=== PATIENT | female | born 1945 | race Caucasian/White ===

== ENCOUNTER → 2020-06-17 11:40 | Outpatient (BNVA) | payer OTHER, SELFPAY | PROVIDERS: PCP Internal Medicine; Referring Provider Internal Medicine; Visit Provider Nurse Practitioner Gerontology | DX: E11.9 Type 2 diabetes mellitus without complications (principal); I10 Essential (primary) hypertension; E78.5 Hyperlipidemia, unspecified | CPT/HCPCS: 99213 ==

== ENCOUNTER → 2020-09-23 08:19 | Outpatient (BNVA) | payer OTHER, SELFPAY | PROVIDERS: PCP Internal Medicine; Visit Provider Nurse Practitioner Gerontology | DX: Z13.89 Encounter for screening for other disorder (principal) | CPT/HCPCS: Q3014 ==

== ENCOUNTER 2020-10-06 08:39 | Outpatient (REF) | payer OTHER, SELFPAY ==
[2020-10-06 10:53] LABS: Estimated Average Glucose 154 mg/dL
== END 2020-10-06 08:40 | disposition home or self-care (01) ==
LOC: HO.10HDL 08:39
PROVIDERS: Visit Provider Nurse Practitioner Gerontology
DX: E11.65 Type 2 diabetes mellitus with hyperglycemia (principal)
CPT/HCPCS: 36415; 83036

== ENCOUNTER 2020-11-22 08:12 | Outpatient (REF) | payer OTHER, SELFPAY ==
[2020-11-22 10:28] LABS: Estimated Average Glucose 148 mg/dL; Hemoglobin A1c % 6.8 %
== END 2020-11-22 08:13 | disposition home or self-care (01) ==
LOC: HO.10HDL 08:12
PROVIDERS: Visit Provider Nurse Practitioner Gerontology
DX: E11.65 Type 2 diabetes mellitus with hyperglycemia (principal)
CPT/HCPCS: 36415; 83036

== ENCOUNTER → 2020-12-26 10:18 | Outpatient (BNVA) | payer OTHER, SELFPAY | PROVIDERS: PCP Internal Medicine; Visit Provider Nurse Practitioner Gerontology | DX: E11.9 Type 2 diabetes mellitus without complications (principal); E78.5 Hyperlipidemia, unspecified; I10 Essential (primary) hypertension | CPT/HCPCS: 82947; 99212 ==

== ENCOUNTER 2021-06-30 08:30 | Outpatient (REF) | payer OTHER, SELFPAY ==
[2021-06-30 10:17] LABS: Alanine Aminotransferase 27 U/L (0-31); Albumin Level 3.9 g/dL (3.5-5.0); Alkaline Phosphatase 53 U/L (39-117); Anion Gap 10 (12-20); Aspartate Amino Transferase 30 U/L (5-31); Bilirubin Total 0.4 mg/dL (0.0-1.0); Blood Urea Nitrogen 16 mg/dL (9-16); Carbon Dioxide 29 mmol/L (22-29); Chloride 106 mmol/L (96-108); Cholesterol 154 mg/dL; Estimated Glomerular Filt Rate > 60; Glucose Fasting 152 mg/dL (60-99); HDL Cholesterol 45 mg/dL; LDL Cholesterol Calculated 78 mg/dl; Sodium 141 mmol/L (135-145); Triglycerides 158 mg/dL
[2021-06-30 10:20] LABS: Cholesterol 153 mg/dL; HDL Cholesterol 45 mg/dL; LDL Cholesterol Calculated 77 mg/dl; Triglycerides 157 mg/dL
[2021-06-30 10:28] LABS: Creatinine Urine 118.71 mg/dL
[2021-06-30 10:40] LABS: Vitamin D 25-OH Total 21.1 ng/mL (>30)
[2021-07-01 09:02] LABS: LDL Cholesterol Direct 65 mg/dL (<100)
== END 2021-06-30 08:31 | disposition home or self-care (01) ==
LOC: HO.LAB 08:30
PROVIDERS: PCP Internal Medicine; Visit Provider Nurse Practitioner Gerontology
DX: E11.9 Type 2 diabetes mellitus without complications (principal); I10 Essential (primary) hypertension; Z78.0 Asymptomatic menopausal state
CPT/HCPCS: 36415; 80053; 80061; 82043; 82306; 83721

== ENCOUNTER → 2021-07-03 10:15 | Outpatient (BNVA) | payer OTHER, SELFPAY | PROVIDERS: PCP Internal Medicine; Visit Provider Nurse Practitioner Gerontology | DX: E78.5 Hyperlipidemia, unspecified (principal); E11.9 Type 2 diabetes mellitus without complications; E55.9 Vitamin D deficiency, unspecified; I10 Essential (primary) hypertension | CPT/HCPCS: 82947; 83036; 99212 ==

== ENCOUNTER 2021-07-27 08:42 | Outpatient (REF) | payer OTHER, SELFPAY ==
--- NOTE | ~2021-07-27 | MM_ITS ---
EXAMINATION: MM SCREENING DIGITAL BREAST TOMOSYNTHESIS, BILATERAL CLINICAL INFORMATION: Screening. Asymptomatic. The lifetime risk of breast cancer based on the Tyrer-Cuzick Model is 1.9%. COMPARISON: Mammography: June 07, 2020 and studies dating back to February 19, 2014 TECHNIQUE: Digital breast tomosynthesis is performed in both the craniocaudal and mediolateral oblique views along with computer-aided detection (CAD). Synthesized 2D images are generated from the tomosynthesis. FINDINGS: The breasts are almost entirely fatty (ACR BI-RADS breast composition Category a). There are no significant masses, abnormal calcifications, or other abnormalities. MM/MM tomosynthesis screening BI IMPRESSION: There are no significant changes from prior study. ASSESSMENT: BI-RADS 1: Negative RECOMMENDATION: Routine annual mammography screening. This patient's information was entered into a reminder system with a target due date for their next mammogram.
== END 2021-07-27 08:43 | disposition home or self-care (01) ==
LOC: HO.MAMMO 08:42
PROVIDERS: Visit Provider Internal Medicine
DX: Z12.31 Encounter for screening mammogram for malignant neoplasm of breast (principal)
CPT/HCPCS: 77063; 77067

== ENCOUNTER 2021-11-06 18:17 | Inpatient (IN) | payer OTHER, SELFPAY ==
--- NOTE | ~2021-11-06 | CT_ITS ---
CT SOFT TISSUE NECK WITHOUT CONTRAST CLINICAL INFORMATION: Question peritonsillar abscess. COMPARISON: Neck CT 04/08/2020. TECHNIQUE: Helical imaging was performed in the axial plane with generation of coronal and sagittal reformatted images. This CT examination was performed using dose optimization techniques as appropriate, variously including the following: *Automated exposure control *Adjustment of mA and/or kV according to patient size (this includes techniques or standardized protocols for targeted exams where dose is matched to indication/reason for exam; i.e. extremities or head) *Use of iterative reconstruction technique FINDINGS: Imaging findings compatible with acute left-sided submandibular sialoadenitis. There is enlargement of the left submandibular gland, there are inflammatory changes adjacent to the left submandibular gland, and there are multiple obstructing calculi within the distal aspect of [place]'s duct on the left side measuring 3 mm on image 40 of series 2 and 2 mm on image 37 of series 2. There are also multiple calculi within the left subarticular gland itself. Cellulitis is seen throughout the left submandibular space and there is also cellulitis within the left floor of mouth along [place]'s duct extending into the left submental region. Remaining fat planes within the floor of mouth are intact. No drainable fluid collections to suggest abscess on this noncontrast study. The thyroid gland and the parotid glands are unremarkable. Laryngeal structures are symmetric and unremarkable. There are no retropharyngeal fluid collections. Retropharyngeal course of the right cervical ICA. There is multilevel cervical spondylosis, greatest at C5-C6 and C6-C7. Hypertrophic degenerative changes at the atlantodental interval. Nonspecific reticulation and nodules within the partially imaged lungs bilaterally that can be further assessed with a contrast-enhanced CT of the chest to establish further imaging follow-up recommendations. Imaged upper mediastinum is unremarkable. CT/CT soft tissue neck wo con IMPRESSION: - Acute left submandibular sialoadenitis: There is enlargement of the left submandibular gland, there are inflammatory changes adjacent to the left submandibular gland, and there are multiple obstructing calculi within the distal aspect of [place]lar[place]'s duct on the left side measuring 3 mm on image 40 of series 2 and 2 mm on image 37 of series 2. There are also multiple calculi within the left subarticular gland itself. Cellulitis is seen throughout the left submandibular space and there is also cellulitis within the left floor of mouth along [place]'s duct extending into the left submental region. Remaining fat planes within the floor of mouth are intact. No drainable fluid collections to suggest abscess however assessment is limited on this noncontrast study. - Nonspecific reticulation and nodules within the partially imaged lungs bilaterally that can be further assessed with a contrast-enhanced CT of the chest to establish further imaging follow-up recommendations.
[2021-11-06 19:54] VITALS: BP 188/81; PULSE 69; RESP 16; TEMP 36.6; O2SAT 99; BMI 25.2
[2021-11-06 20:18] LABS: Strep A Nucleic Acid Negative (Negative)
[2021-11-06 21:04] LABS: MANUAL DIFF FLAG NO
[2021-11-06 21:06] LABS: Basophils Percent Auto 0.2 % (0-2); Eosinophils Absolute Auto 0.1 X10*3/uL (0.0-0.4); Eosinophils Percent Auto 0.8 % (0-4); Hematocrit 41.4 % (37.0-47.0); Imm Gran Abs Auto 0.02 X10*3/uL (0.00-0.03); Imm Gran Pct Auto 0.2 % (0.0-0.4); Lymphocytes Absolute Auto 2.7 X10*3/uL (1.2-4.9); Lymphocytes Percent Auto 28.3 % (20-40); Mean Corpuscular HGB Conc 33.8 g/dl (31.0-35.0); Mean Corpuscular Volume 94.7 fL (80.0-98.0); Mean Platelet Volume 9.9 fL (9.4-12.3); Monocytes Absolute Auto 0.8 X10*3/uL (0.1-1.2); Monocytes Percent Auto 8.8 % (2-11); Neutrophils Absolute Auto 5.9 x10*3/uL (2.0-8.3); Neutrophils Percent Auto 61.7 % (45-73); Platelet Count 185 X10*3/uL (160-400); Red Blood Count 4.37 X10*6/uL (4.20-5.50); Red Cell Distribution Width 13.4 % (11.0-16.0); White Blood Count 9.6 X10*3/uL (4.8-10.8)
[2021-11-06 21:21] LABS: Anion Gap 13 (12-20); Blood Urea Nitrogen 17 mg/dL (9-16); Calcium 9.7 mg/dL (8.4-10.2); Carbon Dioxide 28 mmol/L (22-29); Chloride 103 mmol/L (96-108); Creatinine Clr Calc Pharmacy 45.9; Estimated Glomerular Filt Rate 60; Glucose Random 160 mg/dL (60-115); Potassium 3.6 mmol/L (3.3-5.1); Sodium 140 mmol/L (135-145)
--- NOTE | 2021-11-06 23:47 | ED.GENADULT ---
HPI - General Adult General Chief complaint: General Medical <Rosi Boyle NP - Last Filed: 11/07/21 01:50> Stated complaint: swollen gland/ throat pain <Rosi Boyle NP - Last Filed: 11/07/21 01:50> Time Seen by Provider: 11/07/21 01:43 <Rosi Boyle NP - Last Filed: 11/07/21 01:50> Source: patient and family <Rosi Boyle NP - Last Filed: 11/07/21 01:50> Mode of arrival: ambulatory <Rosi Boyle NP - Last Filed: 11/07/21 01:50> Limitations: no limitations <Rosi Boyle NP - Last Filed: 11/07/21 01:50> History of Present Illness HPI narrative: 75-year-old female presents with 2 weeks of sore throat, left-sided swelling, left ear pain, and difficulty swallowing. Today she was unable to swallow saliva, is in 10/10 pain and is having a difficult time lying back. <Rosi Boyle NP - Last Filed: 11/07/21 01:50> Onset (ago): week(s) <Rosi Boyle NP - Last Filed: 11/07/21 01:50> Location: mouth and neck <Rosi Boyle NP - Last Filed: 11/07/21 01:50> Severity: severe <Rosi Boyle NP - Last Filed: 11/07/21 01:50> Severity scale (1-10): 10 <Rosi Boyle NP - Last Filed: 11/07/21 01:50> Quality: aching and constant <Rosi Boyle NP - Last Filed: 11/07/21 01:50> Pain Consistency: constant <Rosi Boyle NP - Last Filed: 11/07/21 01:50> Relieving factors: none <Rosi Boyle NP - Last Filed: 11/07/21 01:50> Exacerbating factors: eating and movement <Rosi Boyle NP - Last Filed: 11/07/21 01:50> Associated symptoms: denies other symptoms <Rosi Boyle NP - Last Filed: 11/07/21 01:50> Treatments prior to arrival: none <Rosi Boyle NP - Last Filed: 11/07/21 01:50> Related Data Home medications: Home Medications Medication Instructions Recorded Confirmed loratadine 10 mg tablet (Claritin) 10 mg PO DAILY 06/17/20 11/01/21 meclizine 25 mg tablet 25 mg PO DAILY 06/17/20 11/01/21 flu vacc 2020-21(65yr 0.5 ml IM DIRECTED 07/25/20 11/01/21 up)-MF59C(PF) 60 mcg(15 mcgx4)/0.5 mL IM syringe escitalopram oxalate 10 mg tablet 10 mg PO DAILY 07/03/21 11/01/21 rivastigmine 1 patch TOPICAL QAM 07/31/21 11/01/21 Previous Rx's Medication Instructions Recorded cane #1 ea 07/25/20 tub safety bar #1 ea 07/25/20 rosuvastatin 20 mg tablet 20 mg PO DAILY #90 tab 07/29/20 blood-glucose meter (FreeStyle #1 ea 08/10/20 Lite Meter) hydrocortisone acetate 25 mg 25 mg [place] BEDTIME #12 ea 01/23/21 rectal suppository cholecalciferol (vitamin D3) 50 50 mcg PO DAILY #90 cap 07/03/21 mcg (2,000 unit) capsule blood sugar diagnostic (FreeStyle #150 ea 08/07/21 Lite Strips) lancets 28 gauge (FreeStyle #200 ea 08/09/21 Lancets) dulaglutide 1.5 mg/0.5 mL 1.5 mg (0.5 mL) SUBCUT QWEEK 28 11/01/21 subcutaneous pen injector Days #6 ml (Trulicity) <Rosi Boyle NP - Last Filed: 11/07/21 01:50> Allergies/adverse reactions: Allergies Allergy/AdvReac Type Severity Reaction Status Date / Time pineapple [PINEAPPLE] Allergy Intermediate SKIN PEELS Verified 11/06/21 20:02 Iodinated Contrast Media Allergy Mild HIVES Verified 11/06/21 20:02 [IV Dye, Iodine Containing] donepezil AdvReac Intermediate nausea, Verified 11/06/21 20:02 dizziness and vomiting pioglitazone AdvReac Intermediate edema Verified 11/06/21 20:02 amitriptyline [From Elavil] AdvReac Mild NAUSEA & Verified 11/06/21 20:02 VOMITING amoxicillin [Amoxicillin] AdvReac Mild NAUSEA & Verified 11/06/21 20:02 VOMITING codeine AdvReac Mild NAUSEA & Verified 11/06/21 20:02 [From Tylenol-Codeine] VOMITING lisinopril [Lisinopril] AdvReac Mild NAUSEA & Verified 11/06/21 20:02 VOMITING acetaminophen [Tylenol] AdvReac Unknown tylenol 3 Verified 11/06/21 20:02 (states regulare tylenol upset stomach as well) aspirin [Aspirin] AdvReac Unknown NAUSEA & Verified 11/06/21 20:02 VOMITING oxycodone [Percocet] AdvReac Unknown stomach Verified 11/06/21 20:02 upset tramadol [From Ultram] AdvReac Unknown NAUSEA & Verified 11/06/21 20:02 VOMITING <Rosi Boyle NP - Last Filed: 11/07/21 01:50> Review of Systems Review of Systems: Constitutional: No Fever, No Chills ENT/Mouth: Positive left Ear Pain, No Hoarseness, positive sore throat, positive left-sided and neck throat swelling Eyes: No Eye Pain, No Swelling, No Redness, No Foreign Body Cardiovascular: No Chest Pain, No SOB Respiratory: No Cough, No Dyspnea Gastrointestinal: No Nausea, No Vomiting, No Diarrhea, No abdominal Pain Genitourinary: No Dysuria, No Hematuria Musculoskeletal: positive neck pain, No Myalgias, No Joint Swelling Skin: No Skin lacerations, No rash Neuro: No Weakness, No Numbness, No Paresthesias, No Loss of Consciousness, No Dizziness, No Headache Psych: Positive Anxiety no Panic, No Depression Heme/Lymph: no easy bruising, no Lymphadenopathy Endocrine: No Polyuria, No Polydipsia <JONATHAN Cruz Last Filed: 11/07/21 01:50> Yes all other systems are reviewed and are negative <JONATHAN Cruz Last Filed: 11/07/21 01:50> [facility] Past Medical History Attestation statement: The following information was validated with the patient. <JONATHAN Cruz Last Filed: 11/07/21 01:50> Source: old records reviewed <JONATHAN Cruz Last Filed: 11/07/21 01:50> Medical History: Medical History Anxiety Balance disorder Controlled diabetes mellitus without complication, without long-term current use of insulin Hemorrhoid Hyperlipidemia LDL goal <100 Hypertension Lumbar scoliosis Osteoarthritis Sensorineural hearing loss Type 2 diabetes mellitus with hyperglycemia, without long-term current use of insulin Vitamin D deficiency <Rosi Boyle NP - Last Filed: 11/07/21 01:50> Surgical History: Surgical History History of bladder suspension procedure Hx of cholecystectomy <Rosi Boyle NP - Last Filed: 11/07/21 01:50> Family History Family History: Family History Father Pulmonary disease Mother Liver cirrhosis Diabetes Other Mental health disorder <Rosi Boyle NP - Last Filed: 11/07/21 01:50> Social History Social History: Social History Household Members: None Housing: Apartment Housing Other:: apartment for custodial Alcohol intake: never Patient Tobacco Use Status: Never used Tobacco Advance Directives: No Current occupational status: retired <Rosi Boyle NP - Last Filed: 11/07/21 01:50> Physical Exam ED Vital Signs: Vital Signs - 24 hr 11/06/21 19:54 11/07/21 00:06 Temperature 97.9 F 99.3 F Pulse Rate 69 74 Respiratory Rate 16 24 H Blood Pressure 188/81 H 175/70 H Pulse Oximetry 99 100 BMI result Body Mass Index 25.2 <Rosi Boyle NP - Last Filed: 11/07/21 01:50> Vital Signs - 24 hr 11/06/21 19:54 11/07/21 00:06 Temperature 97.9 F 99.3 F Pulse Rate 69 74 Respiratory Rate 16 24 H Blood Pressure 188/81 H 175/70 H Pulse Oximetry 99 100 BMI result Body Mass Index 25.2 <Dylon Horvath MD - Last Filed: 11/07/21 01:50> Appearance: Alert. Oriented X3. Moderate distress. Eyes: Pupils equal, round and reactive to light. ENT: Unable to visualize pharynx. Mallampati 4. Trismus. No tracheal stridor. Neck: Swelling to the left side. Left-sided cervical lymphadenopathy noted. CVS: Normal heart rate and rhythm. Pulses normal. Respiratory: Tachypneic. Breath sounds normal. Abdomen: Soft and nontender. Skin: Skin warm and dry. Normal skin color. Normal skin turgor. Extremities: No lower extremity edema. Gait balanced and coordinated. Neuro: No motor deficit. No sensory deficit. Unable to properly assess cranial nerves as patient is unable to move her tongue and uvula is not visualized. <Rosi Boyle NP - Last Filed: 11/07/21 01:50> Course Course Course Narrative: 75-year-old female presents with 2 weeks of left-sided throat pain and swelling. Has having a difficult time swallowing today. Has not had anything to eat or drink for the past 2 days because of difficulty swallowing. She is spitting out her saliva. Unable to open her mouth completely, consistent with trismus. Patient is tachypneic. Order for Decadron, Zosyn, morphine, and Zofran. 00:15 discussion with Darrick,, Dr. moser ENT on-call, does not feel that this is an ENT candidate. Requires IV antibiotics and Decadron. Also, [facility] is not open to non stable transfers. Dr. Brown in to attempt to remove stone in the [place] duct. 3 mm stone removed with some purulent fluid expression. Patient tolerated procedure. Multiple discussions with hospitalist, plan of care is for patient to stay in the emergency department with 24 hours of IV antibiotics and referral to ENT. 01:[address] Alvarez. <Rosi Boyle NP - Last Filed: 11/07/21 01:50> Consultations Consultation #1: [facility]rick <Rosi Boyle NP - Last Filed: 11/07/21 01:50> Time: 00:15 <Rosi Boyle NP - Last Filed: 11/07/21 01:50> Medical Decision Making MDM Narrative Medical decision making narrative: Patient with left submandibular sialodenitis and sialolithiasis with stone in the Banks duct for last 2 weeks with no airway compromise no abscess collection. Stone was felt in left [place] duct and milk it out using fingers and q tip, a stone of 3 mm was expressed out. post expression patient saliva was coming out from the Banks duct opening. Patient felt much better. Case discussed with hospitalist who refused admission as patient has more stones in the salivary gland although hospitalist was informed that there was no more stone in the duct as such as it was expressed out but as we do not have ENT coverage in our hospital admission was refused. Unable to transfer the patient to [facility] as case discussed with ENT surgeon at [facility] who does not think is an emergency for transfer which was informed to our hospitalist also. Will patient keep the patient in the ER today till AM and get the ENT consult for further management as patient need antibiotics treatment for cellulitis <Dylon Horvath MD - Last Filed: 11/07/21 01:50> Differential Diagnosis Differential Diagnosis: Strep pharyngitis, sialadenditis, tonsillar stone, parotiditis <Rosi Boyle NP - Last Filed: 11/07/21 01:50> Medical Records Medical records reviewed: Yes I reviewed the patient's medical records. <Rosi Boyle NP - Last Filed: 11/07/21 01:50> Lab Data Lab results reviewed: Yes I reviewed the patient's lab results. <Rosi Boyle NP - Last Filed: 11/07/21 01:50> Result diagrams: : 11/06/21 20:59 11/06/21 20:59 <Rosi Boyle NP - Last Filed: 11/07/21 01:50> Labs: Lab Results 11/06/21 11/06/21 11/06/21 Range/Units 20:05 20:59 20:59 WBC 9.6 (4.8-10.8) X10*3/uL RBC 4.37 (4.20-5.50) X10*6/uL Hgb 14.0 (12.0-16.0) g/dl Hct 41.4 (37.0-47.0) % MCV 94.7 (80.0-98.0) fL MCH 32.0 (27.0-33.0) pg MCHC 33.8 (31.0-35.0) g/dl RDW 13.4 (11.0-16.0) % Plt Count 185 (160-400) X10*3/uL MPV 9.9 (9.4-12.3) fL Immature Gran % (Auto) 0.2 (0.0-0.4) % Neut % (Auto) 61.7 (45-73) % Lymph % (Auto) 28.3 (20-40) % [place] % (Auto) 8.8 (2-11) % Eos % (Auto) 0.8 (0-4) % Baso % (Auto) 0.2 (0-2) % Lymph # (Auto) 2.7 (1.2-4.9) X10*3/uL [place] # (Auto) 0.8 (0.1-1.2) X10*3/uL Eos # (Auto) 0.1 (0.0-0.4) X10*3/uL Baso # (Auto) 0.0 (0.0-0.2) X10*3/uL Abs Immat Gran (auto) 0.02 (0.00-0.03) X10*3/uL Absolute Neuts (auto) 5.9 (2.0-8.3) x10*3/uL Absolute Nucleated RBC 0.000 (0.0-0.012) X10*3/uL Nucleated RBC % (auto) 0.0 (0.0-0.2) /100WBC Sodium 140 (135-145) mmol/L Potassium 3.6 (3.3-5.1) mmol/L Chloride 103 (96-108) mmol/L Carbon Dioxide 28 (22-29) mmol/L Anion Gap 13 (12-20) BUN 17 H (9-16) mg/dL Creatinine 0.92 (0.5-1.4) mg/dL Estim Creat Clear Calc 45.9 Estimated GFR 60 Random Glucose 160 H (60-115) mg/dL Calcium 9.7 D (8.4-10.2) mg/dL COVID-19 ([facility]) (Negative) COVID-19 Clin Com S. pyogenes GrpA RHYS Negative (Negative) 11/07/21 Range/Units 00:14 WBC (4.8-10.8) X10*3/uL RBC (4.20-5.50) X10*6/uL Hgb (12.0-16.0) g/dl Hct (37.0-47.0) % MCV (80.0-98.0) fL MCH (27.0-33.0) pg MCHC (31.0-35.0) g/dl RDW (11.0-16.0) % Plt Count (160-400) X10*3/uL MPV (9.4-12.3) fL Immature Gran % (Auto) (0.0-0.4) % Neut % (Auto) (45-73) % Lymph % (Auto) (20-40) % [place] % (Auto) (2-11) % Eos % (Auto) (0-4) % Baso % (Auto) (0-2) % Lymph # (Auto) (1.2-4.9) X10*3/uL [place] # (Auto) (0.1-1.2) X10*3/uL Eos # (Auto) (0.0-0.4) X10*3/uL Baso # (Auto) (0.0-0.2) X10*3/uL Abs Immat Gran (auto) (0.00-0.03) X10*3/uL Absolute Neuts (auto) (2.0-8.3) x10*3/uL Absolute Nucleated RBC (0.0-0.012) X10*3/uL Nucleated RBC % (auto) (0.0-0.2) /100WBC Sodium (135-145) mmol/L Potassium (3.3-5.1) mmol/L Chloride (96-108) mmol/L Carbon Dioxide (22-29) mmol/L Anion Gap (12-20) BUN (9-16) mg/dL Creatinine (0.5-1.4) mg/dL Estim Creat Clear Calc Estimated GFR Random Glucose (60-115) mg/dL Calcium (8.4-10.2) mg/dL COVID-19 ([facility]) Negative (Negative) COVID-19 Clin Com See Note S. pyogenes GrpA RHYS (Negative) <Rosi Boyle NP - Last Filed: 11/07/21 01:50> Lab Results 11/06/21 11/06/2111/06/22 Range/Units 20:05 20:59 20:59 WBC 9.6 (4.8-10.8) X10*3/uL RBC 4.37 (4.20-5.50) X10*6/uL Hgb 14.0 (12.0-16.0) g/dl Hct 41.4 (37.0-47.0) % MCV 94.7 (80.0-98.0) fL MCH 32.0 (27.0-33.0) pg MCHC 33.8 (31.0-35.0) g/dl RDW 13.4 (11.0-16.0) % Plt Count 185 (160-400) X10*3/uL MPV 9.9 (9.4-12.3) fL Immature Gran % (Auto) 0.2 (0.0-0.4) % Neut % (Auto) 61.7 (45-73) % Lymph % (Auto) 28.3 (20-40) % [place] % (Auto) 8.8 (2-11) % Eos % (Auto) 0.8 (0-4) % Baso % (Auto) 0.2 (0-2) % Lymph # (Auto) 2.7 (1.2-4.9) X10*3/uL [place] # (Auto) 0.8 (0.1-1.2) X10*3/uL Eos # (Auto) 0.1 (0.0-0.4) X10*3/uL Baso # (Auto) 0.0 (0.0-0.2) X10*3/uL Abs Immat Gran (auto) 0.02 (0.00-0.03) X10*3/uL Absolute Neuts (auto) 5.9 (2.0-8.3) x10*3/uL Absolute Nucleated RBC 0.000 (0.0-0.012) X10*3/uL Nucleated RBC % (auto) 0.0 (0.0-0.2) /100WBC Sodium 140 (135-145) mmol/L Potassium 3.6 (3.3-5.1) mmol/L Chloride 103 (96-108) mmol/L Carbon Dioxide 28 (22-29) mmol/L Anion Gap 13 (12-20) BUN 17 H (9-16) mg/dL Creatinine 0.92 (0.5-1.4) mg/dL Estim Creat Clear Calc 45.9 Estimated GFR 60 Random Glucose 160 H (60-115) mg/dL Calcium 9.7 D (8.4-10.2) mg/dL COVID-19 ([facility]) (Negative) COVID-19 Clin Com S. pyogenes GrpA RHYS Negative (Negative) 11/07/21 Range/Units 00:14 WBC (4.8-10.8) X10*3/uL RBC (4.20-5.50) X10*6/uL Hgb (12.0-16.0) g/dl Hct (37.0-47.0) % MCV (80.0-98.0) fL MCH (27.0-33.0) pg MCHC (31.0-35.0) g/dl RDW (11.0-16.0) % Plt Count (160-400) X10*3/uL MPV (9.4-12.3) fL Immature Gran % (Auto) (0.0-0.4) % Neut % (Auto) (45-73) % Lymph % (Auto) (20-40) % [place] % (Auto) (2-11) % Eos % (Auto) (0-4) % Baso % (Auto) (0-2) % Lymph # (Auto) (1.2-4.9) X10*3/uL [place] # (Auto) (0.1-1.2) X10*3/uL Eos # (Auto) (0.0-0.4) X10*3/uL Baso # (Auto) (0.0-0.2) X10*3/uL Abs Immat Gran (auto) (0.00-0.03) X10*3/uL Absolute Neuts (auto) (2.0-8.3) x10*3/uL Absolute Nucleated RBC (0.0-0.012) X10*3/uL Nucleated RBC % (auto) (0.0-0.2) /100WBC Sodium (135-145) mmol/L Potassium (3.3-5.1) mmol/L Chloride (96-108) mmol/L Carbon Dioxide (22-29) mmol/L Anion Gap (12-20) BUN (9-16) mg/dL Creatinine (0.5-1.4) mg/dL Estim Creat Clear Calc Estimated GFR Random Glucose (60-115) mg/dL Calcium (8.4-10.2) mg/dL COVID-19 ([facility]) Negative (Negative) COVID-19 Clin Com See Note S. pyogenes GrpA RHYS (Negative) <Dylon Horvath MD - Last Filed: 11/07/21 01:50> Imaging Data CT neck soft tissue: Attestation: I personally reviewed and interpreted this imaging study as follows: <Rosi Boyle NP - Last Filed: 11/07/21 01:50> Radiologist's impression: CT SOFT TISSUE NECK WITHOUT CONTRAST CLINICAL INFORMATION: Question peritonsillar abscess.? COMPARISON: Neck CT 04/08/2020. TECHNIQUE: Helical imaging was performed in the axial plane with generation of coronal and sagittal reformatted images. This CT examination was performed using dose optimization techniques as appropriate, variously including the following: *Automated exposure control *Adjustment of mA and/or kV according to patient size (this includes techniques or standardized protocols for targeted exams where dose is matched to indication/reason for exam; i.e. extremities or head) *Use of iterative reconstruction technique FINDINGS: Imaging findings compatible with acute left-sided submandibular sialoadenitis. There is enlargement of the left submandibular gland, there are inflammatory changes adjacent to the left submandibular gland, and there are multiple obstructing calculi within the distal aspect of Klarissa's duct on the left side measuring 3 mm on image 40 of series 2 and 2 mm on image 37 of series 2. There are also multiple calculi within the left subarticular gland itself. Cellulitis is seen throughout the left submandibular space and there is also cellulitis within the left floor of mouth along Banks's duct extending into the left submental region. Remaining fat planes within the floor of mouth are intact. No drainable fluid collections to suggest abscess on this noncontrast study. The thyroid gland and the parotid glands are unremarkable. Laryngeal structures are symmetric and unremarkable. There are no retropharyngeal fluid collections. Retropharyngeal course of the right cervical ICA. There is multilevel cervical spondylosis, greatest at C5-C6 and C6-C7. Hypertrophic degenerative changes at the atlantodental interval. Nonspecific reticulation and nodules within the partially imaged lungs bilaterally that can be further assessed with a contrast-enhanced CT of the chest to establish further imaging follow-up recommendations. Imaged upper mediastinum is unremarkable. CT/CT soft tissue neck wo con IMPRESSION: - Acute left submandibular sialoadenitis: There is enlargement of the left submandibular gland, there are inflammatory changes adjacent to the left submandibular gland, and there are multiple obstructing calculi within the distal aspect of Banks's duct on the left side measuring 3 mm on image 40 of series 2 and 2 mm on image 37 of series 2. There are also multiple calculi within the left subarticular gland itself. Cellulitis is seen throughout the left submandibular space and there is also cellulitis within the left floor of mouth along Banks's duct extending into the left submental region. Remaining fat planes within the floor of mouth are intact. No drainable fluid collections to suggest abscess however assessment is limited on this noncontrast study. ? - Nonspecific reticulation and nodules within the partially imaged lungs bilaterally that can be further assessed with a contrast-enhanced CT of the chest to establish further imaging follow-up recommendations. <oRsi Boyle NP - Last Filed: 11/07/21 01:50> Discharge Plan Discharge Clinical Impression: Calculus in salivary duct, Cellulitis of submandibular region <Rosi Boyle NP - Last Filed: 11/07/21 01:50> Patient Disposition: Still a Patient <Rosi Boyle NP - Last Filed: 11/07/21 01:50> Prescriptions: No Action rosuvastatin 20 mg tablet 20 mg PO DAILY Qty: 90 8RF (DME) blood-glucose meter [FreeStyle Lite Meter] Kit See Rx Instructions .ROUTE .MEDSUPPLY Qty: 1 0RF Rx Instructions: Use to check blood sugars twice a day before meals (DME) FreeStyle Lite Strips Strip See Rx Instructions .ROUTE .MEDSUPPLY Qty: 150 8RF Rx Instructions: check blood sugar four times a day (DME) lancets [FreeStyle Lancets] 28 gauge misc See Rx Instructions .ROUTE .MEDSUPPLY Qty: 200 8RF Rx Instructions: four times a day Trulicity 1.5 mg/0.5 mL pen injector 1.5 mg subcut QWEEK 28 Days Qty: 6 1RF flu vac 2020 [id number](PF) 60 mcg (15 mcg x 4)/0.5 mL syringe 0.5 ml IM DIRECTED 0RF (DME) cane Device See Rx Instructions .ROUTE .MEDSUPPLY Qty: 1 0RF Rx Instructions: use as directed (DME) tub safety bar See Rx Instructions .Route .MEDSUPPLY Qty: 1 0RF Rx Instructions: As directed hydrocortisone acetate 25 mg suppository 25 mg W[place] BEDTIME Qty: 12 0RF rivastigmine 4.6 mg/24 hour patch 24 hour 1 patch topical QAM 0RF loratadine [Claritin] 10 mg tablet 10 mg PO DAILY 0RF meclizine 25 mg tablet 25 mg PO DAILY 0RF escitalopram oxalate 10 mg tablet 10 mg PO DAILY 0RF cholecalciferol (vitamin D3) 50 mcg (2,000 unit) capsule 50 mcg PO DAILY Qty: 90 0RF <Rosi Boyle [employer] - Last Filed: 11/07/21 01:50>
[2021-11-07] VITALS (11 sets, daily range): BP systolic 108–175; BP diastolic 56–81; PULSE 65–92; RESP 16–185; TEMP 36.5–37.4; O2SAT 89–100
[2021-11-07] MEDS: Piperacillin Sodium/Tazobactam 3.375 GM in 0.9 % Sodium Chloride 50 ML IV ×3 (00:25→16:03)
[2021-11-07] MEDS: ondansetron HCL 4 MG/2 ML VIAL IVPUSH ×3 (00:26→20:58)
[2021-11-07] MEDS: dexAMETHasone sod phosphate 10 MG/ML VIAL IVPUSH (00:26)
[2021-11-07] MEDS: Morphine Sulfate 4 MG/ML CARTRIDGE IVPUSH ×2 (00:26→07:42)
[2021-11-07] MEDS: 0.9 % Sodium Chloride 1,000 ML 999 ML IVCONT (00:28)
[2021-11-07 00:33] LABS: COVID-19 Test Negative (Negative)
[2021-11-07] MEDS: Ketorolac Tromethamine 15 MG/ML VIAL IVPUSH (01:07)
--- NOTE | 2021-11-07 07:27 | PC.NURSE ---
pt alert and oriented, skin appropriate, respirations even and unlabored, speaking in full clear sentences, some swelling visible in the throat area but able to handle her own secretions at this time, pain when patient is swallowing, ns on the monitor, vs stable
--- NOTE | 2021-11-07 08:32 | PC.NURSE ---
oxygen level dropping when the pt is sleeping, dropped to 89% on room air, pt put on nasal cannual at 2l
--- NOTE | 2021-11-07 11:36 | PC.NURSE ---
patient in no obvious distress at this time. daughter at bedside. made aware of care of plan. denies any needs at this time. will continue to monitor
--- NOTE | 2021-11-07 13:49 | PHA.MEDREC ---
med rec complete, no issues Pharmacy Consult ? Medication Reconciliation Pharmacy has completed the medication reconciliation.
--- NOTE | 2021-11-07 13:54 | PM.IMHP ---
History of Present Illness Date of Service: 11/07/21 Attending physician on admission: Cynthia Palomino Chief Complaint: cellulitis 75-year-old female with past medical history of diabetes, hypertension, hyperlipidemia, possible dementia, anxiety: Came to the hospital because has 2 weeks history of mouth pain very dominant LE on the left submandibular area and was having bold active swelling, she s aid pain progressively getting worse and yesterday was on be able so came to the hospital. She was also having difficulty swelling because of the pain. She denies any chest pain or [place] or blurry vision or headache or weakness no numbness, Denies any shortness of breath or any of it compromise. The submandibular pain was going back to the left ear area. Five yesterday night in the ED: ?Stone was felt in left Klarissa duct and milk it out using fingers and q tip, a stone of 3 mm was expressed out. post expression patient? saliva was coming out from the Klarissa duct opening. Since the stone was out and saliva of as draining patient patient has been is improving but still has significant pain in the area. CT of neck also shows question of cellulitis. But patient has more swelling/pain and some mandibular area . In the ED patient received: Dexamethasone, IV dosing coma Toradol, morphine, iv zosyn- ED physician Dr. walsh: Discussed the case with Dr. Ochoa ENT and requested admission for above-started on iv. Review of Systems Review of Systems: As above. [facility] Medical History Anxiety Balance disorder Controlled diabetes mellitus without complication, without long-term current use of insulin Hemorrhoid Hyperlipidemia LDL goal <100 Hypertension Lumbar scoliosis Osteoarthritis Sensorineural hearing loss Type 2 diabetes mellitus with hyperglycemia, without long-term current use of insulin Vitamin D deficiency Family History Father Pulmonary disease Mother Liver cirrhosis Diabetes Other Mental health disorder Pertinent family history: But other has hypertension, history of CVA, mi. And has history of CVA Mother had history of diabetes. Surgical History History of bladder suspension procedure Hx of cholecystectomy Social History Household Members: None Housing: Apartment Housing Other:: apartment for fpc Alcohol intake: never Patient Tobacco Use Status: Never used Tobacco Use of substances other than those prescribed or required for medical reasons: No Advance Directives: No Current occupational status: retired Meds Allergies Allergy/AdvReac Type Severity Reaction Status Date / Time pineapple [PINEAPPLE] Allergy Intermediate SKIN PEELS Verified 11/06/21 20:02 Iodinated Contrast Media Allergy Mild HIVES Verified 11/06/21 20:02 [IV Dye, Iodine Containing] donepezil AdvReac Intermediate nausea, Verified 11/06/21 20:02 dizziness and vomiting pioglitazone AdvReac Intermediate edema Verified 11/06/21 20:02 amitriptyline [From Elavil] AdvReac Mild NAUSEA & Verified 11/06/21 20:02 VOMITING amoxicillin [Amoxicillin] AdvReac Mild NAUSEA & Verified 11/06/21 20:02 VOMITING codeine AdvReac Mild NAUSEA & Verified 11/06/21 20:02 [From Tylenol-Codeine] VOMITING lisinopril [Lisinopril] AdvReac Mild NAUSEA & Verified 11/06/21 20:02 VOMITING acetaminophen [Tylenol] AdvReac Unknown tylenol 3 Verified 11/06/21 20:02 (states regulare tylenol upset stomach as well) aspirin [Aspirin] AdvReac Unknown NAUSEA & Verified 11/06/21 20:02 VOMITING oxycodone [Percocet] AdvReac Unknown stomach Verified 11/06/21 20:02 upset tramadol [From Ultram] AdvReac Unknown NAUSEA & Verified 11/06/21 20:02 VOMITING Active Medications: Current Medications Dexamethasone Sodium Phosphate (Dexamethasone Sod Phosphate 4 Mg/Ml Vial) 6 mg IVPUSH DAILY SHERYL Dextrose (Dextrose 50 % 25 Gm/50 Ml Syringe) 25 gm IVPUSH Q15M PRN; Protocol PRN Reason: per Hypoglycemia Standing Ord. Glucose (Glucose Gel 15 Gm Gel..Gram.) 15 gm PO Q15M PRN; Protocol PRN Reason: per Hypoglycemia Standing Ord. Piperacillin Sod/Tazobactam (Sod 3.375 gm/ Sodium Chloride) 50 mls @ 100 mls/hr IV Q8H SHERYL Stop: 11/08/21 07:59 Last Infusion: 11/07/21 08:20 Dose: Infused Documented by: Insulin Human Lispro (Insulin Lispro 100 Unit/Ml 3 Ml Vial) 0 unit SUBCUT QIDACHS [facility]; Protocol Lidocaine/Diphenhydr/Alum/Mg/Simeth (Mag&Al/Sim/Diphenhyd/Lidocaine 10 Ml Oral.Susp) 10 ml PO Q4H [facility]; Protocol Omeprazole (Omeprazole 20 Mg Capsule.Dr) 20 mg PO DAILY [facility] Ondansetron HCl (Ondansetron Hcl 4 Mg/2 Ml Vial) 4 mg IVPUSH Q6H [facility] Pharmacy Consult (Consult Rx Perform Med Rec) 1 each MISCELLANE ONCE PRN PRN Reason: Consult order Sodium Chloride (0.9 % Sodium Chloride Flush 3 Ml Syringe) 3 ml IVFLUSH QSHIFT [facility] Home Medications Medication Instructions Recorded Confirmed Last Taken Type loratadine 10 mg tablet (Claritin) 10 mg PO DAILY PRN 06/17/20 11/07/21 Unknown History escitalopram oxalate 10 mg tablet 10 mg PO DAILY 07/03/21 11/07/21 Unknown History dulaglutide 1.5 mg/0.5 mL 1.5 mg SUBCUT TH@1000 11/07/21 11/07/21 Unknown History subcutaneous pen injector (Trulicity) memantine 5 mg tablet 5 mg PO DAILY 11/07/21 11/07/21 Unknown History rivastigmine tartrate 1.5 mg 1.5 mg PO BID 11/07/21 11/07/21 Unknown History capsule Physical Exam Vital Signs and Narrative: Vital Signs: Last Vital Signs Temp 99.3 F 11/07/21 00:06 Pulse 81 11/07/21 11:35 Resp 17 11/07/21 11:35 BP 122/81 11/07/21 11:35 Pulse Ox 98 11/07/21 11:35 BMI result Body Mass Index 25.2 Appearance: Alert.? Oriented X3.? not in distress.? Eyes: Pupils equal, round and reactive to light.? Sclera nonicteric.? ENT: Pharynx normal , has left submandibular swelling , buccal mucosa area seems clear both buccal area , no discharge cvs: [id number], [id number] , no murmur res: clear to auscultation ,no rhonchii or wheezing abd: no rebound or guarding ,nt, bs present. ext pulses present , no cyanosis ,Gait well balanced well coordinated. neuro: axo3 , nonfocal. Results Labs CBC and Chem 7: 11/06/21 20:59 11/06/21 20:59 Labs: Laboratory Results - last 24 hr 11/06/21 11/06/21 11/06/21 20:05 20:59 20:59 MCV 94.7 MCH 32.0 MCHC 33.8 RDW 13.4 Plt Count 185 MPV 9.9 Immature Gran % (Auto) 0.2 Neut % (Auto) 61.7 Lymph % (Auto) 28.3 Winston % (Auto) 8.8 Eos % (Auto) 0.8 Baso % (Auto) 0.2 Lymph # (Auto) 2.7 Winston # (Auto) 0.8 Eos # (Auto) 0.1 Baso # (Auto) 0.0 Abs Immat Gran (auto) 0.02 Absolute Neuts (auto) 5.9 Absolute Nucleated RBC 0.000 Nucleated RBC % (auto) 0.0 Anion Gap 13 Estim Creat Clear Calc 45.9 Estimated GFR 60 Random Glucose 160 H Calcium 9.7 D COVID-19 ([facility]) COVID-19 Clin Com S. pyogenes GrpA RHYS Negative 11/07/21 00:14 MCV MCH MCHC RDW Plt Count MPV Immature Gran % (Auto) Neut % (Auto) Lymph % (Auto) Winston % (Auto) Eos % (Auto) Baso % (Auto) Lymph # (Auto) Winston # (Auto) Eos # (Auto) Baso # (Auto) Abs Immat Gran (auto) Absolute Neuts (auto) Absolute Nucleated RBC Nucleated RBC % (auto) Anion Gap Estim Creat Clear Calc Estimated GFR Random Glucose Calcium COVID-19 ([facility]) Negative COVID-19 Clin Com See Note S. pyogenes GrpA RHYS Imaging Radiologist's Impressions: Impressions Soft Tissue Neck CT 11/06/21 20:42 IMPRESSION: - Acute left submandibular sialoadenitis: There is enlargement of the left submandibular gland, there are inflammatory changes adjacent to the left submandibular gland, and there are multiple obstructing calculi within the distal aspect of Klarissa's duct on the left side measuring 3 mm on image 40 of series 2 and 2 mm on image 37 of series 2. There are also multiple calculi within the left subarticular gland itself. Cellulitis is seen throughout the left submandibular space and there is also cellulitis within the left floor of mouth along Osage's duct extending into the left submental region. Remaining fat planes within the floor of mouth are intact. No drainable fluid collections to suggest abscess however assessment is limited on this noncontrast study. - Nonspecific reticulation and nodules within the partially imaged lungs bilaterally that can be further assessed with a contrast-enhanced CT of the chest to establish further imaging follow-up recommendations. Assessment and Plan (1) Calculus in salivary duct: Status: Acute Plan 75-year-old female with history of diabetes, hypertension, hyperlipidemia came with Acute left submandibular sialoadenitis. 1.acute left submandibular sialoadenitis. ct scan: ? cellulitis /multiple calculi within the left subarticular gland itself.? Osage's duct stone removed last night Continue pain management with IV Dilaudid, sucking candy to increase elevation, dexamethasone for inflammation and IV antibiotic started as per ED after discussion with ENT. swallow eval. 2. dm: fs with coverage fs 160 3. HLP: Continue statin. 4. Dementia: Continue memantine. DVT prophylaxis: SubQ Lovenox. Case discussed with patient's both daughter patient is DNI but not DNR. Quality Stroke Does the patient have a stroke diagnosis?: No VTE Prior VTE?: No VTE Risk Level:: Medical - moderate - high VTE Device Contraindication: N/A - Device Ordered VTE Drug Contraindication: N/A - Med Ordered
--- NOTE | 2021-11-07 14:15 | MHC.SL.SWA ---
Speech Pathologist Impression: Oral Phase Dysphagia Risk of Aspiration Due to: Oral Phase Dysphagia Dysphasia Diet Status: Upgrade Liquid Consistency and Strategies for Safe Swallow: Liquid Intake Recommendation: Thin Liquid Intake Strategies: Solid Food Consistency: Dietary Recommendations: Chopped/Advanced (NDD3) Additional Modifications to Solid Foods: add sauces and gravies, avoid difficult to chew food. Oral Medication Intake: Please contact the pharmacy regarding appropriate crushable or liquid drug formulations that are available if modifications to medication delivery is recommended. Whole with Puree Compensatory Strategies and Precautions to be Taken for Safe Swallow: Sitting Upright (90 deg) Small Bites and Sips Alternate Liquids/Solids Supervision While Eating and Drinking for Safe Swallow: Intermittent Supervision Foods to Avoid: Hard, difficult to chew consistencies. Swallowing Recommended Treatments: Compens. Strategy Educat. Recommendation for Speech: Inpatient Speech Therapy Comment: Pt presents w/ mild oral phase dysphagia, due to L mandibular pathology, reduced ROM. All other aspects of swallow WNL. Recommend diet consistencies of THIN liquids, w/ CHOPPED/ADVANCED (NDD3), pills WHOLE in PUREE. Diet recommendations sent via secure text to MD, Neurodiagnostic Technologist. Pt. ROM of jaw likely to improve, LOG HANDLING EQUIPMENT OPERATOR to re-assess for toleration of diet, advancement when warranted. Frequency/Duration: M-F Date Range for Service Req: Timeline to reassess: System Architect Clinican/Clinical Fellow: No Supervisory Statement: I have reviewed and agree with the student/clinical fellow's documentation: N/A Speech Language Pathologist: Elda Rowan M.A., [facility]-LOG HANDLING EQUIPMENT OPERATOR
[2021-11-07] MEDS: dexAMETHasone sod phosphate 4 MG/ML VIAL 6 MG IVPUSH (14:52)
[2021-11-07] MEDS: Mag&Al/Sim/Diphenhyd/Lidocaine 10 ML ORAL.SUSP PO ×3 (14:52→20:57)
[2021-11-07] MEDS: Escitalopram Oxalate 10 MG TABLET PO (14:53)
[2021-11-07] MEDS: Omeprazole 20 MG CAPSULE.DR PO (14:53)
[2021-11-07 17:10] LABS: Glucose, Whole Blood 266 mg/dL (60-115)
[2021-11-07] MEDS: Insulin Lispro 100 UNIT/ML 3 ML VIAL SUBCUT ×2 (17:52→21:58)
[2021-11-07] MEDS: Enoxaparin Sodium 40 MG/0.4 ML SYRINGE SUBCUT (20:58)
[2021-11-07 21:30] LABS: Glucose, Whole Blood 292 mg/dL (60-115)
[2021-11-08] MEDS: Piperacillin Sodium/Tazobactam 3.375 GM in 0.9 % Sodium Chloride 50 ML IV (01:00)
[2021-11-08] MEDS: ondansetron HCL 4 MG/2 ML VIAL IVPUSH ×3 (01:05→20:52)
[2021-11-08] MEDS: Mag&Al/Sim/Diphenhyd/Lidocaine 10 ML ORAL.SUSP PO ×5 (01:05→20:52)
[2021-11-08 05:15] LABS: Anion Gap 13 (12-20); Blood Urea Nitrogen 24 mg/dL (9-16); Calcium 8.9 mg/dL (8.4-10.2); Carbon Dioxide 23 mmol/L (22-29); Chloride 107 mmol/L (96-108); Creatinine Clr Calc Pharmacy 46.4; Estimated Glomerular Filt Rate > 60; Glucose Random 219 mg/dL (60-115); Potassium 4.4 mmol/L (3.3-5.1); Sodium 139 mmol/L (135-145)
--- NOTE | 2021-11-08 06:16 | PC.NURSE ---
This RN assumed care at 1900. Patient seems to have improved since last interaction. Daughter at bedside. Patient compliant with medication throughout the night, able to make needs known. Will continue to monitor
[2021-11-08 07:21] VITALS: BP 116/56; PULSE 62; RESP 17; TEMP 36.9; O2SAT 95
[2021-11-08 07:25] LABS: Glucose, Whole Blood 250 mg/dL (60-115)
[2021-11-08] MEDS: Atorvastatin Calcium 80 MG TABLET PO (08:21)
[2021-11-08] MEDS: dexAMETHasone sod phosphate 4 MG/ML VIAL 6 MG IVPUSH (08:21)
[2021-11-08] MEDS: Omeprazole 20 MG CAPSULE.DR PO (08:21)
[2021-11-08] MEDS: Rivastigmine Tartrate 1.5 MG CAPSULE PO ×2 (08:21→20:51)
[2021-11-08] MEDS: Memantine HCl 5 MG TABLET PO (08:21)
[2021-11-08] MEDS: Escitalopram Oxalate 10 MG TABLET PO (08:22)
[2021-11-08] MEDS: Insulin Lispro 100 UNIT/ML 3 ML VIAL SUBCUT ×4 (08:22→20:52)
[2021-11-08] MEDS: 0.9 % Sodium Chloride Flush 3 ML SYRINGE IVFLUSH ×3 (08:22→20:52)
--- NOTE | 2021-11-08 08:33 | PC.NURSE ---
Pt sleeping, awakens to name, A&Ox4, no complaint of pain at this time, oral cavity has some redness to location of Phoenix's gland, minimal swelling at this time. Pt denies any pain. Medicated as per MAR orders, VS as charted, daughter at bedside, call maloney within reach. Will continue to monitor.
--- NOTE | 2021-11-08 11:14 | MHC.SLORD ---
Speech Language Pathology Order Status: Patient is on chopped/advanced (NDD3) solids and thin liquids- SUPERINTENDENT DRILLING AND PRODUCTION to f/u 1x time to re-assess for potential upgrade.
--- NOTE | 2021-11-08 11:34 | MHC.CM.PN ---
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
[2021-11-08 13:24] LABS: Glucose, Whole Blood 259 mg/dL (60-115)
[2021-11-08 15:19] VITALS: BP 138/59; PULSE 73; RESP 18; TEMP 36.7; O2SAT 95
[2021-11-08] MEDS: Morphine Sulfate Immed Release 15 MG TABLET PO (15:19)
--- NOTE | 2021-11-08 15:21 | P.PNIM_ITS ---
Subjective Subjective Date of Service: 11/08/21 Interval History: submandibular sialoadenitis /cellulitis Review of Systems Patient still has mouth pain, P.o. intakes improving Denies any chest pain or shortness of breath or abdominal pain or fever or chills or cough or phlegm Physical Exam Vital Signs: Vital Signs: Last Vital Signs Temp 98.1 F 11/08/21 15:19 Pulse 73 11/08/21 15:19 Resp 18 11/08/21 15:19 BP 138/59 L 11/08/21 15:19 Pulse Ox 95 11/08/21 15:19 BMI result Body Mass Index 25.2 Appearance: Alert.? Oriented X3.? not in distress.? ENT: Pharynx normal , has left submandibular swelling , buccal mucosa area seems clear both buccal area , no discharge cvs: rrr, [id number] , no murmur res: clear to auscultation ,no rhonchii or wheezing abd: no rebound or guarding ,nt, bs present. ext pulses present , no cyanosis . neuro: axo3 , nonfocal.? Objective Data Active Medications Atorvastatin Calcium (Atorvastatin Calcium 80 Mg Tablet) 80 mg PO DAILY [facility] Last Admin: 11/08/21 08:21 Dose: 80 mg Documented by: N-RAMSK Dexamethasone Sodium Phosphate (Dexamethasone Sod Phosphate 4 Mg/Ml Vial) 6 mg IVPUSH DAILY [facility] Last Admin: 11/08/21 08:21 Dose: 6 mg Documented by: JACI-RAMSK Dextrose (Dextrose 50 % 25 Gm/50 Ml Syringe) 25 gm IVPUSH Q15M PRN; Protocol PRN Reason: per Hypoglycemia Standing Ord. Enoxaparin Sodium (Enoxaparin Sodium 40 Mg/0.4 Ml Syringe) 40 mg SUBCUT Q24H [facility] Last Admin: 11/07/21 20:58 Dose: 40 mg Documented by: JACI-PARRC Escitalopram Oxalate (Escitalopram Oxalate 10 Mg Tablet) 10 mg PO DAILY [facility] Last Admin: 11/08/21 08:22 Dose: 10 mg Documented by: JACI-RAMSK Glucose (Glucose Gel 15 Gm Gel..Gram.) 15 gm PO Q15M PRN; Protocol PRN Reason: per Hypoglycemia Standing Ord. Insulin Human Lispro (Insulin Lispro 100 Unit/Ml 3 Ml Vial) 0 unit SUBCUT QIDACHS [facility]; Protocol Last Admin: 11/08/21 13:30 Dose: 6 unit Documented by: LUISA Lidocaine/Diphenhydr/Alum/Mg/Simeth (Mag&Al/Sim/Diphenhyd/Lidocaine 10 Ml Oral.Susp) 10 ml PO Q4H [facility]; Protocol Last Admin: 11/08/21 13:30 Dose: 10 ml Documented by: LUISA Loratadine (Loratadine 10 Mg Tablet) 10 mg PO DAILY PRN PRN Reason: Allergy Symptoms Memantine (Memantine Hcl 5 Mg Tablet) 5 mg PO DAILY [facility] Last Admin: 11/08/21 08:21 Dose: 5 mg Documented by: LUISA Morphine Sulfate (Morphine Sulfate Immed Release 15 Mg Tablet) 15 mg PO Q6H PRN PRN Reason: Pain, Mild (Pain Scale 1-3) Omeprazole (Omeprazole 20 Mg Capsule.Dr) 20 mg PO DAILY [facility] Last Admin: 11/08/21 08:21 Dose: 20 mg Documented by: LUISA Ondansetron HCl (Ondansetron Hcl 4 Mg/2 Ml Vial) 4 mg IVPUSH Q6H [facility] Last Admin: 11/08/21 14:35 Dose: Not Given Documented by: LUISA Non-Admin Reason: Patient Refused Pharmacy Consult (Consult Rx Perform Med Rec) 1 each MISCELLANE ONCE PRN PRN Reason: Consult order Rivastigmine Tartrate (Rivastigmine Tartrate 1.5 Mg Capsule) 1.5 mg PO BID [facility] Last Admin: 11/08/21 08:21 Dose: 1.5 mg Documented by: LUISA Sodium Chloride (0.9 % Sodium Chloride Flush 3 Ml Syringe) 3 ml IVFLUSH QSHIFT [facility] Last Admin: 11/08/21 08:22 Dose: 3 ml Documented by: LUISA Labs CBC & Chem 7: 11/06/21 20:59 11/08/21 04:29 Labs: Laboratory Results - last 24 hr 11/07/21 11/07/21 11/08/21 17:05 21:13 04:29 Anion Gap 13 Estim Creat Clear Calc 46.4 Estimated GFR > 60 POC Glucose 266 H 292 H Random Glucose 219 H Calcium 8.9 D 11/08/21 11/08/21 07:17 13:20 Anion Gap Estim Creat Clear Calc Estimated GFR POC Glucose 250 H 259 H Random Glucose Calcium Assessment and Plan (1) Cellulitis of submandibular region: Status: Acute (2) Calculus in salivary duct: Status: Acute Plan 75-year-old female with history of diabetes, hypertension, hyperlipidemia came with?Acute left submandibular sialoadenitis. 1.acute left submandibular sialoadenitis. ct scan: ? cellulitis /multiple calculi within the left subarticular gland itself.? Klarissa's duct stone removed last night Continue pain management with po morphine , sucking candy to increase elevation, dexamethasone for inflammation and IV antibiotic started as per ED after discussion with ENT. swallow eval-noted diet added. Discussed with Dr. Tee -ENt saw the patient-recommended to continue steroids, antibiotics, for now and monitor for next 24-48 hours 2. dm: fs 160-250 mild hyperglycemia probable related to steriods fs with adjusted coverage. 3. HLP:? Continue statin. 4. Dementia:? Continue memantine. DVT prophylaxis:? SubQ Lovenox. Case discussed with patient's and her daughter at bedside in detail. Quality Stroke Does the patient have a stroke diagnosis?: No VTE Prior VTE?: No VTE Risk Level:: Medical - moderate - high VTE Device Contraindication: N/A - Device Ordered VTE Drug Contraindication: N/A - Med Ordered
[2021-11-08 16:00] VITALS: BP 141/71; PULSE 62; RESP 14; TEMP 36.7; O2SAT 94
[2021-11-08 17:04] LABS: Glucose, Whole Blood 267 mg/dL (60-115)
[2021-11-08 19:04] VITALS: BP 121/65; PULSE 65; RESP 14; TEMP 36.7; O2SAT 95
[2021-11-08 19:49] LABS: Glucose, Whole Blood 215 mg/dL (60-115)
[2021-11-08] MEDS: Enoxaparin Sodium 40 MG/0.4 ML SYRINGE SUBCUT (20:51)
--- NOTE | 2021-11-08 22:44 | W.PM.IDCN ---
History of Present Illness Data of Consult Service Date: 11/08/21 Primary Care Provider: Danita Mccurdy MD HPI Reason for consult: left submandibular swelling She presents with discomfort left parotid gland for two weeks. She has no fever or chills. She had expressed salivary stone She feels better. Review of Systems Review of Systems: Yes all other systems are reviewed and are negative PMFSH Past Medical History Medical History Anxiety Balance disorder Controlled diabetes mellitus without complication, without long-term current use of insulin Hemorrhoid Hyperlipidemia LDL goal <100 Hypertension Lumbar scoliosis Osteoarthritis Pulmonary nodules Sensorineural hearing loss Submandibular sialoadenitis Type 2 diabetes mellitus with hyperglycemia, without long-term current use of insulin Vitamin D deficiency Family History Family History Father Pulmonary disease Mother Liver cirrhosis Diabetes Other Mental health disorder Family history: reviewed and not pertinent Surgical History Surgical History History of bladder suspension procedure Hx of cholecystectomy Social History Social History Household Members: None Housing: Apartment Housing Other:: apartment for [facility] Do you presently have visiting nurse or other home services: Yes Alcohol intake: never Patient Tobacco Use Status: Never used Tobacco e-Cigarette/Vaping Use: Never Used service: No Current occupational status: retired Meds Allergies Allergy/AdvReac Type Severity Reaction Status Date / Time pineapple [PINEAPPLE] Allergy Intermediate SKIN PEELS Verified 11/16/21 08:53 Iodinated Contrast Media Allergy Mild HIVES Verified 11/16/21 08:53 [IV Dye, Iodine Containing] donepezil AdvReac Intermediate nausea, Verified 11/16/21 08:53 dizziness and vomiting pioglitazone AdvReac Intermediate edema Verified 11/16/21 08:53 amitriptyline [From Elavil] AdvReac Mild NAUSEA & Verified 11/16/21 08:53 VOMITING amoxicillin [Amoxicillin] AdvReac Mild NAUSEA & Verified 11/16/21 08:53 VOMITING codeine AdvReac Mild NAUSEA & Verified 11/16/21 08:53 [From Tylenol-Codeine] VOMITING lisinopril [Lisinopril] AdvReac Mild NAUSEA & Verified 11/16/21 08:53 VOMITING acetaminophen [Tylenol] AdvReac Unknown tylenol 3 Verified 11/16/21 08:53 (states regulare tylenol upset stomach as well) aspirin [Aspirin] AdvReac Unknown NAUSEA & Verified 11/16/21 08:53 VOMITING oxycodone [Percocet] AdvReac Unknown stomach Verified 11/16/21 08:53 upset tramadol [From Ultram] AdvReac Unknown NAUSEA & Verified 11/16/21 08:53 VOMITING Active Medications: Current Medications Atorvastatin Calcium (Atorvastatin Calcium 80 Mg Tablet) 80 mg PO DAILY [facility] Last Admin: 11/08/21 08:21 Dose: 80 mg Documented by: Dexamethasone Sodium Phosphate (Dexamethasone Sod Phosphate 4 Mg/Ml Vial) 6 mg IVPUSH DAILY [facility] Last Admin: 11/08/21 08:21 Dose: 6 mg Documented by: Dextrose (Dextrose 50 % 25 Gm/50 Ml Syringe) 25 gm IVPUSH Q15M PRN; Protocol PRN Reason: per Hypoglycemia Standing Ord. Enoxaparin Sodium (Enoxaparin Sodium 40 Mg/0.4 Ml Syringe) 40 mg SUBCUT Q24H [facility] Last Admin: 11/08/21 20:51 Dose: 40 mg Documented by: Escitalopram Oxalate (Escitalopram Oxalate 10 Mg Tablet) 10 mg PO DAILY [facility] Last Admin: 11/08/21 08:22 Dose: 10 mg Documented by: Glucose (Glucose Gel 15 Gm Gel..Gram.) 15 gm PO Q15M PRN; Protocol PRN Reason: per Hypoglycemia Standing Ord. Insulin Human Lispro (Insulin Lispro 100 Unit/Ml 3 Ml Vial) 0 unit SUBCUT QIDACHS [facility]; Protocol Last Admin: 11/08/21 20:52 Dose: 4 unit Documented by: Lidocaine/Diphenhydr/Alum/Mg/Simeth (Mag&Al/Sim/Diphenhyd/Lidocaine 10 Ml Oral.Susp) 10 ml PO Q4H [facility]; Protocol Last Admin: 11/08/21 20:52 Dose: 10 ml Documented by: Loratadine (Loratadine 10 Mg Tablet) 10 mg PO DAILY PRN PRN Reason: Allergy Symptoms Memantine (Memantine Hcl 5 Mg Tablet) 5 mg PO DAILY [facility] Last Admin: 11/08/21 08:21 Dose: 5 mg Documented by: Morphine Sulfate (Morphine Sulfate Immed Release 15 Mg Tablet) 15 mg PO Q6H PRN PRN Reason: Pain, Mild (Pain Scale 1-3) Last Admin: 11/08/21 15:19 Dose: 15 mg Documented by: Omeprazole (Omeprazole 20 Mg Capsule.) 20 mg PO DAILY [facility] Last Admin: 11/08/21 08:21 Dose: 20 mg Documented by: Ondansetron HCl (Ondansetron Hcl 4 Mg/2 Ml Vial) 4 mg IVPUSH Q6H [facility] Last Admin: 11/08/21 20:52 Dose: 4 mg Documented by: Pharmacy Consult (Consult Rx Perform Med Rec) 1 each MISCELLANE ONCE PRN PRN Reason: Consult order Rivastigmine Tartrate (Rivastigmine Tartrate 1.5 Mg Capsule) 1.5 mg PO BID [facility] Last Admin: 11/08/21 20:51 Dose: 1.5 mg Documented by: Sodium Chloride (0.9 % Sodium Chloride Flush 3 Ml Syringe) 3 ml IVFLUSH QSHIFT [facility] Last Admin: 11/08/21 20:52 Dose: 3 ml Documented by: Home Medications Medication Instructions Recorded Confirmed Last Taken Type loratadine 10 mg tablet (Claritin) 10 mg PO DAILY PRN 06/17/20 11/16/21 Unknown History escitalopram oxalate 10 mg tablet 10 mg PO DAILY 07/03/21 11/16/21 Unknown History dulaglutide 1.5 mg/0.5 mL 1.5 mg SUBCUT TH@1000 11/07/21 11/16/21 Unknown History subcutaneous pen injector (Trulicity) memantine 5 mg tablet 5 mg PO DAILY 11/07/21 11/16/21 Unknown History rivastigmine tartrate 1.5 mg 1.5 mg PO BID 11/07/21 11/16/21 Unknown History capsule Physical Exam Vital Signs: Vital Signs: Last Vital Signs Temp 98.1 F 11/08/21 19:04 Pulse 65 11/08/21 19:04 Resp 14 11/08/21 19:04 BP 121/65 11/08/21 19:04 Pulse Ox 95 11/08/21 19:04 BMI result Body Mass Index 25.2 Const: General: cooperative Eyes: Other: improved left submandibular swelling General: appearance normal, both eyes and all related structures Pupils: Equal, round and reactive pupils present Resp: Effort & Inspection: normal respiratory effort Cardio: Rate: regular rate Rhythm: regular rhythm GI: Palpation (GI): Soft to palpation and nontender Skin: General skin exam: no rashes or lesions noted Neuro: Cranial nerves: Yes Equal, round and reactive pupils present Results Labs CBC & Chem 7: 11/06/21 20:59 11/08/21 04:29 Labs: BMP 11/08/21 04:29 Sodium 139 Potassium 4.4 D Chloride 107 Carbon Dioxide 23 BUN 24 H Creatinine 0.91 Calcium 8.9 D Assessment and Plan (1) Cellulitis of submandibular region: Status: Acute this is improving There is some local inflammation,possible salivary duct infection (2) Calculus in salivary duct: Status: Acute Plan Would continue po Ceftin for 10 days F/U ENT.
[2021-11-09] VITALS (7 sets, daily range): BP systolic 127–160; BP diastolic 59–79; PULSE 56–66; RESP 14–18; TEMP 36.4–36.7; O2SAT 94–97
[2021-11-09] MEDS: ondansetron HCL 4 MG/2 ML VIAL IVPUSH (05:58)
[2021-11-09] MEDS: Mag&Al/Sim/Diphenhyd/Lidocaine 10 ML ORAL.SUSP PO ×5 (05:58→21:31)
[2021-11-09 07:38] LABS: Glucose, Whole Blood 230 mg/dL (60-115)
[2021-11-09] MEDS: Insulin Lispro 100 UNIT/ML 3 ML VIAL SUBCUT ×5 (08:12→21:30)
[2021-11-09] MEDS: Memantine HCl 5 MG TABLET PO (08:14)
[2021-11-09] MEDS: Atorvastatin Calcium 80 MG TABLET PO (08:15)
[2021-11-09] MEDS: Escitalopram Oxalate 10 MG TABLET PO (08:15)
[2021-11-09] MEDS: Rivastigmine Tartrate 1.5 MG CAPSULE PO ×2 (08:15→21:31)
[2021-11-09] MEDS: Omeprazole 20 MG CAPSULE.DR PO (08:16)
[2021-11-09] MEDS: dexAMETHasone sod phosphate 4 MG/ML VIAL 6 MG IVPUSH (08:18)
[2021-11-09] MEDS: 0.9 % Sodium Chloride Flush 3 ML SYRINGE IVFLUSH ×3 (08:19→23:31)
--- NOTE | 2021-11-09 10:59 | MHC.SL.SWA ---
Speech Pathologist Impression: Oral Phase Dysphagia Dysphasia Diet Status: Upgrade Liquid Consistency and Strategies for Safe Swallow: Liquid Intake Recommendation: Thin Liquid Intake Strategies: Small Sips Solid Food Consistency: Dietary Recommendations: Regular Additional Modifications to Solid Foods: Patient tolerates unmodified consistencies. Recommend upgrade to regular solids, maintain thin liquids, pills whole with liquid. Diet order updated by QUALITY CONTROL MICROBIOLOGY SUPERVISOR. QUALITY CONTROL MICROBIOLOGY SUPERVISOR to f/u 1x time. Patient complained of throat pain. MD notified. Oral Medication Intake: Whole with Liquid Please contact the pharmacy regarding appropriate crushable or liquid drug formulations that are available whenever modified delivery is recommended. Compensatory Strategies and Precautions to be Taken for Safe Swallow: Sitting Upright (90 deg) Small Bites and Sips Alternate Liquids/Solids Rate of Ingestion Change Supervision While Eating and Drinking for Safe Swallow: None Needed Swallowing Recommended Treatments: Compens. Strategy Educat. Recommendation for Speech: 1 f/u Master Cook Clinican/Clinical Fellow: No Supervisory Statement: I have reviewed and agree with the student/clinical fellow's documentation: N/A Speech Language Pathologist: Annie Tolbert M.A., [facility]-QUALITY CONTROL MICROBIOLOGY SUPERVISOR
[2021-11-09 11:30] LABS: Glucose, Whole Blood 287 mg/dL (60-115)
--- NOTE | 2021-11-09 13:08 | MHC.CM.PN ---
Per RN CM, Patient is being changed from OBS to Inpatient. CM met with Patient and her Daughter at bedside and addressed IMM with them,providing them with the original and placing a copy on the chart.
--- NOTE | 2021-11-09 13:40 | HO.PM.IMPN ---
Subjective Subjective Date of Service: 11/09/21 Interval History: submandibular sialoadenitis? /cellulitis Review of Systems still has mouth pain and swellling left submandibular and jaw area. P.o. intakes improving Denies any chest pain or shortness of breath or abdominal pain or fever or chills or cough or phlegm Physical Exam Vital Signs: Vital Signs: Last Vital Signs Temp 97.5 F 11/09/21 11:18 Pulse 60 11/09/21 11:18 Resp 18 11/09/21 11:18 BP 148/79 H 11/09/21 11:18 Pulse Ox 95 11/09/21 11:18 BMI result Body Mass Index 25.2 Appearance: Alert.? Oriented X3.? not in distress.? ENT: Pharynx normal , has left submandibular swelling , buccal mucosa area seems clear both buccal area , no discharge cvs: [id number], [id number] , no murmur res: clear to auscultation ,no rhonchii or wheezing abd: no rebound or guarding ,nt, bs present. ext pulses present , no cyanosis . neuro: axo3 , nonfocal.? Objective Data Active Medications Atorvastatin Calcium (Atorvastatin Calcium 80 Mg Tablet) 80 mg PO DAILY [facility] Last Admin: 11/09/21 08:15 Dose: 80 mg Documented by: RK Dexamethasone Sodium Phosphate (Dexamethasone Sod Phosphate 4 Mg/Ml Vial) 6 mg IVPUSH DAILY [facility] Last Admin: 11/09/21 08:18 Dose: 6 mg Documented by: RK Dextrose (Dextrose 50 % 25 Gm/50 Ml Syringe) 25 gm IVPUSH Q15M PRN; Protocol PRN Reason: per Hypoglycemia Standing Ord. Enoxaparin Sodium (Enoxaparin Sodium 40 Mg/0.4 Ml Syringe) 40 mg SUBCUT Q24H [facility] Last Admin: 11/08/21 20:51 Dose: 40 mg Documented by: MARTHA Escitalopram Oxalate (Escitalopram Oxalate 10 Mg Tablet) 10 mg PO DAILY [facility] Last Admin: 11/09/21 08:15 Dose: 10 mg Documented by: RK Glucose (Glucose Gel 15 Gm Gel..Gram.) 15 gm PO Q15M PRN; Protocol PRN Reason: per Hypoglycemia Standing Ord. Insulin Human Lispro (Insulin Lispro 100 Unit/Ml 3 Ml Vial) 0 unit SUBCUT QIDACHS [facility]; Protocol Last Admin: 11/09/21 12:25 Dose: 8 unit Documented by: RK Lidocaine/Diphenhydr/Alum/Mg/Simeth (Mag&Al/Sim/Diphenhyd/Lidocaine 10 Ml Oral.Susp) 10 ml PO Q4H [facility]; Protocol Last Admin: 11/09/21 12:25 Dose: 10 ml Documented by: RK Loratadine (Loratadine 10 Mg Tablet) 10 mg PO DAILY PRN PRN Reason: Allergy Symptoms Memantine (Memantine Hcl 5 Mg Tablet) 5 mg PO DAILY [facility] Last Admin: 11/09/21 08:14 Dose: 5 mg Documented by: RK Morphine Sulfate (Morphine Sulfate Immed Release 15 Mg Tablet) 15 mg PO Q6H PRN PRN Reason: Pain, Mild (Pain Scale 1-3) Last Admin: 11/08/21 15:19 Dose: 15 mg Documented by: LUISA Omeprazole (Omeprazole 20 Mg Capsule.Dr) 20 mg PO DAILY [facility] Last Admin: 11/09/21 08:16 Dose: 20 mg Documented by: RK Ondansetron HCl (Ondansetron Hcl 4 Mg/2 Ml Vial) 4 mg IVPUSH Q6H [facility] Last Admin: 11/09/21 12:27 Dose: Not Given Documented by: RK Non-Admin Reason: Patient Refused Pharmacy Consult (Consult Rx Perform Med Rec) 1 each MISCELLANE ONCE PRN PRN Reason: Consult order Rivastigmine Tartrate (Rivastigmine Tartrate 1.5 Mg Capsule) 1.5 mg PO BID [facility] Last Admin: 11/09/21 08:15 Dose: 1.5 mg Documented by: RK Sodium Chloride (0.9 % Sodium Chloride Flush 3 Ml Syringe) 3 ml IVFLUSH QSHIFT [facility] Last Admin: 11/09/21 08:19 Dose: 3 ml Documented by: RK Labs CBC & Chem 7: 11/06/21 20:59 11/08/21 04:29 Labs: Laboratory Results - last 24 hr 11/08/21 11/08/21 11/09/21 16:54 19:06 07:24 POC Glucose 267 H 215 H 230 H 11/09/21 11:17 POC Glucose 287 H Assessment and Plan (1) Calculus in salivary duct: Status: Acute (2) Cellulitis of submandibular region: Status: Acute Plan 75-year-old female with history of diabetes, hypertension, hyperlipidemia came with?Acute left submandibular sialoadenitis. 1.acute left submandibular sialoadenitis. ct scan: ? cellulitis /multiple calculi within the left subarticular gland itself.? Charlotte's duct stone removed last night Continue pain management with po morphine , sucking candy to increase elevation, dexamethasone for inflammation and IV antibiotic started as per ED after discussion with ENT. Discussed with Dr. Tee -ENt saw the patient-recommended to continue steroids, antibiotics, for now, swallow follow up d/w ent-recommended to continue IV antibiotics and steroid for 1 more day and re-evaluate. 2. dm:uncontrolled fs 200-240 mild hyperglycemia probable related to steriods fs with? adjusted coverage. 3. HLP:? Continue statin. 4. Dementia:? Continue memantine. DVT prophylaxis:? SubQ Lovenox. Quality Stroke Does the patient have a stroke diagnosis?: No VTE Prior VTE?: No VTE Risk Level:: Medical - moderate - high VTE Device Contraindication: N/A - Device Ordered VTE Drug Contraindication: N/A - Med Ordered
[2021-11-09 16:24] LABS: Glucose, Whole Blood 373 mg/dL (60-115)
[2021-11-09] MEDS: polyethylene glycoL 3350 17 GM POWD.PACK PO (17:02)
[2021-11-09] MEDS: Enoxaparin Sodium 40 MG/0.4 ML SYRINGE SUBCUT (18:39)
[2021-11-09 20:21] LABS: Glucose, Whole Blood 274 mg/dL (60-115)
[2021-11-09] MEDS: Docusate Sodium 100 MG CAPSULE PO (21:31)
[2021-11-10] MEDS: Mag&Al/Sim/Diphenhyd/Lidocaine 10 ML ORAL.SUSP PO ×3 (01:49→12:26)
[2021-11-10] MEDS: ondansetron HCL 4 MG/2 ML VIAL IVPUSH (01:51)
[2021-11-10 03:58] VITALS: BP 163/86; PULSE 64; RESP 18; TEMP 36.5; O2SAT 97
[2021-11-10 04:30] VITALS: BP 147/80; PULSE 59
[2021-11-10 07:35] LABS: Glucose, Whole Blood 189 mg/dL (60-115)
[2021-11-10 08:00] VITALS: BP 156/72; PULSE 55; RESP 18; TEMP 36.3; O2SAT 98
[2021-11-10] MEDS: Rivastigmine Tartrate 1.5 MG CAPSULE PO (08:28)
[2021-11-10] MEDS: Atorvastatin Calcium 80 MG TABLET PO (08:28)
[2021-11-10] MEDS: Docusate Sodium 100 MG CAPSULE PO (08:28)
[2021-11-10] MEDS: Omeprazole 20 MG CAPSULE.DR PO (08:28)
[2021-11-10] MEDS: Memantine HCl 5 MG TABLET PO (08:28)
[2021-11-10] MEDS: Escitalopram Oxalate 10 MG TABLET PO (08:28)
[2021-11-10] MEDS: 0.9 % Sodium Chloride Flush 3 ML SYRINGE IVFLUSH (08:29)
[2021-11-10] MEDS: Insulin Lispro 100 UNIT/ML 3 ML VIAL SUBCUT ×2 (08:29→12:27)
--- NOTE | 2021-11-10 11:21 | MHC.CM.PN ---
PER MD ROUNDS, PT T O DC HOME TODAY WITH RESUMPTION OF [employer] [employer] [facility] [employer] [facility] TO TRANSPORT
[2021-11-10 11:29] LABS: Glucose, Whole Blood 242 mg/dL (60-115)
[2021-11-10 12:00] VITALS: BP 145/86; PULSE 58; RESP 18; TEMP 14.4; O2SAT 95
--- NOTE | 2021-11-10 12:04 | PM.DS ---
DS: Providers Provider Date of Service: 11/10/21 Date of admission: 11/09/21 13:00 Primary care physician: Danita Mccurdy MD Consults: 11/07/21 01:47 Consult to ENT Stat Consulting Provider: Odell Ochoa Reason for consultation: sialadenitis with obstructing stone Has provider been notified: No 11/07/21 12:48 Consult to ENT Routine Consulting Provider: Odell Ochoa Reason for consultation: sialadenitis/cellulitis Has provider been notified: No 11/07/21 18:02 Consult to Infectious Diseases Routine Consulting Provider: Linda Taveras Reason for consultation: submandibular gland stone /obstruction, ? cellulitis Has provider been notified: No DS: Diagnosis Discharge Diagnosis (1) Calculus in salivary duct: Status: Acute (2) Cellulitis of submandibular region: Status: Acute DS: Summary Hospital Course Hospital Course: 75-year-old female with past medical history of diabetes, hypertension, hyperlipidemia, possible dementia, anxiety:? Came to the hospital because has 2 weeks history of mouth pain very dominant LE on the left submandibular area and was having bold active swelling, she s aid pain? progressively getting worse and yesterday was on be able so came to the hospital. She was also having difficulty swelling because of the pain. She denies any chest pain or [place] or blurry vision or headache or weakness no numbness, Denies any shortness of breath or any of it compromise. The submandibular pain was going back to the left ear area. Five yesterday night in the ED: ?Stone was felt in left K[place] duct and milk it out using fingers and q tip, a stone of 3 mm was expressed out. post expression patient? saliva was coming out from the [place] duct opening. Since the stone was out and saliva of as draining patient patient has been is improving but still has significant pain in the area. CT of neck also shows question of cellulitis.? But patient has more swelling/pain and some mandibular area . In the ED patient received:? Dexamethasone, IV dosing coma Toradol, morphine, iv zosyn-? ED physician Dr. walsh:? Discussed the case with Dr. Ochoa ENT and requested admission for above-started on iv. Hospital course: Patient was admitted for acute left submandibular sialoadenitis/possible infection: Patient was started on steroids, IV antibiotics patient's mandibular swelling and erythema seems to be improving patient is eating fine, no shortness of breath or any new symptoms. seen by with ENT and ID and discussed in deatil- patient is improved significantly with above management - Patient will go home with p.o. antibiotics, also advised to the patient continue to keep something in the mouth for sucking that might increase secretions and help draining the gland. Patient is to follow up outpatient with ENT Dr. Ochoa. Above management discussed with the patient in detail length she understand and in agreement with the above plan, time spent 50 minutes and 50% time spent on counseling. Significant findings: As above. Procedures performed: None. Treatment and response: As above. Complications: None. Time Spent with Patient Time attestation: Total time spent providing and/or coordinating discharge services: Discharge coordination time: Greater than 30 minutes Quality: Stroke Does the patient have a stroke diagnosis?: No Physical Exam Vital Signs: Vital Signs: Last Vital Signs Temp 97.3 F 11/10/21 08:00 Pulse 55 11/10/21 08:00 Resp 18 11/10/21 08:00 BP 156/72 H 11/10/21 08:00 Pulse Ox 98 11/10/21 08:00 BMI result Body Mass Index 25.2 Appearance: Alert.? Oriented X3.? not in distress.? ENT: Pharynx normal , has minimum left submandibular , no pain, no discharge cvs: [id number], [id number] , no murmur res: clear to auscultation ,no rhonchii or wheezing abd: no rebound or guarding ,nt, bs present. ext pulses present , no cyanosis . neuro: axo3 , nonfocal.? DS: Data Data Completed and Pending Labs on day of discharge: Laboratory Results - last 24 hr 11/09/21 11/09/21 11/10/21 15:46 20:14 07:24 POC Glucose 373 H* 274 H 189 H 11/10/21 11:20 POC Glucose 242 H Additional Comments Additional comments: bun /cr : 24/0.91 wbc: 9.8 , h/h 14/41.4 platelets: 185 CT/CT soft tissue neck wo con IMPRESSION: - Acute left submandibular sialoadenitis: There is enlargement of the left submandibular gland, there are inflammatory changes adjacent to the left submandibular gland, and there are multiple obstructing calculi within the distal aspect of Carolina's duct on the left side measuring 3 mm on image 40 of series 2 and 2 mm on image 37 of series 2. There are also multiple calculi within the left subarticular gland itself. Cellulitis is seen throughout the left submandibular space and there is also cellulitis within the left floor of mouth along Carolina's duct extending into the left submental region. Remaining fat planes within the floor of mouth are intact. No drainable fluid collections to suggest abscess however assessment is limited on this noncontrast study. ? - Nonspecific reticulation and nodules within the partially imaged lungs bilaterally that can be further assessed with a contrast-enhanced CT of the chest to establish further imaging follow-up recommendations. Discharge Plan Discharge Patient Disposition: Home, Self-Care Discharge Diagnosis: sialadenitis , cellulitis Referrals: Danita Mccurdy MD [Primary Care Provider] - 1 Week Odell Ochoa [Physician] - 1 Week (follow up outpatiently) Discharge Medications: New cefuroxime axetil 500 mg tablet 500 mg PO Q12H Qty: 18 0RF Continued rosuvastatin 20 mg tablet 20 mg PO DAILY Qty: 90 8RF (DME) blood-glucose meter [FreeStyle Lite Meter] Kit See Rx Instructions .ROUTE .MEDSUPPLY Qty: 1 0RF Rx Instructions: Use to check blood sugars twice a day before meals (DME) FreeStyle Lite Strips Strip See Rx Instructions .ROUTE .MEDSUPPLY Qty: 150 8RF Rx Instructions: check blood sugar four times a day (DME) lancets [FreeStyle Lancets] 28 gauge misc See Rx Instructions .ROUTE .MEDSUPPLY Qty: 200 8RF Rx Instructions: four times a day Trulicity 1.5 mg/0.5 mL pen injector 1.5 mg subcut TH@1000 0RF memantine 5 mg Tablet 5 mg PO DAILY 0RF rivastigmine tartrate 1.5 mg Capsule 1.5 mg PO BID 0RF (DME) cane Device See Rx Instructions .ROUTE .MEDSUPPLY Qty: 1 0RF Rx Instructions: use as directed (DME) tub safety bar See Rx Instructions .Route .MEDSUPPLY Qty: 1 0RF Rx Instructions: As directed escitalopram oxalate 10 mg tablet 10 mg PO DAILY 0RF Held loratadine [Claritin] 10 mg tablet 10 mg PO DAILY PRN (Reason: Allergy Symptoms) 0RF Hold Instructions: Resume on 11/15/21. Discharge Orders: Discharge Order (Routine); Ordered 11/10/21 Ordered By: Cynthia Palomino Diet: advance to usual diet Activity on Discharge: As tolerated Stand Alone Forms: Patient Portal Discharge page Care Plan Goals: acute left submandibular sialoadenitis/possible infection:. Patient was started on steroids, IV antibiotics patient's mandibular swelling and erythema seems to be improving patient is eating fine, no shortness of breath or any new symptoms. Discuss with ENT and ID.: Patient will go home with p.o. antibiotics, also advised to the patient continue to keep something in the mouth for sucking that might increase secretions and help draining the gland. Patient is to follow up outpatient with ENT Dr. Ochoa. Health Concerns: As above. Plan of Treatment: As above. Assessment: As above. Discharge Date/Time: 11/10/21 13:37
--- NOTE | 2021-11-10 13:24 | MHC.SL.SWA ---
Speech Pathologist Impression: Oral Phase Dysphagia Dysphasia Diet Status: No Change Liquid Consistency and Strategies for Safe Swallow: Liquid Intake Recommendation: Thin Liquid Intake Strategies: Small Sips Solid Food Consistency: Dietary Recommendations: Regular Additional Modifications to Solid Foods: No changes noted. Patient with acute left submandibular sialoadenitis, but tolerating unmodified consistencies. D/C ST intervention at this time. Please re-refer if there are any changes or further concern. Oral Medication Intake: Whole with Liquid Please contact the pharmacy regarding appropriate crushable or liquid drug formulations that are available whenever modified delivery is recommended. Compensatory Strategies and Precautions to be Taken for Safe Swallow: Sitting Upright (90 deg) Small Bites and Sips Alternate Liquids/Solids Rate of Ingestion Change Supervision While Eating and Drinking for Safe Swallow: None Needed Swallowing Recommended Treatments: Compens. Strategy Educat. Recommendation for Speech: D/C Scorer Helper Clinican/Clinical Fellow: No Supervisory Statement: I have reviewed and agree with the student/clinical fellow's documentation: N/A Speech Language Pathologist: Annie Tolbert M.A., CCC-METAL GRINDER
== END 2021-11-10 13:37 | disposition home or self-care (01) | DRG 155 ==
LOC: HO.ED 11-07 11:22 → HO.EDOVER 11-07 12:46 → HO.IMC 11-08 15:40
PROVIDERS: Emergency Medicine; Nurse Practitioner Family; Admitting Provider Internal Medicine; Emergency Provider Emergency Medicine; PCP Internal Medicine; Visit Provider Internal Medicine
DX: K11.5 Sialolithiasis (principal); L03.211 Cellulitis of face; E78.5 Hyperlipidemia, unspecified; F03.90 Unspecified dementia, unspecified severity, without behavioral disturbance, psychotic disturbance, mood disturbance, and anxiety; F41.9 Anxiety disorder, unspecified; E11.9 Type 2 diabetes mellitus without complications; I10 Essential (primary) hypertension; Z20.822 Contact with and (suspected) exposure to COVID-19; Z88.5 Allergy status to narcotic agent; Z88.6 Allergy status to analgesic agent; Z79.899 Other long term (current) drug therapy
CPT/HCPCS: 36415; 70490; 80048; 82947; 85025; 87635; 87651; 92526; 92610; 96361; 96365; 96375; 96376; 99218; 99219; 99285; J1100; J1650; J1885; J2270; J2405; J2543

== ENCOUNTER 2021-12-07 08:35 | Outpatient (REF) | payer OTHER, SELFPAY ==
[2021-12-07 09:46] LABS: Alanine Aminotransferase 17 U/L (0-31); Anion Gap 11 (12-20); Aspartate Amino Transferase 18 U/L (5-31); Blood Urea Nitrogen 17 mg/dL (9-16); Calcium 9.4 mg/dL (8.4-10.2); Carbon Dioxide 27 mmol/L (22-29); Chloride 106 mmol/L (96-108); Estimated Glomerular Filt Rate > 60; Glucose Fasting 183 mg/dL (60-99); Potassium 4.1 mmol/L (3.3-5.1); Sodium 140 mmol/L (135-145)
[2021-12-07 14:55] LABS: Vitamin D 25-OH Total 26.1 ng/mL (>30)
== END 2021-12-07 08:36 | disposition home or self-care (01) ==
LOC: HO.LAB 08:35
PROVIDERS: Nurse Practitioner Gerontology; PCP Internal Medicine; Visit Provider Internal Medicine
DX: I10 Essential (primary) hypertension (principal); E55.9 Vitamin D deficiency, unspecified; Z78.0 Asymptomatic menopausal state
CPT/HCPCS: 36415; 80048; 82306; 84450; 84460

== ENCOUNTER → 2021-12-22 10:21 | Outpatient (BNVA) | payer OTHER, SELFPAY | PROVIDERS: PCP Internal Medicine; Visit Provider Nurse Practitioner Gerontology | DX: E11.9 Type 2 diabetes mellitus without complications (principal); E78.5 Hyperlipidemia, unspecified; E55.9 Vitamin D deficiency, unspecified; I10 Essential (primary) hypertension | CPT/HCPCS: 82947; 83036; 99212 ==

== ENCOUNTER 2022-01-02 11:27 | Emergency (ER) | payer OTHER, SELFPAY ==
--- NOTE | ~2022-01-02 | XR_ITS ---
EXAMINATION: XR HIP, LEFT CLINICAL INFORMATION: Pain COMPARISON: None TECHNIQUE: Two views of the left hip and one view of the pelvis. FINDINGS: No fracture or dislocation is seen. There is mild bilateral hip arthritis with acetabular osteophyte. Bones of the pelvis are normal. There are degenerative changes and scoliosis of the visualized lower lumbar spine. There is soft tissue arterial calcification. XR/XR hip LT w PEL1V IMPRESSION: Mild left hip arthritis.
--- NOTE | ~2022-01-02 | XR_ITS ---
EXAMINATION: XR LUMBOSACRAL SPINE CLINICAL INFORMATION: Low back pain radiating to the leg. COMPARISON: None TECHNIQUE: Three views of the lumbosacral spine. FINDINGS: Lumbar levoscoliosis is seen measuring approximately 47 degrees with apex at L2-L3. There is normal lumbar lordosis. Mild to moderate multilevel degenerative changes are seen. There is no acute fracture. Generalized osteopenia is seen. The soft tissues are unremarkable. XR/XR lumbar spine 2-3V IMPRESSION: Lumbar levoscoliosis, generalized osteopenia and multilevel degenerative changes as detailed above. No overt fracture.
[2022-01-02 11:35] VITALS: BP 138/69; BP 138/72; PULSE 73; PULSE 86; RESP 16; TEMP 36.3; O2SAT 98; BMI 24.7
[2022-01-02 13:50] VITALS: BP 138/69; PULSE 73; O2SAT 98
[2022-01-02 14:44] LABS: MANUAL DIFF FLAG NO
[2022-01-02 14:46] LABS: Basophils Percent Auto 0.2 % (0-2); Eosinophils Absolute Auto 0.1 X10*3/uL (0.0-0.4); Eosinophils Percent Auto 1.3 % (0-4); Hematocrit 39.3 % (37.0-47.0); Imm Gran Abs Auto 0.01 X10*3/uL (0.00-0.03); Imm Gran Pct Auto 0.2 % (0.0-0.4); Lymphocytes Absolute Auto 2.4 X10*3/uL (1.2-4.9); Mean Corpuscular HGB Conc 33.1 g/dl (31.0-35.0); Mean Corpuscular Hemoglobin 31.7 pg (27.0-33.0); Mean Corpuscular Volume 95.9 fL (80.0-98.0); Mean Platelet Volume 10.3 fL (9.4-12.3); Monocytes Absolute Auto 0.5 X10*3/uL (0.1-1.2); Monocytes Percent Auto 9.9 % (2-11); Neutrophils Absolute Auto 2.4 x10*3/uL (2.0-8.3); Neutrophils Percent Auto 44.4 % (45-73); Platelet Count 177 X10*3/uL (160-400); White Blood Count 5.4 X10*3/uL (4.8-10.8)
[2022-01-02 14:54] LABS: Appearance Urine CLEAR; Color Urine YELLOW; Glucose Urine UA >=1000 MG/DL (NEG); Leukocyte Esterase Urine NEG (NEG); Nitrite Urine NEG (NEG); Urine Blood NEG (NEG); Urine Ketones NEG (NEG); Urine Protein NEG (NEG-TRACE)
[2022-01-02 15:00] LABS: Anion Gap 9 (12-20); Blood Urea Nitrogen 12 mg/dL (9-16); Carbon Dioxide 29 mmol/L (22-29); Chloride 107 mmol/L (96-108); Creatinine Clr Calc Pharmacy 53.5; Estimated Glomerular Filt Rate > 60; Glucose Random 86 mg/dL (60-115); Potassium 3.9 mmol/L (3.3-5.1); Sodium 141 mmol/L (135-145)
[2022-01-02 15:20] LABS: RBC Urine 0 /HPF (0); Squamous Epithelial Cell Urine 3+ /LPF; WBC Urine 0 /HPF (0-4)
[2022-01-02 15:21] LABS: Influenza A PCR NEGATIVE (Negative); Influenza B PCR NEGATIVE (Negative); Resp Syncy Virus RNA Qual PCR NEGATIVE (Negative); SARS COV2 PCR INHOUSE NEGATIVE (Negative)
--- NOTE | 2022-01-02 15:33 | ED.BACK ---
HPI - Back Pain/Injury General Chief Complaint: Extremity Problem Stated Complaint: L LEG PAIN/TINGLING/NUMB NO KNOWN INJURY PER EMS Time Seen by Provider: 01/02/22 13:02 Source: patient Mode of arrival: ambulatory Limitations: language barrier (Turkmen-speaking medical laboratory manager utilized) History of Present Illness HPI Narrative: Patient presents to the emergency department for evaluation of left lower back/left hip pain that radiates down the entire leg for 1 week. The pain was minor initially but become progressively worse. She is having difficulty ambulating and weight-bearing at home. Has been taking tylenol and naproxen without improvement. Related Data Home Medications Medication Instructions Recorded Confirmed escitalopram oxalate 10 mg tablet 10 mg PO DAILY 07/03/21 01/02/22 memantine 5 mg tablet 5 mg PO DAILY 11/07/21 01/02/22 dulaglutide 3 mg/0.5 mL 3 mg SUBCUT SA 01/02/22 01/02/22 subcutaneous pen injector (Trulicity) rosuvastatin 20 mg tablet 20 mg PO BEDTIME 01/02/22 01/02/22 Previous Rx's Medication Instructions Recorded cane #1 ea 07/25/20 tub safety bar #1 ea 07/25/20 blood-glucose meter (FreeStyle #1 ea 08/10/20 Lite Meter) blood sugar diagnostic (FreeStyle #150 ea 08/07/21 Lite Strips) lancets 28 gauge (FreeStyle #200 ea 08/09/21 Lancets) Allergies Allergy/AdvReac Type Severity Reaction Status Date / Time pineapple [PINEAPPLE] Allergy Intermediate SKIN PEELS Verified 12/22/21 10:46 Iodinated Contrast Media Allergy Mild HIVES Verified 12/22/21 10:46 [IV Dye, Iodine Containing] donepezil AdvReac Intermediate nausea, Verified 12/22/21 10:46 dizziness and vomiting pioglitazone AdvReac Intermediate edema Verified 12/22/21 10:46 amitriptyline [From Elavil] AdvReac Mild NAUSEA & Verified 12/22/21 10:46 VOMITING amoxicillin [Amoxicillin] AdvReac Mild NAUSEA & Verified 12/22/21 10:46 VOMITING codeine AdvReac Mild NAUSEA & Verified 12/22/21 10:46 [From Tylenol-Codeine] VOMITING lisinopril [Lisinopril] AdvReac Mild NAUSEA & Verified 12/22/21 10:46 VOMITING acetaminophen [Tylenol] AdvReac Unknown tylenol 3 Verified 12/22/21 10:46 (states regulare tylenol upset stomach as well) aspirin [Aspirin] AdvReac Unknown NAUSEA & Verified 12/22/21 10:46 VOMITING oxycodone [Percocet] AdvReac Unknown stomach Verified 12/22/21 10:46 upset tramadol [From Ultram] AdvReac Unknown NAUSEA & Verified 12/22/21 10:46 VOMITING Review of Systems Review of Systems: Constitutional: No weight loss, fever, chills, weakness or fatigue. HEENT: No visual loss, blurred vision, double vision. No hearing loss, sneezing, congestion, runny nose or sore throat. Skin: No rash or itching. Cardiovascular: No chest pain, chest pressure or chest discomfort. No palpitations or pedal edema. Respiratory: No shortness of breath, cough or sputum production. Gastrointestinal: No anorexia, nausea, vomiting or diarrhea. No abdominal pain or blood in stool. Genitourinary: No burning micturition. No urinary frequency or incontinence. Neurologic: No headache, dizziness, syncope, unilateral weakness, ataxia, numbness or tingling in the extremities. No change in bowel or bladder control. Musculoskeletal: + Back pain as noted in HPI. No joint pain or stiffness. Hematologic: No bleeding or bruising. Lymphatics: No enlarged lymph nodes. Psychiatric:No depression or anxiety. Endocrine: No polyuria or polydipsia. [facility] Past Medical History Attestation statement: The following information was validated with the patient. Source: old records reviewed Medical History Anxiety Balance disorder Controlled diabetes mellitus without complication, without long-term current use of insulin Hemorrhoid Hyperlipidemia LDL goal <100 Hypertension Lumbar scoliosis Osteoarthritis Pulmonary nodules Sensorineural hearing loss Submandibular sialoadenitis Type 2 diabetes mellitus with hyperglycemia, without long-term current use of insulin Vitamin D deficiency Surgical History History of bladder suspension procedure Hx of cholecystectomy Family History Family History Father Pulmonary disease Mother Liver cirrhosis Diabetes Other Mental health disorder Social History Social History Household Members: None Housing: Apartment Housing Other:: apartment for [facility] Do you presently have visiting nurse or other home services: Yes Alcohol intake: never Patient Tobacco Use Status: Never used Tobacco e-Cigarette/Vaping Use: Never Used Advance Directives: Yes Advance Directives on File: Yes Advance Directives Date on File: 11/13/21 service: No Current occupational status: retired Physical Exam Vital Signs: Vital Signs: Last Vital Signs Temp 97.5 F 01/02/22 17:09 Pulse 61 01/02/22 17:09 Resp 16 01/02/22 17:09 BP 147/69 H 01/02/22 17:09 Pulse Ox 99 01/02/22 17:09 BMI result Body Mass Index 24.7 Vital signs have been reviewed as normal and appeared to be correct. Blood pressure normal.? Heart rate normal.? Respiration rate normal. Temperature normal.? Oxygen saturation normal. Appearance: Alert.?Oriented to person, place and time. No acute distress.?Normal affect. Eyes: Pupils equal, round and reactive to light.? ENT: Pharynx normal.?? Neck: Normal inspection.? Neck supple.?? CVS: Heart sounds normal. Normal heart rate and rhythm.? Pulses normal; bilateral radial pulses 2+, bilateral posterior tibial/dorsalis pedis pulses 2+.? Respiratory: No respiratory distress.? Lung sounds clear to auscultation bilaterally?? Abdomen: Soft and non-tender. Normoactive bowel sounds. No pulsatile mass.?? Skin: Skin warm and dry.? Normal skin color.? Normal skin turgor.?? Extremities: No lower extremity edema.? No calf ttp? Back: + mild paraspinal muscular tenderness from lumbar region to coccyx. No CVA tenderness. No midline spinal tenderness, step-off's, or deformity. Full ROM intact in bilateral lower extremities. Straight leg test negative on right; Straight leg test positive on left. No rashes, lesions, areas of induration or fluctuance, or signs of infection noted. Neuro: Moves all extremities spontaneously. 5/5 strength in hip extension/flexion, abduction, adduction. Sensation to light touch intact bilaterally. Patellar and Achilles reflex 2+ bilaterally. No ataxia, ambulatory with slow antalgic gait. No focal neuro deficits. Course Course Course Narrative: Patient is a 76-year-old female with a past medical history of vitamin-D deficiency, hemorrhoids, lumbar scoliosis, herniated discs, type 2 diabetes, hyperlipidemia, hypertension, anxiety. Being evaluated for left lower back and hip pain radiating down the leg. No neurological deficits. She does have tenderness over the left flank, will obtain basic labs including CBC, BMP, urinalysis, and XR lumbar spine and hip. Reevaluation(s) Reevaluation #1: CBC and BMP is overall unremarkable. Urinalysis without sign of infection or microscopic hematuria. X-ray of the lumbar spine reveals multilevel degenerative changes an x-ray of the left hip reveals mild arthritis. Symptoms are most consistent with lumbar radiculopathy/ arthritis of hip, although cannot completely exclude herniated disc. On neurological exam there are no deficits. Not consistent with spinal fracture, spinal infection, epidural abscess, AAA, epidural abscess, or dissection. No high risk past medical history including incontinence, fever, immunosuppression, recent surgery or lumbar puncture, coagulopathy, significant trauma, recent unintentional weight loss, pulsatile mass, history of cancer, history of TB, history of IV drug use that would warrant MRI or CT. Not consistent with pyelonephritis, urinary tract infection, renal calculi, pelvic infection, appendicitis, diverticulitis. On exam no concern for cauda equina syndrome. No imaging is currently indicated at this time. Patient was evaluated by Physical therapy, recommend short-term rehab. Will trial Valium and Lidoderm patch for pain. Med rec completed. Time: 15:30 Reevaluation #2: Patient placed in position observation as she will require more time for case management to facilitate transfer to short-term rehab. Patient in no apparent distress. Respirations even, regular, and non-labored. No focal neuro deficits. Vital signs stable. Will continue to monitor. Time: 18:39 MDM - Back Pain/Injury Medical Records Attestation: I reviewed the patient's medical records. Lab Data Attestation: I reviewed the patient's lab results. Result diagrams: 01/02/22 14:33 01/02/22 14:33 Labs: Lab Results 01/02/22 01/02/22 01/02/22 Range/Units 14:28 14:28 14:33 WBC 5.4 (4.8-10.8) X10*3/uL RBC 4.10 L (4.20-5.50) X10*6/uL Hgb 13.0 (12.0-16.0) g/dl Hct 39.3 (37.0-47.0) % MCV 95.9 (80.0-98.0) fL MCH 31.7 (27.0-33.0) pg MCHC 33.1 (31.0-35.0) g/dl RDW 14.0 (11.0-16.0) % Plt Count 177 (160-400) X10*3/uL MPV 10.3 (9.4-12.3) fL Immature Gran % (Auto) 0.2 (0.0-0.4) % Neut % (Auto) 44.4 L (45-73) % Lymph % (Auto) 44.0 H (20-40) % [place] % (Auto) 9.9 (2-11) % Eos % (Auto) 1.3 (0-4) % Baso % (Auto) 0.2 (0-2) % Lymph # (Auto) 2.4 (1.2-4.9) X10*3/uL [place] # (Auto) 0.5 (0.1-1.2) X10*3/uL Eos # (Auto) 0.1 (0.0-0.4) X10*3/uL Baso # (Auto) 0.0 (0.0-0.2) X10*3/uL Abs Immat Gran (auto) 0.01 (0.00-0.03) X10*3/uL Absolute Neuts (auto) 2.4 (2.0-8.3) x10*3/uL Absolute Nucleated RBC 0.000 (0.0-0.012) X10*3/uL Nucleated RBC % (auto) 0.0 (0.0-0.2) /100WBC Sodium (135-145) mmol/L Potassium (3.3-5.1) mmol/L Chloride (96-108) mmol/L Carbon Dioxide (22-29) mmol/L Anion Gap (12-20) BUN (9-16) mg/dL Creatinine (0.5-1.4) mg/dL Estim Creat Clear Calc Estimated GFR Random Glucose (60-115) mg/dL Calcium (8.4-10.2) mg/dL Magnesium (1.6-2.6) mg/dL Urine Color YELLOW Urine Appearance CLEAR Urine pH 6.0 (5.0-8.0) Ur Specific [place] 1.010 (1.005-1.025) Urine Protein NEG (NEG-TRACE) MG/DL Urine Glucose (UA) >=1000 H (NEG) MG/DL Urine Ketones NEG (NEG) MG/DL Urine Blood NEG (NEG) Urine Nitrite NEG (NEG) Ur Leukocyte Esterase NEG (NEG) Urine RBC 0 (0) /HPF Urine WBC 0 (0-4) /HPF Ur Squamous Epith Cells 3+ /LPF Urine Bacteria NONE /LPF Influenza Type A (PCR) NEGATIVE (Negative) Influenza Type B (PCR) NEGATIVE (Negative) RSV RNA Qual (PCR) NEGATIVE (Negative) SARS-CoV-2 RNA (RT-PCR) NEGATIVE (Negative) 01/02/22 Range/Units 14:33 WBC (4.8-10.8) X10*3/uL RBC (4.20-5.50) X10*6/uL Hgb (12.0-16.0) g/dl Hct (37.0-47.0) % MCV (80.0-98.0) fL MCH (27.0-33.0) pg MCHC (31.0-35.0) g/dl RDW (11.0-16.0) % Plt Count (160-400) X10*3/uL MPV (9.4-12.3) fL Immature Gran % (Auto) (0.0-0.4) % Neut % (Auto) (45-73) % Lymph % (Auto) (20-40) % [place] % (Auto) (2-11) % Eos % (Auto) (0-4) % Baso % (Auto) (0-2) % Lymph # (Auto) (1.2-4.9) X10*3/uL [place] # (Auto) (0.1-1.2) X10*3/uL Eos # (Auto) (0.0-0.4) X10*3/uL Baso # (Auto) (0.0-0.2) X10*3/uL Abs Immat Gran (auto) (0.00-0.03) X10*3/uL Absolute Neuts (auto) (2.0-8.3) x10*3/uL Absolute Nucleated RBC (0.0-0.012) X10*3/uL Nucleated RBC % (auto) (0.0-0.2) /100WBC Sodium 141 (135-145) mmol/L Potassium 3.9 (3.3-5.1) mmol/L Chloride 107 (96-108) mmol/L Carbon Dioxide 29 (22-29) mmol/L Anion Gap 9 L (12-20) BUN 12 (9-16) mg/dL Creatinine 0.77 (0.5-1.4) mg/dL Estim Creat Clear Calc 53.5 Estimated GFR > 60 Random Glucose 86 (60-115) mg/dL Calcium 9.0 (8.4-10.2) mg/dL Magnesium 2.0 (1.6-2.6) mg/dL Urine Color Urine Appearance Urine pH (5.0-8.0) Ur Specific [place] (1.005-1.025) Urine Protein (NEG-TRACE) MG/DL Urine Glucose (UA) (NEG) MG/DL Urine Ketones (NEG) MG/DL Urine Blood (NEG) Urine Nitrite (NEG) Ur Leukocyte Esterase (NEG) Urine RBC (0) /HPF Urine WBC (0-4) /HPF Ur Squamous Epith Cells /LPF Urine Bacteria /LPF Influenza Type A (PCR) (Negative) Influenza Type B (PCR) (Negative) RSV RNA Qual (PCR) (Negative) SARS-CoV-2 RNA (RT-PCR) (Negative) Imaging Data xr lumbar spine: Radiologist's impression: XR/XR lumbar spine 2-3V IMPRESSION: Lumbar levoscoliosis, generalized osteopenia and multilevel degenerative changes as detailed above. No overt fracture. ? xr left hip: Radiologist's impression: FINDINGS: No fracture or dislocation is seen. There is mild bilateral hip arthritis with acetabular osteophyte. Bones of the pelvis are normal. There are degenerative changes and scoliosis of the visualized lower lumbar spine. There is soft tissue arterial calcification. XR/XR hip LT w PEL1V IMPRESSION: Mild left hip arthritis. Discharge Plan Discharge Clinical Impression: Acute left lumbar radiculopathy, Arthritis of left hip Patient Disposition: Still a Patient Prescriptions: No Action (DME) blood-glucose meter [FreeStyle Lite Meter] Kit See Rx Instructions .ROUTE .MEDSUPPLY Qty: 1 0RF Rx Instructions: Use to check blood sugars twice a day before meals (DME) FreeStyle Lite Strips Strip See Rx Instructions .ROUTE .MEDSUPPLY Qty: 150 8RF Rx Instructions: check blood sugar four times a day (DME) lancets [FreeStyle Lancets] 28 gauge misc See Rx Instructions .ROUTE .MEDSUPPLY Qty: 200 8RF Rx Instructions: four times a day memantine 5 mg Tablet 5 mg PO DAILY 0RF rosuvastatin 20 mg tablet 20 mg PO BEDTIME 0RF Trulicity 3 mg/0.5 mL pen injector 3 mg subcut SA 0RF (DME) cane Device See Rx Instructions .ROUTE .MEDSUPPLY Qty: 1 0RF Rx Instructions: use as directed (DME) tub safety bar See Rx Instructions .Route .MEDSUPPLY Qty: 1 0RF Rx Instructions: As directed escitalopram oxalate 10 mg tablet 10 mg PO DAILY 0RF
--- NOTE | 2022-01-02 16:44 | MHC.CM.ED ---
CM met with patient and daughter/HCP Mikayla Martinez([phone]) with medical technologist, as pt is English speaking. HCP on file. PCP Dr. Mccurdy. Vax/boosted with [employer]. Lives alone. [employer] services M-F (2 hours/day) from [facility]. Uses a cane, walker and wheelchair. Bathroom is handicapped accessible. PT recommends STR. Referrals reviewed with [facility]. 3 referrals placed. Pt and daughter aware that if not bed offers made, will need to place more referrals. Pt aware that she may need to stay overnight due to lateness of referrals. Pt agreeable. CM to follow for d/c needs.
--- NOTE | 2022-01-02 16:46 | PHA.MEDREC ---
Pharmacy Consult ? Medication Reconciliation Pharmacy has completed the medication reconciliation. Pt states that she takes rosuvastatin 20mg nightly, however her claim history shows that she has not picked that prescription up since July 2021. Floridalma Alcantar, DariusD
[2022-01-02 17:09] VITALS: BP 147/69; PULSE 61; RESP 16; TEMP 36.4; O2SAT 99
[2022-01-02 19:37] VITALS: BP 152/67; PULSE 63; RESP 18; TEMP 37; O2SAT 98
[2022-01-02] MEDS: Lidocaine 4 % Patch ADH..PATCH 2 PATCH TRANSDERMA (19:41)
[2022-01-02] MEDS: diazePAM 2 MG TABLET PO (19:41)
[2022-01-02 21:48] VITALS: BP 161/76; PULSE 67; RESP 95; O2SAT 97
--- NOTE | 2022-01-02 21:55 | PC.NURSE ---
Patient refuses atorvastatin. Educated about medication, says she does not want.
[2022-01-03 01:38] VITALS: BP 137/70; PULSE 62; RESP 19; TEMP 37; O2SAT 96
--- NOTE | 2022-01-03 01:53 | PC.NURSE ---
Assumed care of pt Pt resting on stretcher with eyes closed Breathing even and unlabored NAD Will continue to monitor
[2022-01-03 06:04] VITALS: BP 126/71; PULSE 63; RESP 16; O2SAT 95
--- NOTE | 2022-01-03 07:06 | PC.NURSE ---
Report received from Jean ROBB. patient is asleep on stretcher at this time. Respirations regular and even. Skin PWD. Plan is for patient to go to short term rehab due to inability to walk without assistance. Will continue to monitor.
[2022-01-03 08:01] VITALS: BP 134/70; PULSE 61; RESP 17; O2SAT 96
--- NOTE | 2022-01-03 08:53 | MHC.CM.ED ---
Patient remains in ER. [facility] is not able to offer a bed. [facility] is. [facility] is in the process of obtaining insurance auth. Continue to monitor for d/c needs.
[2022-01-03] MEDS: Memantine HCl 5 MG TABLET PO (09:07)
[2022-01-03] MEDS: Escitalopram Oxalate 10 MG TABLET PO (09:07)
[2022-01-03 11:37] VITALS: BP 115/64; PULSE 68; RESP 16; TEMP 36.9; O2SAT 95
--- NOTE | 2022-01-03 13:12 | MHC.CM.ED ---
[facility] has obtained insurance auth. Patient can leave at 3pm. [facility] booked. Med nec with chart. Patient, Jorge Degroot RN and Britta MELVIN aware. Continue to monitor for d/c needs.
[2022-01-03 15:06] VITALS: BP 129/57; PULSE 75; O2SAT 96
== END 2022-01-03 15:36 | disposition skilled nursing facility (03) ==
PROVIDERS: Nurse Practitioner Family; Emergency Provider Emergency Medicine; PCP Internal Medicine
DX: M54.16 Radiculopathy, lumbar region (principal); M79.605 Pain in left leg; R20.0 Anesthesia of skin; Z20.822 Contact with and (suspected) exposure to COVID-19; Z79.899 Other long term (current) drug therapy
CPT/HCPCS: 0241U; 36415; 72100; 73502; 80048; 81001; 83735; 85025; 97162; 99284

== ENCOUNTER 2022-01-04 07:00 | Outpatient (REF) | payer OTHER, SELFPAY ==
[2022-01-04 07:05] LABS: MANUAL DIFF FLAG NO
[2022-01-04 07:20] LABS: Basophils Percent Auto 0.5 % (0-2); Eosinophils Absolute Auto 0.1 X10*3/uL (0.0-0.4); Eosinophils Percent Auto 1.8 % (0-4); Hematocrit 40.6 % (37.0-47.0); Hemoglobin 13.4 g/dl (12.0-16.0); Imm Gran Abs Auto 0.01 X10*3/uL (0.00-0.03); Imm Gran Pct Auto 0.2 % (0.0-0.4); Lymphocytes Absolute Auto 2.4 X10*3/uL (1.2-4.9); Lymphocytes Percent Auto 37.9 % (20-40); Mean Corpuscular Hemoglobin 31.5 pg (27.0-33.0); Mean Corpuscular Volume 95.3 fL (80.0-98.0); Mean Platelet Volume 10.9 fL (9.4-12.3); Monocytes Absolute Auto 0.7 X10*3/uL (0.1-1.2); Monocytes Percent Auto 11.9 % (2-11); Neutrophils Percent Auto 47.7 % (45-73); Platelet Count 203 X10*3/uL (160-400); Red Blood Count 4.26 X10*6/uL (4.20-5.50); Red Cell Distribution Width 13.9 % (11.0-16.0); White Blood Count 6.2 X10*3/uL (4.8-10.8)
[2022-01-04 07:39] LABS: Alanine Aminotransferase 18 U/L (0-31); Albumin Level 3.5 g/dL (3.5-5.0); Alkaline Phosphatase 59 U/L (39-117); Anion Gap 12 (12-20); Aspartate Amino Transferase 20 U/L (5-31); Bilirubin Total 0.3 mg/dL (0.0-1.0); Blood Urea Nitrogen 15 mg/dL (9-16); Calcium 9.3 mg/dL (8.4-10.2); Carbon Dioxide 27 mmol/L (22-29); Chloride 104 mmol/L (96-108); Estimated Glomerular Filt Rate > 60; Glucose Random 170 mg/dL (60-115); Potassium 4.5 mmol/L (3.3-5.1); Sodium 138 mmol/L (135-145); Total Protein 6.5 g/dL (6.5-8.0)
== END 2022-01-04 07:01 | disposition home or self-care (01) ==
LOC: HO.MMNH2L 07:00
PROVIDERS: Visit Provider Family Medicine
DX: I10 Essential (primary) hypertension (principal)
CPT/HCPCS: 36415; 80053; 85025

== ENCOUNTER 2022-01-08 | Outpatient (REF) | payer OTHER, SELFPAY ==
[2022-01-08 07:09] LABS: MANUAL DIFF FLAG NO
[2022-01-08 07:20] LABS: Basophils Percent Auto 0.4 % (0-2); Eosinophils Absolute Auto 0.1 X10*3/uL (0.0-0.4); Eosinophils Percent Auto 1.6 % (0-4); Hematocrit 37.4 % (37.0-47.0); Hemoglobin 12.2 g/dl (12.0-16.0); Imm Gran Abs Auto 0.01 X10*3/uL (0.00-0.03); Imm Gran Pct Auto 0.2 % (0.0-0.4); Lymphocytes Absolute Auto 2.3 X10*3/uL (1.2-4.9); Mean Corpuscular HGB Conc 32.6 g/dl (31.0-35.0); Mean Corpuscular Hemoglobin 31.4 pg (27.0-33.0); Mean Corpuscular Volume 96.4 fL (80.0-98.0); Mean Platelet Volume 10.9 fL (9.4-12.3); Monocytes Absolute Auto 0.4 X10*3/uL (0.1-1.2); Monocytes Percent Auto 8.9 % (2-11); Neutrophils Absolute Auto 2.1 x10*3/uL (2.0-8.3); Neutrophils Percent Auto 42.9 % (45-73); Platelet Count 187 X10*3/uL (160-400); Red Blood Count 3.88 X10*6/uL (4.20-5.50); Red Cell Distribution Width 13.6 % (11.0-16.0); White Blood Count 4.9 X10*3/uL (4.8-10.8)
[2022-01-08 07:30] LABS: Anion Gap 9 (12-20); Blood Urea Nitrogen 12 mg/dL (9-16); Calcium 8.8 mg/dL (8.4-10.2); Carbon Dioxide 30 mmol/L (22-29); Chloride 105 mmol/L (96-108); Estimated Glomerular Filt Rate > 60; Glucose Random 146 mg/dL (60-115); Potassium 3.7 mmol/L (3.3-5.1); Sodium 140 mmol/L (135-145)
== END 2022-01-08 00:01 | disposition home or self-care (01) ==
LOC: HO.MMNH2L
PROVIDERS: Visit Provider Nurse Practitioner Family
DX: I10 Essential (primary) hypertension (principal)
CPT/HCPCS: 36415; 80048; 85025

== ENCOUNTER 2022-05-12 11:58 | Inpatient (IN) | payer OTHER, SELFPAY ==
[2022-05-12] VITALS (9 sets, daily range): BP systolic 108–184; BP diastolic 56–83; PULSE 71–99; RESP 7–18; TEMP 35.9–37.4; O2SAT 90–98; BMI 26.4
--- NOTE | ~2022-05-12 | CT_ITS ---
EXAMINATION: CT SOFT TISSUE NECK WITH CONTRAST CLINICAL INFORMATION: Left mandibular swelling. Question abscess. COMPARISON: CT neck 04/08/2020 TECHNIQUE: Following the intravenous administration of 60 mL of Omnipaque 350 intravenous contrast, helical imaging was performed in the axial plane with generation of coronal and sagittal reformatted images. This CT examination was performed using dose optimization techniques as appropriate, variously including the following: *Automated exposure control *Adjustment of mA and/or kV according to patient size (this includes techniques or standardized protocols for targeted exams where dose is matched to indication/reason for exam; i.e. extremities or head) *Use of iterative reconstruction technique DLP: 544 mGy-cm FINDINGS: There is obstruction of the left submandibular/Klarissa's duct. The duct is significantly dilated and contains 7 salivary gland stones, largest approximately 6 mm in size. There is mild to moderate intraglandular ductal dilation of the left submandibular glands and hyperenhancement of the gland consistent with sialoadenitis. Inflammatory fat stranding about the duct and left submandibular gland tracking into the slightly more inferior anterolateral neck. Slight thickening of left platysma muscle. No peripheral enhancing fluid collection/abscess. Some resultant mass effect from swelling/edema involving the left base of the tongue. Additional effacement of the left vallecula and the left piriform sinus. Mild edema in the preepiglottic fat as well. Small amount of fluid in the region of the left piriform sinus posteriorly. Unremarkable appearance of the parotid glands and parapharyngeal fat. Mild intraglandular ductal dilation the right submandibular gland. No sialolithiasis or dilation of the right Georgetown's duct. Thyroid gland is unremarkable. No cervical lymphadenopathy. Internal jugular veins opacify normally. Common and internal carotid arteries are patent without significant stenosis. Great vessel origins are patent. Normal caliber aortic arch. No airspace consolidation the lung apices. Minimal hazy dependent atelectasis. Visualized intracranial contents, grossly unremarkable limited assessment. Imaged paranasal sinuses and mastoid air cells normally aerated. No fracture or osseous lesion. Moderate cervical spondylosis at C5-C6 and C6-C7. CT/CT soft tissue neck w con IMPRESSION: 1. Obstruction of the left submandibular/Georgetown's duct by ductal stones with sialadenitis and surrounding soft tissue inflammation/edema with mild mass effect involving the left base of tongue and hypopharynx. There are approximately 7 stones within the dilated submandibular duct.
[2022-05-12] MEDS: 0.9 % Sodium Chloride 1,000 ML 999 ML IVCONT (13:02)
[2022-05-12] MEDS: ondansetron HCL 4 MG/2 ML VIAL IVPUSH ×2 (13:08→15:50)
[2022-05-12] MEDS: Morphine Sulfate 4 MG/ML CARTRIDGE IVPUSH (13:09)
[2022-05-12 13:10] LABS: Basophils Percent Auto 0.2 % (0-2); Eosinophils Absolute Auto 0.1 X10*3/uL (0.0-0.4); Eosinophils Percent Auto 0.5 % (0-4); Hematocrit 40.7 % (37.0-47.0); Hemoglobin 13.5 g/dl (12.0-16.0); Imm Gran Abs Auto 0.02 X10*3/uL (0.00-0.03); Imm Gran Pct Auto 0.2 % (0.0-0.4); Lymphocytes Absolute Auto 2.7 X10*3/uL (1.2-4.9); Lymphocytes Percent Auto 28.7 % (20-40); MANUAL DIFF FLAG NO; Mean Corpuscular HGB Conc 33.2 g/dl (31.0-35.0); Mean Corpuscular Hemoglobin 31.3 pg (27.0-33.0); Mean Corpuscular Volume 94.4 fL (80.0-98.0); Monocytes Absolute Auto 0.9 X10*3/uL (0.1-1.2); Monocytes Percent Auto 9.2 % (2-11); Neutrophils Absolute Auto 5.7 x10*3/uL (2.0-8.3); Neutrophils Percent Auto 61.2 % (45-73); Platelet Count 190 X10*3/uL (160-400); Red Blood Count 4.31 X10*6/uL (4.20-5.50); Red Cell Distribution Width 13.5 % (11.0-16.0); White Blood Count 9.3 X10*3/uL (4.8-10.8)
[2022-05-12 13:23] LABS: Prothrombin Time 11.2 SEC (10.0-13.1)
[2022-05-12 13:26] LABS: COVID-19 Test Negative (Negative); IDNOW Serial# 55D5AD1C
[2022-05-12 13:28] LABS: Lactic Acid 2.5 mmol/L (0.5-2.0)
[2022-05-12] MEDS: Piperacillin Sodium/Tazobactam 2.25 GM in 0.9 % Sodium Chloride 50 ML IV ×3 (13:28→23:25)
[2022-05-12 13:30] LABS: Alanine Aminotransferase 31 U/L (0-31); Albumin Level 4.1 g/dL (3.5-5.0); Alkaline Phosphatase 73 U/L (39-117); Anion Gap 15 (12-20); Aspartate Amino Transferase 24 U/L (5-31); Bilirubin Total 0.9 mg/dL (0.0-1.0); Blood Urea Nitrogen 16 mg/dL (9-16); Calcium 9.1 mg/dL (8.4-10.2); Carbon Dioxide 26 mmol/L (22-29); Chloride 103 mmol/L (96-108); Creatinine Clr Calc Pharmacy 44.9; Estimated Glomerular Filt Rate > 60; Glucose Random 193 mg/dL (60-115); Magnesium 1.9 mg/dL (1.6-2.6); Potassium 3.9 mmol/L (3.3-5.1); Sodium 140 mmol/L (135-145); Total Protein 7.4 g/dL (6.5-8.0)
--- NOTE | 2022-05-12 13:31 | ED.NECK ---
HPI - Neck Pain/Injury General Chief Complaint: General Medical Stated Complaint: Lump in neck/unable to swallow Time Seen by Provider: 05/12/22 12:20 Source: patient and family (Daughter at bedside) Mode of arrival: ambulatory Limitations: language barrier (Greenlandic-speaking) History of Present Illness HPI Narrative: 76-year-old female with a past medical history of diabetes, hypertension, hyperlipidemia, dementia, anxiety who was admitted on 11/07/2021 until 11/10/2021 for acute left submandibular sialoadenitis was treated with IV dexamethasone and IV antibiotics then discharged home presenting to the ED with complaints of acute onset of left submandibular/neck swelling that started 2 days ago. She reports that she is having trouble swallowing. She denies any fevers, chills, dizziness, headaches, nasal congestion/rhinorrhea, recent ingestions, chest pain or shortness of breath, dyspnea on exertion, orthopnea, palpitations, paresthesias, nausea/vomiting/diarrhea constipation, black or bloody stools, recent travel or sick contacts, recent falls or trauma, abdominal pain, back pain, dysuria, hematuria, abnormal vaginal discharge, rashes or any other symptoms complaints or concerns at this time. MD complaint: neck pain (/swelling) Onset (ago): day(s) (2) Place: home Radiation: left lateral Severity: severe and constant Severity scale (1-10): >10 Quality: aching Duration: constant Relieving factors: none Exacerbating factors: other (Palpation) Associated symptoms: other (Difficulty swallowing) Treatments prior to arrival: other (Benadryl) Related Data Home Medications Medication Instructions Recorded Confirmed escitalopram oxalate 10 mg tablet 10 mg PO DAILY 07/03/21 05/12/22 memantine 5 mg tablet 5 mg PO DAILY 11/07/21 05/12/22 rosuvastatin 20 mg tablet 20 mg PO BEDTIME 01/02/22 05/12/22 meclizine 25 mg tablet 25 mg PO TID PRN Dizziness 01/24/22 05/12/22 Previous Rx's Medication Instructions Recorded cane #1 ea 07/25/20 tub safety bar #1 ea 07/25/20 blood-glucose meter (FreeStyle #1 ea 08/10/20 Lite Meter kit) blood sugar diagnostic (FreeStyle #150 ea 08/07/21 Lite Strips) lancets 28 gauge (FreeStyle #200 ea 03/08/22 Lancets) dulaglutide 3 mg/0.5 mL 3 mg (0.5 mL) subcut QWEEK #2 mL 04/30/22 subcutaneous pen injector ([facility]) Allergies Allergy/AdvReac Type Severity Reaction Status Date / Time pineapple [PINEAPPLE] Allergy Intermediate SKIN PEELS Verified 05/12/22 11:14 Iodinated Contrast Media Allergy Mild HIVES Verified 05/12/22 11:14 [IV Dye, Iodine Containing] donepezil AdvReac Intermediate nausea, Verified 05/12/22 11:14 dizziness and vomiting pioglitazone AdvReac Intermediate edema Verified 05/12/22 11:14 amitriptyline [From Elavil] AdvReac Mild NAUSEA & Verified 05/12/22 11:14 VOMITING amoxicillin [Amoxicillin] AdvReac Mild NAUSEA & Verified 05/12/22 11:14 VOMITING codeine AdvReac Mild NAUSEA & Verified 05/12/22 11:14 [From Tylenol-Codeine] VOMITING lisinopril [Lisinopril] AdvReac Mild NAUSEA & Verified 05/12/22 11:14 VOMITING acetaminophen [Tylenol] AdvReac Unknown tylenol 3 Verified 05/12/22 11:14 (states regulare tylenol upset stomach as well) aspirin [Aspirin] AdvReac Unknown NAUSEA & Verified 05/12/22 11:14 VOMITING oxycodone [Percocet] AdvReac Unknown stomach Verified 05/12/22 11:14 upset tramadol [From Ultram] AdvReac Unknown NAUSEA & Verified 05/12/22 11:14 VOMITING Review of Systems Review of Systems: Constitutional : No Weight loss, No Fever, No Chills, No Night Sweats, No Fatigue, No Malaise ENT/Mouth : + left mandibular swelling with difficulty swallowing, No Hearing loss, No Ear Pain, No Nasal Congestion, No Sinus Pain, No Hoarseness, No sore throat, No Rhinorrhea Eyes: No Eye Pain, No Swelling, No Redness, No Foreign Body, No Discharge, No Vision Changes Cardiovascular : No Chest Pain, No SOB, No Dyspnea on Exertion, No Orthopnea, No Edema, No Palpitations Respiratory : No Cough, No Sputum, No Wheezing, No Smoke Exposure, No Dyspnea Gastrointestinal : No Nausea, No Vomiting, No Diarrhea, No Constipation, No abdominal Pain, No Hematochezia, No Melena Genitourinary : no irregular bleeding, No Dysuria, No Urinary Frequency, No Hematuria, No Urinary Incontinence, No Urgency, No Flank Pain, No Urinary Flow Changes, No Hesitancy Musculoskeletal : No joint pain, No Myalgias, No Joint Swelling Skin : No Skin Lesions, No rash Neuro : No Weakness, No Numbness, No Paresthesias, No Loss of Consciousness, No Dizziness, No Headache Psych : No Anxiety/Panic, No Depression, No SI/HI/AH/VH, No Social Issues, Heme/Lymph: No Bruising, No Bleeding, +Lymphadenopathy Endocrine : No Polyuria, No Polydipsia, No Temperature Intolerance Yes all other systems are reviewed and are negative [facility] Past Medical History Attestation statement: The following information was validated with the patient. Source: old records reviewed, obtained from family and nursing notes reviewed Medical History Anxiety Balance disorder Controlled diabetes mellitus without complication, without long-term current use of insulin Hemorrhoid Hyperlipidemia LDL goal <100 Hypertension Idiopathic scoliosis Lumbago Lumbar scoliosis Osteoarthritis Pulmonary nodules Sensorineural hearing loss Submandibular sialoadenitis Type 2 diabetes mellitus with hyperglycemia, without long-term current use of insulin Vitamin D deficiency Surgical History History of bladder suspension procedure Hx of cholecystectomy Family History Family History Father Pulmonary disease Mother Liver cirrhosis Diabetes Other Mental health disorder Social History Social History Household Members: None Housing: Apartment Housing Other:: apartment for [facility] Do you presently have visiting nurse or other home services: Yes Alcohol intake: never Patient Tobacco Use Status: Never used Tobacco e-Cigarette/Vaping Use: Never Used Use of substances other than those prescribed or required for medical reasons: No Advance Directives: Yes Advance Directives on File: Yes Advance Directives Date on File: 11/13/21 service: No Current occupational status: retired Cognitive needs: No Hearing needs: No Vision needs: No Physical Exam Vital Signs: Vital Signs: Last Vital Signs Temp 99.4 F 05/12/22 13:25 Pulse 83 05/12/22 18:33 Resp 7 L 05/12/22 18:33 BP 115/66 05/12/22 18:33 Pulse Ox 95 05/12/22 18:33 O2 Del Method 05/12/22 18:33 O2 Flow Rate 3.5 05/12/22 18:33 BMI result Body Mass Index 26.4 vital signs have been reviewed as normal and appeared to be correct. Blood pressure 164/83. Heart rate normal. Respiration rate normal. Temperature normal. Oxygen saturation normal. Appearance: Alert. Oriented X3. No acute distress. Head: Normal external exam. Normocephalic. Atraumatic. Eyes: PERRLA. EOMI. Conjunctiva and sclera normal. Eyelids normal. ENT: EAC normal. TM's Normal. No septal hematoma noted. No hemotympanum noted. Pharynx normal. Soft and hard palate within normal limits. To the bilateral Stensen's ducts they appear normal. To left Klarissa's duct patient has pain and it appears purulent discharge is slowly excreting out of the duct. Patient is noted to have some trismus. Patient noted to have some mild drooling. Although able to handle secretions at this time. Uvula midline. Moist mucous membranes. No lesions/ulcerations or masses noted on the tongue. Normal voice. No muffled voice noted. Neck: Normal inspection. Neck supple. FROM. No adenopathy. Thyroid Normal. No tracheal deviation noted. No crepitus is noted. No meningeal signs. No neck mass noted. No signs of trauma noted. CVS: Normal heart rate and rhythm. Heart sound normal. Pulses normal throughout. No murmurs/rales/gallops. Respiratory: No respiratory distress. Painless inspiration. Breath sounds normal. No wheezes/rales/rhonchi noted. Chest nontender. No crepitus is noted. No accessory muscle usage noted or decreased air movement noted. No signs of trauma. Abdomen: Soft and nontender. Nondistended. No guarding. No rigidity. Bowel sounds normal in all 4 quadrants. No distention noted. No organomegaly noted. Back: Full range of motion noted. Skin: Skin warm and dry. Normal skin color. Normal skin turgor. No rashes/lesions/lacerations noted. Extremities: Extremities exhibit normal range of motion and nontender. Neuro: Oriented X 3. No motor deficit. No sensory deficit. Reflexes normal. Normal steady gait. No focal neuro deficits noted. CN's II-XII intact bilaterally? Vascular: + radial pulses/+ 2 distal pedal pulses/+2 dorsalis pedis b/l. Normal cap refill. No cyanosis noted to upper extremity nails and lower extremity toes nails. Course Course Course Narrative: 12:40pm - 76-year-old female with a past medical history of diabetes, hypertension, hyperlipidemia, dementia, anxiety who was admitted on 11/07/2021 until 11/10/2021 for acute left submandibular sialoadenitis was treated with IV dexamethasone and IV antibiotics then discharged home presenting to the ED with complaints of acute onset of left submandibular/neck swelling that started 2 days ago. She reports that she is having trouble swallowing. On exam she does have some mild drooling and some trismus although she is able to tolerate her secretions at this time and uvula is midline. She does have left submandibular swelling and purulent discharge from the left [place]'s duct. Stensen's ducts appear within normal limits and draining well normal saliva no purulent drainage from the Stensen's ducts noted at this time. Plan: Labs, blood cultures, lactic acid. Provide fluids, IV Zosyn, IV 4 mg of Zofran, IV 4 mg of morphine, premedicate the patient with 25 mg of Benadryl for IV contrast due to patient reports hives although no angioedema when she received the contrast in the past. Provide 10 mg of IV Decadron and re-evaluate. Reevaluation(s) Reevaluation #1: - labs return patient's random glucose 193. Lactic acid 2.5. Otherwise all other labs are within normal limits. Patient negative for COVID. - awaiting CT scan of soft tissue neck to evaluate for possible abscess/salivary stone will re-evaluate. Time: 13:40 Reevaluation #2: - Obstruction of the left submandibular/[place]'s duct by ductal stones with sialadenitis and surrounding soft tissue inflammation/edema with mild mass effect involving the left base of tongue and hypopharynx. There are approximately 7 stones within the dilated submandibular duct.? - Dr. Nicole and myself attempted to drain the [place];s duct by milking/massge technique with minimal stone removal and moderate amounts of purulent drainage. - We are concerned for the patient developing Julius Angina. - Therefore at this time will attempt to Transfer to [facility] where they have ENT coverage. ? Time: 16:29 Reevaluation #3: - Dr. Lorenzo Graham ENT doctor at [facility] reported that the patient does not need to be transferred emergently and the patient does not need any surgical procedure at this time. He reported if the patient is tolerating her secretions well and we got a few stones out from milking/massage technique and she is having purulent drainage then that is in achievement and he reports that they will be doing the same thing at [facility] including IV antibiotics that we already gave. He reported that at this time she does not need to be transfer that she can be admitted here at [facility] because she does not need ENT at this time per Dr. Graham ENT doctor at [facility]. - will attempt to admit here at [facility]'s speaking to Dr. Ramirez about this case Time: 17:04 Additional Reevaluation(s): - Dr. Rmairez to admit at this time. Although will monitor patient she is sedated from the Dilaudid that she was given. She was given approximately 3 mg of Dilaudid since she has been here in the ER. Consultations Consultation #1: - patient is resting. bus driver/monitor in place. Oxygen saturation in place and patient's vitals are all within normal limits. Will continue to monitor patient will be admitted. Time: 20:45 MDM - Neck Pain/Injury Medical Records Attestation: I reviewed the patient's medical records. Lab Data Attestation: I reviewed the patient's lab results. Result diagrams: 05/12/22 13:01 05/12/22 13:01 Labs: Lab Results 05/12/22 05/12/22 05/12/22 Range/Units 12:59 13:00 13:01 WBC 9.3 (4.8-10.8) X10*3/uL RBC 4.31 (4.20-5.50) X10*6/uL Hgb 13.5 (12.0-16.0) g/dl Hct 40.7 (37.0-47.0) % MCV 94.4 (80.0-98.0) fL MCH 31.3 (27.0-33.0) pg MCHC 33.2 (31.0-35.0) g/dl RDW 13.5 (11.0-16.0) % Plt Count 190 (160-400) X10*3/uL MPV 10.0 (9.4-12.3) fL Immature Gran % (Auto) 0.2 (0.0-0.4) % Neut % (Auto) 61.2 (45-73) % Lymph % (Auto) 28.7 (20-40) % Payette % (Auto) 9.2 (2-11) % Eos % (Auto) 0.5 (0-4) % Baso % (Auto) 0.2 (0-2) % Lymph # (Auto) 2.7 (1.2-4.9) X10*3/uL Payette # (Auto) 0.9 (0.1-1.2) X10*3/uL Eos # (Auto) 0.1 (0.0-0.4) X10*3/uL Baso # (Auto) 0.0 (0.0-0.2) X10*3/uL Abs Immat Gran (auto) 0.02 (0.00-0.03) X10*3/uL Absolute Neuts (auto) 5.7 (2.0-8.3) x10*3/uL Absolute Nucleated RBC 0.000 (0.0-0.012) X10*3/uL Nucleated RBC % (auto) 0.0 (0.0-0.2) /100WBC PT (10.0-13.1) SEC INR (0.9-1.1) Sodium (135-145) mmol/L Potassium (3.3-5.1) mmol/L Chloride (96-108) mmol/L Carbon Dioxide (22-29) mmol/L Anion Gap (12-20) BUN (9-16) mg/dL Creatinine (0.5-1.4) mg/dL Estim Creat Clear Calc Estimated GFR POC Glucose (60-115) mg/dL Random Glucose (60-115) mg/dL Lactic Acid 2.5 H* (0.5-2.0) mmol/L Lactic Acid F/U @ 2Hr (0.5-2.0) mmol/L Calcium (8.4-10.2) mg/dL Magnesium (1.6-2.6) mg/dL Total Bilirubin (0.0-1.0) mg/dL AST (5-31) U/L ALT (0-31) U/L Alkaline Phosphatase (39-117) U/L Total Protein (6.5-8.0) g/dL Albumin (3.5-5.0) g/dL COVID-19 ([facility]) Negative (Negative) COVID-19 Clin Com See Note 05/12/22 05/12/22 05/12/22 Range/Units 13:01 13:01 16:27 WBC (4.8-10.8) X10*3/uL RBC (4.20-5.50) X10*6/uL Hgb (12.0-16.0) g/dl Hct (37.0-47.0) % MCV (80.0-98.0) fL MCH (27.0-33.0) pg MCHC (31.0-35.0) g/dl RDW (11.0-16.0) % Plt Count (160-400) X10*3/uL MPV (9.4-12.3) fL Immature Gran % (Auto) (0.0-0.4) % Neut % (Auto) (45-73) % Lymph % (Auto) (20-40) % Payette % (Auto) (2-11) % Eos % (Auto) (0-4) % Baso % (Auto) (0-2) % Lymph # (Auto) (1.2-4.9) X10*3/uL Payette # (Auto) (0.1-1.2) X10*3/uL Eos # (Auto) (0.0-0.4) X10*3/uL Baso # (Auto) (0.0-0.2) X10*3/uL Abs Immat Gran (auto) (0.00-0.03) X10*3/uL Absolute Neuts (auto) (2.0-8.3) x10*3/uL Absolute Nucleated RBC (0.0-0.012) X10*3/uL Nucleated RBC % (auto) (0.0-0.2) /100WBC PT 11.2 (10.0-13.1) SEC INR 1.0 (0.9-1.1) Sodium 140 (135-145) mmol/L Potassium 3.9 (3.3-5.1) mmol/L Chloride 103 (96-108) mmol/L Carbon Dioxide 26 (22-29) mmol/L Anion Gap 15 (12-20) BUN 16 (9-16) mg/dL Creatinine 0.91 (0.5-1.4) mg/dL Estim Creat Clear Calc 44.9 Estimated GFR > 60 POC Glucose (60-115) mg/dL Random Glucose 193 H (60-115) mg/dL Lactic Acid (0.5-2.0) mmol/L Lactic Acid F/U @ 2Hr 1.5 (0.5-2.0) mmol/L Calcium 9.1 (8.4-10.2) mg/dL Magnesium 1.9 (1.6-2.6) mg/dL Total Bilirubin 0.9 (0.0-1.0) mg/dL AST 24 (5-31) U/L ALT 31 (0-31) U/L Alkaline Phosphatase 73 D (39-117) U/L Total Protein 7.4 (6.5-8.0) g/dL Albumin 4.1 (3.5-5.0) g/dL COVID-19 ([facility]) (Negative) COVID-19 Clin Com 05/12/22 Range/Units 16:50 WBC (4.8-10.8) X10*3/uL RBC (4.20-5.50) X10*6/uL Hgb (12.0-16.0) g/dl Hct (37.0-47.0) % MCV (80.0-98.0) fL MCH (27.0-33.0) pg MCHC (31.0-35.0) g/dl RDW (11.0-16.0) % Plt Count (160-400) X10*3/uL MPV (9.4-12.3) fL Immature Gran % (Auto) (0.0-0.4) % Neut % (Auto) (45-73) % Lymph % (Auto) (20-40) % Payette % (Auto) (2-11) % Eos % (Auto) (0-4) % Baso % (Auto) (0-2) % Lymph # (Auto) (1.2-4.9) X10*3/uL Payette # (Auto) (0.1-1.2) X10*3/uL Eos # (Auto) (0.0-0.4) X10*3/uL Baso # (Auto) (0.0-0.2) X10*3/uL Abs Immat Gran (auto) (0.00-0.03) X10*3/uL Absolute Neuts (auto) (2.0-8.3) x10*3/uL Absolute Nucleated RBC (0.0-0.012) X10*3/uL Nucleated RBC % (auto) (0.0-0.2) /100WBC PT (10.0-13.1) SEC INR (0.9-1.1) Sodium (135-145) mmol/L Potassium (3.3-5.1) mmol/L Chloride (96-108) mmol/L Carbon Dioxide (22-29) mmol/L Anion Gap (12-20) BUN (9-16) mg/dL Creatinine (0.5-1.4) mg/dL Estim Creat Clear Calc Estimated GFR POC Glucose 176 H (60-115) mg/dL Random Glucose (60-115) mg/dL Lactic Acid (0.5-2.0) mmol/L Lactic Acid F/U @ 2Hr (0.5-2.0) mmol/L Calcium (8.4-10.2) mg/dL Magnesium (1.6-2.6) mg/dL Total Bilirubin (0.0-1.0) mg/dL AST (5-31) U/L ALT (0-31) U/L Alkaline Phosphatase (39-117) U/L Total Protein (6.5-8.0) g/dL Albumin (3.5-5.0) g/dL COVID-19 ([facility]) (Negative) COVID-19 Clin Com Imaging Data CT soft tissue neck with IV contrast: Attestation: I personally reviewed and interpreted this imaging study as follows: Radiologist's impression: FINDINGS: There is obstruction of the left submandibular/Klarissa's duct. The duct is significantly dilated and contains 7 salivary gland stones, largest approximately 6 mm in size. There is mild to moderate intraglandular ductal dilation of the left submandibular glands and hyperenhancement of the gland consistent with sialoadenitis. Inflammatory fat stranding about the duct and left submandibular gland tracking into the slightly more inferior anterolateral neck. Slight thickening of left platysma muscle. No peripheral enhancing fluid collection/abscess. Some resultant mass effect from swelling/edema involving the left base of the tongue. Additional effacement of the left vallecula and the left piriform sinus. Mild edema in the preepiglottic fat as well. Small amount of fluid in the region of the left piriform sinus posteriorly. Unremarkable appearance of the parotid glands and parapharyngeal fat. Mild intraglandular ductal dilation the right submandibular gland. No sialolithiasis or dilation of the right Klarissa's duct. Thyroid gland is unremarkable. No cervical lymphadenopathy. Internal jugular veins opacify normally. Common and internal carotid arteries are patent without significant stenosis. Great vessel origins are patent. Normal caliber aortic arch. No airspace consolidation the lung apices. Minimal hazy dependent atelectasis. Visualized intracranial contents, grossly unremarkable limited assessment. Imaged paranasal sinuses and mastoid air cells normally aerated. No fracture or osseous lesion. Moderate cervical spondylosis at C5-C6 and C6-C7. CT/CT soft tissue neck w con IMPRESSION: ? 1. Obstruction of the left submandibular/Klarissa's duct by ductal stones with sialadenitis and surrounding soft tissue inflammation/edema with mild mass effect involving the left base of tongue and hypopharynx. There are approximately 7 stones within the dilated submandibular duct.? ? Critical Care Time Critical Care Time Critical Care Time: Yes Total Critical Care Time: 60 Attestation: I personally attest to this time spent taking care of the patient Discharge Plan Discharge Clinical Impression: Submandibular sialoadenitis, Abscess of submandibular gland Patient Disposition: Admitted As Inpatient
[2022-05-12] MEDS: diphenhydrAMINE HCL 50 MG/ML VIAL 25 MG IVPUSH (13:56)
[2022-05-12] MEDS: Ibuprofen Oral Susp 200 MG/10 ML ORAL.SUSP 800 MG PO (13:56)
[2022-05-12] MEDS: iohexoL 350 MG/ML 100 ML INFUS..BTL IV (14:37)
[2022-05-12 15:07] LABS: Reflex Lactate? Lactic Acid Added
[2022-05-12] MEDS: HYDROmorphone HCl 1 MG/ML SYRINGE IVPUSH ×2 (15:49→16:10)
--- NOTE | 2022-05-12 15:55 | PC.NURSE ---
pt a&ox3, vss, provider at bedside attempting to remove salivary stones, medicated for 10/10 pain.
--- NOTE | 2022-05-12 16:19 | PC.NURSE ---
pt medicated for pain per provider order, O2 sat remaining high 80s, O2 applies at 2.5L via nasal cannual - O2 returned to mid 90s. provider remains at bedside attempting to remove salivary stone.
--- NOTE | 2022-05-12 16:30 | PC.NURSE ---
recheck lactic drawn and sent to lab.
--- NOTE | 2022-05-12 16:38 | PC.NURSE ---
call out to [facility] TRANSFER LINE @[id number]
[2022-05-12 16:46] LABS: ~Lactic Acid-LAB USE ONLY 1.5 mmol/L (0.5-2.0)
[2022-05-12 16:54] LABS: Glucose, Whole Blood 176 mg/dL (60-115)
--- NOTE | 2022-05-12 17:47 | PM.IMHP ---
History of Present Illness Date of Service: 05/12/22 Chief Complaint: left neck swelling 76-year-old female with a past medical history of diabetes, hypertension, hyperlipidemia, dementia, anxiety who was admitted on 11/07/2021 until 11/10/2021 for acute left submandibular sialoadenitis was treated with IV dexamethasone and IV antibiotics then discharged home presenting to the ED with complaints of acute onset of left submandibular/neck swelling that started 2 days ago.? She reports that she is having trouble swallowing. CT scan done in the emergency room demonstrates obstruction of the left submandibular gland/Buckley's duct by ductal stones. She was given dilaudid x2 and the gland was milked expressing several small stones however there appears to be 1 large stone a left by CT scan Review of Systems Review of Systems: denies chest pain Denies shortness of breath Denies nausea vomiting diarrhea Denies fever chills PMFSH Medical History Anxiety Balance disorder Controlled diabetes mellitus without complication, without long-term current use of insulin Hemorrhoid Hyperlipidemia LDL goal <100 Hypertension Idiopathic scoliosis Lumbago Lumbar scoliosis Osteoarthritis Pulmonary nodules Sensorineural hearing loss Submandibular sialoadenitis Type 2 diabetes mellitus with hyperglycemia, without long-term current use of insulin Vitamin D deficiency Family History Father Pulmonary disease Mother Liver cirrhosis Diabetes Other Mental health disorder Surgical History History of bladder suspension procedure Hx of cholecystectomy Social History Household Members: None Housing: Apartment Housing Other:: apartment for nursing home Do you presently have visiting nurse or other home services: Yes Alcohol intake: never Patient Tobacco Use Status: Never used Tobacco e-Cigarette/Vaping Use: Never Used Use of substances other than those prescribed or required for medical reasons: No Advance Directives: Yes Advance Directives on File: Yes Advance Directives Date on File: 11/13/21 service: No Current occupational status: retired Cognitive needs: No Hearing needs: No Vision needs: No Meds Allergies Allergy/AdvReac Type Severity Reaction Status Date / Time pineapple [PINEAPPLE] Allergy Intermediate SKIN PEELS Verified 05/12/22 11:14 Iodinated Contrast Media Allergy Mild HIVES Verified 05/12/22 11:14 [IV Dye, Iodine Containing] donepezil AdvReac Intermediate nausea, Verified 05/12/22 11:14 dizziness and vomiting pioglitazone AdvReac Intermediate edema Verified 05/12/22 11:14 amitriptyline [From Elavil] AdvReac Mild NAUSEA & Verified 05/12/22 11:14 VOMITING amoxicillin [Amoxicillin] AdvReac Mild NAUSEA & Verified 05/12/22 11:14 VOMITING codeine AdvReac Mild NAUSEA & Verified 05/12/22 11:14 [From Tylenol-Codeine] VOMITING lisinopril [Lisinopril] AdvReac Mild NAUSEA & Verified 05/12/22 11:14 VOMITING acetaminophen [Tylenol] AdvReac Unknown tylenol 3 Verified 05/12/22 11:14 (states regulare tylenol upset stomach as well) aspirin [Aspirin] AdvReac Unknown NAUSEA & Verified 05/12/22 11:14 VOMITING oxycodone [Percocet] AdvReac Unknown stomach Verified 05/12/22 11:14 upset tramadol [From Ultram] AdvReac Unknown NAUSEA & Verified 05/12/22 11:14 VOMITING Active Medications: Current Medications Enoxaparin Sodium (Enoxaparin Sodium 40 Mg/0.4 Ml Syringe) 40 mg SUBCUT Q24H [facility] Piperacillin Sod/Tazobactam (Sod 2.25 gm/ Sodium Chloride) 50 mls @ 100 mls/hr IV Q6H [facility] Pharmacy Consult (Consult Rx Perform Med Rec) 1 each MISCELLANE ONCE PRN PRN Reason: Consult order Sodium Chloride (0.9 % Sodium Chloride Flush 3 Ml Syringe) 3 ml IVFLUSH QSHIFT [facility] Home Medications Medication Instructions Recorded Confirmed Last Taken Type escitalopram oxalate 10 mg tablet 10 mg PO DAILY 07/03/21 01/02/22 01/02/22 History memantine 5 mg tablet 5 mg PO DAILY 11/07/21 01/02/22 01/02/22 History rosuvastatin 20 mg tablet 20 mg PO BEDTIME 01/02/22 01/02/22 01/01/22 History meclizine 25 mg tablet mg PO 01/24/22 Unknown History Physical Exam Vital Signs and Narrative: Vital Signs: Last Vital Signs Temp 99.4 F 05/12/22 13:25 Pulse 95 05/12/22 16:20 Resp 18 05/12/22 16:14 BP 123/67 05/12/22 16:14 Pulse Ox 93 05/12/22 16:20 O2 Del Method 05/12/22 16:20 O2 Flow Rate 2.5 05/12/22 16:20 BMI result Body Mass Index 26.4 Const: Other: somnolent yet arousable (secondary to Dilaudid) HEENT: Other: fullness in the left submandibular region. When pressure is applied there was purulent material that is excreted out of work since Dr. Resp: Other: clear to auscultation bilaterally no rales rhonchi or wheezes Cardio: Other: GI: Other: soft nontender nondistended normoactive bowel sounds Extrem: Other: no edema bilaterally Results Labs CBC and Chem 7: 05/12/22 13:01 05/12/22 13:01 Labs: Laboratory Results - last 24 hr 05/12/22 05/12/22 05/12/22 12:59 13:00 13:01 MCV 94.4 MCH 31.3 MCHC 33.2 RDW 13.5 Plt Count 190 MPV 10.0 Immature Gran % (Auto) 0.2 Neut % (Auto) 61.2 Lymph % (Auto) 28.7 [place] % (Auto) 9.2 Eos % (Auto) 0.5 Baso % (Auto) 0.2 Lymph # (Auto) 2.7 [place] # (Auto) 0.9 Eos # (Auto) 0.1 Baso # (Auto) 0.0 Abs Immat Gran (auto) 0.02 Absolute Neuts (auto) 5.7 Absolute Nucleated RBC 0.000 Nucleated RBC % (auto) 0.0 PT INR Anion Gap Estim Creat Clear Calc Estimated GFR POC Glucose Random Glucose Lactic Acid 2.5 H* Lactic Acid F/U @ 2Hr Calcium Magnesium Total Bilirubin AST ALT Alkaline Phosphatase Total Protein Albumin COVID-19 ([facility]) Negative COVID-19 Clin Com See Note 05/12/22 05/12/22 05/12/22 13:01 13:01 16:27 MCV MCH MCHC RDW Plt Count MPV Immature Gran % (Auto) Neut % (Auto) Lymph % (Auto) [place] % (Auto) Eos % (Auto) Baso % (Auto) Lymph # (Auto) [place] # (Auto) Eos # (Auto) Baso # (Auto) Abs Immat Gran (auto) Absolute Neuts (auto) Absolute Nucleated RBC Nucleated RBC % (auto) PT 11.2 INR 1.0 Anion Gap 15 Estim Creat Clear Calc 44.9 Estimated GFR > 60 POC Glucose Random Glucose 193 H Lactic Acid Lactic Acid F/U @ 2Hr 1.5 Calcium 9.1 Magnesium 1.9 Total Bilirubin 0.9 AST 24 ALT 31 Alkaline Phosphatase 73 D Total Protein 7.4 Albumin 4.1 COVID-19 ([facility]) COVID-19 [employer] Com 05/12/22 16:50 MCV MCH MCHC RDW Plt Count MPV Immature Gran % (Auto) Neut % (Auto) Lymph % (Auto) [place] % (Auto) Eos % (Auto) Baso % (Auto) Lymph # (Auto) [place] # (Auto) Eos # (Auto) Baso # (Auto) Abs Immat Gran (auto) Absolute Neuts (auto) Absolute Nucleated RBC Nucleated RBC % (auto) PT INR Anion Gap Estim Creat Clear Calc Estimated GFR POC Glucose 176 H Random Glucose Lactic Acid Lactic Acid F/U @ 2Hr Calcium Magnesium Total Bilirubin AST ALT Alkaline Phosphatase Total Protein Albumin COVID-19 ([facility]) COVID-19 Clin Com Imaging Radiologist's Impressions: Impressions Soft Tissue Neck CT 05/12/22 14:25 IMPRESSION: 1. Obstruction of the left submandibular/Klarissa's duct by ductal stones with sialadenitis and surrounding soft tissue inflammation/edema with mild mass effect involving the left base of tongue and hypopharynx. There are approximately 7 stones within the dilated submandibular duct. Assessment and Plan (1) Submandibular sialoadenitis: Status: Acute (2) Controlled diabetes mellitus without complication, without long-term current use of insulin: Qualifiers: Diabetes mellitus type: type 2 Qualified Code(s): E11.9 - Type 2 diabetes mellitus without complications Status: Acute (3) Hypertension: Qualifiers: Hypertension type: essential hypertension Qualified Code(s): I10 - Essential (primary) hypertension Status: Acute Plan 76-year-old female with a known history of a sialoadenitis returns today with pain under her left jaw. CT scan demonstrates obstruction of the left submandibular/Buckley's duct by ductal stones. There is surrounding tissue inflammation and edema with mild mass effect involving the left base of the tongue. In the emergency room duct was milked with the expression of multiple small stones. 1.Submandibular Sialoadenitis - Continued Zosyn /Decadron - caution with pain medicine - resume milking exercises in a.m. as tolerated 2.DMII - acceptable control currently. . . Patient will be NPO tonight - cover with lispro correctional scale - add back orals in the a.m. if appropriate 3.HTN - acceptable control on current therapies - adjust as indicated DNR Vishnux Will require at least 2 midnights going forward for IV antibiotics/ steroids to treat left sub mandibular sialoadenitis. this cannot be achieved in a less acute setting Quality Stroke Does the patient have a stroke diagnosis?: No VTE Prior VTE?: No VTE Risk Level:: Medical - moderate - high VTE Device Contraindication: Treatment Not Indicated VTE Drug Contraindication: N/A - Med Ordered
--- NOTE | 2022-05-12 18:35 | PHA.MEDREC ---
Pharmacy Consult ? Medication Reconciliation Pharmacy has completed the medication reconciliation. Spoke with pt family member in room
[2022-05-12] MEDS: Enoxaparin Sodium 40 MG/0.4 ML SYRINGE SUBCUT (18:38)
--- NOTE | 2022-05-12 20:42 | PC.NURSE ---
attempted to call in report to [facility], pt not assigned to nurse, will call back for report.
[2022-05-12] MEDS: dexAMETHasone sod phosphate 4 MG/ML VIAL IVPUSH (21:00)
--- NOTE | 2022-05-12 21:05 | PC.NURSE ---
attempted to call in report to [facility]
--- NOTE | 2022-05-12 21:11 | PC.NURSE ---
pt drowsy, but responding to simple questions and commands, vss, medicated per provider order, denies any pain at this time. daughter took pt's purse and cell phone home to charge, will be back in am to see pt.
[2022-05-12] MEDS: 0.9 % Sodium Chloride Flush 3 ML SYRINGE IVFLUSH (23:26)
[2022-05-13] VITALS (7 sets, daily range): BP systolic 115–152; BP diastolic 58–74; PULSE 47–64; RESP 16–20; TEMP 36.1–37.1; O2SAT 94–99
[2022-05-13 00:03] LABS: Glucose, Whole Blood 209 mg/dL (60-115)
[2022-05-13] MEDS: Piperacillin Sodium/Tazobactam 2.25 GM in 0.9 % Sodium Chloride 50 ML IV ×3 (05:47→18:08)
[2022-05-13 07:07] LABS: MANUAL DIFF FLAG NO
[2022-05-13 07:11] LABS: Basophils Percent Auto 0.1 % (0-2); Hematocrit 36.5 % (37.0-47.0); Hemoglobin 11.8 g/dl (12.0-16.0); Imm Gran Abs Auto 0.02 X10*3/uL (0.00-0.03); Imm Gran Pct Auto 0.3 % (0.0-0.4); Lymphocytes Absolute Auto 0.9 X10*3/uL (1.2-4.9); Lymphocytes Percent Auto 11.4 % (20-40); Mean Corpuscular HGB Conc 32.3 g/dl (31.0-35.0); Mean Corpuscular Hemoglobin 31.9 pg (27.0-33.0); Mean Corpuscular Volume 98.6 fL (80.0-98.0); Mean Platelet Volume 10.1 fL (9.4-12.3); Monocytes Absolute Auto 0.2 X10*3/uL (0.1-1.2); Monocytes Percent Auto 2.6 % (2-11); Neutrophils Absolute Auto 6.5 x10*3/uL (2.0-8.3); Neutrophils Percent Auto 85.6 % (45-73); Platelet Count 156 X10*3/uL (160-400); Red Cell Distribution Width 13.5 % (11.0-16.0); White Blood Count 7.6 X10*3/uL (4.8-10.8)
[2022-05-13 07:52] LABS: Alanine Aminotransferase 28 U/L (0-31); Albumin Level 3.4 g/dL (3.5-5.0); Alkaline Phosphatase 60 U/L (39-117); Anion Gap 12 (12-20); Aspartate Amino Transferase 23 U/L (5-31); Bilirubin Total 0.3 mg/dL (0.0-1.0); Blood Urea Nitrogen 15 mg/dL (9-16); Carbon Dioxide 26 mmol/L (22-29); Chloride 108 mmol/L (96-108); Creatinine Clr Calc Pharmacy 47.4; Estimated Glomerular Filt Rate > 60; Glucose Fasting 250 mg/dL (60-99); Sodium 142 mmol/L (135-145); Total Protein 6.2 g/dL (6.5-8.0)
[2022-05-13 07:57] LABS: Glucose, Whole Blood 221 mg/dL (60-115)
[2022-05-13 08:04] LABS: Calcium 8.4 mg/dL (8.4-10.2)
[2022-05-13] MEDS: dexAMETHasone sod phosphate 4 MG/ML VIAL IVPUSH ×2 (08:56→20:11)
[2022-05-13] MEDS: 0.9 % Sodium Chloride Flush 3 ML SYRINGE IVFLUSH ×3 (08:56→20:11)
--- NOTE | 2022-05-13 09:36 | MHC.CM.PN ---
Patient lives alone; in-home services supplied by [facility] (has [employer] services through them), owns walker, cane, rails in bathroom, grab bars, tub bench, raised toilet seat. Daughters drive her where she needs to go. Plan is home w/in-home [facility] provided services. Daughter Mikayla to transport.
[2022-05-13 12:02] LABS: Glucose, Whole Blood 193 mg/dL (60-115)
[2022-05-13] MEDS: Insulin Lispro 100 UNIT/ML 3 ML VIAL SUBCUT ×3 (12:15→20:12)
--- NOTE | 2022-05-13 12:22 | PC.NURSE ---
OK to give ordered abx, allergies verified with RICA ZAPATA
--- NOTE | 2022-05-13 12:48 | HO.PM.IMPN ---
Subjective Subjective Date of Service: 05/13/22 Interval History: more alert this a.m.. States improvement in her pain Review of Systems denies chest pain Denies shortness of breath Denies nausea vomiting diarrhea Denies fever chills Physical Exam Vital Signs: Vital Signs: Last Vital Signs Temp 97.6 F 05/13/22 12:00 Pulse 59 05/13/22 12:00 Resp 20 05/13/22 12:00 BP 135/63 05/13/22 12:00 Pulse Ox 97 05/13/22 12:00 O2 Del Method 05/13/22 12:00 O2 Flow Rate 3 05/13/22 07:25 BMI result Body Mass Index 26.4 Const: Other: somnolent yet arousable (secondary to Dilaudid) HEENT: Other: fullness in the left submandibular region has decreased. Minimal discharge from duct with pressure Resp: Other: clear to auscultation bilaterally no rales rhonchi or wheezes Cardio: Other: GI: Other: soft nontender nondistended normoactive bowel sounds Extrem: Other: no edema bilaterally Objective Data Active Medications Dexamethasone Sodium Phosphate (Dexamethasone Sod Phosphate 4 Mg/Ml Vial) 4 mg IVPUSH BID [facility] Last Admin: 05/13/22 08:56 Dose: 4 mg Documented By: MARVIN Enoxaparin Sodium (Enoxaparin Sodium 40 Mg/0.4 Ml Syringe) 40 mg SUBCUT Q24H [facility] Last Admin: 05/12/22 18:38 Dose: 40 mg Documented By: JOSÉ MANUEL Piperacillin Sod/Tazobactam (Sod 2.25 gm/ Sodium Chloride) 50 mls @ 100 mls/hr IV Q6H [facility] Last Admin: 05/13/22 12:16 Dose: 100 mls/hr Documented By: MARVIN Insulin Human Lispro (Insulin Lispro 100 Unit/Ml 3 Ml Vial) 0 unit SUBCUT QIDACHS [facility]; Protocol Last Admin: 05/13/22 12:15 Dose: 2 unit Documented By: MARVIN Pharmacy Consult (Consult Rx Perform Med Rec) 1 each MISCELLANE ONCE PRN PRN Reason: Consult order Sodium Chloride (0.9 % Sodium Chloride Flush 3 Ml Syringe) 3 ml IVFLUSH QSHIFT [facility] Last Admin: 08/28/22 08:56 Dose: 3 ml Documented By: MARVIN Labs CBC & Chem 7: 05/13/22 06:45 05/13/22 06:45 Labs: Laboratory Results - last 24 hr 05/12/22 05/12/22 05/12/22 12:59 13:00 13:01 MCV 94.4 MCH 31.3 MCHC 33.2 RDW 13.5 Plt Count 190 MPV 10.0 Immature Gran % (Auto) 0.2 Neut % (Auto) 61.2 Lymph % (Auto) 28.7 [place] % (Auto) 9.2 Eos % (Auto) 0.5 Baso % (Auto) 0.2 Lymph # (Auto) 2.7 [place] # (Auto) 0.9 Eos # (Auto) 0.1 Baso # (Auto) 0.0 Abs Immat Gran (auto) 0.02 Absolute Neuts (auto) 5.7 Absolute Nucleated RBC 0.000 Nucleated RBC % (auto) 0.0 PT INR Anion Gap Estim Creat Clear Calc Estimated GFR POC Glucose Random Glucose Fasting Glucose Lactic Acid 2.5 H* Lactic Acid F/U @ 2Hr Calcium Magnesium Total Bilirubin AST ALT Alkaline Phosphatase Total Protein Albumin COVID-19 ([facility]) Negative COVID-19 Clin Com See Note 05/12/22 05/12/22 05/12/22 13:01 13:01 16:27 MCV MCH MCHC RDW Plt Count MPV Immature Gran % (Auto) Neut % (Auto) Lymph % (Auto) [place] % (Auto) Eos % (Auto) Baso % (Auto) Lymph # (Auto) [place] # (Auto) Eos # (Auto) Baso # (Auto) Abs Immat Gran (auto) Absolute Neuts (auto) Absolute Nucleated RBC Nucleated RBC % (auto) PT 11.2 INR 1.0 Anion Gap 15 Estim Creat Clear Calc 44.9 Estimated GFR > 60 POC Glucose Random Glucose 193 H Fasting Glucose Lactic Acid Lactic Acid F/U @ 2Hr 1.5 Calcium 9.1 Magnesium 1.9 Total Bilirubin 0.9 AST 24 ALT 31 Alkaline Phosphatase 73 D Total Protein 7.4 Albumin 4.1 COVID-19 ([facility]) COVID-19 Clin Com 05/12/22 05/12/22 05/13/22 16:50 23:43 06:45 MCV 98.6 H MCH 31.9 MCHC 32.3 RDW 13.5 Plt Count 156 L MPV 10.1 Immature Gran % (Auto) 0.3 Neut % (Auto) 85.6 H Lymph % (Auto) 11.4 L [place] % (Auto) 2.6 Eos % (Auto) 0.0 Baso % (Auto) 0.1 Lymph # (Auto) 0.9 L [place] # (Auto) 0.2 Eos # (Auto) 0.0 Baso # (Auto) 0.0 Abs Immat Gran (auto) 0.02 Absolute Neuts (auto) 6.5 Absolute Nucleated RBC 0.000 Nucleated RBC % (auto) 0.0 PT INR Anion Gap Estim Creat Clear Calc Estimated GFR POC Glucose 176 H 209 H Random Glucose Fasting Glucose Lactic Acid Lactic Acid F/U @ 2Hr Calcium Magnesium Total Bilirubin AST ALT Alkaline Phosphatase Total Protein Albumin COVID-19 ([facility]) COVID-19 Clin Com 05/13/22 05/13/22 05/13/22 06:45 07:34 11:56 MCV MCH MCHC RDW Plt Count MPV Immature Gran % (Auto) Neut % (Auto) Lymph % (Auto) [place] % (Auto) Eos % (Auto) Baso % (Auto) Lymph # (Auto) [place] # (Auto) Eos # (Auto) Baso # (Auto) Abs Immat Gran (auto) Absolute Neuts (auto) Absolute Nucleated RBC Nucleated RBC % (auto) PT INR Anion Gap 12 Estim Creat Clear Calc 47.4 Estimated GFR > 60 POC Glucose 221 H 193 H Random Glucose Fasting Glucose 250 H Lactic Acid Lactic Acid F/U @ 2Hr Calcium 8.4 D Magnesium Total Bilirubin 0.3 AST 23 ALT 28 Alkaline Phosphatase 60 Total Protein 6.2 L Albumin 3.4 L COVID-19 ([facility]) COVID-19 Clin Com Assessment and Plan (1) Abscess of submandibular gland: Status: Acute (2) Type 2 diabetes mellitus with hyperglycemia, without long-term current use of insulin: Status: Acute (3) Hypertension: Status: Acute Plan 76-year-old female with a known history of a sialoadenitis returns today with pain under her left jaw. CT scan demonstrates obstruction of the left submandibular/Ideal's duct by ductal stones. There is surrounding tissue inflammation and edema with mild mass effect involving the left base of the tongue. In the emergency room duct was milked with the expression of multiple small stones. 1.Submandibular Sialoadenitis - Continued Zosyn /Decadron(2) - declines manual expression of stone 2.DMII - acceptable control currently. . . Patient will be NPO tonight - cover with lispro correctional scale - add back orals in the a.m. if appropriate 3.HTN - acceptable control on current therapies - adjust as indicated DNR Vishnux will require ongoing hospitalization for IV antibiotics to treat sialoadenitis Quality Stroke Does the patient have a stroke diagnosis?: No VTE Prior VTE?: No VTE Risk Level:: Medical - moderate - high VTE Device Contraindication: Treatment Not Indicated VTE Drug Contraindication: N/A - Med Ordered
[2022-05-13 16:15] LABS: Glucose, Whole Blood 249 mg/dL (60-115)
[2022-05-13] MEDS: Enoxaparin Sodium 40 MG/0.4 ML SYRINGE SUBCUT (18:08)
[2022-05-13 20:08] LABS: Glucose, Whole Blood 225 mg/dL (60-115)
--- NOTE | 2022-05-13 21:33 | PM.EVENT ---
Event Note Date of Service: 05/13/22 Event Note: blood cultures showing Gram-positive cocci in clusters. Patient started on vancomycin, cultures repeated
[2022-05-13] MEDS: vancomycin HCL 1,500 MG in 0.9 % Sodium Chloride 500 ML 333.33 MG IV (22:40)
[2022-05-14] MEDS: Piperacillin Sodium/Tazobactam 2.25 GM in 0.9 % Sodium Chloride 50 ML IV ×3 (02:07→12:30)
[2022-05-14 03:23] VITALS: BP 148/69; PULSE 50; RESP 16; TEMP 36.7; O2SAT 95
[2022-05-14 05:51] LABS: MANUAL DIFF FLAG NO
[2022-05-14 06:02] LABS: Basophils Percent Auto 0.1 % (0-2); Hematocrit 32.8 % (37.0-47.0); Hemoglobin 11.2 g/dl (12.0-16.0); Imm Gran Abs Auto 0.05 X10*3/uL (0.00-0.03); Imm Gran Pct Auto 0.5 % (0.0-0.4); Lymphocytes Percent Auto 9.4 % (20-40); Mean Corpuscular HGB Conc 34.1 g/dl (31.0-35.0); Mean Corpuscular Volume 93.7 fL (80.0-98.0); Mean Platelet Volume 10.7 fL (9.4-12.3); Monocytes Absolute Auto 0.3 X10*3/uL (0.1-1.2); Neutrophils Absolute Auto 9.1 x10*3/uL (2.0-8.3); Platelet Count 146 X10*3/uL (160-400); White Blood Count 10.5 X10*3/uL (4.8-10.8)
[2022-05-14 06:17] LABS: Alanine Aminotransferase 24 U/L (0-31); Albumin Level 3.1 g/dL (3.5-5.0); Alkaline Phosphatase 56 U/L (39-117); Anion Gap 11 (12-20); Aspartate Amino Transferase 23 U/L (5-31); Bilirubin Total 0.4 mg/dL (0.0-1.0); Blood Urea Nitrogen 22 mg/dL (9-16); Calcium 8.2 mg/dL (8.4-10.2); Carbon Dioxide 24 mmol/L (22-29); Chloride 109 mmol/L (96-108); Creatinine Clr Calc Pharmacy 50.4; Estimated Glomerular Filt Rate > 60; Glucose Fasting 238 mg/dL (60-99); Potassium 3.4 mmol/L (3.3-5.1); Sodium 141 mmol/L (135-145); Total Protein 5.7 g/dL (6.5-8.0)
[2022-05-14 07:04] VITALS: BP 141/68; PULSE 51; RESP 18; TEMP 37; O2SAT 95
[2022-05-14 07:31] LABS: Glucose, Whole Blood 220 mg/dL (60-115)
[2022-05-14] MEDS: dexAMETHasone sod phosphate 4 MG/ML VIAL IVPUSH (07:43)
[2022-05-14] MEDS: Insulin Lispro 100 UNIT/ML 3 ML VIAL SUBCUT ×2 (07:44→12:30)
[2022-05-14] MEDS: 0.9 % Sodium Chloride Flush 3 ML SYRINGE IVFLUSH (07:44)
--- NOTE | 2022-05-14 11:07 | MHC.CM.PN ---
Per ROUNDS discussion, Patient is not yet medically cleared for dc (Positive Blood Cultures); home/resume [employer] services is the goal and CM will continue to follow.
[2022-05-14 11:34] VITALS: BP 163/72; PULSE 62; RESP 18; TEMP 36.4; O2SAT 98
[2022-05-14 11:51] LABS: Glucose, Whole Blood 236 mg/dL (60-115)
--- NOTE | 2022-05-14 13:51 | MHC.CM.PN ---
Per MD, Patient will be medically cleared for dc to home today, with services. PT has not evaluated and Patient is documented to be functionally independent. Therefor, [facility] will evaluate Patient within 48 hours after dc and provide Nursing services PRN. Patient's [facility] services should resume, as before.Last IMM addressed yesterday.
[2022-05-14 14:55] VITALS: PULSE 59; RESP 18; TEMP 36.7; O2SAT 98
--- NOTE | 2023-10-07 13:48 | PM.DS ---
DS: Providers Provider Date of Service: 10/07/23 Date of admission: 05/12/22 17:42 Date of discharge: 10/14/23 Primary care physician: Danita Mccurdy MD DS: Diagnosis Discharge Diagnosis (1) Abscess of submandibular gland: Status: Resolved (2) Type 2 diabetes mellitus with hyperglycemia, without long-term current use of insulin: Status: Inactive (3) Hypertension: Status: Inactive DS: Summary Hospital Course Hospital Course: 76-year-old female with a past medical history of diabetes, hypertension, hyperlipidemia, dementia, anxiety who was admitted on 11/07/2021 until 11/10/2021 for acute left submandibular sialoadenitis was treated with IV dexamethasone and IV antibiotics then discharged home presenting to the ED with complaints of acute onset of left submandibular/neck swelling that started 2 days ago.? She reports that she is having trouble swallowing. CT scan done in the emergency room demonstrates obstruction of the left submandibular gland/Klarissa's duct by ductal stones. She was given dilaudid x2 and the gland was milked expressing several small stones however there appears to be 1 large stone a left by CT scan Hospital Course Patient admitted to general medical floor maintained on Zosyn and Decadron. Over the next 48 hours patient condition improved and she is medically acceptable to be discharged home on Augmentin. She will follow up with the PCP as indicated Time Attestation Discharge coordination time: Greater than 30 minutes Quality: Safe Use of Opioids Does Pt have an Active Cancer Diagnosis on the Problem List?: No Quality: Stroke Does the patient have a stroke diagnosis?: No Physical Exam Vital Signs: Vital Signs: Last Vital Signs Temp 98.0 F 05/14/22 14:55 Pulse 59 05/14/22 14:55 Resp 18 05/14/22 14:55 BP 163/72 H 05/14/22 11:34 Pulse Ox 98 05/14/22 14:55 O2 Del Method Room Air 05/14/22 14:55 O2 Flow Rate 3 05/13/22 07:25 BMI result Body Mass Index 26.4 Const: Other: somnolent yet arousable (secondary to Dilaudid) HEENT: Other: fullness in the left submandibular region has decreased. Minimal discharge from duct with pressure Resp: Other: clear to auscultation bilaterally no rales rhonchi or wheezes Cardio: Other: GI: Other: soft nontender nondistended normoactive bowel sounds Extrem: Other: no edema bilaterally Discharge Plan Discharge Anticipated Discharge Date/Time: 05/14/22 13:52 Patient Disposition: Home Health Service Discharge Diagnosis: submandibular sialoadenitis Referrals: [facility] [Other] - 1 Week Danita Mccurdy MD [Primary Care Provider] - 1 Week Discharge Medications: Continued (DME) cane Device See Rx Instructions .ROUTE .MEDSUPPLY Qty: 1 0RF Rx Instructions: use as directed (DME) tub safety bar See Rx Instructions .Route .MEDSUPPLY Qty: 1 0RF Rx Instructions: As directed escitalopram oxalate 10 mg tablet 10 mg PO DAILY No Action (DME) OneTouch Ultra Test Strip See Rx Instructions .Route Qty: 100 6RF Rx Instructions: Check fasting blood sugar twice a day (DME) blood-glucose meter [OneTouch Ultra2 Meter] Misc See Rx Instructions .Route Qty: 1 0RF Rx Instructions: As directed (DME) lancets [OneTouch Delica Lancets] 33 gauge misc See Rx Instructions .Route Qty: 100 6RF Rx Instructions: test blood sugar twice a day rosuvastatin 20 mg tablet 20 mg PO BEDTIME Qty: 90 2RF docusate sodium 100 mg capsule 100 mg PO BID glipizide 5 mg tablet 7.5 mg PO DAILY@0800 glipizide 5 mg tablet 5 mg PO DAILY@1700 memantine 10 mg tablet 10 mg PO BID Jardiance 10 mg tablet 10 mg PO QAM Qty: 30 5RF Trulicity 3 mg/0.5 mL pen injector 3 mg subcut TH 30 Days Qty: 2 6RF Discharge Orders: Discharge Order (Routine); Ordered 05/14/22 Ordered By: Tremaine Ramirez Diet: Advance to usual diet Activity on Discharge: As tolerated Stand Alone Forms: Patient Portal Discharge page Care Plan Goals: follow-up with Dr. Ochoa in 1-2 weeks Health Concerns: complete Augmentin as ordered as well as Decadron taper Plan of Treatment: oxycodone as needed for breakthrough pain Assessment: see discharge summary Discharge Date/Time: 05/14/22 15:49
== END 2022-05-14 15:49 | disposition home health service (06) | DRG 156 ==
LOC: HO.ED 15:41 → HO.EDOVER 17:56 → HO.IMC 18:55
PROVIDERS: Physician Assistant Medical; Admitting Provider Hospitalist; Emergency Provider Emergency Medicine; PCP Internal Medicine; Visit Provider Hospitalist
DX: K11.20 Sialoadenitis, unspecified (principal); F41.9 Anxiety disorder, unspecified; I10 Essential (primary) hypertension; Z66 Do not resuscitate; E11.9 Type 2 diabetes mellitus without complications; F03.90 Unspecified dementia, unspecified severity, without behavioral disturbance, psychotic disturbance, mood disturbance, and anxiety; Z20.822 Contact with and (suspected) exposure to COVID-19; Z91.041 Radiographic dye allergy status; Z88.0 Allergy status to penicillin; Z88.5 Allergy status to narcotic agent; Z88.6 Allergy status to analgesic agent; Z79.899 Other long term (current) drug therapy
CPT/HCPCS: 36415; 70491; 80053; 82947; 83605; 83735; 85025; 85610; 87040; 87147; 87205; 87635; 96361; 96374; 96375; 96376; 99285; J1100; J1170; J1200; J1650; J2270; J2405; J2543; J3370; Q9967

== ENCOUNTER → 2022-05-12 17:42 | Outpatient (BNV) | payer OTHER, SELFPAY | PROVIDERS: Admitting Provider Hospitalist; Emergency Provider Emergency Medicine; PCP Internal Medicine; Visit Provider Hospitalist | DX: K11.3 Abscess of salivary gland (principal); E11.65 Type 2 diabetes mellitus with hyperglycemia; I10 Essential (primary) hypertension | CPT/HCPCS: 99238 ==

== ENCOUNTER 2022-06-20 08:26 | Outpatient (REF) | payer OTHER, SELFPAY ==
[2022-06-20 09:36] LABS: Alanine Aminotransferase 33 U/L (0-31); Aspartate Amino Transferase 23 U/L (5-31); Cholesterol 320 mg/dL; HDL Cholesterol 39 mg/dL; Triglycerides 424 mg/dL
[2022-06-20 10:52] LABS: Creatinine Urine 74.34 mg/dL; Microalbumin Urine < 5.0 mg/L
== END 2022-06-20 08:27 | disposition home or self-care (01) ==
LOC: HO.LAB 08:26
PROVIDERS: PCP Internal Medicine; Visit Provider Internal Medicine
DX: E11.65 Type 2 diabetes mellitus with hyperglycemia (principal); E78.5 Hyperlipidemia, unspecified
CPT/HCPCS: 36415; 80061; 82043; 84450; 84460

== ENCOUNTER 2022-08-22 08:30 | Outpatient (REF) | payer OTHER, SELFPAY ==
--- NOTE | ~2022-08-22 | MM_ITS ---
EXAMINATION: MM SCREENING DIGITAL BREAST TOMOSYNTHESIS, BILATERAL CLINICAL INFORMATION: Screening. Asymptomatic. The lifetime risk of breast cancer based on the Tyrer-Cuzick Model is 2%. COMPARISON: Mammography: 07/27/2021, 06/07/2020, 06/05/2019 TECHNIQUE: Digital breast tomosynthesis is performed in both the craniocaudal and mediolateral oblique views along with computer-aided detection (CAD). Synthesized 2D images are generated from the tomosynthesis. FINDINGS: There are scattered areas of fibroglandular density (ACR BI-RADS breast composition Category b). Breast tissue composition borders on predominantly fatty. Background stromal markings are stable. There are no significant masses, abnormal calcifications, or other abnormalities. Parenchymal pattern is similar to prior studies. There is no developing density or architectural abnormality. The axilla and skin contours are unremarkable. No significant changes. MM/MM tomosynthesis screening BI IMPRESSION: No mammographic evidence of malignancy. ASSESSMENT: BI-RADS 1: Negative RECOMMENDATION: Routine annual mammography screening. This patient's information was entered into a reminder system with a target due date for their next mammogram.
== END 2022-08-22 08:31 | disposition home or self-care (01) ==
LOC: HO.MAMMO 08:30
PROVIDERS: PCP Internal Medicine; Visit Provider Internal Medicine
DX: Z12.31 Encounter for screening mammogram for malignant neoplasm of breast (principal)
CPT/HCPCS: 77063; 77067

== ENCOUNTER 2022-09-12 08:23 | Outpatient (REF) | payer OTHER, SELFPAY ==
[2022-09-12 09:33] LABS: Estimated Average Glucose 154 mg/dL
[2022-09-12 09:58] LABS: Creatinine Urine 94.39 mg/dL; Microalbum/Creatinine Ratio Ur 6.3 ug/mg cr
[2022-09-12 10:03] LABS: Alanine Aminotransferase 17 U/L (0-31); Anion Gap 12 (12-20); Aspartate Amino Transferase 19 U/L (5-31); Blood Urea Nitrogen 15 mg/dL (9-16); Calcium 9.3 mg/dL (8.4-10.2); Carbon Dioxide 28 mmol/L (22-29); Chloride 103 mmol/L (96-108); Cholesterol 162 mg/dL; Estimated Glomerular Filt Rate > 60; Glucose Fasting 178 mg/dL (60-99); HDL Cholesterol 44 mg/dL; LDL Cholesterol Calculated 78 mg/dl; Sodium 139 mmol/L (135-145); Triglycerides 202 mg/dL; Vitamin D 25-OH Total 24.5 ng/mL (>30)
[2022-09-14 10:28] LABS: LDL Cholesterol Direct 65 mg/dL (<100)
== END 2022-09-12 08:24 | disposition home or self-care (01) ==
LOC: HO.LAB 08:23
PROVIDERS: PCP Internal Medicine; Visit Provider Internal Medicine
DX: E11.65 Type 2 diabetes mellitus with hyperglycemia (principal); E78.5 Hyperlipidemia, unspecified; E55.9 Vitamin D deficiency, unspecified
CPT/HCPCS: 36415; 80048; 80061; 82043; 82306; 83036; 83721; 84450; 84460

== ENCOUNTER 2022-09-13 14:27 | Outpatient (AMB) | payer OTHER, SELFPAY ==
[2022-09-13 14:42] VITALS: BP 130/60; PULSE 80; O2SAT 96; BMI 25.0
--- NOTE | 2022-09-13 14:42 | A.OFFPC_ITS ---
Vital Signs 09/13/22 14:42 Height 5 ft 2 in Weight 137 lb BMI 25.0 BP 130/60 Blood Pressure Location Rt brachial Position Sitting Pulse 80 Pulse Source Pulse Oximeter Pulse Oximetry (%) 96 Oxygen Delivery Method Room Air Intake Visit Reasons: 2 month follow up Allergies pineapple [PINEAPPLE] Allergy (Intermediate, Verified 08/22/23 14:28) SKIN PEELS Iodinated Contrast Media [IV Dye, Iodine Containing] Allergy (Mild, Verified 08/22/23 14:28) HIVES donepezil Adverse Reaction (Intermediate, Verified 08/22/23 14:28) nausea, dizziness and vomiting pioglitazone Adverse Reaction (Intermediate, Verified 08/22/23 14:28) edema amitriptyline [From Elavil] Adverse Reaction (Mild, Verified 08/22/23 14:28) NAUSEA & VOMITING amoxicillin [Amoxicillin] Adverse Reaction (Mild, Verified 08/22/23 14:28) NAUSEA & VOMITING codeine [From Tylenol-Codeine] Adverse Reaction (Mild, Verified 08/22/23 14:28) NAUSEA & VOMITING lisinopril [Lisinopril] Adverse Reaction (Mild, Verified 08/22/23 14:28) NAUSEA & VOMITING acetaminophen [Tylenol] Adverse Reaction (Unknown, Verified 08/22/23 14:28) tylenol 3 (states regulare tylenol upset stomach as well) aspirin [Aspirin] Adverse Reaction (Unknown, Verified 08/22/23 14:28) NAUSEA & VOMITING oxycodone [Percocet] Adverse Reaction (Unknown, Verified 08/22/23 14:28) stomach upset tramadol [From Ultram] Adverse Reaction (Unknown, Verified 08/22/23 14:28) NAUSEA & VOMITING Medication List - Last Reconciled 09/13/22 by Danita Mccurdy MD blood sugar diagnostic (FreeStyle Lite Strips) check blood sugar four times a day blood-glucose meter (FreeStyle Lite Meter kit) Use to check blood sugars twice a day before meals cane use as directed dulaglutide (Trulicity) 3 mg (0.5 mL) subcut QWEEK escitalopram oxalate 10 mg PO DAILY glipizide 7.5 mg in am and 5mg in pm with meals orally 2 times a day; take with meals 30 days lancets (FreeStyle Lancets) four times a day meclizine 25 mg PO TID PRN memantine 5 mg PO DAILY rosuvastatin 20 mg PO BEDTIME [tub safety bar As directed] Tobacco use date assessed: 06/25/22 HPI 2 month follow up HPI Details 76-year-old lady with diabetes mellitus, dyslipidemia, here today for follow-up. She has been feeling well with no complaints at present time. Recent fasting labs showed improvement in her diabetes control with hemoglobin A1c now at 7%. Her fasting lipids are within normal limits except for elevated triglycerides and she has low vitamin-D level at 24. [facility] Medical History (Updated 08/22/23 @ 14:48 by Danita Mccurdy MD) Dizziness of unknown cause Diabetes mellitus with hyperglycemia Vitamin D deficiency Mixed dyslipidemia Lumbago Idiopathic scoliosis Pulmonary nodules Submandibular sialoadenitis Vitamin D deficiency Hemorrhoid Sensorineural hearing loss Balance disorder Lumbar scoliosis Type 2 diabetes mellitus with hyperglycemia, without long-term current use of insulin Anxiety Osteoarthritis Hypertension Surgical History History of bladder suspension procedure Hx of cholecystectomy Family History Father Pulmonary disease Mother Liver cirrhosis Diabetes Other Mental health disorder Social History Household Members: Unknown / Unable to assess Housing: Unknown / Unable to assess Housing Other:: apartment for [facility] Do you presently have visiting nurse or other home services: Yes Unable to assess alcohol history related to: Unknown Alcohol intake: never Patient Tobacco Use Status: Never used Tobacco e-Cigarette/Vaping Use: Never Used Second Hand Smoke Exposure: No Advance Directives Date on File: 11/13/21 service: No Current occupational status: retired Cognitive needs: No Hearing needs: No Vision needs: No Questionnaire Thrive Questionnaire Date Thrive assessed: 01/24/22 SUMMER-7 AMB Questionnaire SUMMER-7 Date USMMER - 7 assessed: 01/24/22 Source: Developed by Drs. Bon David, Debby Smith, Jared Perez and colleagues, with an educational nayely from [employer] Review of Systems Const Denies headache(s) and Denies lethargy Eyes Details: Sees Dr. Rubio for her routine eye exam and retinopathy screening Denies change in vision ENT Denies dysphagia, Denies headache(s), Denies nasal discharge, Denies post nasal drip and Denies sore throat Card Denies chest pain, Denies syncope, Denies palpitations and Denies dyspnea Resp Denies cough and Denies dyspnea GI Denies abdominal pain, Denies melena, Denies change in bowel habits, Denies dysphagia and Denies dyspepsia Denies hematuria and Denies dysuria Musc Denies joint swelling and Reports stiffness Skin/Breast Denies rash Neuro Reports as per HPI, Denies syncope, Denies headache(s) and Denies tremor(s) Endo Denies polydipsia, Denies polyuria and Denies palpitations Jeyson/Lymph Reports no additional complaints Aller/Immun Reports no additional complaints Physical exam (Primary Care) Vital Signs: Last Vital Signs Pulse 80 09/13/22 14:42 BP 130/60 09/13/22 14:42 Pulse Ox 96 09/13/22 14:42 Oxygen Delivery Method Room Air 09/13/22 14:42 BMI result Body Mass Index 25.0 Tobacco/Smoking Status: Tobacco use Status Tobacco use date assessed 06/25/22 09/13/22 14:45 Patient Tobacco Use Status Never used Tobacco 09/13/22 14:45 e-Cigarette/Vaping Use Never Used 09/13/22 14:45 Thrive Assessment: Date of Thrive Assessment Date Thrive assessed 01/24/22 09/13/22 14:45 Const Other: Alert oriented x3, no acute distress noted ambulatory with assistance of a walker, daughter present Orientation/consciousness: patient oriented x3 [facility] Head: Yes normocephalic and Yes atraumatic General nose exam: Normal external nose present Face and sinus: Yes face symmetric Mouth: Normal oral and palatal mucosa present, oropharynx normal and moist mucous membranes Neck Neck: Yes full ROM, Yes no lymphadenopathy and Yes supple Resp Auscultation: clear to auscultation bilaterally Cardio Other: S1-S2 present regular and rhythm GI Palpation (GI): Soft to palpation, nontender, no guarding and no masses Skin General skin exam: no rashes or lesions noted Neuro General: patient oriented x3, tone normal, moves all extremities, Normal light touch and pain sensation, no focal motor deficits and CN's II-XI intact bilaterally Extrem General: Yes full ROM, Yes no joint enlargement, Yes no pedal edema and Yes no calf tenderness Immunizations pneumoc 20-catherine conj-dip cr(PF) 0.5 mL IM syringe Performing Provider: Danita Mccurdy MD [place] [facility] [place] [facility] [place] Administered by: Sarah López RN on 09/13/22 15:20 Dose Route Admin Location Dispensed Lot Number Expiration Date NDC System Administrator 0.5 mL IM Right Deltoid 0.5 mL [id number] 11/15/23 [employer] VIS Given Date VIS Provided VIS Publication Date 09/13/22 Single Vaccine 21 Eligibility Eligibility Date Funding Source Not VFC Eligible 09/13/22 Private Results Reviewed Results Reviewed: Laboratory Tests 05/31/22 09/12/22 09/12/22 15:15 08:42 08:42 Fasting Glucose 178 H Estimat Average Glucose 154 Hgb A1c (Clinic) 10.2 H Hemoglobin A1c % 7.0 ENTERED: 09/12/22-[address]: ORDERED: Met Prof Fast, AST, ALT, Lipid Panel, Vitamin D 25-OH Test Result Flag Reference Site Sodium 139 135-145 mmol/L Potassium 4.0 3.3-5.1 mmol/L CL 103 96-108 mmol/L CO2 28 22-29 mmol/L Gap 12 12-20 BUN 15 9-16 mg/dL Creat 0.85 0.5-1.4 mg/dL EGFR > 60 NOTE: For -[place] individuals, multiply the result by 1.210. Chronic Kidney Disease: Estimated GFR < 60 mL/min/1.73m2 Severe Kidney Disease: Estimated GFR < 15 mL/min/1.73m2 FBS 178 H 60-99 mg/dL A fasting glucose of 126 mg/dl or greater on more than one occasion is considered diagnostic of diabetes. CA 9.3 # 8.4-10.2 mg/dL AST (GOT) 19 5-31 U/L ALT (GPT) 17 0-31 U/L Triglyceride 202 mg/dL Desirable Triglyceride: less than 150 mg/dL Borderline High Triglyceride 150-199 mg/dL High Triglyceride: 200-499 mg/dL Very High Triglyceride: greater than or equal to 5OO mg/dL Chol 162 mg/dL Desirable Cholesterol: less than 200 mg/dL Borderline High Cholesterol: 200-239 mg/dL High Cholesterol: greater than 239 mg/dL LDL Calculated 78 mg/dl Desirable LDL: less than 100 mg/dL Near Optimal/Above Optimal LDL: 110-129 mg/dL Borderline High LDL: 130-159 mg/dL High LDL: 160-189 mg/dL Very High LDL: greater than or equal to 190 mg/dL HDL 44 mg/dL Desirable HDL: greater than 40 mg/dL Note: This HDL assay may give artificially low results in patients with liver disease. Vit D 25-OH Tot 24.5 >30 ng/mL Health Based Reference Values* < 20 ng/mL Deficient 20-30 ng/mL Insufficient > 30 ng/mL Sufficient Assessment and Plan Assessment & Plan (1) Controlled diabetes mellitus type II without complication: Code(s): E11.9 - Type 2 diabetes mellitus without complications Plan: A1c today is now at 7%. Will continue on Trulicity and glipizide. Reinforced adherence to diabetic diet, and getting regular exercise. Reminded to go to her eye doctor for her diabetes with retinopathy screening, and reminded to get her flu vaccine and her COVID booster. Prevnar 20 given today (2) Vitamin D deficiency: Code(s): E55.9 - Vitamin D deficiency, unspecified Plan: [place] [address] units per capsule to take once a week for the next 3 months. (3) Mixed dyslipidemia: Code(s): E78.2 - Mixed hyperlipidemia Plan: Reviewed recent fasting lipid profile with patient with levels within normal limits . Continue with rosuvastatin 20 mg daily , in addition to adherence to low-cholesterol diet and regular exercise, at least 30 minutes 3 to 4 times a week. Advised patient to make healthy food choices, eat more fruits, vegetables, whole grains, wild caught fish and low-fat dairy. Limit amount of meat and fried or fatty food products, as well as processed foods and fast foods. Follow-up scheduled with repeat fasting lipid panel in 3 months. Orders: Orders Lipid Panel 3 Months E55.9 - Vitamin D deficiency, unspecified, E78.2 - Mixed hyperlipidemia, E11.9 - Type 2 diabetes mellitus without complications, Z78.0 - Asymptomatic menopausal state Complete Blood Count Auto Diff 3 Months E55.9 - Vitamin D deficiency, unspecified, E78.2 - Mixed hyperlipidemia, E11.9 - Type 2 diabetes mellitus without complications, Z78.0 - Asymptomatic menopausal state Alanine Aminotransferase 3 Months E55.9 - Vitamin D deficiency, unspecified, E78.2 - Mixed hyperlipidemia, E11.9 - Type 2 diabetes mellitus without complications, Z78.0 - Asymptomatic menopausal state Basic Metabolic Panel Fasting 3 Months E55.9 - Vitamin D deficiency, unspecified, E78.2 - Mixed hyperlipidemia, E11.9 - Type 2 diabetes mellitus without complications, Z78.0 - Asymptomatic menopausal state Hemoglobin A1c 3 Months E55.9 - Vitamin D deficiency, unspecified, E78.2 - Mixed hyperlipidemia, E11.9 - Type 2 diabetes mellitus without complications, Z78.0 - Asymptomatic menopausal state Vitamin D 25-OH Total 3 Months E55.9 - Vitamin D deficiency, unspecified, E78.2 - Mixed hyperlipidemia, E11.9 - Type 2 diabetes mellitus without complications, Z78.0 - Asymptomatic menopausal state Vitamin B12 and Folate 3 Months E55.9 - Vitamin D deficiency, unspecified, E78.2 - Mixed hyperlipidemia, E11.9 - Type 2 diabetes mellitus without complications, Z78.0 - Asymptomatic menopausal state IRON PROFILE 3 Months E55.9 - Vitamin D deficiency, unspecified, E78.2 - Mixed hyperlipidemia, E11.9 - Type 2 diabetes mellitus without complications, Z78.0 - Asymptomatic menopausal state Aspartate Amino Transferase 3 Months E55.9 - Vitamin D deficiency, unspecified, E78.2 - Mixed hyperlipidemia, E11.9 - Type 2 diabetes mellitus without complications, Z78.0 - Asymptomatic menopausal state Pneumococcal 20 Immunization 09/13/22 Z23 - Encounter for immunization Medications: New cholecalciferol (vitamin D3) 1,250 mcg PO QWEEK 13 caps 0RF 3 months E55.9 - Vitamin D deficiency, unspecified Coding Level of Care Code Est Pt Level 4 (27986) Diagnoses Controlled diabetes mellitus type II without complication E11.9 Vitamin D deficiency E55.9 Mixed dyslipidemia E78.2
== END 2022-09-13 17:07 | disposition home or self-care (01) ==
LOC: HO.HMGC 14:27
PROVIDERS: PCP Internal Medicine; Visit Provider Internal Medicine
DX: E11.9 Type 2 diabetes mellitus without complications (principal); E55.9 Vitamin D deficiency, unspecified; E78.2 Mixed hyperlipidemia
CPT/HCPCS: 99214

== ENCOUNTER 2022-10-17 08:21 | Outpatient (REF) | payer OTHER, SELFPAY ==
[2022-10-17 08:41] LABS: MANUAL DIFF FLAG NO
[2022-10-17 09:19] LABS: Basophils Percent Auto 0.4 % (0-2); Eosinophils Absolute Auto 0.2 X10*3/uL (0.0-0.4); Eosinophils Percent Auto 3.1 % (0-4); Hematocrit 39.5 % (37.0-47.0); Hemoglobin 12.7 g/dl (12.0-16.0); Imm Gran Abs Auto 0.01 X10*3/uL (0.00-0.03); Imm Gran Pct Auto 0.2 % (0.0-0.4); Lymphocytes Absolute Auto 2.1 X10*3/uL (1.2-4.9); Lymphocytes Percent Auto 38.2 % (20-40); Mean Corpuscular HGB Conc 32.2 g/dl (31.0-35.0); Mean Corpuscular Hemoglobin 30.3 pg (27.0-33.0); Mean Corpuscular Volume 94.3 fL (80.0-98.0); Mean Platelet Volume 10.5 fL (9.4-12.3); Monocytes Absolute Auto 0.7 X10*3/uL (0.1-1.2); Neutrophils Absolute Auto 2.5 x10*3/uL (2.0-8.3); Neutrophils Percent Auto 46.1 % (45-73); Platelet Count 252 X10*3/uL (160-400); Red Blood Count 4.19 X10*6/uL (4.20-5.50); Red Cell Distribution Width 14.7 % (11.0-16.0); White Blood Count 5.4 X10*3/uL (4.8-10.8)
[2022-10-17 09:31] LABS: Estimated Average Glucose 169 mg/dL; Hemoglobin A1c % 7.5 %
[2022-10-17 09:51] LABS: Alanine Aminotransferase 29 U/L (0-31); Anion Gap 13 (12-20); Aspartate Amino Transferase 31 U/L (5-31); Blood Urea Nitrogen 14 mg/dL (9-16); Calcium 9.4 mg/dL (8.4-10.2); Carbon Dioxide 28 mmol/L (22-29); Chloride 105 mmol/L (96-108); Cholesterol 170 mg/dL; Estimated Glomerular Filt Rate 59; Glucose Fasting 177 mg/dL (60-99); HDL Cholesterol 39 mg/dL; Iron 109 mcg/dL (30-160); LDL Cholesterol Calculated 99 mg/dl; Percent Iron Saturation 34 % (15-50); Potassium 4.3 mmol/L (3.3-5.1); Sodium 142 mmol/L (135-145); Total Iron Binding Capacity 316 mcg/dL (228-428); Triglycerides 160 mg/dL; Unsaturated Iron Binding 207 ug/dL
[2022-10-17 10:21] LABS: Folate 16.3 ng/mL (> or = 4.0); Vitamin B12 490 pg/mL (200-900); Vitamin D 25-OH Total 63.3 ng/mL (>30)
== END 2022-10-17 08:22 | disposition home or self-care (01) ==
LOC: HO.LAB 08:21
PROVIDERS: Visit Provider Internal Medicine
DX: E55.9 Vitamin D deficiency, unspecified (principal); E78.2 Mixed hyperlipidemia; E11.9 Type 2 diabetes mellitus without complications; Z78.0 Asymptomatic menopausal state
CPT/HCPCS: 36415; 80048; 80061; 82306; 82607; 82746; 83036; 83540; 84450; 84460; 85025

== ENCOUNTER 2023-04-22 08:04 | Outpatient (REF) | payer OTHER, SELFPAY ==
[2023-04-22 09:00] LABS: Estimated Average Glucose 174 mg/dL; Hemoglobin A1c % 7.7 %
[2023-04-22 09:48] LABS: Alanine Aminotransferase 21 U/L (0-31); Anion Gap 12 (12-20); Aspartate Amino Transferase 20 U/L (5-31); Blood Urea Nitrogen 15 mg/dL (9-16); Calcium 9.4 mg/dL (8.4-10.2); Carbon Dioxide 26 mmol/L (22-29); Chloride 107 mmol/L (96-108); Cholesterol 138 mg/dL; Estimated Glomerular Filt Rate > 60; Glucose Fasting 187 mg/dL (60-99); HDL Cholesterol 48 mg/dL; LDL Cholesterol Calculated 66 mg/dl; Potassium 4.1 mmol/L (3.3-5.1); Sodium 141 mmol/L (135-145); Triglycerides 122 mg/dL
[2023-04-22 09:51] LABS: Vitamin D 25-OH Total 34.8 ng/mL (>30)
== END 2023-04-22 08:05 | disposition home or self-care (01) ==
LOC: HO.LAB 08:04
PROVIDERS: PCP Internal Medicine; Visit Provider Internal Medicine
DX: E11.65 Type 2 diabetes mellitus with hyperglycemia (principal); E55.9 Vitamin D deficiency, unspecified; E78.2 Mixed hyperlipidemia
CPT/HCPCS: 36415; 80048; 80061; 82306; 83036; 84450; 84460

== ENCOUNTER 2023-04-22 13:25 | Outpatient (AMB) | payer OTHER, SELFPAY ==
--- NOTE | 2023-04-22 13:46 | A.OFFPC_ITS ---
<Statement entered by Danita Mccurdy MD - 01/20/25 15:19> This note has been administratively?closed. Vital Signs 04/22/23 13:57 Height 5 ft 2 in Weight 144 lb BMI 26.3 BP 110/62 Blood Pressure Location Lt brachial Position Sitting Pulse 70 Pulse Source Pulse Oximeter Pulse Oximetry (%) 97 Oxygen Delivery Method Room Air Intake Visit Reasons: 4 month f/u HTN,DM & Lipids Intake Note: Pt is here today for her 4 months f/u HTN,DM & lipids Allergies Iodinated Contrast Media [IV Dye, Iodine Containing] Allergy (Mild, Verified 12/12/23 08:57) HIVES donepezil Adverse Reaction (Intermediate, Verified 12/12/23 08:57) nausea, dizziness and vomiting pioglitazone Adverse Reaction (Intermediate, Verified 12/12/23 08:57) edema amitriptyline [From Elavil] Adverse Reaction (Mild, Verified 12/12/23 08:57) NAUSEA & VOMITING amoxicillin [Amoxicillin] Adverse Reaction (Mild, Verified 12/12/23 08:57) NAUSEA & VOMITING codeine [From Tylenol-Codeine] Adverse Reaction (Mild, Verified 12/12/23 08:57) NAUSEA & VOMITING lisinopril [Lisinopril] Adverse Reaction (Mild, Verified 12/12/23 08:57) NAUSEA & VOMITING acetaminophen [Tylenol] Adverse Reaction (Unknown, Verified 12/12/23 08:57) tylenol 3 (states regulare tylenol upset stomach as well) aspirin [Aspirin] Adverse Reaction (Unknown, Verified 12/12/23 08:57) NAUSEA & VOMITING oxycodone [Percocet] Adverse Reaction (Unknown, Verified 12/12/23 08:57) stomach upset tramadol [From Ultram] Adverse Reaction (Unknown, Verified 12/12/23 08:57) NAUSEA & VOMITING Medication List - Last Reconciled 04/22/23 by Danita Mccurdy MD blood sugar diagnostic ([employer] Ultra Test strips) Check fasting blood sugar twice a day blood-glucose meter ([employer] Ultra2 Meter) As directed cane use as directed escitalopram oxalate 10 mg PO DAILY glipizide 7.5 mg in am and 5mg in pm with meals orally 2 times a day; take with meals 30 days lancets ([employer]apor Delica Lancets) test blood sugar twice a day memantine 10 mg PO BID rosuvastatin 20 mg PO BEDTIME Trulicity (dulaglutide) 3 mg (0.5 mL) subcut QWEEK NS [tub safety bar As directed] Tobacco use date assessed: 04/22/23 Fall risk assessment: 1 Fall in past year Last assessed Fall Risk: 04/22/23 Dental Screening Dental Screen Date: 04/22/23 Did you have a dental visit in the last 12 months?: Yes Did you have a dental problem in the last 6 months where you did not have access to dental care?: Yes Was dental information given to patient?: Patient has dentist HPI 4 month f/u HTN,DM & Lipids HPI Details 77-year-old lady with hypertension, diab etes mellitus and dyslipidemia, here today for follow-up. She has been taking glipizide, Trulicity for her diabetes mellitus and rosuvastatin for cholesterol. Blood pressure stable controlled with diet and exercise. [facility] Medical History Dizziness of unknown cause Diabetes mellitus with hyperglycemia Vitamin D deficiency Mixed dyslipidemia Lumbago Idiopathic scoliosis Pulmonary nodules Submandibular sialoadenitis Vitamin D deficiency Hemorrhoid Sensorineural hearing loss Balance disorder Lumbar scoliosis Type 2 diabetes mellitus with hyperglycemia, without long-term current use of insulin Anxiety Osteoarthritis Hypertension Surgical History History of bladder suspension procedure Hx of cholecystectomy Family History Father Pulmonary disease Mother Liver cirrhosis Diabetes Other Mental health disorder Social History Household Members: Unknown / Unable to assess Housing: Unknown / Unable to assess Housing Other:: apartment for shelter Do you presently have visiting nurse or other home services: Yes Unable to assess alcohol history related to: Unknown Alcohol intake: never Patient Tobacco Use Status: Never used Tobacco e-Cigarette/Vaping Use: Never Used Second Hand Smoke Exposure: No Advance Directives: Yes Advance Directives on File: Yes Advance Directives Date on File: 11/13/21 service: No Current occupational status: retired Cognitive needs: No Hearing needs: No Vision needs: No Questionnaire Thrive Questionnaire Date Thrive assessed: 01/24/22 AUDIT C Alcohol Use Questionnaire (AUDIT-C) 1. How often do you have a drink containing alcohol?: Never Total Score: 0 SUMMER-7 AMB Questionnaire SUMMER-7 Date SUMMER - 7 assessed: 01/24/22 Source: Developed by Drs. Bon David, Debby Smith, Jared Perez and colleagues, with an educational nayely from [employer]. Review of Systems Const Denies fever(s), Denies headache(s) and Denies lethargy Eyes Details: Sees Dr. Rubio for her routine eye exam and retinopathy screening Denies change in vision ENT Denies dysphagia, Denies headache(s) and Denies nasal discharge Card Denies chest pain, Denies syncope, Denies palpitations and Denies dyspnea Resp Denies cough and Denies dyspnea GI Denies abdominal pain, Denies melena, Denies change in bowel habits, Denies dysphagia and Denies dyspepsia Denies hematuria and Denies dysuria Musc Denies joint swelling and Reports stiffness Skin/Breast Denies rash Neuro Reports as per HPI, Denies syncope, Denies headache(s) and Denies tremor(s) Endo Denies polydipsia, Denies polyuria and Denies palpitations Jeyson/Lymph Reports no additional complaints Aller/Immun Reports no additional complaints Physical exam (Primary Care) Vital Signs: Last Vital Signs Pulse 70 04/22/23 13:57 BP 110/62 04/22/23 13:57 Pulse Ox 97 04/22/23 13:57 Oxygen Delivery Method Room Air 04/22/23 13:57 BMI result Body Mass Index 26.3 Tobacco/Smoking Status: Tobacco use Status Tobacco use date assessed 04/22/23 04/22/23 13:48 Patient Tobacco Use Status Never used Tobacco 04/22/23 13:48 e-Cigarette/Vaping Use Never Used 04/22/23 13:48 Thrive Assessment: Date of Thrive Assessment Date Thrive assessed 01/24/22 04/22/23 13:48 Const Other: Alert oriented x3, no acute distress noted ambulatory with assistance of a walker, daughter present Orientation/consciousness: patient oriented x3 HENMT Head: Yes normocephalic General nose exam: Normal external nose present Face and sinus: Yes face symmetric Mouth: Normal oral and palatal mucosa present, oropharynx normal and moist mucous membranes Eyes General: appearance normal, both eyes and all related structures Neck Neck: Yes full ROM, Yes no lymphadenopathy and Yes supple Resp Auscultation: clear to auscultation bilaterally Cardio Other: S1-S2 present regular and rhythm GI Palpation (GI): Soft to palpation, nontender, no guarding and no masses Skin General skin exam: no rashes or lesions noted Neuro General: patient oriented x3, tone normal, moves all extremities, Normal light touch and pain sensation, no focal motor deficits and CN's II-XI intact bilaterally Extrem General: Yes full ROM, Yes no joint enlargement, Yes no pedal edema and Yes no calf tenderness Results Reviewed Results Reviewed: NTERED: 04/22/[address]: ORDERED: Met Prof Fast, AST, ALT, Lipid Panel, Vitamin D 25-OH Test Result Flag Reference Site Sodium 141 135-145 mmol/L Potassium 4.1 3.3-5.1 mmol/L CL 107 96-108 mmol/L CO2 26 22-29 mmol/L Gap 12 12-20 BUN 15 9-16 mg/dL Creat 0.83 0.5-1.4 mg/dL EGFR > 60 NOTE: For -[place] individuals, multiply the result by 1.210. Chronic Kidney Disease: Estimated GFR < 60 mL/min/1.73m2 Severe Kidney Disease: Estimated GFR < 15 mL/min/1.73m2 FBS 187 H 60-99 mg/dL A fasting glucose of 126 mg/dl or greater on more than one occasion is considered diagnostic of diabetes. CA 9.4 8.4-10.2 mg/dL AST (GOT) 20 5-31 U/L ALT (GPT) 21 0-31 U/L Triglyceride 122 mg/dL Desirable Triglyceride: less than 150 mg/dL Borderline High Triglyceride 150-199 mg/dL High Triglyceride: 200-499 mg/dL Very High Triglyceride: greater than or equal to 5OO mg/dL Chol 138 mg/dL Desirable Cholesterol: less than 200 mg/dL Borderline High Cholesterol: 200-239 mg/dL High Cholesterol: greater than 239 mg/dL LDL Calculated 66 mg/dl Desirable LDL: less than 100 mg/dL Near Optimal/Above Optimal LDL: 110-129 mg/dL Borderline High LDL: 130-159 mg/dL High LDL: 160-189 mg/dL Very High LDL: greater than or equal to 190 mg/dL HDL 48 mg/dL Desirable HDL: greater than 40 mg/dL Note: This HDL assay may give artificially low results in patients with liver disease. Vit D 25-OH Tot 34.8 >30 ng/mL Health Based Reference Values* < 20 ng/mL Deficient 20-30 ng/mL Insufficient > 30 ng/mL Sufficient Laboratory Tests 04/22/23 08:24 Estimat Average Glucose 174 Hemoglobin A1c % 7.7 Assessment and Plan Assessment & Plan (1) Diabetes mellitus with hyperglycemia: Code(s): E11.65 - Type 2 diabetes mellitus with hyperglycemia Qualifiers: Diabetes mellitus type: type 2 Diabetes mellitus terminal make up operator insulin use: without shelter use Qualified Code(s): E11.65 - Type 2 diabetes mellitus with hyperglycemia Plan: Hemoglobin A1c today is at 7.7%, reinforced importance of following recommended diet and getting regular exercise. Continue glipizide and Trulicity at same dose up-to-date with her retinopathy screening, sees Dr. Rubio (2) Mixed dyslipidemia: Code(s): E78.2 - Mixed hyperlipidemia Plan: Reviewed recent fasting lipid profile with patient with levels at goal . Continue with rosuvastatin 20 mg daily , in addition to adherence to low- cholesterol diet and regular exercise, at least 30 minutes 3 to 4 times a week. Advised patient to make healthy food choices, eat more fruits, vegetables, whole grains, wild caught fish and low-fat dairy. Limit amount of meat and fried or fatty food products, as well as processed foods and fast foods. Follow-up scheduled with repeat fasting lipid panel in 3 months. Orders: Orders Alanine Aminotransferase 3 Months .65 - Type 2 diabetes mellitus with hyperglycemia, E78.2 - Mixed hyperlipidemia Aspartate Amino Transferase 3 Months E11.65 - Type 2 diabetes mellitus with hyperglycemia, E78.2 - Mixed hyperlipidemia Hemoglobin and Hematocrit 3 Months E11.65 - Type 2 diabetes mellitus with hyperglycemia, E78.2 - Mixed hyperlipidemia Microalbumin, Random (w Creat) 3 Months E11.65 - Type 2 diabetes mellitus with hyperglycemia, E78.2 - Mixed hyperlipidemia Basic Metabolic Panel Fasting 3 Months .65 - Type 2 diabetes mellitus with hyperglycemia, E78.2 - Mixed hyperlipidemia Hemoglobin A1c 3 Months .65 - Type 2 diabetes mellitus with hyperglycemia, E78.2 - Mixed hyperlipidemia Lipid Panel 3 Months .65 - Type 2 diabetes mellitus with hyperglycemia, E78.2 - Mixed hyperlipidemia Medications: Refilled Trulicity (dulaglutide) 3 mg (0.5 mL) subcut QWEEK 2 mL 5RF NS . - Type 2 diabetes mellitus with hyperglycemia Trulicity (dulaglutide) 3 mg (0.5 mL) subcut QWEEK 2 mL 5RF NS . - Type 2 diabetes mellitus with hyperglycemia Coding Level of Care Code Est Pt Level 4 (63339) Diagnoses Type 2 diabetes mellitus with hyperglycemia, without long-term current use of insulin Diabetes mellitus type: type 2 Diabetes mellitus shelter insulin use: without terminal make up operator use Mixed dyslipidemia E78.2
[2023-04-22 13:57] VITALS: BP 110/62; PULSE 70; O2SAT 97; BMI 26.3
== END 2023-04-22 14:49 | disposition home or self-care (01) ==
PROVIDERS: PCP Internal Medicine; Visit Provider Internal Medicine
DX: E11.65 Type 2 diabetes mellitus with hyperglycemia (principal); E78.2 Mixed hyperlipidemia
CPT/HCPCS: 99499

== ENCOUNTER 2023-08-09 12:19 | Emergency (ER) | payer OTHER, SELFPAY ==
--- NOTE | ~2023-08-09 | XR_ITS ---
EXAMINATION: XR CHEST, 2 VIEWS CLINICAL INFORMATION: Shortness of breath. COMPARISON: 02/18/2020 TECHNIQUE: AP upright portable and lateral views of the chest were obtained. FINDINGS: Mild bibasilar atelectasis. No consolidation, pneumothorax, or pleural effusion. Cardiac and mediastinal contours are normal. Pulmonary vasculature is unremarkable. Trachea is midline. Bones are osteopenic. There is mild degenerative spondylosis in the thoracic spine with slight right convex thoracic curvature. Osteoarthritis is present in the acromioclavicular and glenohumeral joints. XR/XR chest 2V IMPRESSION: Mild bibasilar atelectasis. No acute pulmonary findings.
[2023-08-09 12:44] VITALS: BP 110/70; BP 150/75; PULSE 80; RESP 18; TEMP 36.8; O2SAT 88; O2SAT 96; BMI 26.0
[2023-08-09 12:50] VITALS: PULSE 81; RESP 24; O2SAT 92
--- NOTE | 2023-08-09 13:01 | ECG_ITS ---
Test Reason : sob Blood Pressure : / mmHG Vent. Rate : 072 BPM Atrial Rate : 072 BPM P-R Int : 166 ms QRS Dur : 076 ms QT Int : 434 ms P-R-T Axes : 021 028 004 degrees QTc Int : 475 ms Normal sinus rhythm Nonspecific ST and T wave abnormality Abnormal ECG When compared with ECG of 18-FEB-2020 11:15, Premature supraventricular complexes are no longer Present T wave inversion more evident in Anterior leads Referred By: Bartolome Mckeon Electronically Signed By:DARSHAN GILMAN MD
--- NOTE | 2023-08-09 13:03 | ED.GENADULT ---
HPI - General Adult General Chief complaint: General Medical Stated complaint: COVID+ FEELING UNWELL Time Seen by Provider: 08/09/23 12:52 Source: patient, family, RN notes reviewed and old records reviewed Limitations: language barrier History of Present Illness HPI narrative: 77 years old this is all diabetes, hypertension, hypercholesteremia questionable dementia, anxiety since emergency room for headache, nausea, vomiting, fever ongoing since last Saturday. The patient was diagnosed this week with COVID on initially she only had cough body aches headache however today she started vomiting and has been unable to tolerate p.o.. On arrival patient SpO2 was 88% in room air, she was mildly tachycardic with respiratory rate of 24 and reports headache and body aches. Patient denies chest pain, reports mild shortness breath, denies abdominal pain and continues to have nausea. No recent falls. Denies dysuria or increased urinary frequency. No ureter weakness, blurry vision slurred speech. Related Data Home Medications Medication Instructions Recorded Confirmed escitalopram oxalate 10 mg tablet 10 mg PO DAILY 07/03/21 08/09/23 memantine 10 mg tablet 10 mg PO BID 10/19/22 08/09/23 docusate sodium 100 mg capsule 100 mg PO BID 08/09/23 08/09/23 dulaglutide 3 mg/0.5 mL 3 mg subcut TH 08/09/23 08/09/23 subcutaneous pen injector (Trulicity) glipizide 5 mg tablet 5 mg PO DAILY@1700 08/09/23 08/09/23 glipizide 5 mg tablet 7.5 mg PO DAILY@0800 08/09/23 08/09/23 trazodone 50 mg tablet 50 mg PO BEDTIME insomnia 08/09/23 08/09/23 Previous Rx's Medication Instructions Recorded cane #1 ea 07/25/20 tub safety bar #1 ea 07/25/20 blood sugar diagnostic (Skycast SolutionsTouch #100 ea 10/25/22 Ultra Test strips) blood-glucose meter (OneTouch #1 ea 11/12/22 Ultra2 Meter) lancets 33 gauge (OneTouch Delica #100 ea 11/12/22 Lancets) rosuvastatin 20 mg tablet 20 mg PO BEDTIME #90 tabs 07/05/23 Allergies Allergy/AdvReac Type Severity Reaction Status Date / Time pineapple [PINEAPPLE] Allergy Intermediate SKIN PEELS Verified 04/22/23 14:15 Iodinated Contrast Media Allergy Mild HIVES Verified 04/22/23 14:15 [IV Dye, Iodine Containing] donepezil AdvReac Intermediate nausea, Verified 04/22/23 14:15 dizziness and vomiting pioglitazone AdvReac Intermediate edema Verified 04/22/23 14:15 amitriptyline [From Elavil] AdvReac Mild NAUSEA & Verified 04/22/23 14:15 VOMITING amoxicillin [Amoxicillin] AdvReac Mild NAUSEA & Verified 04/22/23 14:15 VOMITING codeine AdvReac Mild NAUSEA & Verified 04/22/23 14:15 [From Tylenol-Codeine] VOMITING lisinopril [Lisinopril] AdvReac Mild NAUSEA & Verified 04/22/23 14:15 VOMITING acetaminophen [Tylenol] AdvReac Unknown tylenol 3 Verified 04/22/23 14:15 (states regulare tylenol upset stomach as well) aspirin [Aspirin] AdvReac Unknown NAUSEA & Verified 04/22/23 14:15 VOMITING oxycodone [Percocet] AdvReac Unknown stomach Verified 04/22/23 14:15 upset tramadol [From Ultram] AdvReac Unknown NAUSEA & Verified 04/22/23 14:15 VOMITING Review of Systems Review of Systems: Yes all other systems are reviewed and are negative [facility] Past Medical History Medical History (Updated 08/09/23 @ 21:55 by Bartolome Mckeon MD) Diabetes mellitus with hyperglycemia Vitamin D deficiency Mixed dyslipidemia Lumbago Idiopathic scoliosis Pulmonary nodules Submandibular sialoadenitis Vitamin D deficiency Hemorrhoid Sensorineural hearing loss Balance disorder Lumbar scoliosis Type 2 diabetes mellitus with hyperglycemia, without long-term current use of insulin Anxiety Osteoarthritis Hypertension Surgical History History of bladder suspension procedure Hx of cholecystectomy Family History Family History Father Pulmonary disease Mother Liver cirrhosis Diabetes Other Mental health disorder Social History Household Members: Unknown / Unable to assess Housing: Unknown / Unable to assess Housing Other:: apartment for [facility] Do you presently have visiting nurse or other home services: Yes Unable to assess alcohol history related to: Unknown Alcohol intake: never Patient Tobacco Use Status: Never used Tobacco Smoked in Last 30 Days: No e-Cigarette/Vaping Use: Never Used Use of substances other than those prescribed or required for medical reasons: No Advance Directives: Yes Advance Directives on File: Yes Advance Directives Date on File: 11/13/21 service: No Current occupational status: retired Cognitive needs: No Hearing needs: No Vision needs: No Physical Exam ED Vital Signs: Vital Signs - 24 hr 08/09/23 12:44 08/09/23 12:50 08/09/23 14:24 Temperature 98.2 F 98.0 F Pulse Rate 80 81 70 Respiratory Rate 18 24 H 16 Blood Pressure 150/75 H 123/69 Pulse Oximetry 88 L 92 99 Oxygen Delivery Method Room Air Nasal Cannula Nasal Cannula Oxygen Flow Rate 3 3 08/09/23 15:19 08/09/23 16:22 08/09/23 20:03 Temperature 98.0 F Pulse Rate 69 63 59 Respiratory Rate 18 22 H 18 Blood Pressure 130/71 137/74 Pulse Oximetry 93 97 96 Oxygen Delivery Method Room Air Room Air Room Air Oxygen Flow Rate BMI result Body Mass Index 26.0 General: Alert, Not in Distress Skin: No rash, warm HEENT: Atraumatic, No Exudate or Pharyngeal Erythema Resp: bilateral air entry and some crackles bilaterally Cardio: Regular rate and Rhythm, Normal S1, S2 ABD: Abd soft, non tender, no guarding or rebound. Normal Bowel sounds. : No cva tenderness Neuro: Alert, oriented x4, PERRL Strenght 5/5 on all extremities Sensation is preserved in both lower and upper extremities Index to nose: normal Cranial Nerves II-XII grossly intact No dysarthria, or aphasia No neglet. Visual ty are normal bilaterally Psych: Cooperative, NO SI Course Course Course Narrative: 21:53 pending physical therapy evaluation and director of casework services consult. Will sign out to Dr. Horvath, patient stable resting comfortably. Reevaluation(s) Reevaluation #1: I personally reviewed patient's chest x-ray does show some interstitial infiltrates consistent with viral pneumonia. Time: 13:57 Reevaluation #2: I personally reviewed patient's lab work as consistent with COVID pneumonia. Patient has received dexamethasone, IV fluids, Tylenol and Zofran. Symptoms slightly improved. At this time however limiting patient is a good candidate for outpatient treatment and will speak with hospitalist for admission Time: 14:29 Reevaluation #3: Patient has been without oxygen for several minutes now and no episode of desaturation seen. Discussed with hospitalist will try ambulatory trial if patient is successful will discharge home with return precautions if unsuccessful will admit. Patient had some EKG changes with T inversion in anterior leads which however were present on EKG 2019. Will check troponin but if negative I have low suspiciaon this being ACS equivalent Time: 15:26 Additional Reevaluation(s): Patient was able to ambulate without desaturation or was too weak to do more than a few steps. Patient lives alone and think she is safe discharge. Will discuss with hospitalist for admission versus director of casework services for rehab. manager roofing not available at this time Consultations Time: 16:34 Medications Administered Generic Name Dose Route Start Last Admin Trade Name Freq PRN Reason Stop Dose Admin Atorvastatin Calcium 80 mg 08/09/23 21:00 08/09/23 20:51 Atorvastatin Calcium 80 Mg Tablet PO 80 mg BEDTIME SHERYL Administration Docusate Sodium 100 mg 08/09/23 21:00 08/09/23 20:51 Docusate Sodium 100 Mg Capsule PO 100 mg BID SHERYL Administration Escitalopram Oxalate 10 mg 08/09/23 17:00 08/09/23 20:05 Escitalopram Oxalate 10 Mg Tablet PO 10 mg DAILY SHERYL Administration Glipizide 5 mg 08/09/23 17:00 08/09/23 20:05 Glipizide 5 Mg Tablet PO 5 mg DAILY@1700 SHERYL Administration Memantine 10 mg 08/09/23 21:00 08/09/23 20:51 Memantine Hcl 10 Mg Tablet PO 10 mg BID SHERYL Administration Trazodone HCl 50 mg 08/09/23 21:00 08/09/23 20:51 Trazodone Hcl 50 Mg Tablet PO Not Given BEDTIME SHERYL Discontinued Medications Generic Name Dose Route Start Last Admin Trade Name Freq PRN Reason Stop Dose Admin Acetaminophen 975 mg 08/09/23 13:01 08/09/23 14:06 Acetaminophen 325 Mg Tablet PO 08/09/23 13:02 975 mg ONCE ONE Administration Dexamethasone 6 mg 08/09/23 13:11 08/09/23 14:06 Dexamethasone 6 Mg Tablet PO 08/09/23 13:12 6 mg ONCE ONE Administration Sodium Chloride 500 mls @ 999 mls/hr 08/09/23 13:15 08/09/23 15:01 Ns IV 08/09/23 13:45 Infused .Q31M SHERYL Infusion Ondansetron HCl 4 mg 08/09/23 13:01 08/09/23 14:06 Ondansetron Hcl 4 Mg/2 Ml Vial IVPUSH 08/09/23 13:02 4 mg ONCE ONE Administration Medical Decision Making Medical Decision Making MDM Narrative: 77 years old presenting to the emergency room for headache, nausea, vomiting in setting of COVID infection. Patient is hypoxic at rest with SpO2 88% in room air. Will rule out secondary infection with the chest x-ray, will get CBC, BMP, EKG to rule out electrolyte abnormalities and other possible causes of shortness of breath. Physical exam did not show significant adb tenderness and at this on think vomiting secondary to intra-abdominal pathology. Plan: IV fluids Zofran Tylenol Dexamethasone likely admit Differential Diagnosis VIral pneumonia, bacterial pneumonia, vomiting Lab Data 08/09/23 14:00 08/09/23 14:00 Labs: Lab Results 08/09/23 08/09/23 08/09/23 Range/Units 14:00 14:06 20:54 WBC 5.1 (4.8-10.8) X10*3/uL RBC 4.43 (4.20-5.50) X10*6/uL Hgb 13.9 (12.0-16.0) g/dl Hct 42.0 (37.0-47.0) % MCV 94.8 (80.0-98.0) fL MCH 31.4 (27.0-33.0) pg MCHC 33.1 (31.0-35.0) g/dl RDW 14.0 (11.0-16.0) % Plt Count 155 L D (160-400) X10*3/uL MPV 10.4 (9.4-12.3) fL Immature Gran % (Auto) 0.2 (0.0-0.4) % Neut % (Auto) 77.7 H (45-73) % Lymph % (Auto) 16.0 L (20-40) % [place] % (Auto) 6.1 (2-11) % Eos % (Auto) 0.0 (0-4) % Baso % (Auto) 0.0 (0-2) % Lymph # (Auto) 0.8 L (1.2-4.9) X10*3/uL [place] # (Auto) 0.3 (0.1-1.2) X10*3/uL Eos # (Auto) 0.0 (0.0-0.4) X10*3/uL Baso # (Auto) 0.0 (0.0-0.2) X10*3/uL Abs Immat Gran (auto) 0.01 (0.00-0.03) X10*3/uL Absolute Neuts (auto) 4.0 (2.0-8.3) x10*3/uL Absolute Nucleated RBC 0.000 (0.0-0.012) X10*3/uL Nucleated RBC % (auto) 0.0 (0.0-0.2) /100WBC VBG pH 7.41 (7.32-7.43) VBG pCO2 49 mmHg VBG pO2 42 mmHg VBG HCO3 31 H (22-26) mmol/L VBG O2 Saturation 67.0 % VBG Base Excess 5.5 mmol/L Sodium 143 (135-145) mmol/L Potassium 3.9 (3.3-5.1) mmol/L Chloride 106 (96-108) mmol/L Carbon Dioxide 29 (22-29) mmol/L Anion Gap 12 (12-20) BUN 16 (9-16) mg/dL Creatinine 0.88 (0.5-1.4) mg/dL Estim Creat Clear Calc 47.2 Estimated GFR > 60 POC Glucose 258 H (60-115) mg/dL Random Glucose 269 H (60-115) mg/dL Calcium 9.1 (8.4-10.2) mg/dL Troponin I High Sens 7.3 (<3.5-17.0) ng/L Influenza Type A (PCR) NEGATIVE (Negative) Influenza Type B (PCR) NEGATIVE (Negative) RSV RNA Qual (PCR) NEGATIVE (Negative) SARS-CoV-2 RNA (RT-PCR) POSITIVE A (Negative) Independent Interpretation I performed an independent interpretation of an: EKG (sinus rhythm, t inversion in anterior leads) and Plain X-Ray (interstial infiltrate) Discharge Plan Discharge Clinical Impression: Weakness Prescriptions: No Action (DME) OneTouch Ultra Test Strip See Rx Instructions .Route Qty: 100 6RF Rx Instructions: Check fasting blood sugar twice a day (DME) blood-glucose meter [OneTouch Ultra2 Meter] Misc See Rx Instructions .Route Qty: 1 0RF Rx Instructions: As directed (DME) lancets [OneTouch Delica Lancets] 33 gauge misc See Rx Instructions .Route Qty: 100 6RF Rx Instructions: test blood sugar twice a day rosuvastatin 20 mg tablet 20 mg PO BEDTIME Qty: 90 2RF docusate sodium 100 mg capsule 100 mg PO BID glipizide 5 mg tablet 7.5 mg PO DAILY@0800 glipizide 5 mg tablet 5 mg PO DAILY@1700 trazodone 50 mg tablet 50 mg PO BEDTIME Trulicity 3 mg/0.5 mL pen injector 3 mg subcut TH Patient Comments: saturday (DME) cane Device See Rx Instructions .ROUTE .MEDSUPPLY Qty: 1 0RF Rx Instructions: use as directed (DME) tub safety bar See Rx Instructions .Route .MEDSUPPLY Qty: 1 0RF Rx Instructions: As directed memantine 10 mg tablet 10 mg PO BID escitalopram oxalate 10 mg tablet 10 mg PO DAILY
[2023-08-09] MEDS: 0.9 % Sodium Chloride 500 ML 999 ML IV (14:04)
[2023-08-09 14:06] LABS: MANUAL DIFF FLAG NO
[2023-08-09] MEDS: ondansetron HCL 4 MG/2 ML VIAL IVPUSH (14:06)
[2023-08-09] MEDS: Acetaminophen 325 MG TABLET 975 MG PO (14:06)
[2023-08-09] MEDS: dexAMETHasone 6 MG TABLET PO (14:06)
[2023-08-09 14:09] LABS: Hemoglobin 13.9 g/dl (12.0-16.0); Imm Gran Abs Auto 0.01 X10*3/uL (0.00-0.03); Imm Gran Pct Auto 0.2 % (0.0-0.4); Lymphocytes Absolute Auto 0.8 X10*3/uL (1.2-4.9); Mean Corpuscular HGB Conc 33.1 g/dl (31.0-35.0); Mean Corpuscular Hemoglobin 31.4 pg (27.0-33.0); Mean Corpuscular Volume 94.8 fL (80.0-98.0); Mean Platelet Volume 10.4 fL (9.4-12.3); Monocytes Absolute Auto 0.3 X10*3/uL (0.1-1.2); Monocytes Percent Auto 6.1 % (2-11); Neutrophils Percent Auto 77.7 % (45-73); Platelet Count 155 X10*3/uL (160-400); Red Blood Count 4.43 X10*6/uL (4.20-5.50); White Blood Count 5.1 X10*3/uL (4.8-10.8)
[2023-08-09 14:10] LABS: Venous Blood Gas Refer to POC result
[2023-08-09 14:11] LABS: VBG Base Excess 5.5 mmol/L; VBG HCO3 31 mmol/L (22-26); VBG pCO2 49 mmHg; VBG pH 7.41 (7.32-7.43); VBG pO2 42 mmHg
[2023-08-09 14:21] LABS: Anion Gap 12 (12-20); Blood Urea Nitrogen 16 mg/dL (9-16); Calcium 9.1 mg/dL (8.4-10.2); Carbon Dioxide 29 mmol/L (22-29); Chloride 106 mmol/L (96-108); Creatinine Clr Calc Pharmacy 47.2; Estimated Glomerular Filt Rate > 60; Glucose Random 269 mg/dL (60-115); Potassium 3.9 mmol/L (3.3-5.1); Sodium 143 mmol/L (135-145)
[2023-08-09 14:24] VITALS: BP 123/69; PULSE 70; RESP 16; TEMP 36.7; O2SAT 99
[2023-08-09 14:48] LABS: Influenza A PCR NEGATIVE (Negative); Influenza B PCR NEGATIVE (Negative); Resp Syncy Virus RNA Qual PCR NEGATIVE (Negative); SARS COV2 PCR INHOUSE POSITIVE (Negative)
[2023-08-09 15:19] VITALS: PULSE 69; RESP 18; O2SAT 93
--- NOTE | 2023-08-09 15:36 | PHA.MEDREC ---
Pharmacy Consult ? Medication Reconciliation Pharmacy has completed the medication reconciliation.SPOKE TO PT DAUGHTER (LUPILLO SUTTON [phone]) TO CONFIRM HOME MEDS. SHE USED LIST FROM PHARMACY AND CLARIFIED QUESTIONS WITH HER MOTHER ON DATE OF TRULICITY AND GLIPIZIDE DOSING WHICH IS 7.5 MG MORNING AND 5 MG EVENING.
--- NOTE | 2023-08-09 16:17 | PC.NURSE ---
pt walked with tech with O2 probe on. PT stayed 94-96% RA, but felt very weak and only took a few steps before had to sit down
[2023-08-09 16:22] VITALS: BP 130/71; PULSE 63; RESP 22; O2SAT 97
[2023-08-09 17:18] LABS: Troponin-I High Sensitivity 7.3 ng/L (<3.5-17.0)
[2023-08-09 20:03] VITALS: BP 137/74; PULSE 59; RESP 18; TEMP 36.7; O2SAT 96
[2023-08-09] MEDS: Escitalopram Oxalate 10 MG TABLET PO (20:05)
[2023-08-09] MEDS: glipiZIDE 5 MG TABLET PO (20:05)
[2023-08-09] MEDS: Memantine HCl 10 MG TABLET PO (20:51)
[2023-08-09] MEDS: Docusate Sodium 100 MG CAPSULE PO (20:51)
[2023-08-09] MEDS: Atorvastatin Calcium 80 MG TABLET PO (20:51)
--- NOTE | 2023-08-09 20:56 | PC.NURSE ---
Pt aox4 resting at the bedside. No apparent distress noted. Medicated as ordered. Pt declined Trazedone at this time stating not taking it at home as pt had a reaction to it. Can not remember the reaction at this time.
[2023-08-09 21:01] LABS: Glucose, Whole Blood 258 mg/dL (60-115)
[2023-08-10 00:16] VITALS: BP 126/61; PULSE 59; RESP 18; TEMP 36.5; O2SAT 96
[2023-08-10 05:08] VITALS: BP 128/78; PULSE 64; RESP 18; TEMP 36.6; O2SAT 98
[2023-08-10] MEDS: Memantine HCl 10 MG TABLET PO ×2 (08:34→21:05)
[2023-08-10] MEDS: Docusate Sodium 100 MG CAPSULE PO ×2 (08:34→21:05)
[2023-08-10] MEDS: Escitalopram Oxalate 10 MG TABLET PO (08:34)
[2023-08-10] MEDS: glipiZIDE 5 MG TABLET 7.5 MG PO (08:34)
[2023-08-10 08:40] VITALS: BP 160/69; PULSE 59; RESP 32; TEMP 36.6; O2SAT 98
--- NOTE | 2023-08-10 10:01 | PC.NURSE ---
assumed care of pt at 0700. pt medicated per nov. pt consumed breakfast and rang when needed to use bathroom. pt one assist pivot to commode and voided urine. pt back washed and new hospital gown provided. pt was sob when back to bed from pivoting. BP elevated. pt O2 sat 98% on room air. call maloney within pt reach. all pt needs met cuong.
[2023-08-10 11:45] VITALS: BP 160/69; O2SAT 97
[2023-08-10 13:56] VITALS: BP 131/59; PULSE 58; RESP 19; TEMP 36.7; O2SAT 97
[2023-08-10] MEDS: glipiZIDE 5 MG TABLET PO (18:21)
[2023-08-10 18:29] LABS: Glucose, Whole Blood 255 mg/dL (60-115)
--- NOTE | 2023-08-10 18:45 | PC.NURSE ---
Addendum entered by Shalini Anaya RN 08/10/23 18:49: Dr. Hopkins requesting poc QID for next 24 hours Original Note: pt up and eating dinner in stretcher. pt requested poc taken. sts she takes it 2x/day. poc 255. documented in worklist. provider Dr. Hopkins notified. pt medicated with pm glipizide per nov. pt offers no complaints cuong. rr even/unlabored. plan of care ongoing.
[2023-08-10 21:02] VITALS: BP 135/59; PULSE 59; RESP 18; TEMP 36.8; O2SAT 97
[2023-08-10] MEDS: Atorvastatin Calcium 80 MG TABLET PO (21:05)
[2023-08-10] MEDS: traZODone HCL 50 MG TABLET PO (21:05)
[2023-08-10 21:28] LABS: Glucose, Whole Blood 276 mg/dL (60-115)
--- NOTE | 2023-08-10 21:29 | PC.NURSE ---
pt resting comfortably in bed, eating a cupcake at time of 9pm POC. 276 aware
--- NOTE | 2023-08-10 22:42 | PC.NURSE ---
assist pt to bedside commode and then back to bed. lights off, bed reclined. pt resting comfortably
[2023-08-11 01:58] VITALS: PULSE 81; RESP 19
--- NOTE | 2023-08-11 03:35 | PC.NURSE ---
pt resting comfortably with eyes closed, breathing even and unlabored, no apparent distress noted at this time.
[2023-08-11 06:26] VITALS: BP 98/53; PULSE 66; RESP 18; TEMP 36.7; O2SAT 95
[2023-08-11 07:31] LABS: Glucose, Whole Blood 189 mg/dL (60-115)
[2023-08-11] MEDS: glipiZIDE 5 MG TABLET 7.5 MG PO (07:44)
[2023-08-11] MEDS: Docusate Sodium 100 MG CAPSULE PO (07:44)
[2023-08-11] MEDS: Escitalopram Oxalate 10 MG TABLET PO (07:45)
[2023-08-11] MEDS: Memantine HCl 10 MG TABLET PO (07:45)
--- NOTE | 2023-08-11 11:03 | MHC.CM.ED ---
Pt initially sleeping with covers over head during ED CM 1st attempt to meet with her. Call placed to dtr/HCP Mikayla who states pt lives w/dog and has 4 hours of [employer] care per day in addition to family support by daughters. Pt has various DME in her apt including a walker, cane and life alert. Mikayla or her sister assists w/transportation. Pt ambulates short distances only at baseline. Mikayla states she will be able to provide more care for her mother during her COVID recovery. Met with pt using certified court interpreter: pt states she hasn't slept in the ED because it's cold, noisy and staff wake her for VS, etc. She states she would not want to transfer to a SNF and would prefer to return to home. Mikayla to transport pt to home today. ED PA and RN updated on d/c plan.
[2023-08-11 11:22] LABS: Glucose, Whole Blood 228 mg/dL (60-115)
[2023-08-11 12:14] VITALS: BP 152/76; PULSE 65; RESP 16; TEMP 36.8; O2SAT 95
--- NOTE | 2023-08-11 12:32 | PC.NURSE ---
daughter at bedside to bring patient home. patient up to commode with assistance on standby. able to stand and walk to wheelchair and brought out to daughter's vehicle.
== END 2023-08-11 12:40 | disposition home or self-care (01) ==
PROVIDERS: Emergency Provider Student in an Organized Health Care Education/Training Program; PCP Internal Medicine
DX: U07.1 COVID-19 (principal); R06.02 Shortness of breath; M79.10 Myalgia, unspecified site; R05.9 Cough, unspecified; R51.9 Headache, unspecified; E11.9 Type 2 diabetes mellitus without complications; R26.81 Unsteadiness on feet; I10 Essential (primary) hypertension; R11.2 Nausea with vomiting, unspecified; R94.31 Abnormal electrocardiogram [ECG] [EKG]; Z79.85 Long-term (current) use of injectable non-insulin antidiabetic drugs; Z79.899 Other long term (current) drug therapy
CPT/HCPCS: 0241U; 36415; 71046; 80048; 82803; 82947; 84484; 85025; 93005; 96361; 96374; 97161; 99285; J2405; J8540

== ENCOUNTER 2023-08-19 06:43 | Outpatient (REF) | payer OTHER, SELFPAY ==
[2023-08-19 07:44] LABS: Hematocrit 38.4 % (37.0-47.0); Hemoglobin 12.5 g/dl (12.0-16.0)
[2023-08-19 07:54] LABS: Estimated Average Glucose 200 mg/dL; Hemoglobin A1c % 8.6 % (<6.0)
[2023-08-19 08:18] LABS: Alanine Aminotransferase 32 U/L (0-31); Anion Gap 12 (12-20); Aspartate Amino Transferase 24 U/L (5-31); Blood Urea Nitrogen 17 mg/dL (9-16); Calcium 9.3 mg/dL (8.4-10.2); Carbon Dioxide 25 mmol/L (22-29); Chloride 106 mmol/L (96-108); Cholesterol 110 mg/dL (<200); Estimated Glomerular Filt Rate 55; Glucose Fasting 254 mg/dL (60-99); HDL Cholesterol 39 mg/dL (>40); LDL Cholesterol Calculated 50 mg/dL (<100); Potassium 3.9 mmol/L (3.3-5.1); Sodium 139 mmol/L (135-145); Triglycerides 107 mg/dL (<150)
[2023-08-19 09:08] LABS: Creatinine Urine 121.37 mg/dL; Microalbum/Creatinine Ratio Ur 4.9 ug/mg cr (<30)
== END 2023-08-19 06:44 | disposition home or self-care (01) ==
LOC: HO.LAB 06:43
PROVIDERS: PCP Internal Medicine; Visit Provider Internal Medicine
DX: E11.65 Type 2 diabetes mellitus with hyperglycemia (principal); E78.2 Mixed hyperlipidemia
CPT/HCPCS: 36415; 80048; 80061; 82043; 82570; 83036; 84450; 84460; 85014; 85018

== ENCOUNTER 2023-08-22 13:50 | Outpatient (AMB) | payer OTHER, SELFPAY ==
[2023-08-22 13:53] VITALS: BP 110/78; PULSE 76; O2SAT 97; BMI 25.6
--- NOTE | 2023-08-22 13:53 | MHC.PC.OV ---
Vital Signs 08/22/23 13:53 Height 5 ft 2 in Weight 140 lb 4 oz BMI 25.6 BP 110/78 Blood Pressure Location Lt brachial Position Sitting Pulse 76 Pulse Source Pulse Oximeter Pulse Oximetry (%) 97 Oxygen Delivery Method Room Air Intake Visit Reasons: 4 Month follow up Intake Note: Pt is here to follow up for her lab results Allergies pineapple [PINEAPPLE] Allergy (Intermediate, Verified 08/22/23 14:28) SKIN PEELS Iodinated Contrast Media [IV Dye, Iodine Containing] Allergy (Mild, Verified 08/22/23 14:28) HIVES donepezil Adverse Reaction (Intermediate, Verified 08/22/23 14:28) nausea, dizziness and vomiting pioglitazone Adverse Reaction (Intermediate, Verified 08/22/23 14:28) edema amitriptyline [From Elavil] Adverse Reaction (Mild, Verified 08/22/23 14:28) NAUSEA & VOMITING amoxicillin [Amoxicillin] Adverse Reaction (Mild, Verified 08/22/23 14:28) NAUSEA & VOMITING codeine [From Tylenol-Codeine] Adverse Reaction (Mild, Verified 08/22/23 14:28) NAUSEA & VOMITING lisinopril [Lisinopril] Adverse Reaction (Mild, Verified 08/22/23 14:28) NAUSEA & VOMITING acetaminophen [Tylenol] Adverse Reaction (Unknown, Verified 08/22/23 14:28) tylenol 3 (states regulare tylenol upset stomach as well) aspirin [Aspirin] Adverse Reaction (Unknown, Verified 08/22/23 14:28) NAUSEA & VOMITING oxycodone [Percocet] Adverse Reaction (Unknown, Verified 08/22/23 14:28) stomach upset tramadol [From Ultram] Adverse Reaction (Unknown, Verified 08/22/23 14:28) NAUSEA & VOMITING Medication List - Last Reconciled 08/22/23 by Danita Mccurdy MD blood sugar diagnostic ([employer] Ultra Test strips) Check fasting blood sugar twice a day blood-glucose meter ([employer] Ultra2 Meter) As directed cane use as directed docusate sodium 100 mg PO BID dulaglutide (Trulicity) 3 mg subcut TH escitalopram oxalate 10 mg PO DAILY glipizide 7.5 mg PO DAILY@0800 glipizide 5 mg PO DAILY@1700 lancets (TrayTouch Delica Lancets) test blood sugar twice a day memantine 10 mg PO BID rosuvastatin 20 mg PO BEDTIME [tub safety bar As directed] Tobacco use date assessed: 08/22/23 Fall risk assessment: 1 Fall in past year Last assessed Fall Risk: 08/22/23 Dental Screening Dental Screen Date: 08/22/23 Did you have a dental visit in the last 12 months?: Yes Did you have a dental problem in the last 6 months where you did not have access to dental care?: No Was dental information given to patient?: Patient has dentist HPI 4 Month follow up HPI Details 77-year-old lady with diabetes mellitus, mixed dyslipidemia, anxiety disorder, here today for follow-up. She has been compliant with taking her medications, but not so much with diet and has been sedentary not been getting any regular exercise per patient. Latest fasting labs showed hemoglobin A1c elevated at 8.6%, and LDL cholesterol is at goal of less than 100 mg/dL. She also has been complaining of intermittent episodes of lightheadedness especially weight sudden changes in position. Denies any accompanying nausea or vomiting, no chest pain or palpitations reported. [facility] Medical History (Updated 08/22/23 @ 14:48 by Danita Mccurdy MD) Dizziness of unknown cause Diabetes mellitus with hyperglycemia Vitamin D deficiency Mixed dyslipidemia Lumbago Idiopathic scoliosis Pulmonary nodules Submandibular sialoadenitis Vitamin D deficiency Hemorrhoid Sensorineural hearing loss Balance disorder Lumbar scoliosis Type 2 diabetes mellitus with hyperglycemia, without long-term current use of insulin Anxiety Osteoarthritis Hypertension Surgical History History of bladder suspension procedure Hx of cholecystectomy Family History Father Pulmonary disease Mother Liver cirrhosis Diabetes Other Mental health disorder Social History Household Members: Unknown / Unable to assess Housing: Unknown / Unable to assess Housing Other:: apartment for half-way Do you presently have visiting nurse or other home services: Yes Unable to assess alcohol history related to: Unknown Alcohol intake: never Patient Tobacco Use Status: Never used Tobacco e-Cigarette/Vaping Use: Never Used Second Hand Smoke Exposure: No Advance Directives Date on File: 11/13/21 service: No Current occupational status: retired Cognitive needs: No Hearing needs: No Vision needs: No Questionnaire Thrive Questionnaire Date Thrive assessed: 01/24/22 SUMMER-7 AMB Questionnaire SUMMER-7 Date SUMMER - 7 assessed: 01/24/22 Source: Developed by Drs. Bon David, Debby Smith, Jared Perez and colleagues, with an educational nayely from [employer]. Review of Systems Const Reports as per HPI, Denies fever(s), Denies headache(s) and Denies lethargy Eyes Details: Sees Dr. Rubio for her routine eye exam and retinopathy screening Denies change in vision ENT Denies dysphagia, Denies headache(s), Denies nasal discharge, Denies post nasal drip and Denies sore throat Card Denies chest pain, Denies syncope, Denies palpitations and Denies dyspnea Resp Denies cough and Denies dyspnea GI Denies abdominal pain, Denies melena, Denies change in bowel habits, Denies dysphagia and Denies dyspepsia Denies hematuria and Denies dysuria Musc Denies joint swelling and Reports stiffness Skin/Breast Denies rash Neuro Reports as per HPI, Denies syncope, Denies headache(s) and Denies tremor(s) Endo Denies polydipsia, Denies polyuria and Denies palpitations Jeyson/Lymph Reports no additional complaints Aller/Immun Reports no additional complaints Physical exam (Primary Care) Vital Signs: Last Vital Signs Pulse 76 08/22/23 13:53 BP 110/78 08/22/23 13:53 Pulse Ox 97 08/22/23 13:53 Oxygen Delivery Method Room Air 08/22/23 13:53 BMI result Body Mass Index 25.6 Tobacco/Smoking Status: Tobacco use Status Tobacco use date assessed 08/22/23 08/22/23 13:59 Patient Tobacco Use Status Never used Tobacco 08/22/23 13:59 e-Cigarette/Vaping Use Never Used 08/22/23 13:59 Thrive Assessment: Date of Thrive Assessment Date Thrive assessed 01/24/22 08/22/23 13:59 Const Other: Alert oriented x3, no acute distress noted ambulatory with assistance of a walker, daughter present Orientation/consciousness: patient oriented x3 HENMT Other: n Head: Yes normocephalic and Yes atraumatic General nose exam: Normal external nose present Face and sinus: Yes face symmetric Mouth: Normal oral and palatal mucosa present, oropharynx normal and moist mucous membranes Neck Neck: Yes full ROM, Yes no lymphadenopathy and Yes supple Resp Auscultation: clear to auscultation bilaterally Cardio Other: S1-S2 present regular and rhythm GI Palpation (GI): Soft to palpation, nontender, no guarding and no masses Skin General skin exam: no rashes or lesions noted Neuro General: patient oriented x3, tone normal, moves all extremities, Normal light touch and pain sensation, no focal motor deficits and CN's II-XI intact bilaterally Extrem General: Yes full ROM, Yes no joint enlargement, Yes no pedal edema and Yes no calf tenderness Results Reviewed Results Reviewed: Name: Delma Hanson I Age/Sex: 77/F : 1945 Unit#: [id number] Attend Dr: Bartolome Mckeon MD Re08/09/23 Status: [facility]P [facility]: SPEC : [id number] KAEL: 08/09/23 STATUS: COMP REQ : [id number] RECD: 08/09/[address]: Bartolome Mckeon MD COMP: 08/09/23-1302 ENTERED: 08/09/[address] [facility] [address]: ORDERED: CBC Auto Diff Test Result Flag Reference WBC 5.1 4.8-10.8 X10*3/uL RBC 4.43 4.20-5.50 X10*6/uL HGB 13.9 12.0-16.0 g/dl HCT 42.0 37.0-47.0 % MCV 94.8 80.0-98.0 fL MCH 31.4 27.0-33.0 pg MCHC 33.1 31.0-35.0 g/dl RDW 14.0 11.0-16.0 % PLT 155 # L 160-400 X10*3/uL MPV 10.4 9.4-12.3 fL Neut Pct Auto 77.7 H 45-73 % ImGran Pct Auto 0.2 0.0-0.4 % Lymp Pct Auto 16.0 L 20-40 % Grant Pct Auto 6.1 2-11 % Eos Pct Auto 0.0 0-4 % Baso Pct Auto 0.0 0-2 % NRBC Pct Auto 0.0 0.0-0.2 /100WBC ANC Neut Abs # 4.0 2.0-8.3 x10*3/uL ImGran Abs Auto 0.01 0.00-0.03 X10*3/uL Lymph Abs Auto 0.8 L 1.2-4.9 X10*3/uL Grant Abs Auto 0.3 0.1-1.2 X10*3/uL Eos Abs Auto 0.0 0.0-0.4 X10*3/uL Baso Abs Auto 0.0 0.0-0.2 X10*3/uL NRBC Abs Auto 0.000 0.0-0.012 X10*3/uL Laboratory Tests 08/19/23 07:17 Estimat Average Glucose 200 Hemoglobin A1c % 8.6 H Name: Delma Hanson I Age/Sex: 77/F : 1945 Unit#: [id number] Attend Dr: Danita Mccurdy MD Re08/19/23 Status: DEP [facility] Disch: SPEC : [id number] KAEL: 08/19/23 STATUS: COMP REQ : [id number] RECD: 08/19/[address]: Danita Mccurdy MD COMP: 08/19/23 ENTERED: 08/19/[address]: ORDERED: Met Prof Fast, AST, ALT, Lipid Panel Test Result Flag Reference Sodium 139 135-145 mmol/L Potassium 3.9 3.3-5.1 mmol/L CL 106 96-108 mmol/L CO2 25 22-29 mmol/L Gap 12 12-20 BUN 17 H 9-16 mg/dL Creat 0.98 0.5-1.4 mg/dL EGFR 55 NOTE: For -Kitt[place] individuals, multiply the result by 1.210. Chronic Kidney Disease: Estimated GFR < 60 mL/min/1.73m2 Severe Kidney Disease: Estimated GFR < 15 mL/min/1.73m2 FBS 254 H 60-99 mg/dL A fasting glucose of 126 mg/dl or greater on more than one occasion is considered diagnostic of diabetes. CA 9.3 8.4-10.2 mg/dL AST (GOT) 24 5-31 U/L ALT (GPT) 32 H 0-31 U/L Triglyceride 107 <150 mg/dL Desirable Triglyceride: less than 150 mg/dL Borderline High Triglyceride 150-199 mg/dL High Triglyceride: 200-499 mg/dL Very High Triglyceride: greater than or equal to 5OO mg/dL Cholesterol 110 <200 mg/dL Desirable Cholesterol: less than 200 mg/dL Borderline High Cholesterol: 200-239 mg/dL High Cholesterol: greater than 239 mg/dL LDL Calculated 50 <100 mg/dL Desirable LDL: less than 100 mg/dL Near Optimal/Above Optimal LDL: 110-129 mg/dL Borderline High LDL: 130-159 mg/dL High LDL: 160-189 mg/dL Very High LDL: greater than or equal to 190 mg/dL HDL 39 L >40 mg/dL Desirable HDL: greater than 40 mg/dL Note: This HDL assay may give artificially low results in patients with liver disease. Assessment and Plan Assessment & Plan (1) Dizziness of unknown cause: Code(s): R42 - Dizziness and giddiness Plan: Latest CBC did not show any evidence of anemia. Blood pressure has been within normal limits. Bilateral carotid stenosis ruled out on ultrasound of neck done a year ago. Lightheadedness likely could be result of her poorly controlled diabetes mellitus. Stressed importance of getting blood sugar under control. Will obtain Neurology consult (2) Diabetes mellitus with hyperglycemia: Code(s): E11.65 - Type 2 diabetes mellitus with hyperglycemia Plan: Recent lab results reviewed with patient, with sugar and hemoglobin A1c not at goal. Will continue with Trulicity at 3 mg subcutaneously given once weekly, continue with glipizide at the same dose and added Jardiance 10 mg 1 tablet in the morning, to be taken an hour before breakfast and before any of her medications, take it with just a glass of water. Continue to check fasting blood sugar at home, maintain log and bring to next appointment for review. Reinforced diabetic diet and regular exercise with patient. Continue with yearly diabetes retinopathy screening, currently sees Dr. Rubio yearly. Patient advised to inspect feet daily, for any signs of injury, callus or infection. Compliance with diet and regular exercise again stressed. Blood pressure goal is less than 130/80, goal LDL is less than 100 and goal hemoglobin A1c is less than 7% follow-up appointment made in-3--months, after fasting labs done. (3) Mixed dyslipidemia: Code(s): E78.2 - Mixed hyperlipidemia Plan: Reviewed recent fasting lipid profile with patient with levels within normal limits . Continue with rosuvastatin 20 mg daily , in addition to adherence to low-cholesterol diet and regular exercise, at least 30 minutes 3 to 4 times a week. Advised patient to make healthy food choices, eat more fruits, vegetables, whole grains, wild caught fish and low-fat dairy. Limit amount of meat and fried or fatty food products, as well as processed foods and fast foods. Follow-up scheduled with repeat fasting lipid panel in 3 months. Orders: Referrals Neurology Referral R42 - Dizziness and giddiness Medications: New Jardiance (empagliflozin) 10 mg PO QAM 30 tabs 5RF NS Changed From dulaglutide 3 mg subcut TH To Trulicity (dulaglutide) 3 mg (0.5 mL) subcut TH 2 mL 6RF 30 days NS Coding Level of Care Code Est Pt Level 4 (55821) Diagnoses Dizziness of unknown cause R42 Diabetes mellitus with hyperglycemia E11.65 Mixed dyslipidemia E78.2
== END 2023-08-22 15:59 | disposition home or self-care (01) ==
PROVIDERS: PCP Internal Medicine; Visit Provider Internal Medicine
DX: R42 Dizziness and giddiness (principal); E11.65 Type 2 diabetes mellitus with hyperglycemia; E78.2 Mixed hyperlipidemia
CPT/HCPCS: 99214

== ENCOUNTER 2023-11-27 13:08 | Outpatient (AMB) | payer OTHER, SELFPAY ==
--- NOTE | 2023-11-27 13:15 | A.OFFVIS_ITS ---
Intake Vital Signs 11/27/23 13:28 Height 5 ft 2 in Weight 132 lb 4 oz BMI 24.2 BP 112/62 Blood Pressure Location Lt brachial Position Sitting Pulse 72 Pulse Source Pulse Oximeter Pulse Oximetry (%) 96 Oxygen Delivery Method Room Air Intake Visit Reasons: I-PLUG GROWER: Dizziness & giddiness - CONF w/address Intake Note: Patient presents for dizziness and giddiness. has vertigo and no provider has found the cause of it. Is using walker more than cane. Allergies clindamycin Allergy (Mild, Verified 12/20/23 10:39) Hives Iodinated Contrast Media [IV Dye, Iodine Containing] Allergy (Mild, Verified 12/20/23 10:14) HIVES donepezil Adverse Reaction (Intermediate, Verified 12/20/23 10:14) nausea, dizziness and vomiting pioglitazone Adverse Reaction (Intermediate, Verified 12/20/23 10:14) edema amitriptyline [From Elavil] Adverse Reaction (Mild, Verified 12/20/23 10:14) NAUSEA & VOMITING amoxicillin [Amoxicillin] Adverse Reaction (Mild, Verified 12/20/23 10:14) NAUSEA & VOMITING codeine [From Tylenol-Codeine] Adverse Reaction (Mild, Verified 12/20/23 10:14) NAUSEA & VOMITING lisinopril [Lisinopril] Adverse Reaction (Mild, Verified 12/20/23 10:14) NAUSEA & VOMITING acetaminophen [Tylenol] Adverse Reaction (Unknown, Verified 12/20/23 10:14) tylenol 3 (states regulare tylenol upset stomach as well) aspirin [Aspirin] Adverse Reaction (Unknown, Verified 12/20/23 10:14) NAUSEA & VOMITING oxycodone [Percocet] Adverse Reaction (Unknown, Verified 12/20/23 10:14) stomach upset tramadol [From Ultram] Adverse Reaction (Unknown, Verified 12/20/23 10:14) NAUSEA & VOMITING HPI HPI Comments History of Present Illness Details 77 y/o female patient presents for new i n-person visit for vertigo. Pt's reports that the vertigo started about 5-6 years ago. Pt having dizziness with her surroundings moving and spinning. It usually happens when she gets up or change her position. The symptoms goes away when she rests in her bed. It can be associated with nausea. She needs to hold table when the vertigo happens, but feels she is going to fall back. Pt also had two episodes of passing out. Denies neck pain or ear pain. She reports pain in left under her tongue has hx of left submandibular gland infection. She was told that calcium deposit on her left tongue and it radiated to her left ear. She was evaluated by ENT, but unable to remove it. Pt was not evaluated her inner ear. She has not tried vestibular therapy. [facility] Medical History Dizziness of unknown cause Diabetes mellitus with hyperglycemia Vitamin D deficiency Mixed dyslipidemia Lumbago Idiopathic scoliosis Pulmonary nodules Submandibular sialoadenitis Vitamin D deficiency Hemorrhoid Sensorineural hearing loss Balance disorder Lumbar scoliosis Type 2 diabetes mellitus with hyperglycemia, without long-term current use of insulin Anxiety Osteoarthritis Hypertension Surgical History History of bladder suspension procedure Hx of cholecystectomy Family History Father Pulmonary disease Mother Liver cirrhosis Diabetes Other Mental health disorder Social History Household Members: Unknown / Unable to assess Housing: Unknown / Unable to assess Housing Other:: apartment for custodial Do you presently have visiting nurse or other home services: Yes Unable to assess alcohol history related to: Unknown Alcohol intake: never Patient Tobacco Use Status: Never used Tobacco e-Cigarette/Vaping Use: Never Used Second Hand Smoke Exposure: No Advance Directives Date on File: 11/13/21 service: No Current occupational status: retired Cognitive needs: No Hearing needs: No Vision needs: No Review of Systems Const All systems reviewed & are unremarkable except as noted in HPI and below Physical Exam Vital Signs: Last Vital Signs Pulse 72 11/27/23 13:28 BP 112/62 11/27/23 13:28 Pulse Ox 96 11/27/23 13:28 Oxygen Delivery Method Room Air 11/27/23 13:28 BMI result Body Mass Index 24.2 Const General: cooperative Nutritional Appearance: average body habitus Orientation/consciousness: patient oriented x3 Limitations: language barrier Neck Neck: Yes full ROM and Yes supple Resp Effort & Inspection: normal respiratory effort and able to speak in complete sentences Neuro General: patient oriented x3 and moves all extremities Cranial nerves: Yes CN's II-XII intact bilaterally Cognition (Neuro): normal cognition Gait exam (Neuro): Assisted gait required (cane) Motor exam (neuro): 5/5 motor strength present throughout, Pronator motor function not present and no tremor noted Deep tendon reflexes (DTR's): Rt Biceps (C5, C6): 2+, Left biceps reflex intensity grade: 2+, Right brachioradialis reflex intensity grade: 2+, Left brachioradialis reflex intensity grade: 2+, Right patellar reflex intensity grade: 2+ and Left patellar reflex intensity grade: 2+ Psych Appearance: grossly normal Mental Status: mental status grossly normal Affect: normal affect Assessment & Plan Assessment & Plan (1) Vertigo: Code(s): R42 - Dizziness and giddiness (2) Dizziness of unknown cause: Code(s): R42 - Dizziness and giddiness Plan Pt was evaluated and discussed the plan of care with Dr. Mcfarlane. Advised patient to try vestibular therapy for vertigo. Encouraged patient to drink enough fluid to prevent light headedness. Orders: Orders PT Evaluation and Treatment 11/27/23 R42 - Dizziness and giddiness Coding Level of Care Code New Pt Level 3 (58663) Diagnoses Vertigo R42 Dizziness of unknown cause R42
[2023-11-27 13:28] VITALS: BP 112/62; PULSE 72; O2SAT 96; BMI 24.2
== END 2023-11-27 14:17 | disposition home or self-care (01) ==
PROVIDERS: PCP Internal Medicine; Visit Provider Nurse Practitioner Family
DX: R42 Dizziness and giddiness (principal)
CPT/HCPCS: 99203

== ENCOUNTER → 2023-11-27 13:08 | Outpatient (BNVA) | payer OTHER, SELFPAY | PROVIDERS: PCP Internal Medicine; Visit Provider Nurse Practitioner Family | DX: R42 Dizziness and giddiness (principal) | CPT/HCPCS: 99202 ==

== ENCOUNTER 2023-12-02 16:00 | Emergency (ER) | payer OTHER, SELFPAY ==
--- NOTE | ~2023-12-02 | US_ITS ---
EXAMINATION: US VENOUS ULTRASOUND WITH DOPPLER LOWER EXTREMITY, LEFT CLINICAL INFORMATION: Pain. COMPARISON: None available. TECHNIQUE: Ultrasound of the deep veins is performed from the hip to the calf with compression sonography and color and pulse Doppler assessment. Spectral analysis with color-flow imaging is performed. FINDINGS: There is normal venous compression and respiratory variation and augmented flow. The visualized common femoral vein, superficial femoral vein, profunda femoral vein, popliteal vein, and the trifurcation region shows no evidence of deep venous thrombosis. There is no significant popliteal fossa cyst. If the patient's symptoms persist, followup ultrasound in 5 days 7 days might be of value to exclude proximal propagation from a non-visualized calf vein. US/US venous duplex LE LT IMPRESSION: No DVT demonstrated in the left lower extremity.
--- NOTE | 2023-12-02 16:31 | ED.GENADULT ---
HPI - General Adult General Chief complaint: Extremity Injury, Lower Stated complaint: pain left leg Time Seen by Provider: 12/02/23 20:13 History of Present Illness HPI narrative: 77 y/o F patient; PMH T2DM, HTN, HLD, anxiety; presents from home reporting one month of left calf pain worse with exertion. The patient states she has been working with physical therapy and noticed the left calf pain. She presents to the emergency department concerned for a deep vein thrombosis. She denies any history of deep vein thrombosis. She denies anti-coagulation use. She denies: chest pain, SOB, cough/congestion, nausea/vomiting, abdominal pain. She denies any known recent injury or trauma. Related Data Home Medications Medication Instructions Recorded Confirmed escitalopram oxalate 10 mg tablet 10 mg PO DAILY 07/03/21 08/22/23 memantine 10 mg tablet 10 mg PO BID 10/19/22 08/22/23 docusate sodium 100 mg capsule 100 mg PO BID 08/09/23 08/22/23 zolpidem 5 mg tablet 5 mg PO BEDTIME 11/27/23 Previous Rx's Medication Instructions Recorded cane #1 ea 07/25/20 tub safety bar #1 ea 07/25/20 blood-glucose meter (OneTouch #1 ea 11/12/22 Ultra2 Meter) rosuvastatin 20 mg tablet 20 mg PO BEDTIME #90 tabs 07/05/23 Jardiance 10 mg tablet 10 mg PO QAM #30 tabs 08/22/23 (empagliflozin) Trulicity 3 mg/0.5 mL subcutaneous 3 mg (0.5 mL) subcut TH 30 days #2 08/22/23 pen injector (dulaglutide) mL blood sugar diagnostic (OneTouch #100 ea 10/31/23 Ultra Test strips) glipizide 5 mg tablet 5 mg PO DAILY@1700 #90 tabs 11/12/23 glipizide 5 mg tablet 7.5 mg (1.5 x 5 mg) PO DAILY@0800 11/12/23 #90 tabs lancets 33 gauge #100 ea 11/17/23 Allergies Allergy/AdvReac Type Severity Reaction Status Date / Time Iodinated Contrast Media Allergy Mild HIVES Verified 12/02/23 16:32 [IV Dye, Iodine Containing] donepezil AdvReac Intermediate nausea, Verified 12/02/23 16:32 dizziness and vomiting pioglitazone AdvReac Intermediate edema Verified 12/02/23 16:32 amitriptyline [From Elavil] AdvReac Mild NAUSEA & Verified 12/02/23 16:32 VOMITING amoxicillin [Amoxicillin] AdvReac Mild NAUSEA & Verified 12/02/23 16:32 VOMITING codeine AdvReac Mild NAUSEA & Verified 12/02/23 16:32 [From Tylenol-Codeine] VOMITING lisinopril [Lisinopril] AdvReac Mild NAUSEA & Verified 12/02/23 16:32 VOMITING acetaminophen [Tylenol] AdvReac Unknown tylenol 3 Verified 12/02/23 16:32 (states regulare tylenol upset stomach as well) aspirin [Aspirin] AdvReac Unknown NAUSEA & Verified 12/02/23 16:32 VOMITING oxycodone [Percocet] AdvReac Unknown stomach Verified 12/02/23 16:32 upset tramadol [From Ultram] AdvReac Unknown NAUSEA & Verified 12/02/23 16:32 VOMITING Review of Systems Review of Systems: Yes all other systems are reviewed and are negative PMFSH Past Medical History Attestation statement: The following information was validated with the patient. Source: old records reviewed Medical History Dizziness of unknown cause Diabetes mellitus with hyperglycemia Vitamin D deficiency Mixed dyslipidemia Lumbago Idiopathic scoliosis Pulmonary nodules Submandibular sialoadenitis Vitamin D deficiency Hemorrhoid Sensorineural hearing loss Balance disorder Lumbar scoliosis Type 2 diabetes mellitus with hyperglycemia, without long-term current use of insulin Anxiety Osteoarthritis Hypertension Surgical History History of bladder suspension procedure Hx of cholecystectomy Family History Family History Father Pulmonary disease Mother Liver cirrhosis Diabetes Other Mental health disorder Social History Social History Household Members: Unknown / Unable to assess Housing: Unknown / Unable to assess Housing Other:: apartment for long term Do you presently have visiting nurse or other home services: Yes Unable to assess alcohol history related to: Unknown Alcohol intake: never Patient Tobacco Use Status: Never used Tobacco e-Cigarette/Vaping Use: Never Used Second Hand Smoke Exposure: No Advance Directives: Yes Advance Directives on File: Yes Advance Directives Date on File: 11/13/21 service: No Current occupational status: retired Cognitive needs: No Hearing needs: No Vision needs: No Physical Exam ED Vital Signs: Vital Signs - 24 hr 12/02/23 16:32 12/02/23 20:14 Temperature 97.3 F 98.1 F Pulse Rate 71 62 Respiratory Rate 18 20 Blood Pressure 114/72 144/72 H Pulse Oximetry 95 99 Oxygen Delivery Method Room Air Room Air BMI result Body Mass Index 24.7 Patient is afebrile and hemodynamically stable. HENWY Head: Yes atraumatic Eyes General: appearance normal, both eyes and all related structures Neck Neck: Yes normal visual inspection, Yes full ROM, Yes supple and No tender Chest Chest palpation & inspection: normal inspection of the chest and normal palpation of entire chest wall Resp Effort & Inspection: normal respiratory effort, able to speak in complete sentences, no cough and no respiratory distress Auscultation: clear to auscultation bilaterally Cardio Rate: regular rate Rhythm: regular rhythm Peripheral pulses: Peripheral pulses 2+ throughout GI Inspection: Yes normal to inspection, No Abdominal wall edema and No distended Palpation (GI): Soft to palpation, not firm, nontender, no guarding and not rigid Auscultation: normal bowel sounds Extrem Other: FROM LLE, NVI, soft compartments. Course Course Course Narrative: RME performed by Selam Goodman PA-C. Patient is a 77 year old assigned female at presenting to the emergency department with left leg pain. Patient states that she has had pain for over a month, has been doing PT but it isn't getting better, concerned for DVT. Detailed physical exam and review of systems are deferred to the commercial loan underwriter. Imaging ordered. Patient placed back in the waiting room pending room availability and results. Reevaluation(s) Reevaluation #1: Patient is afebrile and hemodynamically stable. Reviewed triage ordered US LLE which did not show evidence of DVT. Patient reassured that there is no evidence of DVT. History and exam more consistent with possible neuropathic pain. Patient has follow up with PCP on 12/07/2023. Plan: Discharge to home with PCP follow up Return precautions given Discharge Plan Discharge Clinical Impression: Left leg pain Patient Disposition: Home, Self-Care Instructions: Diabetic Peripheral Neuropathy (ED), Leg Pain (ED) Additional Instructions: As we discussed, you were seen today for left leg pain. Your US did not show evidence of a blood clot. I suspect your left leg pain is due to neuropathy related to your diabetes. I recommend you discuss with your PCP on 12/07/2023 starting a neuropathic medication such as Gabapentin or Pregabalin under their observation. Please return to the ED with worsening pain or fever. Prescriptions: No Action (DME) blood-glucose meter [OneTouch Ultra2 Meter] Misc See Rx Instructions .Route Qty: 1 0RF Rx Instructions: As directed rosuvastatin 20 mg tablet 20 mg PO BEDTIME Qty: 90 2RF (DME) OneTouch Ultra Test Strip See Rx Instructions .Route Qty: 100 6RF Rx Instructions: Check fasting blood sugar twice a day glipizide 5 mg tablet 7.5 mg PO DAILY@0800 Qty: 90 1RF glipizide 5 mg tablet 5 mg PO DAILY@1700 Qty: 90 1RF (DME) lancets 33 gauge misc See Rx Instructions .Route Qty: 100 6RF Rx Instructions: test blood sugar twice a day docusate sodium 100 mg capsule 100 mg PO BID (DME) cane Device See Rx Instructions .ROUTE .MEDSUPPLY Qty: 1 0RF Rx Instructions: use as directed (DME) tub safety bar See Rx Instructions .Route .MEDSUPPLY Qty: 1 0RF Rx Instructions: As directed memantine 10 mg tablet 10 mg PO BID Jardiance 10 mg tablet 10 mg PO QAM Qty: 30 5RF Trulicity 3 mg/0.5 mL pen injector 3 mg subcut TH 30 Days Qty: 2 6RF escitalopram oxalate 10 mg tablet 10 mg PO DAILY zolpidem 5 mg tablet 5 mg PO BEDTIME
[2023-12-02 16:32] VITALS: BP 114/72; PULSE 71; RESP 18; TEMP 36.3; O2SAT 95; BMI 24.7
[2023-12-02 20:14] VITALS: BP 144/72; PULSE 62; RESP 20; TEMP 36.7; O2SAT 99
[2023-12-02 21:58] VITALS: BP 144/72; PULSE 62; RESP 20; TEMP 36.7; O2SAT 99
== END 2023-12-02 21:02 | disposition home or self-care (01) ==
PROVIDERS: Emergency Provider Emergency Medicine; PCP Internal Medicine
DX: M79.605 Pain in left leg (principal); E11.9 Type 2 diabetes mellitus without complications; I10 Essential (primary) hypertension
CPT/HCPCS: 93971; 99283; 99284

== ENCOUNTER 2023-12-16 10:11 | Emergency (ER) | payer OTHER, SELFPAY ==
--- NOTE | ~2023-12-16 | CT_ITS ---
EXAMINATION: CT SOFT TISSUE NECK WITH CONTRAST CLINICAL INFORMATION: Left submandibular gland possible infection, abscess. COMPARISON: CT imaging of the neck from 05/12/2022. TECHNIQUE: Following the intravenous administration of 60 mL of Omnipaque 350 intravenous contrast, helical imaging was performed in the axial plane with generation of coronal and sagittal reformatted images. This CT examination was performed using dose optimization techniques as appropriate, variously including the following: *Automated exposure control *Adjustment of mA and/or kV according to patient size (this includes techniques or standardized protocols for targeted exams where dose is matched to indication/reason for exam; i.e. extremities or head) *Use of iterative reconstruction technique DLP: 447 mGy-cm FINDINGS: The left submandibular gland is mildly larger and hyperenhancing compared to the right submandibular gland consistent with sialoadenitis. Again noted is dilatation of the left Klar[place]'s duct as well as ducts within the gland itself. The dilated left [place]'s duct contains approximately eight stones, largest measuring up to 0.9 cm. There is soft tissue edema around the left submandibular gland and, as previously seen, there is edema around the dilated duct at the floor the mouth and deep to the left platysma muscle. Associated mild effacement of the left vallecula and left piriform sinus. No interval development of any circumscribed rim-enhancing soft tissue collection. The right [place]'s duct is chronically mildly dilated. Interval development of a few calculi within the proximal aspect of the dilated duct. Mild edema is seen anteromedial to the right submandibular gland. Parotid glands are normal. Thyroid gland is chronically atrophied and without evidence of any discrete nodule. No pathologic sized lymph nodes in the suprahyoid or infrahyoid neck. There is atherosclerotic calcification of the aortic arch, and the great vessels arising from the arch are widely patent. Atherosclerotic calcification of carotid bulbs and proximal ICAs without evidence of any significant stenosis. The jugular veins are patent. The paranasal sinuses are well aerated and without air-fluid levels. The visualized intracranial structures, orbits and temporomandibular joints are unremarkable. No acute abnormalities within the visualized lung apices. There is an old small stable benign nodule, 0.3 cm transverse dimension, in the lateral left upper lobe. Old calcified granulomas are present in the partially visualized right upper lobe. Chronic degenerative narrowing of disc height and vertebral osteophyte formation at C5-C6 and C6-C7. The hypertrophied uncovertebral joints cause chronic bilateral neural foraminal stenosis at these levels. 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 However, no evidence of soft tissue abscess. Calculi are present within both right and left Klarissa's ducts.
[2023-12-16 10:24] VITALS: BP 150/87; PULSE 116; RESP 20; TEMP 36.7; O2SAT 95; BMI 24.7
[2023-12-16 10:50] LABS: MANUAL DIFF FLAG NO
[2023-12-16 10:51] LABS: Basophils Percent Auto 0.2 % (0-2); Eosinophils Percent Auto 0.3 % (0-4); Hematocrit 44.5 % (37.0-47.0); Hemoglobin 15.1 g/dl (12.0-16.0); Imm Gran Abs Auto 0.02 X10*3/uL (0.00-0.03); Imm Gran Pct Auto 0.2 % (0.0-0.4); Lymphocytes Absolute Auto 2.8 X10*3/uL (1.2-4.9); Mean Corpuscular HGB Conc 33.9 g/dl (31.0-35.0); Mean Corpuscular Hemoglobin 31.3 pg (27.0-33.0); Mean Corpuscular Volume 92.3 fL (80.0-98.0); Mean Platelet Volume 9.8 fL (9.4-12.3); Monocytes Percent Auto 8.9 % (2-11); Neutrophils Absolute Auto 7.6 x10*3/uL (2.0-8.3); Neutrophils Percent Auto 66.4 % (45-73); Platelet Count 203 X10*3/uL (160-400); Red Blood Count 4.82 X10*6/uL (4.20-5.50); Red Cell Distribution Width 14.9 % (11.0-16.0); White Blood Count 11.5 X10*3/uL (4.8-10.8)
[2023-12-16 11:03] LABS: Anion Gap 17 (12-20); Blood Urea Nitrogen 14 mg/dL (9-16); Calcium 10.1 mg/dL (8.4-10.2); Carbon Dioxide 22 mmol/L (22-29); Chloride 106 mmol/L (96-108); Creatinine Clr Calc Pharmacy 42.2; Estimated Glomerular Filt Rate 60; Glucose Random 171 mg/dL (60-115); Potassium 3.9 mmol/L (3.3-5.1); Sodium 141 mmol/L (135-145)
--- NOTE | 2023-12-16 11:16 | ED.GENADULT ---
HPI - General Adult General Chief complaint: General Medical Stated complaint: Swollen gland/Diff swallowing Time Seen by Provider: 12/16/23 11:16 History of Present Illness HPI narrative: The patient is a 78-year-old female who has a history of having had problems with her left submandibular gland. She was hospitalized twice in 2021 for infections of the left submandibular gland. Apparently she followed up with the ENT surgeon Dr. Whitaker who felt that there was a stone that was not operable. According to the patient's daughter the patient has been doing fairly well over the last year and a half since her last hospitalization. Apparently she gets occasional ?flares? of the left submandibular gland but often these will not last long and will not be severe. However 2 days ago on Saturday she started to have pain typical of a problem with her left submandibular gland and the pain has persisted. She has had increased swelling under the left jaw and increased pain opening her mouth. No definite fever. Her daughter brought her to the hospital because it was getting worse today. The daughter says that the patient is having trouble eating and swallowing because of the pain. Related Data Home Medications Medication Instructions Recorded Confirmed escitalopram oxalate 10 mg tablet 10 mg PO DAILY 07/03/21 08/22/23 memantine 10 mg tablet 10 mg PO BID 10/19/22 08/22/23 docusate sodium 100 mg capsule 100 mg PO BID 08/09/23 08/22/23 zolpidem 5 mg tablet 5 mg PO BEDTIME 11/27/23 Previous Rx's Medication Instructions Recorded cane #1 ea 07/25/20 tub safety bar #1 ea 07/25/20 blood-glucose meter (OneTouch #1 ea 11/12/22 Ultra2 Meter) rosuvastatin 20 mg tablet 20 mg PO BEDTIME #90 tabs 07/05/23 Jardiance 10 mg tablet 10 mg PO QAM #30 tabs 08/22/23 (empagliflozin) Trulicity 3 mg/0.5 mL subcutaneous 3 mg (0.5 mL) subcut TH 30 days #2 08/22/23 pen injector (dulaglutide) mL blood sugar diagnostic (OneTouch #100 ea 10/31/23 Ultra Test strips) glipizide 5 mg tablet 5 mg PO DAILY@1700 #90 tabs 11/12/23 glipizide 5 mg tablet 7.5 mg (1.5 x 5 mg) PO DAILY@0800 11/12/23 #90 tabs lancets 33 gauge #100 ea 11/17/23 Allergies Allergy/AdvReac Type Severity Reaction Status Date / Time Iodinated Contrast Media Allergy Mild HIVES Verified 12/12/23 08:57 [IV Dye, Iodine Containing] donepezil AdvReac Intermediate nausea, Verified 12/12/23 08:57 dizziness and vomiting pioglitazone AdvReac Intermediate edema Verified 12/12/23 08:57 amitriptyline [From Elavil] AdvReac Mild NAUSEA & Verified 12/12/23 08:57 VOMITING amoxicillin [Amoxicillin] AdvReac Mild NAUSEA & Verified 12/12/23 08:57 VOMITING codeine AdvReac Mild NAUSEA & Verified 12/12/23 08:57 [From Tylenol-Codeine] VOMITING lisinopril [Lisinopril] AdvReac Mild NAUSEA & Verified 12/12/23 08:57 VOMITING acetaminophen [Tylenol] AdvReac Unknown tylenol 3 Verified 12/12/23 08:57 (states regulare tylenol upset stomach as well) aspirin [Aspirin] AdvReac Unknown NAUSEA & Verified 12/12/23 08:57 VOMITING oxycodone [Percocet] AdvReac Unknown stomach Verified 12/12/23 08:57 upset tramadol [From Ultram] AdvReac Unknown NAUSEA & Verified 12/12/23 08:57 VOMITING Review of Systems Review of Systems: Yes all other systems are reviewed and are negative PMFSH Past Medical History Medical History Dizziness of unknown cause Diabetes mellitus with hyperglycemia Vitamin D deficiency Mixed dyslipidemia Lumbago Idiopathic scoliosis Pulmonary nodules Submandibular sialoadenitis Vitamin D deficiency Hemorrhoid Sensorineural hearing loss Balance disorder Lumbar scoliosis Type 2 diabetes mellitus with hyperglycemia, without long-term current use of insulin Anxiety Osteoarthritis Hypertension Surgical History History of bladder suspension procedure Hx of cholecystectomy Family History Family History Father Pulmonary disease Mother Liver cirrhosis Diabetes Other Mental health disorder Social History Social History Household Members: Unknown / Unable to assess Housing: Unknown / Unable to assess Housing Other:: apartment for penitentiary Do you presently have visiting nurse or other home services: Yes Unable to assess alcohol history related to: Unknown Alcohol intake: never Patient Tobacco Use Status: Never used Tobacco e-Cigarette/Vaping Use: Never Used Second Hand Smoke Exposure: No Advance Directives: Yes Advance Directives on File: Yes Advance Directives Date on File: 11/13/21 service: No Current occupational status: retired Cognitive needs: No Hearing needs: No Vision needs: No Physical Exam ED Vital Signs: Vital Signs - 24 hr 12/16/23 10:24 12/16/23 16:06 Temperature 98.0 F 98.9 F Pulse Rate 116 H 94 Respiratory Rate 20 14 Blood Pressure 150/87 H 143/76 H Pulse Oximetry 95 93 Oxygen Delivery Method Room Air Room Air BMI result Body Mass Index 24.7 Const Other: The patient is awake and alert. She does not appear in acute distress. She linear own secretions. HENMT Other: The patient seemed to have some difficulty opening her mouth very fully. There was no visible intraoral swelling but when I palpated the left floor of the mouth some pus was expressed. No gross swelling of the floor of the mouth however. Mucous membranes are moist. Eyes Other: Pupils are round equal, conjunctivae are clear, extraocular movements intact Neck Other: The patient has a large, tender swelling under the left side of the jaw. Resp Effort & Inspection: normal respiratory effort Auscultation: clear to auscultation bilaterally Cardio Rate: regular rate Rhythm: regular rhythm Heart sounds: S1 normal heart sound present and S2 normal heart sound present GI Other: Abdomen is soft and nontender Skin Other: The skin is dry and unremarkable. No erythema. Neuro Other: The patient is awake and alert. Mental status seems normal. Eye movements are intact. Face is symmetrical. Tongue is midline. She moves her extremities symmetrically. She is able to walk with a walker. No focal neurological deficit. Extrem Other: No peripheral edema Medications Administered Discontinued Medications Generic Name Dose Route Start Last Admin Trade Name Freq PRN Reason Stop Dose Admin Dexamethasone Sodium Phosphate 10 mg 12/16/23 12:32 12/16/23 13:07 Dexamethasone Sod Phosphate 10 Mg/Ml Vial IVPUSH 12/16/23 12:33 10 mg ONCE ONE Administration Sodium Chloride 1,000 mls @ 999 mls/hr 12/16/23 11:45 12/16/23 13:30 Ns IV 12/16/23 12:45 Infused .Q1H1M SHERYL Infusion Ampicillin Sodium/Sulbactam 100 mls @ 200 mls/hr 12/16/23 12:25 12/16/23 13:40 Sodium 3 gm/ Sodium Chloride IV 12/16/23 12:54 Infused ONCE ONE Infusion Iohexol 60 ml 12/16/23 14:59 12/16/23 15:00 Iohexol 350 Mg/Ml 100 Ml Infus..Btl IV 12/16/23 15:00 60 ml ONCE ONE Administration Medical Decision Making Medical Decision Making [facility] Narrative: The patient is a 78-year-old woman who seems to have had problems with infections of the left submandibular gland in the past. She was hospitalized twice at this hospital in 2021 for this issue. Followed up with Dr. Whitaker as an outpatient. He was apparently unable to extract any stones in the office. The patient has had some very mild intermittent problems with the gland in the last year and a half since her last hospitalization but none that required intervention. She comes today with a recurrence of the same problem that started on Saturday. Her symptoms today are worse than they have been since 2021. No definite fever. She has pain with opening her mouth. She is uncomfortable. Workup today reveals a minimally elevated white count and CRP. Her physical exam reveals a very tender and swollen left submandibular gland with some degree of trismus. CT scan of the neck shows multiple stones in the gland and at [place]'s duct. There is soft tissue swelling and edema but no vickie abscess. The patient's the CT scan was done with IV contrast despite contrast being listed as an allergy. She had no reaction to the CT contrast today. There was no premedication. The patient was given IV Unasyn as an antibiotic. She has a amoxicillin listed as an allergy. She had no reaction to receiving Unasyn today. The patient has also been given dexamethasone IV. Given the degree of the patient's discomfort and trismus and the findings on CT scan I felt that the patient would require hospitalization. Given that there is a stone at [place]'s duct our hospitalist did not feel the patient should be admitted here as we do not have ENT backup. I have been in contact with [facility] of [facility] and spoken to Dr. Figueroa. I have also spoken with the transfer hotline for [facility]. The patient the accepting hospitalist is Dr. Keren Calix. Lab Data 12/16/23 10:42 12/16/23 10:42 Labs: Lab Results 12/16/23 12/16/23 Range/Units 10:42 11:53 WBC 11.5 H (4.8-10.8) X10*3/uL RBC 4.82 (4.20-5.50) X10*6/uL Hgb 15.1 D (12.0-16.0) g/dl Hct 44.5 (37.0-47.0) % MCV 92.3 (80.0-98.0) fL MCH 31.3 (27.0-33.0) pg MCHC 33.9 (31.0-35.0) g/dl RDW 14.9 (11.0-16.0) % Plt Count 203 D (160-400) X10*3/uL MPV 9.8 (9.4-12.3) fL Immature Gran % (Auto) 0.2 (0.0-0.4) % Neut % (Auto) 66.4 (45-73) % Lymph % (Auto) 24.0 (20-40) % Marion % (Auto) 8.9 (2-11) % Eos % (Auto) 0.3 (0-4) % Baso % (Auto) 0.2 (0-2) % Lymph # (Auto) 2.8 (1.2-4.9) X10*3/uL Marion # (Auto) 1.0 (0.1-1.2) X10*3/uL Eos # (Auto) 0.0 (0.0-0.4) X10*3/uL Baso # (Auto) 0.0 (0.0-0.2) X10*3/uL Abs Immat Gran (auto) 0.02 (0.00-0.03) X10*3/uL Absolute Neuts (auto) 7.6 (2.0-8.3) x10*3/uL Absolute Nucleated RBC 0.000 (0.0-0.012) X10*3/uL Nucleated RBC % (auto) 0.0 (0.0-0.2) /100WBC Sodium 141 (135-145) mmol/L Potassium 3.9 (3.3-5.1) mmol/L Chloride 106 (96-108) mmol/L Carbon Dioxide 22 (22-29) mmol/L Anion Gap 17 (12-20) BUN 14 (9-16) mg/dL Creatinine 0.91 (0.5-1.4) mg/dL Estim Creat Clear Calc 42.2 Estimated GFR 60 Random Glucose 171 H (60-115) mg/dL Lactic Acid 1.7 (0.5-2.0) mmol/L Calcium 10.1 D (8.4-10.2) mg/dL C-Reactive Protein 2.40 H (< or = 0.50) mg/dL Discharge Plan Discharge Clinical Impression: Sialoadenitis of submandibular gland, Calculus in salivary duct Patient Disposition: [facility] Transfer Details: [facility], transferred to inpatient bed on hospitalist service, accepting doctor Dr. Keren Calix Prescriptions: No Action (DME) blood-glucose meter [OneTouch Ultra2 Meter] Misc See Rx Instructions .Route Qty: 1 0RF Rx Instructions: As directed rosuvastatin 20 mg tablet 20 mg PO BEDTIME Qty: 90 2RF (DME) OneTouch Ultra Test Strip See Rx Instructions .Route Qty: 100 6RF Rx Instructions: Check fasting blood sugar twice a day glipizide 5 mg tablet 7.5 mg PO DAILY@0800 Qty: 90 1RF glipizide 5 mg tablet 5 mg PO DAILY@1700 Qty: 90 1RF (DME) lancets 33 gauge misc See Rx Instructions .Route Qty: 100 6RF Rx Instructions: test blood sugar twice a day docusate sodium 100 mg capsule 100 mg PO BID (DME) cane Device See Rx Instructions .ROUTE .MEDSUPPLY Qty: 1 0RF Rx Instructions: use as directed (DME) tub safety bar See Rx Instructions .Route .MEDSUPPLY Qty: 1 0RF Rx Instructions: As directed memantine 10 mg tablet 10 mg PO BID Jardiance 10 mg tablet 10 mg PO QAM Qty: 30 5RF Trulicity 3 mg/0.5 mL pen injector 3 mg subcut 30 Days Qty: 2 6RF escitalopram oxalate 10 mg tablet 10 mg PO DAILY zolpidem 5 mg tablet 5 mg PO BEDTIME
[2023-12-16 12:11] LABS: Lactic Acid 1.7 mmol/L (0.5-2.0)
[2023-12-16] MEDS: 0.9 % Sodium Chloride 1,000 ML 999 ML IV (12:25)
[2023-12-16] MEDS: dexAMETHasone sod phosphate 10 MG/ML VIAL IVPUSH (13:07)
[2023-12-16] MEDS: Ampicillin Sodium/Sulbactam Na 3 GM in 0.9 % Sodium Chloride 100 ML IV (13:07)
[2023-12-16] MEDS: iohexoL 350 MG/ML 100 ML INFUS..BTL 60 ML IV (15:00)
[2023-12-16 16:06] VITALS: BP 143/76; PULSE 94; RESP 14; TEMP 37.2; O2SAT 93
[2023-12-16 19:07] VITALS: BP 135/78; PULSE 104; RESP 16; TEMP 37.2; O2SAT 96
--- NOTE | 2023-12-16 19:11 | PC.NURSE ---
Ernesto at bedside, report and paperwork sent with Ernesto to [facility]. Patient taken to [facility] med surg, room 510. Patient's daughter informed.
[2023-12-16 19:22] VITALS: BP 135/78; PULSE 104; RESP 16; TEMP 37.2; O2SAT 96
--- NOTE | 2023-12-16 19:22 | PC.NURSE ---
report called nurse to nurse, discharged by ivan martinez.
--- NOTE | 2023-12-16 19:30 | PC.NURSE ---
report given to rochelle ROBB at [facility]
== END 2023-12-16 19:00 | disposition short-term general hospital (02) ==
PROVIDERS: Emergency Provider Emergency Medicine; PCP Internal Medicine
DX: K11.20 Sialoadenitis, unspecified (principal); K11.5 Sialolithiasis; R11.2 Nausea with vomiting, unspecified; Z79.899 Other long term (current) drug therapy
CPT/HCPCS: 36415; 70491; 80048; 83605; 85025; 86140; 87040; 96361; 96374; 96375; 99285; J0295; J1100; Q9967

== ENCOUNTER 2023-12-20 10:07 | Outpatient (AMB) | payer OTHER, SELFPAY ==
[2023-12-20 10:10] VITALS: BP 110/70; PULSE 117; TEMP 36.1; O2SAT 97; BMI 24.4
--- NOTE | 2023-12-20 10:10 | AM.OFFWIN_ITS ---
Intake Vital Signs 12/20/23 10:10 Height 5 ft 1 in Weight 129 lb BMI 24.4 BP 110/70 Blood Pressure Location Lt brachial Position Sitting Pulse 117 H Pulse Source Pulse Oximeter Temp 97.0 F Temp Source Temporal Artery Scan Pulse Oximetry (%) 97 Oxygen Delivery Method Room Air Intake Visit Reasons: EP allergic reaction to antibiotics Clindamycin Intake Note: pt is here today for allergic reaction to antibiotics Clindamycin started yesterday Patient Tobacco Use Status: Never used Tobacco Allergies clindamycin Allergy (Mild, Verified 12/20/23 10:39) Hives Iodinated Contrast Media [IV Dye, Iodine Containing] Allergy (Mild, Verified 12/20/23 10:14) HIVES donepezil Adverse Reaction (Intermediate, Verified 12/20/23 10:14) nausea, dizziness and vomiting pioglitazone Adverse Reaction (Intermediate, Verified 12/20/23 10:14) edema amitriptyline [From Elavil] Adverse Reaction (Mild, Verified 12/20/23 10:14) NAUSEA & VOMITING amoxicillin [Amoxicillin] Adverse Reaction (Mild, Verified 12/20/23 10:14) NAUSEA & VOMITING codeine [From Tylenol-Codeine] Adverse Reaction (Mild, Verified 12/20/23 10:14) NAUSEA & VOMITING lisinopril [Lisinopril] Adverse Reaction (Mild, Verified 12/20/23 10:14) NAUSEA & VOMITING acetaminophen [Tylenol] Adverse Reaction (Unknown, Verified 12/20/23 10:14) tylenol 3 (states regulare tylenol upset stomach as well) aspirin [Aspirin] Adverse Reaction (Unknown, Verified 12/20/23 10:14) NAUSEA & VOMITING oxycodone [Percocet] Adverse Reaction (Unknown, Verified 12/20/23 10:14) stomach upset tramadol [From Ultram] Adverse Reaction (Unknown, Verified 12/20/23 10:14) NAUSEA & VOMITING Do you need a note to return to daycare/school/sports/work: No HPI HPI Comments History of Present Illness Details This is a 78-year-old female who presents to the office complaining of hives/rash x1 day. Patient was recently admitted to [facility] in the setting of sialoadenitis. She was discharged home on p.o. clindamycin. Patient had 1 dose of the clindamycin yesterday and 1 dose of the clindamycin today. Her daughter started to notice a mild rash/hives following the 1st dose of clindamycin; however, she started to develop mild facial swelling and worsening hives following the 2nd toes. Patient denies any throat swelling, trouble swallowing, difficulty breathing, or wheezing. She has no fevers or chills. [facility] Medical History Dizziness of unknown cause Diabetes mellitus with hyperglycemia Vitamin D deficiency Mixed dyslipidemia Lumbago Idiopathic scoliosis Pulmonary nodules Submandibular sialoadenitis Vitamin D deficiency Hemorrhoid Sensorineural hearing loss Balance disorder Lumbar scoliosis Type 2 diabetes mellitus with hyperglycemia, without long-term current use of insulin Anxiety Osteoarthritis Hypertension Surgical History History of bladder suspension procedure Hx of cholecystectomy Family History Father Pulmonary disease Mother Liver cirrhosis Diabetes Other Mental health disorder Social History Household Members: Unknown / Unable to assess Housing: Unknown / Unable to assess Housing Other:: apartment for [facility] Do you presently have visiting nurse or other home services: Yes Unable to assess alcohol history related to: Unknown Alcohol intake: never Patient Tobacco Use Status: Never used Tobacco e-Cigarette/Vaping Use: Never Used Second Hand Smoke Exposure: No Advance Directives Date on File: 11/13/21 service: No Current occupational status: retired Cognitive needs: No Hearing needs: No Vision needs: No Review of Systems Const All systems reviewed & are unremarkable except as noted in HPI and below Reports no additional complaints Eyes Reports no additional complaints ENT Reports no additional complaints Card Reports no additional complaints Resp Reports no additional complaints GI Reports no additional complaints Reports no additional complaints Musc Reports no additional complaints Skin/Breast Reports system reviewed and no additional complaints, except as documented Neuro Reports no additional complaints Psych Reports no additional complaints Endo Reports no additional complaints Jeyson/Lymph Reports no additional complaints Aller/Immun Reports no additional complaints Physical Exam Vital Signs: Last Vital Signs Temp 97.0 F 12/20/23 10:10 Pulse 117 H 12/20/23 10:10 BP 110/70 12/20/23 10:10 Pulse Ox 97 04/05/24 10:10 Oxygen Delivery Method Room Air 12/20/23 10:10 BMI result Body Mass Index 24.4 Const Other: Vital signs reviewed. Constitutional: Non-toxic appearing. No acute distress. Well-developed and w ell-nourished. HEENT: Normocephalic and atraumatic. Skin: Patient has scattered areas of urticaria throughout her upper extremities and some mild bilateral periorbital erythema and swelling. No throat swelling noted. Neck: Full and painless range of motion. No cervical lymphadenopathy. Cardio: Tachycardic but regular rhythm. No murmurs, gallops, or rubs. No lower extremity edema. No JVD. Pulmonary: No respiratory distress. No accessory muscle usage. Clear to auscu ltation bilaterally without wheezing, crackles, or rhonchi. No stridor. Gastrointestinal: Soft, nontender, and nondistended in all 4 quadrants. Musculoskeletal: Normal range of motion in joints throughout the body. No deformity or other signs of injury. Neuro: Alert and oriented x4. Cranial nerves 2-12 grossly intact. No focal deficits appreciated. Psych: Normal mood and affect. Assessment & Plan Assessment & Plan (1) Allergic reaction caused by a drug: Code(s): T78.40XA - Allergy, unspecified, initial encounter Qualifiers: Encounter type: initial encounter Qualified Code(s): T78.40XA - Allergy, unspecified, initial encounter Plan: This is a 78-year-old female who presents to the office complaining of hives/rash and mild facial swelling in the setting of recently starting clindamycin for sialoadenitis. History and physical most consistent with an allergic reaction secondary to clindamycin. Patient and her daughter were instructed to discontinue use of clindamycin completely. Clindamycin was added to the patient's allergy list. The patient has no evidence of anaphylaxis at this time. Patient was given a prescription for p.o. amoxicillin/clavulanate 875/125 mg twice daily x7 days for sialoadenitis as she has had this medication for sialoadenitis in the past and seems to tolerate it well. Patient was also given a prescription for p.o. hydroxyzine 25 mg 3 times daily as needed for itching/allergies. Patient and her daughter were instructed to proceed directly to the emergency room if she were to develop any sudden anaphylaxis such as difficulty breathing throat swelling, or wheezing. Patient and her daughter verbalized understanding and they are in agreement with the plan. Medications: New amoxicillin-pot clavulanate 875-125 mg 1 tab PO BID 14 tabs 0RF hydroxyzine HCl 25 mg PO TID PRN 10 tabs 0RF itching, allergies Coding Level of Care Code Est Pt Level 3 (08703) Diagnoses Allergic reaction to drug, initial encounter T78.40XA Encounter type: initial encounter
== END 2023-12-20 11:26 | disposition home or self-care (01) ==
PROVIDERS: PCP Internal Medicine; Visit Provider Physician Assistant Medical
DX: T78.40XA Allergy, unspecified, initial encounter (principal)
CPT/HCPCS: 99213

== ENCOUNTER 2024-01-06 09:20 | Outpatient (REF) | payer OTHER, SELFPAY ==
[2024-01-06 10:19] LABS: Estimated Average Glucose 171 mg/dL; Hemoglobin A1c % 7.6 % (<6.0)
[2024-01-06 10:58] LABS: Alanine Aminotransferase 24 U/L (0-31); Albumin Level 3.8 g/dL (3.5-5.0); Alkaline Phosphatase 64 U/L (39-117); Anion Gap 13 (12-20); Aspartate Amino Transferase 19 U/L (5-31); Bilirubin Total 0.6 mg/dL (0.0-1.0); Blood Urea Nitrogen 15 mg/dL (9-16); Calcium 9.5 mg/dL (8.4-10.2); Carbon Dioxide 26 mmol/L (22-29); Chloride 106 mmol/L (96-108); Cholesterol 173 mg/dL (<200); Estimated Glomerular Filt Rate > 60; Glucose Fasting 193 mg/dL (60-99); HDL Cholesterol 53 mg/dL (>40); LDL Cholesterol Calculated 92 mg/dL (<100); Potassium 3.7 mmol/L (3.3-5.1); Sodium 141 mmol/L (135-145); Total Protein 7.6 g/dL (6.5-8.0); Triglycerides 143 mg/dL (<150)
[2024-01-06 11:18] LABS: Creatinine Urine 68.63 mg/dL; Microalbumin Urine < 5.0 mg/L
[2024-01-06 11:23] LABS: Vitamin D 25-OH Total 33.3 ng/mL (>30)
== END 2024-01-06 09:21 | disposition home or self-care (01) ==
LOC: HO.LAB 09:20
PROVIDERS: PCP Internal Medicine; Visit Provider Internal Medicine
DX: E11.65 Type 2 diabetes mellitus with hyperglycemia (principal); E78.2 Mixed hyperlipidemia; Z78.0 Asymptomatic menopausal state
CPT/HCPCS: 36415; 80053; 80061; 82043; 82306; 82570; 83036

== ENCOUNTER 2024-01-07 08:50 | Outpatient (AMB) | payer OTHER, SELFPAY ==
--- NOTE | 2024-01-07 08:56 | A.OFFPC_ITS ---
Vital Signs 01/07/24 08:57 Height 5 ft 1 in Weight 129 lb BMI 24.4 BP 114/68 Blood Pressure Location Lt brachial Position Sitting Pulse 77 Pulse Source Pulse Oximeter Pulse Oximetry (%) 97 Oxygen Delivery Method Room Air Intake Visit Reasons: 3 Month f/u dm,lipids, htn after labs Intake Note: Pt is here today for 3 months follow up visit. Allergies clindamycin Allergy (Mild, Verified 01/07/24 09:41) Hives Iodinated Contrast Media [IV Dye, Iodine Containing] Allergy (Mild, Verified 01/07/24 09:41) HIVES donepezil Adverse Reaction (Intermediate, Verified 01/07/24 09:41) nausea, dizziness and vomiting pioglitazone Adverse Reaction (Intermediate, Verified 01/07/24 09:41) edema amitriptyline [From Elavil] Adverse Reaction (Mild, Verified 01/07/24 09:41) NAUSEA & VOMITING amoxicillin [Amoxicillin] Adverse Reaction (Mild, Verified 01/07/24 09:41) NAUSEA & VOMITING codeine [From Tylenol-Codeine] Adverse Reaction (Mild, Verified 01/07/24 09:41) NAUSEA & VOMITING lisinopril [Lisinopril] Adverse Reaction (Mild, Verified 01/07/24 09:41) NAUSEA & VOMITING acetaminophen [Tylenol] Adverse Reaction (Unknown, Verified 01/07/24 09:41) tylenol 3 (states regulare tylenol upset stomach as well) aspirin [Aspirin] Adverse Reaction (Unknown, Verified 01/07/24 09:41) NAUSEA & VOMITING oxycodone [Percocet] Adverse Reaction (Unknown, Verified 01/07/24 09:41) stomach upset tramadol [From Ultram] Adverse Reaction (Unknown, Verified 01/07/24 09:41) NAUSEA & VOMITING Medication List - Last Reconciled 01/07/24 by Danita Mccurdy MD blood sugar diagnostic ([employer] Ultra Test strips) Check fasting blood sugar twice a day blood-glucose meter ([employer]Touch Ultra2 Meter) As directed cane use as directed docusate sodium 100 mg PO BID escitalopram oxalate 10 mg PO DAILY glipizide 5 mg PO DAILY@0800 glipizide 5 mg PO DAILY@0800 Jardiance (empagliflozin) 10 mg PO QAM NS lancets test blood sugar twice a day memantine 10 mg PO BID rosuvastatin 20 mg PO BEDTIME Trulicity (dulaglutide) 3 mg (0.5 mL) subcut TH 30 days NS [tub safety bar As directed] zolpidem 5 mg PO BEDTIME Tobacco use date assessed: 01/07/24 Fall risk assessment: 1 Fall in past year Last assessed Fall Risk: 01/07/24 Dental Screening Dental Screen Date: 01/07/24 Did you have a dental visit in the last 12 months?: Yes Did you have a dental problem in the last 6 months where you did not have access to dental care?: No Was dental information given to patient?: Patient has dentist HPI 3 Month f/u dm,lipids, htn after labs HPI Details 78-year-old lady here today for follow-u p on her diabetes mellitus, and hyperlipidemia. She has been compliant with taking her medications, following recommended diet, but has not engaged in regular exercise , staying sedentary. Recent fasting labs showed improvement in her diabetes control with hemoglobin A1c now down from 8.6% 4 months ago to 7.6% now. Fasting lipids are within normal limits as well as urine electrolytes and renal function. Has been feeling well with no complaints at present time. [facility] Medical History (Updated 01/07/24 @ 10:04 by Danita Mccurdy MD) Acute parotitis Dizziness of unknown cause Diabetes mellitus with hyperglycemia Vitamin D deficiency Mixed dyslipidemia Lumbago Idiopathic scoliosis Pulmonary nodules Submandibular sialoadenitis Vitamin D deficiency Hemorrhoid Sensorineural hearing loss Balance disorder Lumbar scoliosis Type 2 diabetes mellitus with hyperglycemia, without long-term current use of in sulin Anxiety Osteoarthritis Hypertension Surgical History History of bladder suspension procedure Hx of cholecystectomy Family History Father Pulmonary disease Mother Liver cirrhosis Diabetes Other Mental health disorder Social History Household Members: Unknown / Unable to assess Housing: Unknown / Unable to assess Housing Other:: apartment for [facility] Do you presently have visiting nurse or other home services: Yes Unable to assess alcohol history related to: Unknown Alcohol intake: never Patient Tobacco Use Status: Never used Tobacco e-Cigarette/Vaping Use: Never Used Second Hand Smoke Exposure: No Advance Directives Date on File: 11/13/21 service: No Current occupational status: retired Cognitive needs: No Hearing needs: No Vision needs: No Questionnaire PHQ-9 Over the last 2 weeks, how often have you been bothered by any of the following problems? 1. Little interest or pleasure in doing things: not at all 2. Feeling down, depressed, or hopeless: not at all 3. Trouble falling or staying asleep, or sleeping too much: not at all 4. Feeling tired or having little energy: not at all 5. Poor appetite or overeating: not at all 6. Feeling bad about yourself - or that you are a failure or have let yourself or your family down: not at all 7. Trouble concentrating on things, such as reading the newspaper or watching television: not at all 8. Moving or speaking so slowly that other people could have noticed. Or the opposite - being so fidgety or restless that you have been moving around a lot more than usual: not at all 9. Thoughts that you would be better off or of hurting yourself in some way: not at all Total score: 0 Depression Screening Interpretation: Negative Depression Screening Done: Yes 83150 - PHQ-9 Billing: Yes Source: Developed by Drs. Bon David, Debby Smith, Jared Perez and colleagues, with an educational nayely from [employer]. Thrive Questionnaire Date Thrive assessed: 01/07/24 I am a: Patient What is your living situation today?: I have a steady place to live Within the past 12 months, did the food you bought not last and you didn't have the money to get more?: Never true Within the past 12 months, did you worry whether your food would run out before you got money to buy more?: Never true Do you have trouble paying for medicines?: No Do you have trouble getting transportation to medical appointments?: No Do you have trouble paying your heating and electricity bill?: No Do you have trouble taking care of your child, family member or friend?: No Do you have trouble with day-to-day activities such as bathing, preparing meals, shopping, managing finances, etc.?: No Are you currently unemployed and looking for a job?: No Are you interested in more education?: No Please select the resources that you would like help with: None THRIVE Score: 0 AUDIT C Alcohol Use Questionnaire (AUDIT-C) 1. How often do you have a drink containing alcohol?: Never 3. How often do you have six or more drinks on one occasion?: Never Total Score: 0 SUMMER-7 AMB Questionnaire SUMMER-7 Date SUMMER - 7 assessed: 01/07/24 Feeling nervous, anxious, or on edge: 0 = Not at all Not being able to stop or control worryin = Not at all Worrying too much about different things: 0 = Not at all Trouble relaxin = Not at all Being so restless that it is hard to sit still: 0 = Not at all Becoming easily annoyed or irritable: 0 = Not at all Feeling afraid as if something awful might happen: 0 = Not at all Total SUMMER-7 score (0-4 normal; 5-9 mild; 10-14 moderate; 15-21 severe): 0 Source: Developed by Drs. Bon David, Debby Smith, Jared Perez and colleagues, with an educational nayely from [employer]. SUMMER-7 Assessment Billing SUMMER-7 Assessment Tool: SUMMER-7 Assessment 63500 Review of Systems Const All systems reviewed & are unremarkable except as noted in HPI and below Reports no additional complaints Eyes Reports no additional complaints ENT Reports no additional complaints Card Denies chest pain, Denies rapid heart rate, Denies irregular heart rhythm and Denies dyspnea Resp Denies cough and Denies dyspnea GI Reports no additional complaints Reports no additional complaints Musc Reports no additional complaints Skin/Breast Reports system reviewed and no additional complaints, except as documented Neuro Reports no additional complaints Psych Reports no additional complaints Endo Reports no additional complaints Jeyson/Lymph Reports no additional complaints Aller/Immun Reports no additional complaints Physical exam (Primary Care) Vital Signs: Last Vital Signs Pulse 77 01/07/24 08:57 BP 114/68 01/07/24 08:57 Pulse Ox 97 01/07/24 08:57 Oxygen Delivery Method Room Air 01/07/24 08:57 BMI result Body Mass Index 24.4 Tobacco/Smoking Status: Tobacco use Status Tobacco use date assessed 01/07/24 01/07/24 09:26 Patient Tobacco Use Status Never used Tobacco 01/07/24 09:26 e-Cigarette/Vaping Use Never Used 01/07/24 08:59 PHQ-9: PHQ-9 Score PHQ-9: Total score 0 01/07/24 09:56 Depression Screening Interpretation: Negative Thrive Assessment: Date of Thrive Assessment Date Thrive assessed 01/07/24 01/07/24 09:26 Const Other: Alert oriented x3, no acute distress noted ambulatory with assistance of a walker, daughter present Orientation/consciousness: patient oriented x3 HENDE Other: n Head: Yes normocephalic General nose exam: Normal external nose present Face and sinus: Yes face symmetric Mouth: Normal oral and palatal mucosa present, oropharynx normal and moist mucous membranes Neck Neck: Yes full ROM, Yes no lymphadenopathy and Yes supple Resp Auscultation: clear to auscultation bilaterally Cardio Other: S1-S2 present regular and rhythm GI Palpation (GI): Soft to palpation, nontender, no guarding and no masses Back/Spine/Pelvis Other: Mild kyphosis Skin General skin exam: no rashes or lesions noted Neuro General: patient oriented x3, tone normal, moves all extremities, Normal light touch and pain sensation, no focal motor deficits and CN's II-XI intact bilaterally Extrem General: Yes full ROM, Yes no joint enlargement, Yes no pedal edema and Yes no calf tenderness Results Reviewed Results Reviewed: madhav: Delma Hanson I Age/Sex: 78/F : 1945 Unit#: [id number] Attend Dr: Don Goodman MD Re12/16/23 [facility]: [facility] SPEC : [id number] KAEL: 12/16/23 STATUS: COMP REQ : [id number] RECD: 12/16/[address]: Don Goodman MD COMP: 12/16/23 ENTERED: 12/16/[address]: Danita Mccurdy MD [facility] ED Physician ORDERED: CBC Auto Diff Test Result Flag Reference WBC 11.5 H 4.8-10.8 X10*3/uL RBC 4.82 4.20-5.50 X10*6/uL HGB 15.1 # 12.0-16.0 g/dl HCT 44.5 37.0-47.0 % MCV 92.3 80.0-98.0 fL MCH 31.3 27.0-33.0 pg MCHC 33.9 31.0-35.0 g/dl RDW 14.9 11.0-16.0 % PLT 203 # 160-400 X10*3/uL MPV 9.8 9.4-12.3 fL Neut Pct Auto 66.4 45-73 % ImGran Pct Auto 0.2 0.0-0.4 % Lymp Pct Auto 24.0 20-40 % Bartholomew Pct Auto 8.9 2-11 % Eos Pct Auto 0.3 0-4 % Baso Pct Auto 0.2 0-2 % NRBC Pct Auto 0.0 0.0-0.2 /100WBC ANC Neut Abs # 7.6 2.0-8.3 x10*3/uL ImGran Abs Auto 0.02 0.00-0.03 X10*3/uL Lymph Abs Auto 2.8 1.2-4.9 X10*3/uL Bartholomew Abs Auto 1.0 0.1-1.2 X10*3/uL Eos Abs Auto 0.0 0.0-0.4 X10*3/uL Baso Abs Auto 0.0 0.0-0.2 X10*3/uL NRBC Abs Auto 0.000 0.0-0.012 X10*3/uL Name: Delma Hanson I Age/Sex: 78/F : 1945 Unit#: [id number] Attend Dr: Danita Mccurdy MD Re01/06/24 Status: DEP [facility] Disch: SPEC : [id number] KAEL: 01/06/24 STATUS: COMP REQ : [id number] RECD: 01/06/[address]: Danita Mccurdy MD COMP: 01/06/24 ENTERED: 01/06/[address]: ORDERED: CMP Fast, Lipid Panel, Vitamin D 25-OH Test Result Flag Reference Sodium 141 135-145 mmol/L Potassium 3.7 3.3-5.1 mmol/L CL 106 96-108 mmol/L CO2 26 22-29 mmol/L Gap 13 12-20 BUN 15 9-16 mg/dL Creat 0.84 0.5-1.4 mg/dL EGFR > 60 NOTE: For -[place] individuals, multiply the result by 1.210. Chronic Kidney Disease: Estimated GFR < 60 mL/min/1.73 m2 Severe Kidney Disease: Estimated GFR < 15 mL/min/1.73m2 FBS 193 H 60-99 mg/dL A fasting glucose of 126 mg/dl or greater on more than one occasion is considered diagnostic of diabetes. CA 9.5 8.4-10.2 mg/dL Total Bili 0.6 0.0-1.0 mg/dL AST (GOT) 19 5-31 U/L ALT (GPT) 24 0-31 U/L Protein, Total 7.6 6.5-8.0 g/dL Alb 3.8 3.5-5.0 g/dL Triglyceride 143 <150 mg/dL Desirable Triglyceride: less than 150 mg/dL Borderline High Triglyceride 150-199 mg/dL High Triglyceride: 200-499 mg/dL Very High Triglyceride: greater than or equal to 5OO mg/dL Cholesterol 173 <200 mg/dL Desirable Cholesterol: less than 200 mg/dL Borderline High Cholesterol: 200-239 mg/dL High Cholesterol: greater than 239 mg/dL LDL Calculated 92 <100 mg/dL Desirable LDL: less than 100 mg/dL Near Optimal/Above Optimal LDL: 110-129 mg/dL Borderline High LDL: 130-159 mg/dL High LDL: 160-189 mg/dL Very High LDL: greater than or equal to 190 mg/dL HDL 53 >40 mg/dL Desirable HDL: greater than 40 mg/dL Note: This HDL assay may give artificially low results in patients with liver disease. Alk Phos 64 39-117 U/L Vit D 25-OH Tot 33.3 >30 ng/mL Health Based Reference Values* < 20 ng/mL Deficient 20-30 ng/mL Insufficient > 30 ng/mL Sufficient Laboratory Tests 08/19/23 01/06/24 07:17 09:36 Estimat Average Glucose 200 171 Hemoglobin A1c % 8.6 H 7.6 H Laboratory Tests 01/06/24 09:34 Urine Creatinine 68.63 Urine Microalbumin < 5.0 Microalb/Creat Ratio TNP Assessment and Plan Assessment & Plan (1) Mixed dyslipidemia: Code(s): E78.2 - Mixed hyperlipidemia Plan: Reviewed recent fasting lipid profile with patient with levels within normal limits . Continue rosuvastatin 20 mg at bedtime , in addition to adherence to low-cholesterol diet and regular exercise, at least 30 minutes 3 to 4 times a week. Advised patient to make healthy food choices, eat more fruits, vegetables, whole grains, wild caught fish and low-fat dairy. Limit amount of meat and fried or fatty food products, as well as processed foods and fast foods. Follow-up scheduled with repeat fasting lipid panel in 4 months. (2) Diabetes mellitus with hyperglycemia: Code(s): E11.65 - Type 2 diabetes mellitus with hyperglycemia Qualifiers: Diabetes mellitus director smb sales insulin use: without director smb sales use Diabetes mellitus type: type 2 Qualified Code(s): E11.65 - Type 2 diabetes mellitus with hyperglycemia Plan: Improving diabetes control now with hemoglobin A1c at 7.6%, continue with glipizide 5 mg 1 tablet twice a day with meals, Jardiance 10 mg in the morning an hour before breakfast, and Trulicity 3 mg once a week. Up-to-date with her diabetes retinopathy screening, sees Dr. Rubio. Continue checking blood sugar at least once a day before meals, and keeping a reading of the results. Return to the clinic in 4 months after fasting labs done for follow-up Orders: Orders Hemoglobin A1c 04/11/24.65 - Type 2 diabetes mellitus with hyperglycemia, E78.2 - Mixed hyperlipidemia, K11.21 - Acute sialoadenitis Alanine Aminotransferase 04/11/24.65 - Type 2 diabetes mellitus with hyperglycemia, E78.2 - Mixed hyperlipidemia, K11.21 - Acute sialoadenitis Aspartate Amino Transferase 04/11/24 E11.65 - Type 2 diabetes mellitus with hyperglycemia, E78.2 - Mixed hyperlipidemia, K11.21 - Acute sialoadenitis Lipid Panel 04/11/24 E11.65 - Type 2 diabetes mellitus with hyperglycemia, E78.2 - Mixed hyperlipidemia, K11.21 - Acute sialoadenitis Basic Metabolic Panel Fasting 04/11/24.65 - Type 2 diabetes mellitus with hyperglycemia, E78.2 - Mixed hyperlipidemia, K11.21 - Acute sialoadenitis Medications: Changed From glipizide 5 mg PO DAILY@0800 To glipizide Take with meals 5 mg PO BID 30 days 60 tabs 6RF Coding Level of Care Code Est Pt Level 4 (22522) Diagnoses Mixed dyslipidemia E78.2 Type 2 diabetes mellitus with hyperglycemia, without long-term current use of insulin E11.65 Diabetes mellitus director smb sales insulin use: without fpc use Diabetes mellitus type: type 2 Additional Codes SUMMER-7 Assessment Billing - SUMMER-7 Assessment Tool: SUMMER-7 Assessment 63679 ([id number])
[2024-01-07 08:57] VITALS: BP 114/68; PULSE 77; O2SAT 97; BMI 24.4
== END 2024-01-07 10:04 | disposition home or self-care (01) ==
PROVIDERS: PCP Internal Medicine; Visit Provider Internal Medicine
DX: E78.2 Mixed hyperlipidemia (principal); E11.65 Type 2 diabetes mellitus with hyperglycemia
CPT/HCPCS: 99214

== ENCOUNTER 2024-04-21 06:26 | Outpatient (REF) | payer OTHER, SELFPAY ==
[2024-04-21 07:45] LABS: Alanine Aminotransferase 25 U/L (0-31); Anion Gap 12 (12-20); Aspartate Amino Transferase 23 U/L (5-31); Blood Urea Nitrogen 17 mg/dL (9-16); Calcium 9.8 mg/dL (8.4-10.2); Carbon Dioxide 29 mmol/L (22-29); Chloride 105 mmol/L (96-108); Cholesterol 165 mg/dL (<200); Estimated Glomerular Filt Rate > 60; Glucose Fasting 172 mg/dL (60-99); HDL Cholesterol 56 mg/dL (>40); LDL Cholesterol Calculated 83 mg/dL (<100); Potassium 3.9 mmol/L (3.3-5.1); Sodium 142 mmol/L (135-145); Triglycerides 131 mg/dL (<150)
[2024-04-21 07:46] LABS: Estimated Average Glucose 177 mg/dL; Hemoglobin A1c % 7.8 % (<6.0)
== END 2024-04-21 06:27 | disposition home or self-care (01) ==
LOC: HO.LAB 06:26
PROVIDERS: PCP Internal Medicine; Visit Provider Internal Medicine
DX: E11.65 Type 2 diabetes mellitus with hyperglycemia (principal); E78.2 Mixed hyperlipidemia; K11.21 Acute sialoadenitis
CPT/HCPCS: 36415; 80048; 80061; 83036; 84450; 84460

== ENCOUNTER 2024-04-22 12:35 | Outpatient (AMB) | payer OTHER, SELFPAY ==
--- NOTE | 2024-04-22 12:36 | MHC.PC.OV ---
Vital Signs 04/22/24 12:37 Height 5 ft 1 in Weight 133 lb BMI 25.1 BP 110/70 Blood Pressure Location Lt brachial Position Sitting Pulse 64 Pulse Source Pulse Oximeter Pulse Oximetry (%) 97 Oxygen Delivery Method Room Air Intake Visit Reasons: 4 Month f/u dm,lipids, htn Intake Note: Pt is here today for her 4 mo f/u DM, lipids and HTN Allergies clindamycin Allergy (Mild, Verified 04/22/24 13:12) Hives Iodinated Contrast Media [IV Dye, Iodine Containing] Allergy (Mild, Verified 04/22/24 13:12) HIVES donepezil Adverse Reaction (Intermediate, Verified 04/22/24 13:12) nausea, dizziness and vomiting pioglitazone Adverse Reaction (Intermediate, Verified 04/22/24 13:12) edema amitriptyline [From Elavil] Adverse Reaction (Mild, Verified 04/22/24 13:12) NAUSEA & VOMITING amoxicillin [Amoxicillin] Adverse Reaction (Mild, Verified 04/22/24 13:12) NAUSEA & VOMITING codeine [From Tylenol-Codeine] Adverse Reaction (Mild, Verified 04/22/24 13:12) NAUSEA & VOMITING lisinopril [Lisinopril] Adverse Reaction (Mild, Verified 04/22/24 13:12) NAUSEA & VOMITING acetaminophen [Tylenol] Adverse Reaction (Unknown, Verified 04/22/24 13:12) tylenol 3 (states regulare tylenol upset stomach as well) aspirin [Aspirin] Adverse Reaction (Unknown, Verified 04/22/24 13:12) NAUSEA & VOMITING oxycodone [Percocet] Adverse Reaction (Unknown, Verified 04/22/24 13:12) stomach upset tramadol [From Ultram] Adverse Reaction (Unknown, Verified 04/22/24 13:12) NAUSEA & VOMITING Medication List - Last Reconciled 04/22/24 by Danita Mccurdy MD blood sugar diagnostic ([employer] Ultra Test strips) Check fasting blood sugar twice a day blood-glucose meter ([employer] Ultra2 Meter) As directed cane use as directed docusate sodium 100 mg PO BID escitalopram oxalate 10 mg PO DAILY glipizide 5 mg PO BID 30 days Jardiance (empagliflozin) 10 mg PO QAM NS lancets test blood sugar twice a day memantine 10 mg PO BID rosuvastatin 20 mg PO BEDTIME [tub safety bar As directed] zolpidem 5 mg PO BEDTIME Tobacco use date assessed: 04/22/24 Fall risk assessment: 2 + Falls in past year Last assessed Fall Risk: 04/22/24 Dental Screening Dental Screen Date: 04/22/24 Did you have a dental visit in the last 12 months?: No Did you have a dental problem in the last 6 months where you did not have access to dental care?: No Was dental information given to patient?: Patient has dentist HPI 4 Month f/u dm,lipids, htn HPI Details 70-year-old lady, here today for follow-up on her diabetes mellitus, hyperlipidemia hypertension. She has been compliant with taking her medications but as per daughter, she has been out of her Trulicity now for the last 2 months due to medication being out of stock. She has only been taking glipizide 5 mg twice a day, and Jardiance 10 mg in the morning, the latter however she has been taking with her breakfast instead of taking it an hour before eating. Hemoglobin A1c now is at 7.6%. She takes rosuvastatin 20 mg at bedtime, with lady fasting lipids within normal limits COUNT INCLUDES THE [facility] Medical History (Updated 04/22/24 @ 13:24 by Danita Mccurdy MD) Acute parotitis Dizziness of unknown cause Diabetes mellitus with hyperglycemia Vitamin D deficiency Mixed dyslipidemia Lumbago Idiopathic scoliosis Pulmonary nodules Submandibular sialoadenitis Vitamin D deficiency Hemorrhoid Sensorineural hearing loss Balance disorder Lumbar scoliosis Type 2 diabetes mellitus with hyperglycemia, without long-term current use of insulin Anxiety Osteoarthritis Hypertension Surgical History History of bladder suspension procedure Hx of cholecystectomy Family History Father Pulmonary disease Mother Liver cirrhosis Diabetes Other Mental health disorder Social History Household Members: Unknown / Unable to assess Housing: Unknown / Unable to assess Housing Other:: apartment for [facility] Do you presently have visiting nurse or other home services: Yes Unable to assess alcohol history related to: Unknown Alcohol intake: never Patient Tobacco Use Status: Never used Tobacco e-Cigarette/Vaping Use: Never Used Second Hand Smoke Exposure: No Advance Directives Date on File: 11/13/21 service: No Current occupational status: retired Cognitive needs: No Hearing needs: No Vision needs: No Questionnaire PHQ-9 Over the last 2 weeks, how often have you been bothered by any of the following problems? Depression Screening Interpretation: Negative Depression Screening Done: Yes Source: Developed by Debby Sunshine Kurt Kroenke and colleagues, with an educational nayely from [email or web address]. Thrive Questionnaire Date Thrive assessed: 01/07/24 SUMMER-7 AMB Questionnaire SUMMER-7 Date SUMMER - 7 assessed: 01/07/24 Source: Developed by Drs. Bon David, Debby Smith, Jared Perez and colleagues, with an educational nayely from [email or web address]. Review of Systems Const Reports no additional complaints Eyes Reports no additional complaints ENT Reports no additional complaints Card Denies chest pain, Denies rapid heart rate, Denies irregular heart rhythm and Denies dyspnea Resp Denies cough and Denies dyspnea GI Reports no additional complaints Reports no additional complaints Musc Reports no additional complaints Skin/Breast Reports system reviewed and no additional complaints, except as documented Neuro Reports no additional complaints Psych Reports no additional complaints Endo Reports no additional complaints Jeyson/Lymph Reports no additional complaints Aller/Immun Reports no additional complaints Physical exam (Primary Care) Vital Signs: Last Vital Signs Pulse 64 04/22/24 12:37 BP 110/70 04/22/24 12:37 Pulse Ox 97 04/22/24 12:37 Oxygen Delivery Method Room Air 04/22/24 12:37 BMI result Body Mass Index 25.1 Tobacco/Smoking Status: Tobacco use Status Tobacco use date assessed 04/22/24 04/22/24 12:39 Patient Tobacco Use Status Never used Tobacco 04/22/24 12:39 e-Cigarette/Vaping Use Never Used 04/22/24 12:39 Depression Screening Interpretation: Negative Thrive Assessment: Date of Thrive Assessment Date Thrive assessed 01/07/24 04/22/24 12:39 Const Other: Alert oriented x3 accompanied by daughter, ambulatory with a walker Orientation/consciousness: patient oriented x3 HENMT Other: n Head: Yes normocephalic Face and sinus: Yes face symmetric Mouth: oropharynx normal and moist mucous membranes Neck Neck: Yes full ROM, Yes no lymphadenopathy and Yes supple Resp Auscultation: clear to auscultation bilaterally Cardio Other: S1-S2 present regular and rhythm GI Palpation (GI): Soft to palpation, nontender, no guarding and no masses Back/Spine/Pelvis Other: Mild kyphosis Skin General skin exam: no rashes or lesions noted Neuro General: patient oriented x3, tone normal, moves all extremities, Normal light touch and pain sensation, no focal motor deficits and CN's II-XI intact bilaterally Extrem General: Yes full ROM, Yes no joint enlargement, Yes no pedal edema and Yes no calf tenderness Results Reviewed Results Reviewed: Laboratory Tests 04/21/24 06:45 Estimat Average Glucose 177 Hemoglobin A1c % 7.8 H Name: Delma Hanson I Age/Sex: 78/F : 1945 Unit#: [id number] Attend Dr: Danita Mccurdy MD Re04/21/24 Status: DEP [facility] Disch: SPEC : [id number] KAEL: 04/21/24 STATUS: COMP REQ : [id number] RECD: 04/21/[address]: Danita Mccurdy MD COMP: 04/21/24 ENTERED: 04/21/[address]: ORDERED: Met Prof Fast, AST, ALT, Lipid Panel Test Result Flag Reference Sodium 142 135-145 mmol/L Potassium 3.9 3.3-5.1 mmol/L CL 105 96-108 mmol/L CO2 29 22-29 mmol/L Gap 12 12-20 BUN 17 H 9-16 mg/dL Creat 0.89 0.5-1.4 mg/dL EGFR > 60 NOTE: For -Ivorian individuals, multiply the result by 1.210. Chronic Kidney Disease: Estimated GFR < 60 mL/min/1.73m2 Severe Kidney Disease: Estimated GFR < 15 mL/min/1.73m2 FBS 172 H 60-99 mg/dL A fasting glucose of 126 mg/dl or greater on more than one occasion is considered diagnostic of diabetes. CA 9.8 8.4-10.2 mg/dL AST (GOT) 23 5-31 U/L ALT (GPT) 25 0-31 U/L Triglyceride 131 <150 mg/dL Desirable Triglyceride: less than 150 mg/dL Borderline High Triglyceride 150-199 mg/dL High Triglyceride: 200-499 mg/dL Very High Triglyceride: greater than or equal to 5OO mg/dL Cholesterol 165 <200 mg/dL Desirable Cholesterol: less than 200 mg/dL Borderline High Cholesterol: 200-239 mg/dL High Cholesterol: greater than 239 mg/dL LDL Calculated 83 <100 mg/dL Desirable LDL: less than 100 mg/dL Near Optimal/Above Optimal LDL: 110-129 mg/dL Borderline High LDL: 130-159 mg/dL High LDL: 160-189 mg/dL Very High LDL: greater than or equal to 190 mg/dL HDL 56 >40 mg/dL Desirable HDL: greater than 40 mg/dL Note: This HDL assay may give artificially low results in patients with liver disease. Assessment and Plan Assessment & Plan (1) Diabetes mellitus with hyperglycemia: Code(s): E11.65 - Type 2 diabetes mellitus with hyperglycemia Qualifiers: Diabetes mellitus termite control representative insulin use: without penitentiary use Diabetes mellitus type: type 2 Qualified Code(s): E11.65 - Type 2 diabetes mellitus with hyperglycemia Plan: Will continue on empagliflozin and glipizide , discontinue Trulicity due to unavailability of the drug, and will start on Mounjaro at 2.5 mg injected subcutaneously once a week. Continue with adherence to healthy eating habits, will see her back for follow-up in 3 month after fasting labs done. Patient is up-to-date with her diabetes eye exam, sees Dr. Rubio (2) Mixed dyslipidemia: Code(s): E78.2 - Mixed hyperlipidemia Plan: Reviewed recent fasting lipid profile with patient with levels within normal limit . Continue rosuvastatin 20 mg daily , in addition to adherence to low-cholesterol diet and regular exercise, at least 30 minutes 3 to 4 times a week. Advised patient to make healthy food choices, eat more fruits, vegetables, whole grains, wild caught fish and low-fat dairy. Limit amount of meat and fried or fatty food products, as well as processed foods and fast foods. Follow-up scheduled with repeat fasting lipid panel in 3 months. Orders: Orders Hemoglobin A1c 07/25/24 E11.65 - Type 2 diabetes mellitus with hyperglycemia, E78.2 - Mixed hyperlipidemia, U07.1 - COVID-19 Alanine Aminotransferase 07/25/24 E11.65 - Type 2 diabetes mellitus with hyperglycemia, E78.2 - Mixed hyperlipidemia, U07.1 - COVID-19 Basic Metabolic Panel Fasting 07/25/24.65 - Type 2 diabetes mellitus with hyperglycemia, E78.2 - Mixed hyperlipidemia, U07.1 - COVID-19 Lipid Panel 07/25/24.65 - Type 2 diabetes mellitus with hyperglycemia, E78.2 - Mixed hyperlipidemia, U07.1 - COVID-19 Vitamin D 25-OH Total 07/25/24.65 - Type 2 diabetes mellitus with hyperglycemia, E78.2 - Mixed hyperlipidemia, U07.1 - COVID-19 Aspartate Amino Transferase 07/25/24. - Type 2 diabetes mellitus with hyperglycemia, E78.2 - Mixed hyperlipidemia, U07.1 - COVID-19 Medications: New Mounjaro (tirzepatide) 2.5 mg (0.5 mL) subcut QWEEK 4 weeks 2 mL 3RF NS .65 - Type 2 diabetes mellitus with hyperglycemia Coding Level of Care Code Est Pt Level 4 (66928) Complex EM visit Add On G2211 Diagnoses Type 2 diabetes mellitus with hyperglycemia, without long-term current use of insulin 65 Diabetes mellitus termite control representative insulin use: without termite control representative use Diabetes mellitus type: type 2 Mixed dyslipidemia E78.2
[2024-04-22 12:37] VITALS: BP 110/70; PULSE 64; O2SAT 97; BMI 25.1
== END 2024-04-22 13:26 | disposition home or self-care (01) ==
PROVIDERS: PCP Internal Medicine; Visit Provider Internal Medicine
DX: E11.65 Type 2 diabetes mellitus with hyperglycemia (principal); E78.2 Mixed hyperlipidemia
CPT/HCPCS: 99214; G2211

== ENCOUNTER 2024-05-13 09:38 | Outpatient (AMB) | payer OTHER, SELFPAY ==
--- NOTE | 2024-05-13 09:48 | MHC.OFFVIS ---
Vital Signs 05/13/24 09:49 Height 5 ft 1 in Weight 133 lb BMI 25.1 BP 122/70 Blood Pressure Location Rt brachial Position Sitting Respiration 16 Pulse 73 Pulse Source Pulse Oximeter Pulse Oximetry (%) 96 Oxygen Delivery Method Room Air Intake Visit Reasons: follow up Dizziness/giddiness Intake Note: Pt presents to the office for 5 month follow up for vertigo. Grocery Deliverer Required: No Allergies clindamycin Allergy (Mild, Verified 05/13/24 09:48) Hives Iodinated Contrast Media [IV Dye, Iodine Containing] Allergy (Mild, Verified 05/13/24 09:48) HIVES donepezil Adverse Reaction (Intermediate, Verified 05/13/24 09:48) nausea, dizziness and vomiting pioglitazone Adverse Reaction (Intermediate, Verified 05/13/24 09:48) edema amitriptyline [From Elavil] Adverse Reaction (Mild, Verified 05/13/24 09:48) NAUSEA & VOMITING amoxicillin [Amoxicillin] Adverse Reaction (Mild, Verified 05/13/24 09:48) NAUSEA & VOMITING codeine [From Tylenol-Codeine] Adverse Reaction (Mild, Verified 05/13/24 09:48) NAUSEA & VOMITING lisinopril [Lisinopril] Adverse Reaction (Mild, Verified 05/13/24 09:48) NAUSEA & VOMITING acetaminophen [Tylenol] Adverse Reaction (Unknown, Verified 05/13/24 09:48) tylenol 3 (states regulare tylenol upset stomach as well) aspirin [Aspirin] Adverse Reaction (Unknown, Verified 05/13/24 09:48) NAUSEA & VOMITING oxycodone [Percocet] Adverse Reaction (Unknown, Verified 05/13/24 09:48) stomach upset tramadol [From Ultram] Adverse Reaction (Unknown, Verified 05/13/24 09:48) NAUSEA & VOMITING Medication List - Last Reconciled 05/13/24 by Laurence Mcfarlane MD blood sugar diagnostic ([employer] Ultra Test strips) Check fasting blood sugar twice a day blood-glucose meter ([employer] Ultra2 Meter) As directed cane use as directed docusate sodium 100 mg PO BID escitalopram oxalate 10 mg PO DAILY glipizide 5 mg PO BID 30 days Jardiance (empagliflozin) 10 mg PO QAM NS lancets test blood sugar twice a day memantine 10 mg PO BID Mounjaro (tirzepatide) 2.5 mg (0.5 mL) subcut QWEEK 4 weeks NS rosuvastatin 20 mg PO BEDTIME [tub safety bar As directed] zolpidem 5 mg PO BEDTIME HPI Comments Details: 77 y/o female comes for follow up of vertigo.she could not do vestibular therapy as she had multiple hospital admissions for various illness. she describes dizziness, feeling off balance with headaches, noise sensitivity.she also has chronic neck pain Pt's reports that the vertigo started about 5-6 years ago. Pt having dizziness with her surroundings moving and spinning. It usually happens when she gets up or change her position. The symptoms goes away when she rests in her bed. It can be associated with nausea. She needs to hold table when the vertigo happens, but feels she is going to fall back. Pt also had two episodes of passing out. [facility] Medical History (Updated 05/13/24 @ 10:17 by Laurence Mcfarlane MD) Headache Cervicalgia Cervicalgia Acute parotitis Dizziness of unknown cause Diabetes mellitus with hyperglycemia Vitamin D deficiency Mixed dyslipidemia Lumbago Idiopathic scoliosis Pulmonary nodules Submandibular sialoadenitis Vitamin D deficiency Hemorrhoid Sensorineural hearing loss Balance disorder Lumbar scoliosis Type 2 diabetes mellitus with hyperglycemia, without long-term current use of insulin Anxiety Osteoarthritis Hypertension Surgical History History of bladder suspension procedure Hx of cholecystectomy Family History Father Pulmonary disease Mother Liver cirrhosis Diabetes Other Mental health disorder Social History Household Members: Unknown / Unable to assess Housing: Unknown / Unable to assess Housing Other:: apartment for [facility] Do you presently have visiting nurse or other home services: Yes Unable to assess alcohol history related to: Unknown Alcohol intake: never Patient Tobacco Use Status: Never used Tobacco e-Cigarette/Vaping Use: Never Used Second Hand Smoke Exposure: No Advance Directives Date on File: 11/13/21 service: No Current occupational status: retired Cognitive needs: No Hearing needs: No Vision needs: No Physical Exam Vital Signs: Last Vital Signs Pulse 73 05/13/24 09:49 Resp 16 05/13/24 09:49 BP 122/70 05/13/24 09:49 Pulse Ox 96 05/13/24 09:49 Oxygen Delivery Method Room Air 05/13/24 09:49 BMI result Body Mass Index 25.1 Const General: cooperative Nutritional Appearance: average body habitus Orientation/consciousness: patient oriented x3 Limitations: language barrier Neck Other: antecollis, severe tightness and tenderness Neuro General: patient oriented x3 and moves all extremities Cranial nerves: Yes CN's II-XII intact bilaterally Cognition (Neuro): normal cognition Gait exam (Neuro): Assisted gait required (cane) Motor exam (neuro): 5/5 motor strength present throughout, Pronator motor function not present and no tremor noted Deep tendon reflexes (DTR's): Rt Biceps (C5, C6): 2+, Left biceps reflex intensity grade: 2+, Right brachioradialis reflex intensity grade: 2+, Left brachioradialis reflex intensity grade: 2+, Right patellar reflex intensity grade: 2+ and Left patellar reflex intensity grade: 2+ Psych Appearance: grossly normal Mental Status: mental status grossly normal Affect: normal affect Assessment & Plan Assessment & Plan (1) Cervicalgia: Code(s): M54.2 - Cervicalgia Category: Medical (2) Vertigo: Code(s): R42 - Dizziness and giddiness Category: Medical (3) Headache: Code(s): R51.9 - Headache, unspecified Category: Medical Plan C spine X ray to evaluate her neck pain I will trial he emily cyclobenzaprine 5mg qhs for neck spasm . will consider botox PT for neck and vestibular therapy for dizziness Orders: Orders XR cervical spine 3V Today M54.2 - Cervicalgia PT Evaluation and Treatment Today M54.2 - Cervicalgia Medications: New cyclobenzaprine 5 mg PO BEDTIME 30 tabs 0RF Discontinued zolpidem Discontinued Reason: Change Referral Type 5 mg PO BEDTIME Coding Level of Care Code Est Pt Level 4 (61141) Diagnoses Cervicalgia M54.2 Vertigo R42 Headache R51.9
[2024-05-13 09:49] VITALS: BP 122/70; PULSE 73; RESP 16; O2SAT 96; BMI 25.1
== END 2024-05-13 10:22 | disposition home or self-care (01) ==
PROVIDERS: PCP Internal Medicine; Visit Provider Psychiatry & Neurology Neurology
DX: M54.2 Cervicalgia (principal); R42 Dizziness and giddiness; R51.9 Headache, unspecified
CPT/HCPCS: 99214

== ENCOUNTER → 2024-05-13 09:38 | Outpatient (BNVA) | payer OTHER, SELFPAY | PROVIDERS: PCP Internal Medicine; Visit Provider Psychiatry & Neurology Neurology | DX: R42 Dizziness and giddiness (principal); M54.2 Cervicalgia; R51.9 Headache, unspecified | CPT/HCPCS: 99212 ==

== ENCOUNTER 2024-06-05 18:33 | Emergency (ER) | payer OTHER, SELFPAY ==
[2024-06-05] VITALS (8 sets, daily range): BP systolic 142–170; BP diastolic 65–84; PULSE 59–70; RESP 17–24; TEMP 36.8–37.1; O2SAT 99–100; BMI 30.1
--- NOTE | ~2024-06-05 | XR_ITS ---
EXAMINATION: XR HIP, RIGHT, WITH AP PELVIS CLINICAL INFORMATION: Pain status-post fall. COMPARISON: None available. TECHNIQUE: AP and frog-leg lateral views of the right hip are submitted, together with a frontal view of the pelvis. FINDINGS: Bony alignment and mineralization are normal. The acetabular joint spaces are symmetric and well-maintained. The femoral heads are smooth. No fracture or dislocation is seen. The sacroiliac joints are symmetric and well-maintained. The pubic symphysis is intact. There are pelvic phleboliths. There are scoliotic changes of the lower lumbar spine. XR/XR hip RT min 2V IMPRESSION: Unremarkable radiographic appearance of the bilateral hips. Electronically signed by: Jose Otto MD 06/05/2024 09:36 PM EDT
--- NOTE | ~2024-06-05 | XR_ITS ---
EXAMINATION: XR CHEST CLINICAL INFORMATION: Shortness of breath COMPARISON: Prior chest July 2023 TECHNIQUE: Frontal view of the chest was obtained. FINDINGS: Patient is slightly rotated to the left. No significant abnormality is noted involving the heart, lungs, mediastinum, bony thorax or soft tissues. XR/XR chest 1V IMPRESSION: Unremarkable examination. Electronically signed by: Isaac Connors MD 06/05/2024 09:05 PM EDT RP
--- NOTE | 2024-06-05 18:37 | ECG_ITS ---
Test Reason : SOB Blood Pressure : / mmHG Vent. Rate : 069 BPM Atrial Rate : 069 BPM P-R Int : 156 ms QRS Dur : 078 ms QT Int : 440 ms P-R-T Axes : 040 028 018 degrees QTc Int : 471 ms Normal sinus rhythm T wave abnormality, consider anterior ischemia Prolonged QT Abnormal ECG When compared with ECG of 09-AUG-2023 14:22, No significant change was found Referred By: Generic ED Physician Electronically Signed By:SINA DEVLIN
[2024-06-05 19:44] LABS: COVID-19 Test Positive (Negative); IDNOW Serial# 152EDE1D
[2024-06-05 20:37] LABS: MANUAL DIFF FLAG NO
[2024-06-05 20:57] LABS: Alanine Aminotransferase 25 U/L (0-31); Albumin Level 3.6 g/dL (3.5-5.0); Alkaline Phosphatase 66 U/L (39-117); Anion Gap 15 (12-20); Aspartate Amino Transferase 31 U/L (5-31); Bilirubin Direct 0.1 mg/dL (0.0-0.5); Bilirubin Total 0.5 mg/dL (0.0-1.0); Blood Urea Nitrogen 17 mg/dL (9-16); Calcium 8.8 mg/dL (8.4-10.2); Carbon Dioxide 21 mmol/L (22-29); Chloride 107 mmol/L (96-108); Creatinine Clr Calc Pharmacy 46.5; Estimated Glomerular Filt Rate 55; Glucose Random 241 mg/dL (60-115); Potassium 3.4 mmol/L (3.3-5.1); Sodium 140 mmol/L (135-145); Total Protein 7.2 g/dL (6.5-8.0)
[2024-06-05 20:58] LABS: Prothrombin Time 11.3 SEC (10.9-12.4)
[2024-06-05 21:00] LABS: Basophils Percent Auto 0.3 % (0-2); Eosinophils Absolute Auto 0.1 X10*3/uL (0.0-0.4); Eosinophils Percent Auto 0.8 % (0-4); Hematocrit 37.1 % (37.0-47.0); Hemoglobin 12.8 g/dl (12.0-16.0); Imm Gran Abs Auto 0.07 X10*3/uL (0.00-0.03); Imm Gran Pct Auto 1.1 % (0.0-0.4); Lymphocytes Absolute Auto 2.3 X10*3/uL (1.2-4.9); Lymphocytes Percent Auto 36.6 % (20-40); Mean Corpuscular HGB Conc 34.5 g/dl (31.0-35.0); Mean Corpuscular Hemoglobin 31.2 pg (27.0-33.0); Mean Corpuscular Volume 90.5 fL (80.0-98.0); Mean Platelet Volume 10.8 fL (9.4-12.3); Monocytes Absolute Auto 0.7 X10*3/uL (0.1-1.2); Monocytes Percent Auto 10.5 % (2-11); Neutrophils Absolute Auto 3.1 x10*3/uL (2.0-8.3); Neutrophils Percent Auto 50.7 % (45-73); Platelet Count 164 X10*3/uL (160-400); Red Cell Distribution Width 14.7 % (11.0-16.0); White Blood Count 6.2 X10*3/uL (4.8-10.8)
[2024-06-05 21:03] LABS: Troponin-I High Sensitivity 6.1 ng/L (<3.5-17.0)
[2024-06-05 21:07] LABS: D Dimer High Sensitivity 166 NG/ML
[2024-06-06] VITALS (9 sets, daily range): BP systolic 98–145; BP diastolic 55–67; PULSE 56–69; RESP 15–20; TEMP 36.7–37.1; O2SAT 95–98
[2024-06-06 02:05] LABS: Appearance Urine Clear; Color Urine Yellow; Glucose Urine UA >=1000 mg/dL (Negative); Leukocyte Esterase Urine Negative (Negative); Nitrite Urine Negative (Negative); PH 6.5 (5.0-9.0); UMIC TRIGGER UACC YES; Urine Blood Negative (Negative); Urine Ketones 40 mg/dL (Negative); Urine Protein Negative (Neg-Trace)
[2024-06-06 02:10] LABS: Bacteria Urine None Seen (None Seen); Hyaline Casts Urine 0-2 /LPF (0-2); RBC Urine 0-2 /HPF (0-2); Squamous Epithelial Cell Urine 0-2 /HPF (0-2); WBC Urine 0-5 /HPF (0-5)
--- NOTE | 2024-06-06 02:24 | ED_ITS ---
HPI - General Adult General Chief complaint: General Medical Stated complaint: Difficulty breathing Time Seen by Provider: 06/05/24 19:08 Source: patient and EMS Mode of arrival: EMS Limitations: no limitations History of Present Illness ED Provider: Dr. Dimple Acuña HPI narrative: Patient comes to the emergency room accompanied by her family. Patient recently tested positive for COVID couple of days ago with a home test. Patient states that she has been feeling very weak. Patient lives by herself, has fallen 3 times. Patient states that she did not hit her head or lose consciousness. Patient is just too weak and her legs give out. Patient denies passing out. Patient states that sometimes she feels a little bit short of breath but not the all the time, unrelated to exertion. No chest pain Related Data Home Medications ?Medication ?Instructions ?Recorded ?Confirmed escitalopram oxalate 10 mg tablet 10 mg PO DAILY 07/03/21 05/13/24 memantine 10 mg tablet 10 mg PO BID 10/19/22 05/13/24 docusate sodium 100 mg capsule 100 mg PO BID 08/09/23 05/13/24 Previous Rx's ?Medication ?Instructions ?Recorded cane #1 ea 07/25/20 tub safety bar #1 ea 07/25/20 blood-glucose meter (OneTouch #1 ea 11/12/22 Ultra2 Meter) blood sugar diagnostic (OneTouch #100 ea 10/31/23 Ultra Test strips) lancets 33 gauge #100 ea 11/17/23 glipizide 5 mg tablet 5 mg PO BID 30 days #60 tabs 01/07/24 Jardiance 10 mg tablet 10 mg PO QAM #30 tabs 02/27/24 (empagliflozin) rosuvastatin 20 mg tablet 20 mg PO BEDTIME #90 tabs 03/27/24 Mounjaro 2.5 mg/0.5 mL 2.5 mg (0.5 mL) subcut QWEEK 4 04/22/24 subcutaneous pen injector weeks #2 mL (tirzepatide) cyclobenzaprine 5 mg tablet 5 mg PO BEDTIME #30 tabs 05/13/24 Allergies Allergy/AdvReac Type Severity Reaction Status Date / Time clindamycin Allergy Mild Hives Verified 06/05/24 18:51 Iodinated Contrast Media Allergy Mild HIVES Verified 06/05/24 18:51 [IV Dye, Iodine Containing] donepezil AdvReac Intermediate nausea, Verified 06/05/24 18:51 dizziness and vomiting pioglitazone AdvReac Intermediate edema Verified 06/05/24 18:51 amitriptyline [From Elavil] AdvReac Mild NAUSEA & Verified 06/05/24 18:51 VOMITING amoxicillin [Amoxicillin] AdvReac Mild NAUSEA & Verified 06/05/24 18:51 VOMITING codeine AdvReac Mild NAUSEA & Verified 06/05/24 18:51 [From Tylenol-Codeine] VOMITING lisinopril [Lisinopril] AdvReac Mild NAUSEA & Verified 06/05/24 18:51 VOMITING acetaminophen [Tylenol] AdvReac Unknown tylenol 3 Verified 06/05/24 18:51 (states regulare tylenol upset stomach as well) aspirin [Aspirin] AdvReac Unknown NAUSEA & Verified 06/05/24 18:51 VOMITING oxycodone [Percocet] AdvReac Unknown stomach Verified 06/05/24 18:51 upset tramadol [From Ultram] AdvReac Unknown NAUSEA & Verified 06/05/24 18:51 VOMITING Review of Systems 2 Review of Systems: Constitutional : No Weight loss, No Fever, No Chills, No Night Sweats, complaining of fatigue and generalized malaise and weakness ENT/Mouth : No Hearing loss, No Ear Pain, No Nasal Congestion, No Sinus Pain, No Hoarseness, No sore throat, No Rhinorrhea, No Swallowing Difficulty Eyes: No Eye Pain, No Swelling, No Redness, No Foreign Body, No Discharge, No Vision Changes Cardiovascular : Mild occasional pain, No SOB, No Dyspnea on Exertion, No Orthopnea, No Edema, No Palpitations Respiratory : No Cough, No Sputum, No Wheezing, No Smoke Exposure, No Dyspnea Gastrointestinal : No Nausea, No Vomiting, No Diarrhea, No Constipation, No abdominal Pain, No Hematochezia, No Melena Genitourinary : no irregular bleeding, No Dysuria, No Urinary Frequency, No Hematuria, No Urinary Incontinence, No Urgency, No Flank Pain, No Urinary Flow Changes, No Hesitancy Musculoskeletal : Complaining of multiple falls No joint pain, No Myalgias, No Joint Swelling Skin : No Skin Lesions, No rash Neuro : No Weakness, No Numbness, No Paresthesias, No Loss of Consciousness, No Dizziness, No Headache Psych : No Anxiety/Panic, No Depression, No SI/HI/AH/VH, No Social Issues, Heme/Lymph: No Bruising, No Bleeding,No Lymphadenopathy Endocrine : No Polyuria, No Polydipsia, No Temperature Intolerance [facility] Past Medical History Medical History Headache Cervicalgia Cervicalgia Acute parotitis Dizziness of unknown cause Diabetes mellitus with hyperglycemia Vitamin D deficiency Mixed dyslipidemia Lumbago Idiopathic scoliosis Pulmonary nodules Submandibular sialoadenitis Vitamin D deficiency Hemorrhoid Sensorineural hearing loss Balance disorder Lumbar scoliosis Type 2 diabetes mellitus with hyperglycemia, without long-term current use of insulin Anxiety Osteoarthritis Hypertension Surgical History History of bladder suspension procedure Hx of cholecystectomy Family History Family History Father Pulmonary disease Mother Liver cirrhosis Diabetes Other Mental health disorder Social History Social History Household Members: Unknown / Unable to assess Housing: Unknown / Unable to assess Housing Other:: apartment for longterm Do you presently have visiting nurse or other home services: Yes Unable to assess alcohol history related to: Unknown Alcohol intake: never Patient Tobacco Use Status: Never used Tobacco Smoked in Last 30 Days: No e-Cigarette/Vaping Use: Never Used Second Hand Smoke Exposure: No Use of substances other than those prescribed or required for medical reasons: No Advance Directives: Yes Advance Directives on File: Yes Advance Directives Date on File: 11/13/21 service: No Current occupational status: retired Cognitive needs: No Hearing needs: No Vision needs: No Physical Exam ED Vital Signs: Vital Signs - 24 hr 06/05/24 18:47 06/05/24 18:48 06/05/24 21:05 Temperature 98.3 F 98.3 F Pulse Rate 65 68 60 Respiratory Rate 24 H 22 H Blood Pressure 151/75 H 151/75 H 152/67 H Pulse Oximetry 100 100 Oxygen Delivery Method Room Air 06/05/24 21:09 06/05/24 21:11 06/05/24 22:58 Temperature 98.8 F Pulse Rate 65 65 62 Respiratory Rate 17 Blood Pressure 158/72 H 162/73 H 170/65 H Pulse Oximetry 99 Oxygen Delivery Method Room Air 06/05/24 23:54 06/06/24 00:41 06/06/24 01:54 Temperature Pulse Rate 59 57 Respiratory Rate 20 16 Blood Pressure 142/66 H 142/66 H 143/61 H Pulse Oximetry 100 97 Oxygen Delivery Method Room Air BMI result Body Mass Index 30.1 Const Other: Appearance: Alert. Oriented X3. No acute distress. Eyes: Pupils equal, round and reactive to light. ENT: Pharynx normal. Neck: Normal inspection. Neck supple. No lymph nodes noted. No crepitus CVS: Normal heart rate and rhythm. Pulses normal. Normal S1 and S2 Respiratory: No respiratory distress. Breath sounds normal. No Wheezing. No rales Abdomen: Soft and nontender. No rigidity. No distention. Skin: Skin warm and dry. Normal skin color. Normal skin turgor. Extremities: No lower extremity edema. No Lacerations. No Rash Neuro: Oriented X 3. No motor deficit. No sensory deficit. Moving all extremities. No slurred speech. CN 2 through 12 grossly intact Psych: calm, cooperative, normal affect Medications Administered Discontinued Medications Generic Name Dose Route Start Last Admin Trade Name Freq PRN Reason Stop Dose Admin Amlodipine Besylate 10 mg 06/05/24 23:10 06/06/24 00:41 Amlodipine Besylate 10 Mg Tablet PO 06/05/24 23:11 Not Given ONCE ONE Protocol Medical Decision Making Medical Decision Making MDM Narrative: My interpretation of labs, normal hematology, coagulation, dimer, blood gases, chemistry, no UTI. Patient tested positive for COVID -family states that she was on Paxlovid, unclear if the medication made her feel worse. -patient had a hard time even sitting up in bed. Oxygen saturation did not drop below 97%. -my interpretation of chest x-ray, no pneumonia -at this time, there is no criteria for admission to the hospital. Patient is too weak to go home by herself, patient's family can not take care of her. -PT case management consult pending -physician observation started at 02:00 -sign-out given to my colleague Dr. Herrera Differential Diagnosis Differential Diagnoses: The differential diagnosis associated with the presentation includes (COVID, UTI, viral syndrome, deconditioning) Admission/Observation Consideration of admission/observation: Escalation of care including admission/observation considered (Patient is under physician observation, waiting to be seen by PT case management) Lab Data MDM Lab Attestation statement: I reviewed the patient's lab results. 06/05/24 20:31 06/05/24 20:31 Labs: Lab Results 06/05/24 06/05/24 06/05/24 Range/Units 19:29 20:31 20:46 WBC 6.2 (4.8-10.8) X10*3/uL RBC 4.10 L (4.20-5.50) X10*6/uL Hgb 12.8 (12.0-16.0) g/dl Hct 37.1 (37.0-47.0) % MCV 90.5 (80.0-98.0) fL MCH 31.2 (27.0-33.0) pg MCHC 34.5 (31.0-35.0) g/dl RDW 14.7 (11.0-16.0) % Plt Count 164 (160-400) X10*3/uL MPV 10.8 (9.4-12.3) fL Immature Gran % (Auto) 1.1 H (0.0-0.4) % Neut % (Auto) 50.7 (45-73) % Lymph % (Auto) 36.6 (20-40) % [place] % (Auto) 10.5 (2-11) % Eos % (Auto) 0.8 (0-4) % Baso % (Auto) 0.3 (0-2) % Lymph # (Auto) 2.3 (1.2-4.9) X10*3/uL [place] # (Auto) 0.7 (0.1-1.2) X10*3/uL Eos # (Auto) 0.1 (0.0-0.4) X10*3/uL Baso # (Auto) 0.0 (0.0-0.2) X10*3/uL Abs Immat Gran (auto) 0.07 H (0.00-0.03) X10*3/uL Absolute Neuts (auto) 3.1 (2.0-8.3) x10*3/uL Absolute Nucleated RBC 0.000 (0.0-0.012) X10*3/uL Nucleated RBC % (auto) 0.0 (0.0-0.2) /100WBC PT 11.3 (10.9-12.4) SEC INR 1.0 (0.9-1.1) D-Dimer High Sensitivty 166 NG/ML Sodium 140 (135-145) mmol/L Potassium 3.4 (3.3-5.1) mmol/L Chloride 107 (96-108) mmol/L Carbon Dioxide 21 L (22-29) mmol/L Anion Gap 15 (12-20) BUN 17 H (9-16) mg/dL Creatinine 0.98 (0.5-1.4) mg/dL Estim Creat Clear Calc 46.5 Estimated GFR 55 Random Glucose 241 H (60-115) mg/dL Lactic Acid 2.0 (0.5-2.0) mmol/L Calcium 8.8 D (8.4-10.2) mg/dL Total Bilirubin 0.5 (0.0-1.0) mg/dL Direct Bilirubin 0.1 (0.0-0.5) mg/dL AST 31 (5-31) U/L ALT 25 (0-31) U/L Alkaline Phosphatase 66 (39-117) U/L Troponin I High Sens 6.1 (<3.5-17.0) ng/L Total Protein 7.2 (6.5-8.0) g/dL Albumin 3.6 (3.5-5.0) g/dL Urine Color Urine Appearance Urine pH (5.0-9.0) Ur Specific [place] (1.005-1.025) Urine Protein (Neg-Trace) mg/dL Urine Glucose (UA) (Negative) mg/dL Urine Ketones (Negative) mg/dL Urine Blood (Negative) Urine Nitrite (Negative) Ur Leukocyte Esterase (Negative) Urine RBC (0-2) /HPF Urine WBC (0-5) /HPF Ur Squamous Epith Cells (0-2) /HPF Urine Bacteria (None Seen) Hyaline Casts (0-2) /LPF COVID-19 ([facility]) Positive A (Negative) COVID-19 Clin Com See Note 06/06/24 Range/Units 01:54 WBC (4.8-10.8) X10*3/uL RBC (4.20-5.50) X10*6/uL Hgb (12.0-16.0) g/dl Hct (37.0-47.0) % MCV (80.0-98.0) fL MCH (27.0-33.0) pg MCHC (31.0-35.0) g/dl RDW (11.0-16.0) % Plt Count (160-400) X10*3/uL MPV (9.4-12.3) fL Immature Gran % (Auto) (0.0-0.4) % Neut % (Auto) (45-73) % Lymph % (Auto) (20-40) % [place] % (Auto) (2-11) % Eos % (Auto) (0-4) % Baso % (Auto) (0-2) % Lymph # (Auto) (1.2-4.9) X10*3/uL [place] # (Auto) (0.1-1.2) X10*3/uL Eos # (Auto) (0.0-0.4) X10*3/uL Baso # (Auto) (0.0-0.2) X10*3/uL Abs Immat Gran (auto) (0.00-0.03) X10*3/uL Absolute Neuts (auto) (2.0-8.3) x10*3/uL Absolute Nucleated RBC (0.0-0.012) X10*3/uL Nucleated RBC % (auto) (0.0-0.2) /100WBC PT (10.9-12.4) SEC INR (0.9-1.1) D-Dimer High Sensitivty NG/ML Sodium (135-145) mmol/L Potassium (3.3-5.1) mmol/L Chloride (96-108) mmol/L Carbon Dioxide (22-29) mmol/L Anion Gap (12-20) BUN (9-16) mg/dL Creatinine (0.5-1.4) mg/dL Estim Creat Clear Calc Estimated GFR Random Glucose (60-115) mg/dL Lactic Acid (0.5-2.0) mmol/L Calcium (8.4-10.2) mg/dL Total Bilirubin (0.0-1.0) mg/dL Direct Bilirubin (0.0-0.5) mg/dL AST (5-31) U/L ALT (0-31) U/L Alkaline Phosphatase (39-117) U/L Troponin I High Sens (<3.5-17.0) ng/L Total Protein (6.5-8.0) g/dL Albumin (3.5-5.0) g/dL Urine Color Yellow Urine Appearance Clear Urine pH 6.5 (5.0-9.0) Ur Specific [place] 1.020 (1.005-1.025) Urine Protein Negative (Neg-Trace) mg/dL Urine Glucose (UA) >=1000 H (Negative) mg/dL Urine Ketones 40 (Negative) mg/dL Urine Blood Negative (Negative) Urine Nitrite Negative (Negative) Ur Leukocyte Esterase Negative (Negative) Urine RBC 0-2 (0-2) /HPF Urine WBC 0-5 (0-5) /HPF Ur Squamous Epith Cells 0-2 (0-2) /HPF Urine Bacteria None Seen (None Seen) Hyaline Casts 0-2 (0-2) /LPF COVID-19 ([facility]) (Negative) COVID-19 Clin Com Independent Interpretation I performed an independent interpretation of an: Plain X-Ray Radiology Impression Discussion of test interpretation with radiology: I have reviewed the radiologist's reading. Radiologist Impression: Bony alignment and mineralization are normal. The acetabular joint spaces are symmetric and well-maintained. The femoral heads are smooth. No fracture or dislocation is seen. The sacroiliac joints are symmetric and well-maintained. The pubic symphysis is intact. There are pelvic phleboliths. There are scoliotic changes of the lower lumbar spine. XR/XR hip RT min 2V IMPRESSION: Unremarkable radiographic appearance of the bilateral hips. Critical Care Time Critical Care Time Critical Care Time: Yes Total Critical Care Time: 60 Attestation: I have personally provided critical care time. Time includes review of lab data, radiology results, discussion with consultants, and monitoring for potential decompensation. Intervention performed as documented. Discharge Plan Discharge Clinical Impression: COVID-19, Weakness Patient Disposition: Still a Patient Prescriptions: No Action (DME) blood-glucose meter [OneTouch Ultra2 Meter] Misc See Rx Instructions .Route Qty: 1 0RF Rx Instructions: As directed (DME) OneTouch Ultra Test Strip See Rx Instructions .Route Qty: 100 6RF Rx Instructions: Check fasting blood sugar twice a day (DME) lancets 33 gauge misc See Rx Instructions .Route Qty: 100 6RF Rx Instructions: test blood sugar twice a day Jardiance 10 mg tablet 10 mg PO QAM Qty: 30 5RF rosuvastatin 20 mg tablet 20 mg PO BEDTIME Qty: 90 1RF docusate sodium 100 mg capsule 100 mg PO BID (DME) cane Device See Rx Instructions .ROUTE .MEDSUPPLY Qty: 1 0RF Rx Instructions: use as directed (DME) tub safety bar See Rx Instructions .Route .MEDSUPPLY Qty: 1 0RF Rx Instructions: As directed glipizide 5 mg tablet 5 mg PO BID 30 Days Qty: 60 6RF Rx Instructions: Take with meals memantine 10 mg tablet 10 mg PO BID Mounjaro 2.5 mg/0.5 mL pen injector 2.5 mg subcut QWEEK 28 Days Qty: 2 3RF escitalopram oxalate 10 mg tablet 10 mg PO DAILY cyclobenzaprine 5 mg tablet 5 mg PO BEDTIME Qty: 30 0RF Print Language: Telugu
--- NOTE | 2024-06-06 07:14 | PC.NURSE ---
Resumed care of pt at 0700. Pt resting in bed quietly, respirations even and unlabored, no increased wob/sob noted. 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 Plan for pt/cm eval, pt aware of plan. Call maloney within reach, all needs met at this time.
[2024-06-06 08:10] LABS: Glucose, Whole Blood 125 mg/dL (60-115)
--- NOTE | 2024-06-06 10:40 | MHC.CM.PN ---
CM RECEIVED CM CONSULT FROM ED PROVIDER CRESENCIO GRECO, PT COVID +, WEAK, REPORTS 3 FALLS AT HOME, CM CONTACTED DTR/HCP LUPILLO WHO BELIEVES PT NEEDS STR, PT HAS BEEN TO [facility] IN THE PAST AND THAT WOULD BE PREFERRED, IF NOT ABLE TO TAKE PT, LUPILLO WOULD LIKE [facility], CM TO PLACE REFERRAL, P.T. EVAL STILL PENDING.
--- NOTE | 2024-06-06 15:57 | MHC.EDTECH ---
This pct assumed care of Patient at 1500 ,vitals taken ,pt clean and dry ,watching television,Patient had saltines crackers and some water for snack ,Patient daughter at bedside .Patient belongings list done ,All safety measure in place .
--- NOTE | 2024-06-06 17:40 | MHC.EDTECH ---
Patient was assisted unto bedside commode ,void care given and back into bed.
[2024-06-06 18:20] LABS: Glucose, Whole Blood 185 mg/dL (60-115)
--- NOTE | 2024-06-06 18:23 | MHC.EDTECH ---
Patient was given pasta with sauce for dinner ,not able to eat that ,had turkey sandwiches ,blood sugar check .
[2024-06-06] MEDS: Empagliflozin 10 MG TABLET PO (18:39)
--- NOTE | 2024-06-06 19:10 | PC.NURSE ---
Assumed care of pt. Pt lying on stretcher, no acute distress at this time.
--- NOTE | 2024-06-06 20:56 | MHC.EDTECH ---
Patient rang wanted curtain closed,blood sugar check ,vitals taken ,snacks offer to patient ,but pt refused ,All safety measure in place ,plan of care continue .
[2024-06-06 21:09] LABS: Glucose, Whole Blood 215 mg/dL (60-115)
[2024-06-06] MEDS: Docusate Sodium 100 MG CAPSULE PO (21:31)
[2024-06-06] MEDS: Memantine HCl 10 MG TABLET PO (21:31)
[2024-06-06] MEDS: Atorvastatin Calcium 80 MG TABLET PO (21:31)
[2024-06-06] MEDS: glipiZIDE 5 MG TABLET PO (21:31)
[2024-06-06] MEDS: Cyclobenzaprine HCl 5 MG TABLET PO (21:31)
--- NOTE | 2024-06-07 01:20 | MHC.EDTECH ---
This tech took over care of patient at 0040,patient is sleeping ,call maloney in reach
[2024-06-07 04:05] VITALS: RESP 18
[2024-06-07 05:58] VITALS: BP 138/70; PULSE 58; RESP 16; TEMP 36.9; O2SAT 97
[2024-06-07] MEDS: Empagliflozin 10 MG TABLET PO (09:31)
[2024-06-07] MEDS: Escitalopram Oxalate 10 MG TABLET PO (09:31)
[2024-06-07] MEDS: Docusate Sodium 100 MG CAPSULE PO ×2 (09:31→22:23)
[2024-06-07] MEDS: Memantine HCl 10 MG TABLET PO ×2 (09:31→22:24)
[2024-06-07] MEDS: glipiZIDE 5 MG TABLET PO ×2 (09:31→22:24)
[2024-06-07 09:33] VITALS: BP 130/70; PULSE 65; RESP 17; TEMP 37; O2SAT 98
--- NOTE | 2024-06-07 12:36 | MHC.CM.PN ---
EMR REVIEWED, PT EVAL STILL PENDING, CM CONTACTED PT'S DTR LUPILLO AT NUMBER ON FILE, LUPILLO AWARE VICKY/YOMI ARE INTERESTED, KESHAWN HAS SENT MESSAGE TO [facility] ENQUIRING IF THEY WILL HAVE A BED TOMORROW THEY DID NOT OVER W/E, CM AWAITING RESPONSE.
[2024-06-07 12:38] VITALS: BP 138/71; PULSE 57; RESP 16; TEMP 36.7; O2SAT 94
[2024-06-07 13:48] LABS: Glucose, Whole Blood 140 mg/dL (60-115)
[2024-06-07 18:42] VITALS: BP 131/76; PULSE 57; RESP 15; TEMP 36.7; O2SAT 95
--- NOTE | 2024-06-07 18:53 | MHC.EDTECH ---
Pt given dinner tray
--- NOTE | 2024-06-07 20:39 | PC.NURSE ---
Assisted patient to ambulate to bedside commode. Denies dizziness at this time. Urinated in commode without difficulty. Denies other needs at this time. Care ongoing. Airborne/Contact precautions remain in place due to COVID+
[2024-06-07] MEDS: Atorvastatin Calcium 80 MG TABLET PO (22:23)
[2024-06-07] MEDS: Cyclobenzaprine HCl 5 MG TABLET PO (22:23)
[2024-06-07 23:57] VITALS: BP 142/69; PULSE 57; RESP 16; TEMP 36.7; O2SAT 94
[2024-06-08 05:59] VITALS: BP 123/71; PULSE 65; RESP 16; O2SAT 95
[2024-06-08] MEDS: Empagliflozin 10 MG TABLET PO (08:58)
[2024-06-08] MEDS: Docusate Sodium 100 MG CAPSULE PO ×2 (08:59→21:44)
[2024-06-08] MEDS: glipiZIDE 5 MG TABLET PO ×2 (08:59→21:43)
[2024-06-08] MEDS: Escitalopram Oxalate 10 MG TABLET PO (08:59)
[2024-06-08] MEDS: Memantine HCl 10 MG TABLET PO ×2 (09:00→21:44)
--- NOTE | 2024-06-08 10:45 | PHA.MEDREC ---
Addendum entered by Ale Maher [facility] 06/08/24 14:55: messaged provider ([facility]) that med rec was continued before it was completed by pharmacy - asked to d/c cyclobenzaprine/glipizide since pt is not taking, she did not respond Addendum entered by Ale Maher [facility] 06/08/24 10:53: reviewed by [facility]. Original Note: Pharmacy Consult ? Medication Reconciliation Pharmacy has completed the medication reconciliation. Spoke to patients daughter (Mikayla) over the phone to confirm med list. Daughter states patient no longer takes Cyclobenzaprine 5 mg, Glipizide 5 mg, and Paxlovid is complete. Daughter says Mounjaro 2.5 mg/0.5ml is every Saturday, last dose was 06/04/24. Patient hasn't had Docusate 100 mg in a week because she is waiting on a refill from the Dr. left on med rec.
--- NOTE | 2024-06-08 12:17 | MHC.CM.ED ---
Addendum entered by Alley Alvarez 06/08/24 15:09: [facility] and [facility] are able to offer Covid beds. These options were discussed with patient and daughter Mikayla. Both accept bed at [facility]. [facility] is in the process of obtaining insurance auth. Addendum entered by Alley Alvarez 06/08/24 13:31: [facility] also does not have a Covid bed. Met with patient and daughter, Mikayla. Both are aware there are no Covid beds available in [place] for facilities contracted with [facility]. Both agreeable to referral being broadcasted within 15 miles. Original Note: Patient remains in ER overflow. Physical therapy eval completed. Short term rehab is recommended. [facility] does not have a bed. [facility] would not be able to offer a bed until Covid recovered. Waiting to hear from [facility]. Continue to monitor for d/c needs.
[2024-06-08 13:07] VITALS: BP 145/74; PULSE 67; RESP 16; TEMP 37; O2SAT 94
--- NOTE | 2024-06-08 19:30 | PC.NURSE ---
Assumed care of pt. Pt lying on stretcher, no acute distress at this time. Dinner tray provided.
[2024-06-08] MEDS: Cyclobenzaprine HCl 5 MG TABLET PO (21:43)
[2024-06-08] MEDS: Atorvastatin Calcium 80 MG TABLET PO (21:43)
[2024-06-09 06:20] VITALS: BP 132/71; PULSE 63; RESP 16; TEMP 36.8; O2SAT 94
[2024-06-09 07:35] VITALS: BP 119/69; PULSE 66; RESP 14; TEMP 36.9; O2SAT 95
[2024-06-09] MEDS: Docusate Sodium 100 MG CAPSULE PO (08:30)
[2024-06-09] MEDS: Memantine HCl 10 MG TABLET PO (08:30)
[2024-06-09] MEDS: Escitalopram Oxalate 10 MG TABLET PO (08:31)
[2024-06-09] MEDS: Empagliflozin 10 MG TABLET PO (08:31)
--- NOTE | 2024-06-09 11:30 | MHC.CM.ED ---
Patient remains in ER. Insurance auth has been obtained by [facility]. Patient can leave at 130pm. Ernesto JIMENEZ booked. [facility] with chart. Patient, daughter MikaylaShobha RN and Annie MELVIN aware. Continue to monitor for d/c needs.
--- NOTE | 2024-06-09 11:32 | PC.NURSE ---
patient scheduled to be transported to [facility] via BLS @ [id number] today. patient/family notified/aware of plan per CM. pt otherwise resting in no apparent distress in hospital bed. no sob/wob noted. respirations even/unlabored. plan of care ongoing. call maloney placed within reach.
--- NOTE | 2024-06-09 14:06 | PC.NURSE ---
report given to CEZAR Maurice at [facility] as well as TONY williamson. pt leaving facility at this time.
[2024-06-09 14:07] VITALS: BP 119/69; PULSE 66; RESP 14; TEMP 36.9; O2SAT 95
== END 2024-06-09 14:08 ==
PROVIDERS: Emergency Provider Emergency Medicine; PCP Internal Medicine
DX: U07.1 COVID-19 (principal); R53.81 Other malaise; R06.02 Shortness of breath; E11.9 Type 2 diabetes mellitus without complications; I10 Essential (primary) hypertension; E78.2 Mixed hyperlipidemia; Z79.899 Other long term (current) drug therapy
CPT/HCPCS: 36415; 71045; 73502; 80048; 80076; 81001; 82947; 83605; 84484; 85025; 85379; 85610; 87040; 87635; 93005; 97162; 99285

== ENCOUNTER 2024-08-12 09:25 | Outpatient (REF) | payer OTHER, SELFPAY ==
[2024-08-12 11:08] LABS: Estimated Average Glucose 157 mg/dL; Hemoglobin A1C 195.5989 umol/L; Hemoglobin A1c % 7.1 % (<6.0); Total Hemoglobin (HGBA1C) 3583.7088 umol/L
[2024-08-12 11:32] LABS: Alanine Aminotransferase 63 U/L (0-31); Anion Gap 12 (12-20); Aspartate Amino Transferase 52 U/L (5-31); Blood Urea Nitrogen 15 mg/dL (9-16); Calcium 9.1 mg/dL (8.4-10.2); Carbon Dioxide 27 mmol/L (22-29); Chloride 107 mmol/L (96-108); Cholesterol 147 mg/dL (<200); Estimated Glomerular Filt Rate > 60; Glucose Fasting 181 mg/dL (60-99); HDL Cholesterol 50 mg/dL (>40); LDL Cholesterol Calculated 66 mg/dL (<100); Potassium 3.4 mmol/L (3.3-5.1); Sodium 143 mmol/L (135-145); Triglycerides 157 mg/dL (<150)
[2024-08-12 11:50] LABS: Vitamin D 25-OH Total 25.7 ng/mL (>30)
== END 2024-08-12 09:26 | disposition home or self-care (01) ==
LOC: HO.LAB 09:25
PROVIDERS: PCP Internal Medicine; Visit Provider Internal Medicine
DX: E78.2 Mixed hyperlipidemia (principal); E11.65 Type 2 diabetes mellitus with hyperglycemia; U07.1 COVID-19
CPT/HCPCS: 36415; 80048; 80061; 82306; 83036; 84450; 84460

== ENCOUNTER 2024-08-17 13:20 | Outpatient (AMB) | payer OTHER, SELFPAY ==
--- NOTE | 2024-08-17 13:24 | MHC.PC.OV ---
Vital Signs 08/17/24 13:29 Height 5 ft Weight 127 lb BMI 24.8 BP 110/70 Blood Pressure Location Lt brachial Position Sitting Pulse 64 Pulse Source Pulse Oximeter Pulse Oximetry (%) 95 Oxygen Delivery Method Room Air Intake Visit Reasons: 4 month f/u Intake Note: Pt is here today for her 4mo. f/u Allergies clindamycin Allergy (Mild, Verified 08/17/24 13:54) Hives Iodinated Contrast Media [IV Dye, Iodine Containing] Allergy (Mild, Verified 08/17/24 13:54) HIVES donepezil Adverse Reaction (Intermediate, Verified 08/17/24 13:54) nausea, dizziness and vomiting pioglitazone Adverse Reaction (Intermediate, Verified 08/17/24 13:54) edema amitriptyline [From Elavil] Adverse Reaction (Mild, Verified 08/17/24 13:54) NAUSEA & VOMITING amoxicillin [Amoxicillin] Adverse Reaction (Mild, Verified 08/17/24 13:54) NAUSEA & VOMITING codeine [From Tylenol-Codeine] Adverse Reaction (Mild, Verified 08/17/24 13:54) NAUSEA & VOMITING lisinopril [Lisinopril] Adverse Reaction (Mild, Verified 08/17/24 13:54) NAUSEA & VOMITING acetaminophen [Tylenol] Adverse Reaction (Unknown, Verified 08/17/24 13:54) tylenol 3 (states regulare tylenol upset stomach as well) aspirin [Aspirin] Adverse Reaction (Unknown, Verified 08/17/24 13:54) NAUSEA & VOMITING oxycodone [Percocet] Adverse Reaction (Unknown, Verified 08/17/24 13:54) stomach upset tramadol [From Ultram] Adverse Reaction (Unknown, Verified 08/17/24 13:54) NAUSEA & VOMITING Medication List - Last Reconciled 08/17/24 by Danita Mccurdy MD blood sugar diagnostic (StepsAwayTouch Ultra Test strips) Check fasting blood sugar twice a day blood-glucose meter (ProPerformauch Ultra2 Meter) As directed cane use as directed docusate sodium 100 mg PO BID empagliflozin (Jardiance) 10 mg PO DAILY escitalopram oxalate 10 mg PO DAILY FreeStyle Lancets (lancets) Check fasting blood sugar once a day before meal NS lancets test blood sugar twice a day memantine 10 mg PO BID rosuvastatin 20 mg PO BEDTIME tirzepatide (Mounjaro) 2.5 mg subcut TU [tub safety bar As directed] zolpidem 5 mg PO BEDTIME PRN Tobacco use date assessed: 08/17/24 Fall risk assessment: 2 + Falls in past year Last assessed Fall Risk: 08/17/24 Dental Screening Dental Screen Date: 08/17/24 Did you have a dental visit in the last 12 months?: Yes Did you have a dental problem in the last 6 months where you did not have access to dental care?: No Was dental information given to patient?: Patient has dentist HPI 4 month f/u HPI Details 78 year-old lady, here today for follow-up on her diabetes mellitus, hyperlipidemia and hypertension. She has been compliant with taking her medications as directed , but not so much with her diet and leads a sedentary lifestyle. She has been feeling well with no complaints at present time. [facility] Medical History Headache Cervicalgia Cervicalgia Acute parotitis Dizziness of unknown cause Diabetes mellitus with hyperglycemia Vitamin D deficiency Mixed dyslipidemia Lumbago Idiopathic scoliosis Pulmonary nodules Submandibular sialoadenitis Vitamin D deficiency Hemorrhoid Sensorineural hearing loss Balance disorder Lumbar scoliosis Type 2 diabetes mellitus with hyperglycemia, without long-term current use of insulin Anxiety Osteoarthritis Hypertension Surgical History History of bladder suspension procedure Hx of cholecystectomy Family History Father Pulmonary disease Mother Liver cirrhosis Diabetes Other Mental health disorder Social History Household Members: Unknown / Unable to assess Housing: Unknown / Unable to assess Housing Other:: apartment for [facility] Do you presently have visiting nurse or other home services: Yes Unable to assess alcohol history related to: Unknown Alcohol intake: never Patient Tobacco Use Status: Never used Tobacco e-Cigarette/Vaping Use: Never Used Second Hand Smoke Exposure: No Advance Directives Date on File: 11/13/21 service: No Current occupational status: retired Cognitive needs: No Hearing needs: No Vision needs: No Questionnaire PHQ-9 Over the last 2 weeks, how often have you been bothered by any of the following problems? Depression Screening Interpretation: Negative Depression Screening Done: Yes Source: Developed by Drs. Bon David, Debby Smith, Jared Perez and colleagues, with an educational nayely from [employer]. Thrive Questionnaire Date Thrive assessed: 01/07/24 I am a: Patient What is your living situation today?: I have a steady place to live Within the past 12 months, did the food you bought not last and you didn't have the money to get more?: Never true Within the past 12 months, did you worry whether your food would run out before you got money to buy more?: Never true Do you have trouble paying for medicines?: No Do you have trouble getting transportation to medical appointments?: No Do you have trouble paying your heating and electricity bill?: No Do you have trouble taking care of your child, family member or friend?: No Do you have trouble with day-to-day activities such as bathing, preparing meals, shopping, managing finances, etc.?: Yes Are you currently unemployed and looking for a job?: No Are you interested in more education?: No Please select the resources that you would like help with: None Currently or been in a relationship where the following occur: I choose not to answer THRIVE Score: 0 AUDIT C Alcohol Use Questionnaire (AUDIT-C) 1. How often do you have a drink containing alcohol?: Never Total Score: 0 Review of Systems Const Reports no additional complaints Eyes Reports no additional complaints ENT Reports no additional complaints Card Denies chest pain, Denies rapid heart rate, Denies irregular heart rhythm and Denies dyspnea Resp Denies cough and Denies dyspnea GI Reports no additional complaints Reports no additional complaints Musc Reports no additional complaints Skin/Breast Reports system reviewed and no additional complaints, except as documented Neuro Reports no additional complaints Psych Reports no additional complaints Endo Reports no additional complaints Jeyson/Lymph Reports no additional complaints Aller/Immun Reports no additional complaints Physical exam (Primary Care) Vital Signs: Last Vital Signs Pulse 64 08/17/24 13:29 BP 110/70 08/17/24 13:29 Pulse Ox 95 08/17/24 13:29 Oxygen Delivery Method Room Air 08/17/24 13:29 BMI result Body Mass Index 24.8 Tobacco/Smoking Status: Tobacco use Status Tobacco use date assessed 08/17/24 08/17/24 13:33 Patient Tobacco Use Status Never used Tobacco 08/17/24 13:24 e-Cigarette/Vaping Use Never Used 08/17/24 13:24 PHQ-9: PHQ-9 Score PHQ-9: Total score 1 08/24/24 02:55 Depression Screening Interpretation: Negative Thrive Assessment: Date of Thrive Assessment Date Thrive assessed 01/07/24 08/17/24 13:24 Currently or been in a relationship where the following occur: I choose not to answer Const Other: Alert oriented x3 accompanied by daughter, ambulatory with a walker Orientation/consciousness: patient oriented x3 [facility] Other: n Head: Yes normocephalic Face and sinus: Yes face symmetric Mouth: oropharynx normal and moist mucous membranes Neck Neck: Yes full ROM, Yes no lymphadenopathy and Yes supple Resp Auscultation: clear to auscultation bilaterally Cardio Other: S1-S2 present regular and rhythm GI Palpation (GI): Soft to palpation, nontender, no guarding and no masses Back/Spine/Pelvis Other: Mild kyphosis Skin General skin exam: no rashes or lesions noted Neuro General: patient oriented x3, tone normal, moves all extremities, Normal light touch and pain sensation, no focal motor deficits and CN's II-XI intact bilaterally Extrem General: Yes full ROM, Yes no joint enlargement, Yes no pedal edema and Yes no calf tenderness Results Reviewed Results Reviewed: Laboratory Tests 01/06/24 04/21/24 08/12/24 09:34 06:45 09:47 Estimat Average Glucose 177 157 Hemoglobin A1c % 7.8 H 7.1 H Urine Creatinine 68.63 Urine Microalbumin < 5.0 Microalb/Creat Ratio TN Name: Delma Hanson I Age/Sex: 78/F : 1945 Unit#: [id number] Attend Dr: Danita Mccurdy MD Re08/12/24 Status: [facility]P [facility] Disch: SPEC : [id number] KAEL: 08/12/24 STATUS: COMP REQ : [id number] RECD: 08/12/[address]: Danita Mccurdy MD COMP: 08/12/24 ENTERED: 08/12/[address] [facility] [address]: ORDERED: Met Prof Fast, AST, ALT, Lipid Panel, Vitamin D 25-OH Test Result Flag Reference Sodium 143 135-145 mmol/L Potassium 3.4 3.3-5.1 mmol/L CL 107 96-108 mmol/L CO2 27 22-29 mmol/L Gap 12 12-20 BUN 15 9-16 mg/dL Creat 0.84 0.5-1.4 mg/dL eGFR > 60 Chronic Kidney Disease: Estimated GFR < 60 mL/min/1.73m2 Severe Kidney Disease: Estimated GFR < 15 mL/min/1.73m2 FBS 181 H 60-99 mg/dL A fasting glucose of 126 mg/dl or greater on more than one occasion is considered diagnostic of diabetes. CA 9.1 8.4-10.2 mg/dL AST (GOT) 52 H 5-31 U/L ALT (GPT) 63 H 0-31 U/L Triglyceride 157 H <150 mg/dL Desirable Triglyceride: less than 150 mg/dL Borderline High Triglyceride 150-199 mg/dL High Triglyceride: 200-499 mg/dL Very High Triglyceride: greater than or equal to 5OO mg/dL Cholesterol 147 <200 mg/dL Desirable Cholesterol: less than 200 mg/dL Borderline High Cholesterol: 200-239 mg/dL High Cholesterol: greater than 239 mg/dL LDL Calculated 66 <100 mg/dL Desirable LDL: less than 100 mg/dL Near Optimal/Above Optimal LDL: 110-129 mg/dL Borderline High LDL: 130-159 mg/dL High LDL: 160-189 mg/dL Very High LDL: greater than or equal to 190 mg/dL HDL 50 >40 mg/dL Desirable HDL: greater than 40 mg/dL Note: This HDL assay may give artificially low results in patients with liver disease. Vit D 25-OH Tot 25.7 L >30 ng/mL Health Based Reference Values* < 20 ng/mL Deficient 20-30 ng/mL Insufficient > 30 ng/mL Sufficient Coding Level of Care Code Est Pt Level 4 (69925) Complex EM visit Add On G2211 Diagnoses Type 2 diabetes mellitus with hyperglycemia, without long-term current use of insulin E11.65 Diabetes mellitus longitudinal float operator insulin use: without longitudinal float operator use Diabetes mellitus type: type 2 Encounter for screening for osteoporosis Z13.820 Anxiety F41.9 Mixed dyslipidemia E78.2 Vitamin D deficiency E55.9 Assessment & Plan Assessment & Plan (1) Diabetes mellitus with hyperglycemia: Code(s): E11.65 - Type 2 diabetes mellitus with hyperglycemia Category: Medical Qualifiers: Diabetes mellitus nursing home insulin use: without longitudinal float operator use Diabetes mellitus type: type 2 Qualified Code(s): E11.65 - Type 2 diabetes mellitus with hyperglycemia Plan: Recent lab results reviewed with patient, with sugar and hemoglobin A1c improving with hemoglobin A1c at 7.1%, not at goal continue to check fasting blood sugar at home, maintain log and bring to next appointment for review. Continue with Mounjaro 2.5 mg injected once a week and again reminded on how to use the medication and rotate sites of use Reinforced diabetic diet and regular exercise with patient. Counseled regarding importance of yearly diabetes retinopathy screening. Patient advised to inspect feet daily, for any signs of injury, callus or infection. Compliance with diet and regular exercise again stressed. Blood pressure goal is less than 130/80, goal LDL is less than 100 and goal hemoglobin A1c is less than 7% follow-up appointment made in--for-months, after fasting labs done. (2) Encounter for screening for osteoporosis: Code(s): Z13.820 - Encounter for screening for osteoporosis Plan: Repeat bone density scan ordered, in the meantime encouraged to do regular weight-bearing exercise, continue taking adequate calcium from dietary sources continue taking vitamin D3 with new prescription sent to pharmacy (3) Anxiety: Code(s): F41.9 - Anxiety disorder, unspecified Category: Medical Plan: Stable controlled on escitalopram 10 mg taken once a day, no adverse effects noted (4) Mixed dyslipidemia: Code(s): E78.2 - Mixed hyperlipidemia Category: Medical Plan: Latest fasting lipids are within normal limits, continued on rosuvastatin 20 mg at bedtime, denies any muscle pain or or rash from taking the medication, continue with adherence to a low-cholesterol diet (5) Vitamin D deficiency: Code(s): E55.9 - Vitamin D deficiency, unspecified Category: Medical Plan: Prescription sent for vitamin-D 350 1000 units per capsule to take once a week for the next 3 months. Once prescription is finished, to continue taking [id number] vitamin-D 3 at 2000 units daily Orders: Orders XR DEXA axial skeleton 08/17/24 Z12.31 - Encounter for screening mammogram for malignant neoplasm of breast, Z13.820 - Encounter for screening for osteoporosis, Z78.0 - Asymptomatic menopausal state Hemoglobin A1c 12/15/24 E11.65 - Type 2 diabetes mellitus with hyperglycemia, E55.9 - Vitamin D deficiency, unspecified, E78.2 - Mixed hyperlipidemia, F41.9 - Anxiety disorder, unspecified, Z78.0 - Asymptomatic menopausal state Microalbumin, Random (w Creat) 12/15/24 E11.65 - Type 2 diabetes mellitus with hyperglycemia, E55.9 - Vitamin D deficiency, unspecified, E78.2 - Mixed hyperlipidemia, F41.9 - Anxiety disorder, unspecified, Z78.0 - Asymptomatic menopausal state Aspartate Amino Transferase 12/15/24 E11.65 - Type 2 diabetes mellitus with hyperglycemia, E55.9 - Vitamin D deficiency, unspecified, E78.2 - Mixed hyperlipidemia, F41.9 - Anxiety disorder, unspecified, Z78.0 - Asymptomatic menopausal state Basic Metabolic Panel Fasting 12/15/24 E11.65 - Type 2 diabetes mellitus with hyperglycemia, E55.9 - Vitamin D deficiency, unspecified, E78.2 - Mixed hyperlipidemia, F41.9 - Anxiety disorder, unspecified, Z78.0 - Asymptomatic menopausal state Vitamin D 25-OH Total 12/15/24 E11.65 - Type 2 diabetes mellitus with hyperglycemia, E55.9 - Vitamin D deficiency, unspecified, E78.2 - Mixed hyperlipidemia, F41.9 - Anxiety disorder, unspecified, Z78.0 - Asymptomatic menopausal state MM tomosynthesis screening BI 08/17/24 Z12.31 - Encounter for screening mammogram for malignant neoplasm of breast, Z13.820 - Encounter for screening for osteoporosis, Z78.0 - Asymptomatic menopausal state Lipid Panel 12/15/24 E11.65 - Type 2 diabetes mellitus with hyperglycemia, E55.9 - Vitamin D deficiency, unspecified, E78.2 - Mixed hyperlipidemia, F41.9 - Anxiety disorder, unspecified, Z78.0 - Asymptomatic menopausal state Alanine Aminotransferase 12/15/24 E11.65 - Type 2 diabetes mellitus with hyperglycemia, E55.9 - Vitamin D deficiency, unspecified, E78.2 - Mixed hyperlipidemia, F41.9 - Anxiety disorder, unspecified, Z78.0 - Asymptomatic menopausal state Medications: New cholecalciferol (vitamin D3) 50 mcg PO DAILY 90 caps 2RF
[2024-08-17 13:29] VITALS: BP 110/70; PULSE 64; O2SAT 95; BMI 24.8
== END 2024-08-17 14:15 | disposition home or self-care (01) ==
PROVIDERS: PCP Internal Medicine; Visit Provider Internal Medicine
DX: E11.65 Type 2 diabetes mellitus with hyperglycemia (principal); Z13.820 Encounter for screening for osteoporosis; F41.9 Anxiety disorder, unspecified; E78.2 Mixed hyperlipidemia; E55.9 Vitamin D deficiency, unspecified

== ENCOUNTER → 2024-08-17 13:20 | Outpatient (BNVA) | payer OTHER, SELFPAY | PROVIDERS: PCP Internal Medicine; Visit Provider Internal Medicine | DX: E11.65 Type 2 diabetes mellitus with hyperglycemia (principal); E78.2 Mixed hyperlipidemia; E55.9 Vitamin D deficiency, unspecified; F41.9 Anxiety disorder, unspecified | CPT/HCPCS: 96127; 99212 ==

== ENCOUNTER 2024-10-15 10:06 | Outpatient (REF) | payer OTHER, SELFPAY ==
--- NOTE | ~2024-10-15 | MM_ITS ---
EXAMINATION: DXA BONE DENSITY AXIAL HISTORY: Estrogen deficiency TECHNIQUE: TRIA Beauty Dual energy absorptiometry (DEXA) of the lumbar spine, total left hip, and femoral neck was performed. COMPARISON: There are no prior studies for comparison. FINDINGS: The bone mineral density of the lumbar spine is 0.762 with a T-score of -3.6, and a Z-score of -1.6. The bone mineral density of the left total hip is 0.820 with a T-score of -1.5, and a Z-score of 0.6. The bone mineral density of the left femoral neck is 0.811 with a T-score of -1.6, and a Z-score of 0.6. MM/XR DEXA axial skeleton IMPRESSION: Based on bone mineral density, and according to World Health Organization (WHO) criteria, the diagnosis is consistent with osteoporosis. All bone density values are in grams per centimeter squared (g/cm2). Statistically, 68% of repeat scans fall within 1 SD (+/- 0.010 g/cm2 for AP spine L1-L4) and 1 SD (+/- 0.012 g/cm2 for femur total) FRAX is a trademark of the [employer]'s [place] for Metabolic Bone Disease, a World Health Organization (WHO) Collaborating Center. Electronically signed by: Bon Mathew MD 10/19/2024 12:[address] [facility]
--- OUTSIDE RECORDS SUMMARY | 2024-10-15 13:20 | XMS_ITS | Clinical Summary ---
Author Organization 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 Role Phone Unavailable Primary Care Provider Unavailabl e Social History Tobacco Use Types Packs/Day Years Used Date Smoking Tobacco: Never Assessed Sex and Gender Information Value Date Recorded Sex Assigned at Not on file Gender Identity Not on file Sexual Orientation Not on file Plan of Treatment Health Maintenance Due Date Last Done Comments DTaP,Tdap,and Td Vaccines (1 - Tdap) 1964 Zoster Vaccines (1 of 2) 12/13/1995 Pneumococcal Vaccine: 65+ Ye ars (1 of 1 - PCV) 2010 RSV Immunization Patients 60 + Years Old (1 - 1-dose 75+ series) 2020 Depression Screening 04/08/2024 Falls Risk Assessment 04/08/2024 Hepatitis C Screening 04/08/2024 Osteoporosis Screening (Bone Density Screening) 04/08/2024 Social Influencers of Health Screening 04/08/2024 COVID-19 Vaccine ( - 2023-2 5 season) 2024 Influenza Vaccine (#1) 2024 HIB Vaccines Aged Out No longer eligi ble based on patient's age to complete this topic HPV Vaccines Aged Out No longer eligi ble based on patient's age to complete this topic Hepatitis A Vaccines Aged Out No long er eligible based on patient's age to complete this topic Hepatitis B Vaccines Aged Out No long er eligible based on patient's age to complete this topic IPV Vaccines Aged Out No longer eligi ble based on patient's age to complete this topic MMR Vaccines Aged Out No longer eligi ble based on patient's age to complete this topic Meningococcal ACWY Vaccine Aged Out N o longer eligible based on patient's age to complete this topic RSV Immunization Patients Un jenn 20 months Aged Out No longer eligible b ased on patient's age to complete this topic Varicella Vaccines Aged Out No longer eligible based on patient's age to complete this topic
--- OUTSIDE RECORDS SUMMARY | 2024-10-15 13:20 | XMS_ITS | Clinical Summary ---
Author Organization [employer] Address [address] [place] [address] Care Team Providers Care Mental Health Counselor Name Role Phone Unavailable Primary Care Provider Unavailabl e Social History Tobacco Use Types Packs/Day Years Used Date Smoking Tobacco: Never Assessed Comments Unknown Sex and Gender Information Value Date Recorded Sex Assigned at Female 07/16/2022 10:14 AM EDT Legal Sex Female 10:14 AM EDT Gender Identity Not on file Sexual Orientation Not on file Plan of Treatment Health Maintenance Due Date Last Done Comments Depression Screening 1945 Alcohol/Substance Use Screening 1957 Tobacco Screening 1957 DTaP/Tdap/Td Vaccines (1 - Tdap) 1964 Zoster Vaccines (1 of 2) 12/13/1995 Pneumococcal Vaccine: 50+ Ye ars (1 of 1 - PCV) 2010 RSV Patients and Pa tients Aged 60 years or older (1 - 1-dose 75+ series) 2020 COVID-19 Vaccine ( - 2023-2 5 season) [...] patient's age to complete this topic Meningococcal Vaccine Aged Out No abril rachele eligible based on patient's age to complete this topic RSV under 20 months Aged Out No longe r eligible based on patient's age to complete this topic Rotavirus Vaccines Aged Out No longer eligible based on patient's age to complete this topic
--- OUTSIDE RECORDS SUMMARY | 2024-10-15 13:20 | XMS_ITS ---
Author Organization [facility] Address Unknown Allergies, Adverse Reactions, Alerts Substance Reaction Status Noted Date Resolved Date traMADol active 01/03/2022 Pioglitazone active 01/03/2022 Pineapple active 01/03/2022 oxyCODONE active 01/03/2022 Lisinopril active 01/03/2022 iodinated contrast dye active 01/03/2022 Donepezil active 01/03/2022 Codeine active 01/03/2022 Aspirin active 01/03/2022 Amoxicillin active 01/03/2022 Amitriptyline active 01/03/2022 Acetaminophen active 01/03/2022 Problems Problem Status Start Date End Date LOW BACK PAIN, UNSPECIFIED (Primary) (M54.50 - ICD-10- CM) ACTIVE 01/03/2022 PAIN IN LEFT HIP (M25.552 - ICD-10-CM) ACTIVE OSTEOPHYTE, 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 - ICD-10-CM) ACTIVE 01/03/2022 ANXIETY DISORDER, UNSPECIFIED (F41.9 - ICD-10-CM) ACTI VE 01/03/2022 TYPE 2 DIABETES MELLITUS WIT HOUT COMPLICATIONS (E11.9 - ICD-10-CM) ACTIVE 01/03/2022 HYPERLIPIDEMIA, UNSPECIFIED (E78.5 - ICD-10-CM) ACTIVE 01/03/2022 OTHER FORMS OF SCOLIOSIS, [place] (M41.86 - ICD-10-CM) ACTIVE 01/03/2022 VITAMIN D DEFICIENCY, UNSPECIFIED (E55.9 - ICD-10-CM) ACTIVE 01/03/2022 ESSENTIAL (PRIMARY) HYPERTENSION (I10 - ICD-10-CM) ACT GRACE 01/03/2022 Encounters Encounter Performer Performer Role Encounter Diagnoses Location Date Discharge - Discharged to home or self care - Home - Private home/apt. with no home health services [facility] 03:51 pm EDT - 2 11:00 am EDT Immunizations Vaccine Date SARS-COV-2 (COVID-19) 12/07/2020 12:00 a m EDT Pfizer Covid-19 Booster (SARS-COV-2) vac cine 07/26/2021 12:00 am EST Social History
--- OUTSIDE RECORDS SUMMARY | 2024-10-15 13:20 | XMS_ITS | Data Portability ---
Author Organization [employer] Address [address] [place] [address] Care Team Providers Care Fish And Wildlife Biologist Name Role Phone JOSE PEREA Primary Care Provider HIM FLACO OTHER Assessment Encounter Date Assessment Date Assessment LastModified by Organization Details LastModified Time 01/23/2022 01/23/2022 This 76-year-old female with a history of BPPV called [facility] because she ran out of her meclizine. Her symptoms have been at her baseline. I recommended that she continue taking meclizine and I called a prescription into her pharmacy. She will follow up with her PCP. The patient agreed with this plan. [email or web address] Not available 01/26/2022 08:51:58 12/02/2023 12/02/2023 I have reviewed and agree with the assessment and plan as documented by the net mobile developer. I provided real time medical direction for this encounter and was immediately available to provide additional phone based assistance as needed. History as noted by net mobile developer. Pt with history of DM. She is reporting 1 month of gradually worsening pain in her L calf with some calf swelling. No recent falls or trauma. No fevers or chills. She notes pain with weight bearing and walking. No CP or SOB. On exam, pt appears comfortable, vitals normal. L calf with diffuse tenderness, no redness. Mild swelling noted c/w the R calf. L foot sensation and pedal pulses intact. Impression: Pt with 1 month of gradually worsening L calf pain with mild swelling. Neurovascular exam of the lower leg and foot normal. We discuss with the pt and her daughter that the pt may have a simple muscular injury but could have a DVT and would need an ultrasound to rule this out. I recommend that the pt's daughter take her either to a local urgent care that can perform ultrasound or to the ED to have the ultrasound done to ensure that there is no DVT. Daughter plans to take the pt today to the UC or ED for evaluation and ultrasound. [email or web address] Not available 12/02/2023 15:04:13 06/03/2024 06/03/2024 I have reviewed and agree with the assessment and plan as documented by the net mobile developer. I provided real time medical direction for this encounter and was immediately available to provide additional phone based assistance as needed. History as noted by net mobile developer. Pt with history of DM2, HLD, cognitive deficit. 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 No fevers, CP or SOB. On exam, pt appears well, no distress. Vitals normal. Lungs clear. Rapid Covid-19 positive. Impression: Pt with acute Covid-19 infection with symptoms starting yesterday. She appears well with normal vitals. Pt and daughter are interested in having her take Paxlovid. They report no known history of renal disease. Potential side effects of paxlovid d/w the pt and her daughter. Pt's current meds: terzepatide, empagloflozin, rosuvastatin, lexapro, and memantine. I have reviewed drug interactions with paxlovid. Pt and daughter told that pt needs to stop her rosuvastatin x8 days once she starts the paxlovid and to monitor her blood sugars. I prescribe normal dose Paxlovid x5 days. Pt told to use tylenol prn LUU or sore throat. Pt instructed to seek medical attention right away with any worsening or new symptoms, which are reviewed with her. [email or web address] Not available 06/03/2024 13:35:05 Plan of Treatment Reminders Order Date Submit Date Provider Last Modified By Organization Details Last Modified Time Details Appointments None recorded. Lab rapid flu (A+B) 2023 024 [facility], [address] [place] [address], [place], [id number], 4 08:14:03 rapid SARS CoV 2 Ag, QL IA, respiratory specimen 2023 024 [facility], [address] [place] [address], [id number], 4 08:13:40 rapid SARS CoV 2 Ag, QL IA, respiratory specimen 2023 024 btils [facility], [address] [place] [address], [id number], 4 12:24:05 rapid [facility]B) [address] [facility] [facility] [address] [place] [address], [id number], 4 12:24:05 rapid strep group A, throat [address] [facility], [address] [place] [address], [id number], 4 12:24:03 Referral None recorded. Procedures None recorded. Surgeries None recorded. Imaging None recorded. Medication Orders ondansetron 4 mg disintegrat ing tablet [address] [place] [address] [id number], [address], [place], [id number], 17:22:16 Paxlovid 300 mg (150 mg x 2)-100 mg tablets in a dose pack 2023 024 [id number], [address], [place], [id number], 4 12:33:02 Patient TargetsNo targets recorded. Patient InstructionsNo instructions recorded. Reason for Referral None Reported. Results Created Date Observation Date Name Description Value Unit Range Abnormal Flag Note LastModifiedBy Organization Detail LastModifiedTime 06/03/2006/03/2024 rapid strep group A, throa t Strep negati ve Not Available [facility] - [facility] [address] [place] [address], [id number], 06/03/2024 12:23:25 06/03/20 24 06/03/2024 rapid flu (A+B) Flu negati ve Not Available Main - [facility] [address] [place] [address], [id number], 06/03/2024 12:23:18 06/03/20 24 06/03/2024 rapid SARS CoV 2 Ag, QL IA, respi rator y speci men rapid SARS CoV 2 Ag, QL IA, respiratory specimen positi ve Not Available Main - [facility] ed [address] [place], [phone], 06/03/2024 12:23:10 Result Notes None recorded. Medical Equipment None Reported. Medications Name Sig Start Date Stop Date Status Note LastModified by Organization Details LastModified Time rivastigmine 1.5 mg capsule TAKE 1 CAPSULE BY MOUTH TWICE DAILY active Not Available Not Available No t Available donepezil 5 mg tablet TAKE 1 TABLET BY MOUTH EVERY EVENING active Not Available Not Available No t Available clindamycin HCl 300 mg capsule TAKE 1 CAPSULE BY MOUTH THREE TIMES DAILY FOR 5 DAYS active Not Available Not Available N ot Available FreeStyle Lancets 28 gauge DIRECTED TO TEST BLOOD SUGAR FOUR TIMES DAILY active Not Available Not Available No t Available clindamycin HCl 150 mg capsule TAKE 3 CAPSULES BY MOUTH THREE TIMES DAILY active Not Available Not Available Not Available acetaminophe n 500 mg tablet TAKE 1 TABLET BY MOUTH EVERY 6 HOURS NEEDED FOR PAIN active Not Available Not Available No t Available OneTouch Ultra Test strips DIRECTED TO TEST FASTING BLOOD SUGAR TWICE DAILY active Not Available Not Available Not Available meclizine 25 mg tablet TAKE 1 TABLET BY MOUTH THREE TIMES DAILY NEEDED FOR DIZZINESS active Not Available Not Available No t Available docusate sodium 100 mg capsule TAKE 1 CAPSULE BY MOUTH TWICE DAILY active Not Available Not Available No t Available hydroxyzine HCl 25 mg tablet TAKE 1 TABLET BY MOUTH THREE TIMES DAILY NEEDED FOR ITCHING OR ALLERGIES active Not Available Not Available No t Available zolpidem 5 mg tablet TAKE 1 TABLET BY MOUTH EVERY NIGHT AT BEDTIME active Not Available Not Available No t Available cefuroxime axetil 500 mg tablet TAKE 1 TABLET BY MOUTH TWICE DAILY active Not Available Not Available No t Available glipizide 5 mg tablet TAKE 1 TABLET BY MOUTH TWICE DAILY WITH MEALS active Not Available Not Available No t Available amoxicillin 875 mg-potassium clavulanate 125 mg tablet TAKE 1 TABLET BY MOUTH TWICE DAILY active Not Available Not Available No t Available escitalopram 10 mg tablet TAKE 1 TABLET BY MOUTH EVERY MORNING active Not Available Not Available No t Available cyclobenzapr ine 5 mg tablet TAKE 1 TABLET BY MOUTH AT BEDTIME active Not Available Not Available No t Available rosuvastatin 20 mg tablet TAKE 1 TABLET BY MOUTH AT BEDTIME active Not Available Not Available No t Available memantine 10 mg tablet TAKE 1 TABLET BY MOUTH TWICE DAILY active Not Available Not Available No t Available memantine 5 mg tablet TAKE 1 TABLET BY MOUTH TWICE DAILY active Not Available Not Available No t Available Januvia 100 mg tablet TAKE 1 TABLET BY MOUTH DAILY active Not Available Not Available Not Available rivastigmine 9.5 mg/24 hour transdermal patch APPLY 1 PATCH TO SKIN EVERY MORNING. REMOVE THE FOLLOWING MORNING AND REPLACE WITH A NEW PATCH DIRECTED active Not Available Not Available No t Available rivastigmine 4.6 mg/24 hour transdermal patch APPLY 1 PATCH TO SKIN EVERY MORNING REMOVE THE FOLLOWING MORNING AND REPLACE WITH A NEW PATCH active Not Available Not Available No t Available cholecalcife rol (vitamin D3) 50 mcg (2,000 unit) capsule TAKE 1 CAPSULE BY MOUTH DAILY active Not Available Not Available Not Available Jardiance 10 mg tablet TAKE 1 TABLET BY MOUTH EVERY MORNING active Not Available Not Available No t Available Trulicity 1.5 mg/0.5 mL subcutaneous pen injector ADMINISTER 1.5 MG UNDER THE SKIN EVERY WEEK active Not Available Not Available No t Available Trulicity 0.75 mg/0.5 mL subcutaneous pen injector ADMINISTER 0.75 MG UNDER THE SKIN EVERY WEEK active Not Available Not Available No t Available OneTouch Delica Plus Lancet 33 gauge USE DIRECTED TO TEST BLOOD SUGAR TWICE DAILY active Not Available Not Available No t Available Trulicity 3 mg/0.5 mL subcutaneous pen injector ADMINISTER 3 MG UNDER THE SKIN EVERY SATURDAY active Not Available Not Available No t Available Paxlovid 300 mg (150 mg x 2)-100 mg tablets in a dose pack TK 2 NIRMATRELVI R TS AND 1 RITONAVIR T TOGETHER PO BID FOR 5 DAYS active Not Available Not Available No t Available Mounjaro 2.5 mg/0.5 mL subcutaneous pen injector ADMINISTER 2.5 MG UNDER THE SKIN EVERY WEEK FOR 4 WEEKS active Not Available Not Available No t Available Vitals Date Recorded Oxygen saturation Oxygen saturation in Arterial blood by Pulse oximetry Body temperature Body weight Heart rate Body height Respiratory rate Systolic blood pressure Diastolic blood pressure Provider Name and Address Organization Details Last Updated DateTime 4 97 % 97 % 98.7 [degF] 63672.8 g 76 /min 154.94 cm 16 /min 118 mm[Hg] 79 mm[Hg] Not Available [employer] [facility] [employer] 4 14:45:00 Date Recorded Body temperature Respiratory rate Body height Heart rate Oxygen saturation Oxygen saturation in Arterial blood by Pulse oximetry Body weight Systolic blood pressure Diastolic blood pressure Provider Name and Address Organization Details Last Updated DateTime 4 97.2 [degF] 16 /min 165.1 cm 57 /min 97 % 97 % 67228.3 68 g 139 mm[Hg] 81 mm[Hg] Not Available [facility] [employer] 4 17:18:14 Date Recorded Oxygen saturation Oxygen saturation in Arterial blood by Pulse oximetry Respiratory rate Body temperature Heart rate Systolic blood pressure Diastolic blood pressure Provider Name and Address Organization Details Last Updated DateTime 4 98 % 98 % 16 /min 98.2 [degF] 84 /min 118 mm[Hg] 74 mm[Hg] Not Available [employer] 4 12:21:05 Date Recorded Heart rate Oxygen saturation Oxygen saturation in Arterial blood by Pulse oximetry Respiratory rate Body temperature Systolic blood pressure Diastolic blood pressure Provider Name and Address Organization Details Last Updated DateTime 2 60 /min 99 % 99 % 20 /min 99.5 [degF] 103 mm[Hg] 55 mm[Hg] Not Available [facility] [employer] 2 08:44:22 Social History None recorded. Functional Status None recorded. Mental Status None recorded. Family History Nothing Reported. Medical History No medical history recorded. Gynecological HistoryNo gynecological history recorded. Obstetrics History GPAL:G 0 P 0 0 0 0 Past Encounters Encounter ID Performer Location Encounter Start Date Encounter Closed Date Diagnosis/Indication Diagnosis SNOMED-CT Code Diagnosis ICD10 Code Diagnosis Note [id number] Isaac Rowan MD [facility] - [facility] [address] [place] [phone] 01/26/2022 08:44:15 06/13/2022 13:13:48 Benign paroxysmal positional vertigo 168010804 H81.13 [id number] Marshall Crowe MD Main - [facility] [address] [place] [phone] 12/02/2023 14:44:51 12/02/2023 22:17:34 Pain of left calf [id number] M79.662 [id number] Janusz Davis MD Main - [facility] [address] [place] [phone] 04/16/2024 17:18:10 04/19/2024 21:44:43 Mild dehydration 8839486629 108 E86.0 Normal BP. Tolerating oral fluids; does not need IV fluids at this time. Discussed red flag signs for which to seek higher level of care including worsening dizziness or confusion Nausea and vomiting 1692 1999 R11.2 Improving. Will give oral Zofran. Discussed red flag signs for which to seek higher level of care including worsening dizziness or confusion [id number] Marshall Crowe MD Main - [facility] [address] [place] [phone] 06/03/2024 12:21:01 06/03/2024 17:49:34 COVID-19 [id number] U07.1 Health Concerns Section Related Observation LastModified by Organization Detai ls LastModified Time None Recorded Concern Status LastModified by Organization Details LastModified Time None Recorded Advance Directives Directive None Recorded Payers Encounter Date Sequence Insurance Name Policy Number Policy Cespedes Covered Member ID Cespedes Member ID Guarantor Name 01/23/2022 1 [facility] - DOS PRIOR TO 2022 - DUAL ELIGIBLE (MEDICARE REPLACEMENT/ADV ANTAGE - HMO) Delma Hanson [id number] Delma Hanson 12/02/2023 1 [facility] - DOS ON OR AFTER 2022 - DUAL ELIGIBLE - JAIL OPTIONS AND ONE CARE (MEDICARE REPLACEMENT/ADV ANTAGE - HMO) Delma Hanson [id number] Delma Hanson 04/16/2024 1 [facility] - DOS ON OR AFTER 2022 - DUAL ELIGIBLE - JAIL OPTIONS AND ONE CARE (MEDICARE REPLACEMENT/ADV ANTAGE - HMO) Delma Hanson [id number] Delma Hanson 06/03/2024 1 [facility] - DOS ON OR AFTER 2022 - DUAL ELIGIBLE - JAIL OPTIONS AND ONE CARE (MEDICARE REPLACEMENT/ADV ANTAGE - HMO) Delma Hanson [id number] Delma Hanson Notes Date Note Type Note Provider Name and Address Organization Details Recorded Time 01/23/2022 text/html [facility] Nursing Assessment: Patient Reports: Dizziness with positional change Chief Complaints: Nausea/Vomiting, Syncope/Dizziness/Li ghtheadedness Allergies: Other Comments: Daughter of member calling for [facility] complaints of feeling dizzy since last night deny C/P SOB hx vertigo that had responded to meclizine in the past- slight nausea .................... .................... .................... .................... .................... .................... .................... . Cloud Physicist Note: chief complaint dizziness. Constitutional: Afebrile without fatigue/malaise/ lethargy. Denies Chills HEENT: Denies visual changes Resp: non productive cough, Wheeze, Hemoptysis, SOB or GUERRERO Cardio: substernal chest pain non raidating describes pain as substernal / stabbing pain. GI: Denies N/V/D or current loss of appetite Genitourinary: Appropriate frequency without pain or odor Musculoskeletal: Pt denies pain or swelling Neuro: Alert to baseline Psych: Denies anxiety or depression Skin: Denies rashes or wounds Endocrine: No new unexpected weight loss/gain Focused Physical Assessment Findings Pts complains of dizziness, has hx of vertigo, prescription for meclazine pt was afraid to take it after it . FAST -ED Score 0. Denied cp/sob/nauseavomitin g/dizziness. General: Well developed and well nourished in no acute distress HEENT: Unremarkable Neck: Unremarkable Lungs: Clear to auscultation without egophony Heart: Regular rate and rhythm Abdomen: pain upon palpation of area. No rebound tenderness. Extremities: No Cyanosis, rash, lesions or edema Neuro: dizziness, no blurred vision, denies seeing spots skin: warm/dry MD ordered and sent over a prescription for meclazine. pt had no further questions or concerns. Red flags covered. .................... .................... .................... .................... .................... .................... .................... . Disposition: Fulfilled Isaac Rowan MD [address] [facility],[address], [place], [phone], [employer] 10/19/2022 19:03:28 12/02/2023 text/html This was a supervised home visit with net mobile developer Samir Bah. 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 Chief Complaints: Pain PMH: Diabetes Comments: Spoke w/ caregiver and district leader. reporting worsening left leg pain and having trouble walking Unable to see PCP till December Denies injury to leg, denies N/T, no arthritis history, Denies SOB/chest pain, normally walks but now can't walk very well. Denies blood thinner use and any other PMH besides DM. Will put in an INSTED visit but any U/S diagnostics would need to done inpatient hospital setting. Hpateri ROBB .................... .................... .................... .................... .................... .................... .................... . Cloud Physicist Note From Samir Bah: Pt reports worsening left leg pain while bearing weight/walking for one month. Pt denies CP, SOB, GUERRERO, f/n/v/d. Pt is alert, NAD. VSS. Afebrile. Non focal neuro exam. Lungs CTA. Benign ABD exam. Posterior left calf appears slightly swollen when compared to the right, no erythema or warmth; pain with palpation and pain with dorsiflexion. Unremarkable POC labs. Pt advised to have ultrasound performed to r/o DVT. Daughter is going to call local UC? s to see if they can perform ultrasounds, otherwise daughter will take pt to ED. .................... .................... .................... .................... .................... .................... .................... . Disposition: Fulfilled Marshall Crowe MD [address] [place] [address],[address], [place], [phone], [employer] 12/02/2023 15:06:27 04/16/2024 text/html [facility] Nurse Triage Notes (Karen Rosario): Reason For Request: Pt can barely stand, very dizzy Chief Complaints: Weakness/Lethargy PMH: Diabetes Allergies: Unknown Comments: Allergy Physician verified the member's name//address and phone number. Member is a 78 yr old female PMH > DM , Allergies >Antibiotics has a list but unsure , Per daughter, pt has been vomiting and has dizziness. Pt has been vomiting since 130. She has had this in the past and unsure why. During those times, she has gone to the hospital and given IV fluids / Zofran. She has had testing but everything has been negative. PT has had CT scan in the past all normal. BS 150 in the am , but has not checked since, recommended a recheck. Education provided on the response time and the member was advised to monitor reported s/s and seek emergency treatment if needed Cloud Physicist Organization Information for Carlos Travis Simpson [employer] Legal Name: [employer] Address: [address] [place] [id number], Expert Medical Writer: See Reynolds MD [place] No.: [id number] Cloud Physicist POC Test Results from Travis Gonzalez [facility] Rapid influenza antigen (18:13:04) Flu: - Rapid COVID antigen (18:13:12) COVID: - .................... .................... .................... .................... .................... .................... .................... . Cloud Physicist Note [facility] Travis Gonzalez[facility] Pt present in home with daughter. Pt Bulgarian speaking only and daughter translated. Daughter states pt was out in the heat today and had an episode of dizziness followed by one episode of vomiting. Pt has history of vertigo with previous ED admissions. No known sick contacts. V/S taken as listed. Pt afebrile. Pt swabbed for flu and covid both negative. Abdomen a little tender in both upper quadrants. Pt has been able to rehydrate orally prior to arrival having had 500 ml of water without issues since initial vomiting. Consulted with [facility] Dr. Davis who ordered 1 dose of sublingual zofran given on scene. Reviewed red flags for ED. Patient education provided. [facility] Medication Orders: ondansetron 4 mg disintegrating tablet: Administered .................... .................... .................... .................... .................... .................... .................... . Disposition: Fulfilled Janusz Davis MD [address] [facility],[address], [place], [phone], [employer] 04/16/2024 20:42:17 06/03/2024 text/html This was a supervised home visit with net mobile developer Tremaine Briggs. [facility] Nurse Triage Notes (Kelly Brumfield): Reason For Request: Patient has sore throat, head ache, and can't sleep. Chief Complaints: Headache, Pain PMH: Diabetes Allergies: Unknown Comments: Allergies: Unknown FUNERAL DIRECTOR'S ASSISTANT calling to request visit for patient with symptoms of sore throat, ear pain, and headache. Symptoms started yesterday getting worse today. Patient has a non-productive cough. No fever. No known sick contacts. Taking tylenol as needed for symptoms. Cloud Physicist Organization Information for Tremaine Briggs Tatiana Ramirez Legal Name: [employer] Address: [address] [place] [address], Expert Medical Writer: See Reynolds MD [place] No.: [id number] Cloud Physicist POC Test Results from BrigitteTremaine Tatiana [facility] Rapid strep test (11:43:02) Strep: - Rapid influenza antigen (11:43:13) Flu: - Rapid COVID antigen (11:43:15) COVID: + .................... .................... .................... .................... .................... .................... .................... . Cloud Physicist Note From Tremaine Briggs: Dispatched to the call address for the elderly female with cold/flu like symptoms. Pt states since yesterday she has had a mild dry cough, sore throat, fatigue and headache. Pt has been eating and drinking normally. She denies fevers, CP, sob/difficulty breathing. Pt advises she is allergic to 2 abx but can only remember one of them. She denies any other allergies. Pt was found sitting in recliner in living room, CAOx4, airway open and patent, breathing non labored, able to speak in full sentences, -JVD, -HEENT, skin PWD with good turgor, mucous membranes pink and moist, -edema, +CMSx4, lung sounds clear and equal bilaterally, abd soft non tender/distended, pupils PERRL, Rapid strept/flu (-), Rapid Covid (+). Pros and Cons of Paxlovid discussed with Pt and her daughter. Pt advised she wished to try the treatment. C consulted. Medication adjustments discussed. Script called into preferred pharmacy. Red flags discussed. ALL times are approx. .................... .................... .................... .................... .................... .................... .................... . Disposition: Fulfilled Marshall Crowe MD [address] [facility],[address], [place], [phone], [employer] 06/03/2024 13:35:20 OBGyn Episode No OBEpisode recorded.
--- OUTSIDE RECORDS SUMMARY | 2024-10-15 13:20 | XMS_ITS | Encounter Summary ---
Author Organization [facility] Address [address] [place] [address] Care Team Providers Care Rn Progressive Care Unit Name Role Phone Unavailable Primary Care Provider Unavailabl e Encounter Details Date Type Department Care Team (Latest Contact Info) Description 01/27/2019 Abstract [facility] CONVERSIONS Dental, Provider, DDS Social History Tobacco Use Types Packs/Day Years Used Date Smoking Tobacco: Never Assessed Comments Unknown Sex and Gender Information Value Date Recorded Sex Assigned at Female 07/16/2022 10:14 AM EDT Legal Sex Female 10:14 AM EDT Gender Identity Not on file Sexual Orientation Not on file documented as of this encounter Plan of Treatment Not on file documented as of this encounter Visit Diagnoses Not on filedocumented in this encounter
== END 2024-10-15 10:07 | disposition home or self-care (01) ==
LOC: HO.MAMMO 10:06
PROVIDERS: PCP Internal Medicine; Visit Provider Internal Medicine
DX: Z12.31 Encounter for screening mammogram for malignant neoplasm of breast (principal); Z13.820 Encounter for screening for osteoporosis; Z78.0 Asymptomatic menopausal state
CPT/HCPCS: 77063; 77067; 77080

== ENCOUNTER → 2024-10-15 10:30 | Outpatient (BNV) | payer OTHER, SELFPAY | PROVIDERS: PCP Internal Medicine; Visit Provider Radiology Diagnostic Radiology | DX: M81.0 Age-related osteoporosis without current pathological fracture (principal) | CPT/HCPCS: 77063; 77067; 77080 ==

== ENCOUNTER 2024-10-30 08:09 | Outpatient (AMB) | payer OTHER, SELFPAY ==
--- NOTE | 2024-10-30 08:06 | MHC.PC.OV ---
Intake Visit Reasons: bone density scan results Intake Note: Pt is having a telehealth visit to discuss bone density scan I phone [phone] Allergies clindamycin Allergy (Mild, Verified 10/30/24 08:19) Hives Iodinated Contrast Media [IV Dye, Iodine Containing] Allergy (Mild, Verified 10/30/24 08:19) HIVES donepezil Adverse Reaction (Intermediate, Verified 10/30/24 08:19) nausea, dizziness and vomiting pioglitazone Adverse Reaction (Intermediate, Verified 10/30/24 08:19) edema amitriptyline [From Elavil] Adverse Reaction (Mild, Verified 10/30/24 08:19) NAUSEA & VOMITING amoxicillin [Amoxicillin] Adverse Reaction (Mild, Verified 10/30/24 08:19) NAUSEA & VOMITING codeine [From Tylenol-Codeine] Adverse Reaction (Mild, Verified 10/30/24 08:19) NAUSEA & VOMITING lisinopril [Lisinopril] Adverse Reaction (Mild, Verified 10/30/24 08:19) NAUSEA & VOMITING acetaminophen [Tylenol] Adverse Reaction (Unknown, Verified 10/30/24 08:19) tylenol 3 (states regulare tylenol upset stomach as well) aspirin [Aspirin] Adverse Reaction (Unknown, Verified 10/30/24 08:19) NAUSEA & VOMITING oxycodone [Percocet] Adverse Reaction (Unknown, Verified 10/30/24 08:19) stomach upset tramadol [From Ultram] Adverse Reaction (Unknown, Verified 10/30/24 08:19) NAUSEA & VOMITING Medication List - Last Reconciled 10/30/24 by Danita Mccurdy MD blood sugar diagnostic (OneTouch Ultra Test strips) Check fasting blood sugar twice a day blood-glucose meter (OneTouch Ultra2 Meter) As directed cane use as directed cholecalciferol (vitamin D3) 50 mcg PO DAILY docusate sodium 100 mg PO BID empagliflozin (Jardiance) 10 mg PO DAILY escitalopram oxalate 10 mg PO DAILY FreeStyle Lancets (lancets) Check fasting blood sugar once a day before meal NS lancets test blood sugar twice a day memantine 10 mg PO BID rosuvastatin 20 mg PO BEDTIME tirzepatide (Mounjaro) 2.5 mg (0.5 mL) subcut TU [tub safety bar As directed] zolpidem 5 mg PO BEDTIME PRN Tobacco use date assessed: 10/30/24 Fall risk assessment: 2 + Falls in past year Last assessed Fall Risk: 10/30/24 Dental Screening Dental Screen Date: 10/30/24 Did you have a dental visit in the last 12 months?: Yes Did you have a dental problem in the last 6 months where you did not have access to dental care?: No Was dental information given to patient?: Patient has dentist HPI HPI Comments History of Present Illness Details Telehealth visit made with 78-year-old lady with history of diabetes mellitus, hyperlipidemia, and anxiety, here to discuss results and treatment options regarding results of her bone density scan which showed presence of osteoporosis in her lumbar spine , which came back with a T-score of-3.6. Denies any history of fractures in the past.. The bone mineral density of the lumbar spine is 0.762 with a T-score of -3.6, and a Z-score of -1.6. The bone mineral density of the left total hip is 0.820 with a T-score of -1.5, and a Z-score of 0.6. The bone mineral density of the left femoral neck is 0.811 with a T-score of -1.6, and a Z-score of 0.6. [facility] Medical History Osteoporosis of lumbar spine Headache Cervicalgia Cervicalgia Acute parotitis Dizziness of unknown cause Diabetes mellitus with hyperglycemia Vitamin D deficiency Mixed dyslipidemia Lumbago Idiopathic scoliosis Pulmonary nodules Submandibular sialoadenitis Vitamin D deficiency Hemorrhoid Sensorineural hearing loss Balance disorder Lumbar scoliosis Type 2 diabetes mellitus with hyperglycemia, without long-term current use of insulin Anxiety Osteoarthritis Hypertension Surgical History History of bladder suspension procedure Hx of cholecystectomy Family History Father Pulmonary disease Mother Liver cirrhosis Diabetes Other Mental health disorder Social History Household Members: Unknown / Unable to assess Housing: Unknown / Unable to assess Housing Other:: apartment for snf Do you presently have visiting nurse or other home services: Yes Unable to assess alcohol history related to: Unknown Alcohol intake: never Patient Tobacco Use Status: Never used Tobacco e-Cigarette/Vaping Use: Never Used Second Hand Smoke Exposure: No Advance Directives Date on File: 11/13/21 service: No Current occupational status: retired Cognitive needs: No Hearing needs: No Vision needs: No Questionnaire PHQ-9 Over the last 2 weeks, how often have you been bothered by any of the following problems? 1. Little interest or pleasure in doing things: not at all 2. Feeling down, depressed, or hopeless: not at all 3. Trouble falling or staying asleep, or sleeping too much: not at all 4. Feeling tired or having little energy: not at all 5. Poor appetite or overeating: not at all 6. Feeling bad about yourself - or that you are a failure or have let yourself or your family down: not at all 7. Trouble concentrating on things, such as reading the newspaper or watching television: not at all 8. Moving or speaking so slowly that other people could have noticed. Or the opposite - being so fidgety or restless that you have been moving around a lot more than usual: not at all 9. Thoughts that you would be better off or of hurting yourself in some way: not at all Total score: 0 Depression Screening Interpretation: Negative Depression Screening Done: Yes 20722 - PHQ-9 Billing: Yes Source: Developed by Drs. Bon David, Debby Smith, Jared Perez and colleagues, with an educational nayely from [employer]. Thrive Questionnaire Date Thrive assessed: 10/30/24 I am a: Patient What is your living situation today?: I have a steady place to live Within the past 12 months, did the food you bought not last and you didn't have the money to get more?: Never true Within the past 12 months, did you worry whether your food would run out before you got money to buy more?: Never true Do you have trouble paying for medicines?: No Do you have trouble getting transportation to medical appointments?: No Do you have trouble paying your heating and electricity bill?: No Do you have trouble taking care of your child, family member or friend?: No Do you have trouble with day-to-day activities such as bathing, preparing meals, shopping, managing finances, etc.?: No Are you currently unemployed and looking for a job?: No Are you interested in more education?: No THRIVE Score: 0 AUDIT C Alcohol Use Questionnaire (AUDIT-C) 1. How often do you have a drink containing alcohol?: Never Total Score: 0 SUMMER-7 AMB Questionnaire SUMMER-7 Date SUMMER - 7 assessed: 10/30/24 Feeling nervous, anxious, or on edge: 0 = Not at all Not being able to stop or control worryin = Not at all Worrying too much about different things: 0 = Not at all Trouble relaxin = Not at all Being so restless that it is hard to sit still: 0 = Not at all Becoming easily annoyed or irritable: 0 = Not at all Feeling afraid as if something awful might happen: 0 = Not at all Total SUMMER-7 score (0-4 normal; 5-9 mild; 10-14 moderate; 15-21 severe): 0 Source: Developed by Drs. Bon David, Debby Smith, Jared Perez and colleagues, with an educational nayely from [employer]. SUMMER-7 Assessment Billing SUMMER-7 Assessment Tool: SUMMER-7 Assessment 10234 Review of Systems Const Reports no additional complaints Eyes Reports no additional complaints ENT Reports no additional complaints Card Denies chest pain, Denies rapid heart rate, Denies irregular heart rhythm and Denies dyspnea Resp Denies cough and Denies dyspnea GI Denies abdominal pain, Denies melena and Reports dyspepsia Reports no additional complaints Musc Reports no additional complaints Skin/Breast Reports system reviewed and no additional complaints, except as documented Neuro Reports no additional complaints Psych Reports no additional complaints Endo Reports no additional complaints Jeyson/Lymph Reports no additional complaints Aller/Immun Reports no additional complaints Physical exam (Primary Care) Tobacco/Smoking Status: Tobacco use Status Tobacco use date assessed 10/30/24 10/30/24 08:09 Patient Tobacco Use Status Never used Tobacco 10/30/24 08:09 e-Cigarette/Vaping Use Never Used 10/30/24 08:09 PHQ-9: PHQ-9 Score PHQ-9: Total score 0 10/30/24 08:09 Depression Screening Interpretation: Negative Thrive Assessment: Date of Thrive Assessment Date Thrive assessed 10/30/24 10/30/24 08:09 Telehealth Telehealth Telehealth Platform: [employer] Location of provider rendering services: practice address Location of patient: address on file Patient Identification confirmed using: Name, : Yes Telehealth method: video Patient verbally consented to treatment: Yes Patient verbally consented to billing insurance company: Yes Patient informed of any privacy concerns related to visit: Yes Minutes spent on Phone/Video with Pt.: 15 Coding Level of Care Code Tele Est Pt Level 3 (56548) Diagnoses Osteoporosis of lumbar spine M81.0 Additional Codes PHQ-9 - 95518 - PHQ-9 Billing: Yes ([id number]) SUMMER-7 Assessment Billing - SUMMER-7 Assessment Tool: SUMMER-7 Assessment 00651 ([id number]) Assessment & Plan Assessment & Plan (1) Osteoporosis of lumbar spine: Code(s): M81.0 - Age-related osteoporosis without current pathological fracture Category: Medical Plan: Discuss treatment options for osteoporosis , but patient does not want to start taking alendronate as she has a sensitive stomach, and afraid to take another medicine due to her multiple allergies.. Will refer to Endocrine Clinic for further discussion of treatment options available to her. advised to continue taking her vitamin-D 3 supplements, and take adequate calcium from dietary sources. Orders: Referrals Endocrinology Referral M81.0 - Age-related osteoporosis without current pathological fracture
--- OUTSIDE RECORDS SUMMARY | 2024-10-30 08:11 | XMS_ITS | Data Portability ---
Author Organization [employer] Address [address] [place] [address] Care Team Providers Care Edging Machine Feeder Name Role Phone JOSE PEREA Primary Care [...] PCP. The patient agreed with this plan. [email or web address] Not available 01/26/2022 08:51:58 12/02/2023 12/02/2023 I have reviewed and agree with the assessment and plan as documented by the wealth management director. I provided real time medical direction for this encounter and was immediately available to provide additional phone based assistance as needed. History as noted by wealth management director. Pt with history of DM. She is [...] assessment and plan as documented by the wealth management director. I provided real time medical direction for this encounter and was immediately available to provide additional phone based assistance as needed. History as noted by wealth management director. Pt with history of DM2, HLD, cognitive deficit. 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 No [...] Time Details Appointments None recorded. Lab rapid SARS CoV 2 Ag, QL IA, [facility] [address] [place] [address], [phone], 4 12:24:05 rapid flu (A+B) [facility] [address] [place] [address], [phone], 4 12:24:05 rapid strep group A, throat 2023 024 [email or web address], [address] [place] [address], [phone], 4 12:24:03 rapid flu (A+B) 2023 024 [facility], [address] [place] [address], [phone], 4 08:14:03 rapid SARS CoV 2 Ag, QL IA, respiratory specimen 2023 024 [facility], [address] [place] [address], [phone], 4 08:13:40 Referral None recorded. Procedures None recorded. Surgeries None recorded. Imaging None recorded. Medication Orders Paxlovid 300 mg (150 mg x 2)-100 mg tablets in a dose pack 2023 024 [id number], [facility] [place], [place], [id number], 4 12:33:02 ondansetron 4 mg disintegrat ing tablet [email or web address] [facility], [address] [place], [place], [id number], 17:22:16 Patient TargetsNo targets recorded. Patient InstructionsNo instructions recorded. Reason for Referral None Reported. Results Created Date Observation Date Name Description Value Unit Range Abnormal Flag Note LastModifiedBy Organization Detail LastModifiedTime 06/03/2006/03/2024 rapid strep group A, throa t Strep negati ve Not Available [facility] ed [address] [place] [address], [phone], 06/03/2024 12:23:25 06/03/20 24 06/03/2024 rapid flu (A+B) Flu negati ve Not Available [facility] ed [address] [place] [address], [phone], 06/03/2024 12:23:18 06/03/20 24 06/03/2024 rapid SARS CoV 2 Ag, QL IA, respi rator y speci men rapid SARS CoV 2 Ag, QL IA, respiratory specimen positi ve Not Available Main - [facility] ed [address] [place], [phone], 06/03/2024 12:23:10 Result Notes None recorded. Medical [...] 4 97 % 97 % 98.7 [degF] 45680.8 g 76 /min 154.94 cm 16 /min 118 mm[Hg] 79 mm[Hg] Not Available [employer] 4 14:45:00 Date Recorded Body temperature Respiratory rate Body height Heart rate Oxygen saturation Oxygen saturation in Arterial blood by Pulse oximetry Body weight Systolic blood pressure Diastolic blood pressure Provider Name and Address Organization Details Last Updated DateTime 4 97.2 [degF] 16 /min 165.1 cm 57 /min 97 % 97 % 94001.3 68 g 139 mm[Hg] 81 mm[Hg] Not Available [employer] - production 4 17:18:14 Date Recorded Oxygen saturation Oxygen saturation in Arterial blood by Pulse oximetry Respiratory rate Body temperature Heart rate Systolic blood pressure Diastolic blood pressure Provider Name and Address Organization Details Last Updated DateTime 4 98 % 98 % 16 /min 98.2 [degF] 84 /min 118 mm[Hg] 74 mm[Hg] Not Available [employer] 4 12:21:05 Date Recorded Heart rate Oxygen saturation Oxygen saturation in Arterial blood by Pulse oximetry Respiratory rate Body temperature Systolic blood pressure Diastolic blood pressure Provider Name and Address Organization Details Last Updated DateTime 2 60 /min 99 % 99 % 20 /min 99.5 [degF] 103 mm[Hg] 55 mm[Hg] Not Available [facility] [employer] 2 08:44:22 Social History None recorded. Functional [...] 1521 Isaac Rowan MD Main - [facility] [address] [place] [phone] 01/26/2022 08:44:15 06/13/2022 13:13:48 Benign paroxysmal positional vertigo [id number] H81.13 [id number] Marshall Crowe MD Main - [facility] [address] [place] [phone] 12/02/2023 14:44:51 12/02/2023 22:17:34 Pain of left calf [id number] 062679 M79.662 [id number] Janusz Davis MD Main - [facility] [address] [place] [phone] 04/16/2024 17:18:10 04/19/2024 21:44:43 Mild dehydration [id number] 108 E86.0 Normal BP. Tolerating oral fluids; does not need IV fluids at this time. Discussed red flag signs for which to seek higher level of care including worsening dizziness or confusion Nausea and vomiting 1692 1999 R11.2 Improving. Will give oral Zofran. Discussed red flag signs for which to seek higher level of care including worsening dizziness or confusion [id number] Marshall Crowe MD Main - [facility] [address] [place] [phone] 06/03/2024 12:21:01 06/03/2024 17:49:34 COVID-19 [id number] U07.1 Health Concerns Section Related Observation LastModified by Organization Detai ls LastModified Time None Recorded Concern Status LastModified by Organization Details LastModified Time None Recorded Advance Directives Directive None Recorded Payers Encounter Date Sequence Insurance Name Policy Number Policy Cespedes Covered Member ID Cespedes Member ID Guarantor Name 01/23/2022 1 [facility] ALL[facility] - DOS PRIOR TO 2022 - DUAL ELIGIBLE (MEDICARE REPLACEMENT/ADV ANTAGE - HMO) Delma Hanson [id number] Delma Hanson 12/02/2023 1 [facility] ALLIANCE - DOS ON OR AFTER 2022 - DUAL ELIGIBLE - [facility] OPTIONS AND ONE CARE (MEDICARE REPLACEMENT/ADV ANTAGE - HMO) Delma Hanson [id number] Delma Hanson 04/16/2024 1 [facility] [employer] - DOS ON OR AFTER 2022 - DUAL ELIGIBLE - [facility] OPTIONS AND ONE CARE (MEDICARE REPLACEMENT/ADV ANTAGE - HMO) Delma Hanson [id number] Delma Hanson 06/03/2024 1 [facility] C[facility] [employer] - DOS ON OR AFTER 2022 - DUAL ELIGIBLE - [facility] OPTIONS AND ONE CARE (MEDICARE REPLACEMENT/ADV ANTAGE - HMO) Delma Hanson [id number] Delma Hanson Notes Date Note Type Note Provider Name and Address Organization Details Recorded Time 01/23/2022 text/html [facility] Nursing Assessment: Patient Reports: Dizziness with positional change Chief Complaints: Nausea/Vomiting, Syncope/Dizziness/Li ghtheadedness Allergies: Other Comments: Daughter of member calling for [facility] complaints of feeling dizzy since last night deny C/P SOB hx vertigo that had responded to meclizine in the past- slight nausea .................... .................... .................... .................... .................... .................... .................... . Snow Removal Supervisor Note: chief complaint dizziness. Constitutional: Afebrile without [...] . Disposition: Fulfilled Isaac Rowan MD [address] [facility],[address], [place], [phone], [employer] 10/19/2022 19:03:28 12/02/2023 text/html This was a supervised home visit with wealth management director Samir Bah. 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 reporting worsening left leg pain and having [...] .................... .................... .................... .................... .................... .................... . Snow Removal Supervisor Note From Samir Bah: Pt reports worsening [...] .................... . Disposition: Fulfilled Marshall Crowe MD [address] [place] [address],[address], [place], [phone], [employer] 12/02/2023 15:06:27 04/16/2024 text/html [facility] Nurse Triage Notes (Karen Rosario): Reason For Request: Pt can barely stand, very dizzy Chief Complaints: Weakness/Lethargy PMH: Diabetes Allergies: Unknown Comments: Cupola Liner verified the member's name//address and phone number. [...] s/s and seek emergency treatment if needed Snow Removal Supervisor Organization Information for Carlos Travis Simpson [employer] Business Legal Name: [employer] Address: [address] [place] [address], Hot Strip Finisher: See Reynolds MD [place] No.: [id number] Snow Removal Supervisor POC Test Results from Travis Gonzalez [employer] Rapid influenza antigen (18:13:04) Flu: - Rapid COVID antigen (18:13:12) COVID: - .................... .................... .................... .................... .................... .................... .................... . Snow Removal Supervisor Note From Travis Gonzalez[facility] Pt present in home with daughter. Pt Romanian speaking only and daughter translated. Daughter states [...] without issues since initial vomiting. Consulted with [facility] Dr. Davis who ordered 1 dose of sublingual zofran given on scene. Reviewed red flags for ED. Patient education provided. [facility] Medication Orders: ondansetron 4 mg disintegrating tablet: Administered .................... .................... .................... .................... .................... .................... .................... . Disposition: Fulfilled Janusz Davis MD [address] [facility],[address], [place], [phone], [employer] 04/16/2024 20:42:17 06/03/2024 text/html This was a supervised home visit with wealth management director Tremaine Briggs. [facility] Nurse Triage Notes (Kelly Brumfield): Reason For Request: Patient has sore throat, head ache, and can't sleep. Chief Complaints: Headache, Pain PMH: Diabetes Allergies: Unknown Comments: Allergies: Unknown MAGNAFLUX OPERATOR calling to request visit for patient with symptoms of sore throat, ear pain, and headache. Symptoms started yesterday getting worse today. Patient has a non-productive cough. No fever. No known sick contacts. Taking tylenol as needed for symptoms. Snow Removal Supervisor Organization Information for Tremaine Briggs Tatiana Ramirez Legal Name: [employer] Address: [address] [place] [address], Hot Strip Finisher: See Reynolds MD [place] No.: [id number] Snow Removal Supervisor POC Test Results from BrigitteTremaine Tatiana [employer] Rapid strep test (11:43:02) Strep: - Rapid influenza antigen (11:43:13) Flu: - Rapid COVID antigen (11:43:15) COVID: + .................... .................... .................... .................... .................... .................... .................... . Snow Removal Supervisor Note From Tremaine Briggs: Dispatched to the [...] . Disposition: Fulfilled Marshall Crowe MD [address] [facility],[address], [place], [phone], [employer] 06/03/2024 13:35:20 OBGyn Episode No OBEpisode recorded.
--- OUTSIDE RECORDS SUMMARY | 2024-10-30 08:12 | XMS_ITS | Clinical Summary ---
Author Organization [facility] ity Address [address] [place] [address] Care Team Providers Care Core Finisher Name Role Phone Unavailable Primary Care Provider Unavailabl e Social History Tobacco Use Types Packs/Day Years Used Date Smoking Tobacco: Never Assessed Comments Unknown Sex and Gender Information Value Date Recorded Sex Assigned at Not on file Legal Sex Female 1:38 PM EDT Gender Identity Not on file Sexual [...]
--- OUTSIDE RECORDS SUMMARY | 2024-10-30 08:12 | XMS_ITS ---
Author Organization [facility] Address Unknown Allergies, Adverse Reactions, Alerts Substance Reaction Status Noted Date Resolved Date Tramadol active 06/09/2024 Pioglitazone active 06/09/2024 oxyCODONE active 06/09/2024 Lisinopril active 06/09/2024 iodinated contrast media active 06/09/2024 Donepezil active 06/09/2024 Codeine active 06/09/2024 Clindamycin active 06/09/2024 Aspirin active 06/09/2024 Amoxicillin active 06/09/2024 Amitriptyline active 06/09/2024 Acetaminophen active 06/09/2024 Medications Medication Dose Frequency Directions Start Date End Marvel e Fleet Enema Enema 7-19 GM/118ML 1 {Dose} Insert 1 dose rectally as needed for Constipation (Step 3) as needed if no bowel movement for 8 hours after bisacodyl suppository. 06/09/2024 Milk of Magnesia Suspension 400 MG/5ML 30 mL Give 30 ml by mout h as needed for Constipation (Step 1) As needed if no bowel movement for three days. (Do not use for Hemodialysis patients). 06/09/2024 Jardiance Oral Tablet 10 MG 1 {tbl} 24 h Give 1 tablet by mouth one time a day for DM 06/10/2024 Escitalopram Oxalate Oral Tablet 10 MG 1 {tbl} 24 h Give 1 tablet by mouth one time a day for DEPRESSION 06/10/2024 Docusate Sodium Oral Capsule 100 MG 1 {Capsule} Give 1 capsule by mouth every morning and at bedtime for CONSTIPATION 06/10/2024 Cyclobenzaprine HCl Oral Tablet 5 MG 1 {tbl} Give 1 tablet by mouth at bedtime for MUSCLE SPASMS 06/10/2024 Rosuvastatin Calcium Oral Tablet 20 MG 1 {tbl} Give 1 tablet by mouth at bedtime for HLD 06/10/2024 Memantine HCl Oral Tablet 10 MG 1 {tbl} Give 1 tablet by mouth every morning and at bedtime for DEMENTIA 06/10/2024 Bisacodyl Suppository 10 MG 1 Insert 1 suppository rectally as needed for If no bowel movement for 8 hours after Milk of Magnesia 06/09/2024 Mounjaro Subcutaneous Solution Pen-injector 2.5 MG/0.5ML 2.5 mg Inject 2.5 mg subcutaneously in the evening every Sat for DM 06/13/2024 Vitamin D3 Oral Tablet 1000 24 h Give 1000 unit by mouth one time a day for vitamin D deficiency 06/13/2024 Ibuprofen Oral Tablet 400 MG 400 mg Give 400 mg by mouth every 8 hours as needed for pain or discomfort or fever 06/15/2024 Medications Administered Medication Dose Frequency Status Start Date End Date Fleet Enema Enema 7-19 GM/118ML 1 {Dose} 06/09/2024 Milk of Magnesia Suspension 400 MG/5ML 30 mL 06/09/2024 Jardiance Oral Tablet 10 MG 1 {tbl} 24 h Escitalopram Oxalate Oral Ta blet 10 MG 1 {tbl} 24 h 06/23/2024 Docusate Sodium Oral Capsule 100 MG 1 {Capsule} 06/23/2024 Cyclobenzaprine HCl Oral Tablet 5 MG 1 {tbl} 06/23/2024 Rosuvastatin Calcium Oral Ta blet 20 MG 1 {tbl} 06/23/2024 Memantine HCl Oral Tablet 10 MG 1 {tbl} 06/23/2024 Bisacodyl Suppository 10 MG 1 Mounjaro Subcutaneous Soluti on Pen-injector 2.5 MG/0.5ML 2.5 mg 06/20/2024 Vitamin D3 Oral Tablet 1000 24 h 024 Ibuprofen Oral Tablet 400 MG 400 mg 1 Problems Problem Status Start Date End Date CORONAVIRUS INFECTION, UNSPE CIFIED (Primary) (B34.2 - ICD-10-CM) ACTIVE 06/09/2024 OTHER ABNORMALITIES OF GAIT AND MOBILITY (R26.89 - ICD-10-CM) ACTIVE 06/12/2024 MUSCLE WEAKNESS (GENERALIZED) (M62.81 - ICD-10-CM) ACT GRACE 06/09/2024 WEAKNESS (R53.1 - ICD-10-CM) ACTIVE 06/09/2024 TYPE 2 DIABETES MELLITUS WIT HOUT COMPLICATIONS (E11.9 - ICD-10-CM) ACTIVE 06/09/2024 ESSENTIAL (PRIMARY) HYPERTENSION (I10 - ICD-10-CM) ACT GRACE 06/09/2024 UNSPECIFIED DEMENTIA, UNSPEC IFIED SEVERITY, WITHOUT BEHAVIORAL DISTURBANCE, PSYCHOTIC DISTURBANCE, MOOD DISTURBANCE, AND ANXIETY (F03.90 - ICD-10-CM) ACTIVE 06/09/2024 UNSPECIFIED OSTEOARTHRITIS, UNSPECIFIED SITE (M19.90 - ICD-10-CM) ACTIVE 06/09/2024 SENSORINEURAL HEARING LOSS, BILATERAL (H90.3 - ICD-10- CM) ACTIVE 06/09/2024 VITAMIN D DEFICIENCY, UNSPECIFIED (E55.9 - ICD-10-CM) ACTIVE 06/09/2024 OTHER IDIOPATHIC SCOLIOSIS, SITE UNSPECIFIED (M41.20 - ICD-10-CM) ACTIVE 06/09/2024 Results * ULTRA THYROID/SOFT TIS HEAD/NK Performed by: [employer] Component Value Range Date ULTRA THYROID/SOFT TIS HEAD/NK ULTRA THYROID/SOFT TIS HEAD/NKFINDINGS: Real time examination shows isoechoic mass at left submandibular gland 2.3 X 2.2 cmCONCLUSION: Left submandibular massELECTRONICALLY SIGNED BY CRYS RHOADES M.D. 06/22/2024 4:10:13 PM EDT.Reason for Study: M54.2 CERVICALGIAPrincipal Result Winchman/Crane Operator: BAN RHOADES ([id number])Skin Carver: BAO TRIMBLE ([facility])Color Technician Skin Carver: VIVIANA 06/22/2024 04:10 pm EDT Encounters Encounter Performer Performer Role Encounter Diagnoses Location Date Discharge - Discharged to home or self care - HOME - Home [facility] 4 02:45 pm EDT - 4 11:28 am EDT Social History
--- OUTSIDE RECORDS SUMMARY | 2024-10-30 08:12 | XMS_ITS | Clinical Summary ---
Author Organization [employer] Address [address] [place] [address] Care Team Providers Care Public Speaking Professor Name Role Phone Unavailable Primary Care Provider [...] 1957 DTaP/Tdap/Td Vaccines (1 - Tdap) 1964 Pneumococcal Vaccine: 50+ Ye ars (1 of 1 - PCV) 12/13/1995 Zoster Vaccines (1 of 2) 12/13/1995 RSV Patients and Pa tients Aged 60 [...]
--- OUTSIDE RECORDS SUMMARY | 2024-10-30 08:12 | XMS_ITS | Encounter Summary ---
Author Organization [employer] [facility] Address [address] [place] [address] Care Team Providers Care Feller Machine Operator Name Role Phone Unavailable Primary Care Provider Unavailabl e Encounter Details Date Type Department Care Team (Latest Contact Info) Description 01/27/2019 Abstract [facility] CONVERSIONS Dental, Provider, DDS Social History [...]
== END 2024-10-30 09:57 | disposition home or self-care (01) ==
LOC: HO.HMCC 08:09
PROVIDERS: PCP Internal Medicine; Visit Provider Internal Medicine
DX: M81.0 Age-related osteoporosis without current pathological fracture (principal)

== ENCOUNTER → 2024-10-30 08:09 | Outpatient (BNVA) | payer OTHER, SELFPAY | PROVIDERS: PCP Internal Medicine; Visit Provider Internal Medicine | DX: M81.0 Age-related osteoporosis without current pathological fracture (principal) | CPT/HCPCS: 96127 ==

== ENCOUNTER 2024-11-25 14:03 | Outpatient (AMB) | payer OTHER, SELFPAY ==
[2024-11-25 14:12] VITALS: BP 102/58; PULSE 69; O2SAT 98; BMI 24.5
--- NOTE | 2024-11-25 14:12 | A.OFFVIS_ITS ---
Vital Signs 11/25/24 14:12 Height 5 ft Weight 125 lb 10.616 oz BMI 24.5 BP 102/58 L Blood Pressure Location Rt brachial Position Sitting Pulse 69 Pulse Source Pulse Oximeter Pulse Oximetry (%) 98 Oxygen Delivery Method Room Air Intake Visit Reasons: Age-related osteoporosis without current patholog Intake Note: New patient internally referred by PCP for Age-related Osteoporosis. Accompanied by: Daughter Allergies clindamycin Allergy (Mild, Verified 11/25/24 14:15) Hives Iodinated Contrast Media [IV Dye, Iodine Containing] Allergy (Mild, Verified 11/25/24 14:15) HIVES donepezil Adverse Reaction (Intermediate, Verified 11/25/24 14:15) nausea, dizziness and vomiting pioglitazone Adverse Reaction (Intermediate, Verified 11/25/24 14:15) edema amitriptyline [From Elavil] Adverse Reaction (Mild, Verified 11/25/24 14:15) NAUSEA & VOMITING amoxicillin [Amoxicillin] Adverse Reaction (Mild, Verified 11/25/24 14:15) NAUSEA & VOMITING codeine [From Tylenol-Codeine] Adverse Reaction (Mild, Verified 11/25/24 14:15) NAUSEA & VOMITING lisinopril [Lisinopril] Adverse Reaction (Mild, Verified 11/25/24 14:15) NAUSEA & VOMITING acetaminophen [Tylenol] Adverse Reaction (Unknown, Verified 11/25/24 14:15) tylenol 3 (states regulare tylenol upset stomach as well) aspirin [Aspirin] Adverse Reaction (Unknown, Verified 11/25/24 14:15) NAUSEA & VOMITING oxycodone [Percocet] Adverse Reaction (Unknown, Verified 11/25/24 14:15) stomach upset tramadol [From Ultram] Adverse Reaction (Unknown, Verified 11/25/24 14:15) NAUSEA & VOMITING Medication List - Last Reconciled 11/25/24 by Bon Cintron MD blood sugar diagnostic (Fabric7 SystemsTouch Ultra Test strips) Check fasting blood sugar twice a day blood-glucose meter ([employer]7 SystemsTouch Ultra2 Meter) As directed cane use as directed cholecalciferol (vitamin D3) 50 mcg PO DAILY docusate sodium 100 mg PO BID empagliflozin (Jardiance) 10 mg PO DAILY escitalopram oxalate 10 mg PO DAILY FreeStyle Lancets (lancets) Check fasting blood sugar once a day before meal NS lancets test blood sugar twice a day memantine 10 mg PO BID rosuvastatin 20 mg PO BEDTIME tirzepatide (Mounjaro) 2.5 mg (0.5 mL) subcut TU [tub safety bar As directed] zolpidem 5 mg PO BEDTIME PRN HPI Comments Details: 78 YO Female with PMHx diabetes previously seen by endocrinology for diabetes is seen in consultation at the request of PCP for Osteoporosis. . Diagnosed a fter menopause, a bone density test revealed a spine T-score of -3.6. She denies any fractures. Current management includes calcium-rich diet and 2000 IU of Vitamin D3. She deals with balance issues due to scoliosis and vertigo, limiting her exercise to assisted walking. No family history of osteoporosis or significant comorbidities reported.- Limited to assisted walking due to vertigo and balance issues. Weight-bearing exercises are currently not feasible. First diagnosed in recently . Not Received treatment in the past No history of pathologic fracture or ONJ. Has several servings of dietary calcium per day in the form of chesse, milk, broccoli . Not Takes Calcium supplement Takes 2000 IU of Vitamin D daily. Denies ever using PPI, anticoagulant, antiepileptic or glucocorticoid medication. 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 Menopause age 50 - nl menses Denies history of Kidney stones: Denies family history of Osteoporosis or hip fracture. UTD on dental cleanings and sees dentist every 6 months. No planned upcoming dental work or extractions. No tabacco use or EToH use DXA dated 10/15/24 :COMPARISON: There are no prior studies for comparison. FINDINGS: The bone mineral density of the lumbar spine is 0.762 with a T-score of -3.6, and a Z-score of -1.6. The bone mineral density of the left total hip is 0.820 with a T-score of -1.5, and a Z-score of 0.6. The bone mineral density of the left femoral neck is 0.811 with a T-score of -1.6, and a Z-score of 0.6. MM/XR DEXA axial skeleton IMPRESSION: Based on bone mineral density, and according to World Health Organization (WHO) criteria, the diagnosis is consistent with osteoporosis. Labs: [facility] Medical History Osteoporosis of lumbar spine Headache Cervicalgia Cervicalgia Acute parotitis Dizziness of unknown cause Diabetes mellitus with hyperglycemia Vitamin D deficiency Mixed dyslipidemia Lumbago Idiopathic scoliosis Pulmonary nodules Submandibular sialoadenitis Vitamin D deficiency Hemorrhoid Sensorineural hearing loss Balance disorder Lumbar scoliosis Type 2 diabetes mellitus with hyperglycemia, without long-term current use of insulin Anxiety Osteoarthritis Hypertension Surgical History History of bladder suspension procedure Hx of cholecystectomy Family History Father Pulmonary disease Mother Liver cirrhosis Diabetes Other Mental health disorder Social History Household Members: Unknown / Unable to assess Housing: Unknown / Unable to assess Housing Other:: apartment for intermediate Do you presently have visiting nurse or other home services: Yes Unable to assess alcohol history related to: Unknown Alcohol intake: never Patient Tobacco Use Status: Never used Tobacco e-Cigarette/Vaping Use: Never Used Second Hand Smoke Exposure: No Advance Directives Date on File: 11/13/21 service: No Current occupational status: retired Cognitive needs: No Hearing needs: No Vision needs: No Physical Exam Vital Signs: Last Vital Signs Pulse 69 11/25/24 14:12 BP 102/58 L 11/25/24 14:12 Pulse Ox 98 11/25/24 14:12 Oxygen Delivery Method Room Air 11/25/24 14:12 BMI result Body Mass Index 24.5 There are no Cushingoid features. Absence of blue sclera. Absence of kyphosis. Thyroid gland is of nl size and weighs 15 gms. There are no thyroid nodules palpated. Lungs CTA. Heart S1 S2 Reg R/R Abdominal exam benign. Muscle strength 5/5 . Examination of spine reveals absence of tenderness on palpation Assessment & Plan Assessment & Plan (1) Osteoporosis of lumbar spine: Code(s): M81.0 - Age-related osteoporosis without current pathological fracture Category: Medical Plan: 1. Osteoporosis: Currently focusing on osteoporosis management with a planned workup for secondary causes including checking SPEP, urine immunofixation, 24 hour urine for calcium and creatinine, phosphorus level, free T4, TSH, repeat 25 hydroxy vitamin-D. Emphasis has been placed on dietary intake of calcium and continued vitamin D supplementation. Potential pharmacological options like Evenity were reviewed. The patient's fall prevention measures and home safety are crucial, given her balance issues. The diagnostic results will dictate the final treatment approach, although considering very low bone density and high risk for fracture optimal therapy would include initiation of anabolic agent initially preferably Evenity proceeded by anti resorptive agent During our discussion, I reviewed the patient's diagnosis of osteoporosis and explained the risks associated with her low bone density. I discussed various treatment options, including injectable therapies like Evenity, and highlighted the importance of increasing bone density to prevent future fractures. I also addressed her concerns regarding potential side effects, particularly consider ing her vertigo. I emphasized the need for blood and urine tests to rule out other contributory factors before initiating advanced osteoporosis treatment. The patient was advised to ensure fall precautions at home, supported by lifestyle modifications. Further treatment plans would follow pending the outcome of diagnostics. During our discussion, I reviewed the patient's diagnosis of osteoporosis and explained the risks associated with her low bone density. I discussed various treatment options, including injectable therapies like Evenity, and highlighted the importance of increasing bone density to prevent future fractures. I also addressed her concerns regarding potential side effects, particularly considering her vertigo. I emphasized the need for blood and urine tests to rule out other contributory factors before initiating advanced osteoporosis treatment. The patient was advised to ensure fall precautions at home, supported by lifestyle modifications. Further treatment plans would follow pending the outcome of diagnostics. The patient had an opportunity to ask questions regarding treatment plan. Patient was informed and verbally consented to the use of an ambient scribe for clinic note documentation during this visit. Orders: Orders Protein Electrophoresis, Serum Today M81.0 - Age-related osteoporosis without current pathological fracture Immunofixation, Random Urine Today M81.0 - Age-related osteoporosis without current pathological fracture Calcium, 24 Hr Ur Today M81.0 - Age-related osteoporosis without current pathological fracture Free T4 (Free Thyroxine) Today M81.0 - Age-related osteoporosis without current pathological fracture Phosphorus Today M81.0 - Age-related osteoporosis without current pathological fracture Vitamin D 25-OH Total Today M81.0 - Age-related osteoporosis without current pathological fracture Creatinine, 24 Hr Group Today M81.0 - Age-related osteoporosis without current pathological fracture Thyroid Stimulating Hormone Today M81.0 - Age-related osteoporosis without current pathological fracture Coding Level of Care Code New Pt Level 4 (67310) Diagnoses Osteoporosis of lumbar spine M81.0
--- OUTSIDE RECORDS SUMMARY | 2024-11-25 16:39 | XMS_ITS | Clinical Summary ---
Author Organization [facility] it Address [address] [place] [address] Care Team Providers Care Lozenge Dough Mixer Name Role Phone Unavailable Primary Care Provider [...] DTaP,Tdap,and Td Vaccines (1 - Tdap) 1964 Pneumococcal Vaccine: 50+ Ye ars (1 of 1 - PCV) 12/13/1995 Zoster Vaccines (1 of 2) 12/13/1995 RSV Immunization Patients 60 + Years Old [...] patient's age to complete this topic Meningococcal B Vacine Aged Out No lo nger eligible based on patient's age to complete this topic RSV Immunization Patients Un jenn 20 months Aged Out No longer eligible b ased on patient's age to complete this topic Varicella Vaccines Aged Out No longer eligible based on patient's age to complete this topic
--- OUTSIDE RECORDS SUMMARY | 2024-11-25 16:39 | XMS_ITS ---
Author Organization [facility] Care Team Providers Care Foreign Agent Name Role Phone Dominick Hermosillo Unavailable Unavailable Karen Moura Unavailable Unavailable Sheryl Sotomayor Unavailable Unavailable Allergies and adverse reactions Code CodeSystem Substance Reaction Severity StartDate Concern Status 19362 RXNORM traMADol Unknown 01/03/2022 active 51787 RXNORM Pioglitazone Unknown 01/03/2022 active Pineapple Unknown 01/03/2022 active 7804 RXNORM oxyCODONE Unknown 01/03/2022 active 54429 RXNORM Lisinopril Unknown 01/03/2022 active iodinated contrast dye Unknown 2 active 447717 RXNORM Donepezil Unknown 01/03/2022 active 2670 RXNORM Codeine Unknown 01/03/2022 active 1191 RXNORM Aspirin Unknown 01/03/2022 active 723 RXNORM Amoxicillin Unknown 01/03/2022 active 704 RXNORM Amitriptyline Unknown 01/03/2022 active 161 RXNORM Acetaminophen Unknown 01/03/2022 active Care Team Name Role Address Phone Organization Inocencio Hermosillo PCP [address], [place], [address], [place] (Office): : [facility] 01/03/2022 - 01/13/2022 Karen Moura Attending Physician [address], [place], [address], [place] (Office): : [facility] 01/03/2022 - 01/13/2022 Sheryl Sotomayor Attending Physician [address], [place], [address], [place] (Office): [facility] 01/03/2022 - 01/13/2022 Immunizations Immunization Status Vaccine Details Vaccine Code CodeSystem Marvel e Notes SARS-COV-2 (COVID-19) completed SARS-COV-2 (COVID-19) vaccine, vector non-replicating, recombinant spike protein-Ad26, preservative free, 0.5 mL Step 1 of Multi-step 212 CVX created date: 01/03/2022 administered date: 12/07/2020 Pfizer Covid-19 Booster (SARS-COV-2) vaccine completed SARS-COV-2 (COVID-19) vaccine, mRNA, spike protein, LNP, preservative free, 30 mcg/0.3mL dose 208 CVX created date: 01/03/2022 administered date: 07/26/2021 Mental Status Section Date Assessment Total Score Description 01/13/2022 BIMS 15 cognitively int act CAM 0 No delirium ind icated PHQ-9 04 minimal depress ion 01/09/2022 BIMS 15 cognitively int act CAM 0 No delirium ind icated PHQ-9 04 minimal depress ion Problems Problem # Description Date of onset Resolved Date Code CodeSystem Concern Status 1 ANXIETY DISORDER, UNSPECIFIED 01/03/[address] active 2 ESSENTIAL (PRIMARY) HYPERTENSION 01/03/[address] active 3 HYPERLIPIDEMIA, UNSPECIFIED 01/03/[address] active 4 LOW BACK PAIN, UNSPECIFIED 01/03/[address] active 5 OSTEOPHYTE, LEFT HIP 01/03/[address] active 6 OTHER FORMS OF SCOLIOSIS, LUMBAR REGION 01/03/[address] active 7 PAIN IN LEFT HIP 01/03/[address] a ctive 8 TYPE 2 DIABETES MELLITUS WITHOUT COMPLICATIONS 01/03/[address] active 9 VITAMIN D DEFICIENCY, UNSPECIFIED 01/03/[address] active Reason for Referral No Reasons for Referral Entered Social History Social History Observation Description Start Date End Date Code Code System Current Smoking Status Tobacco smoking consumption unknown 214849412 SNOMED CT Sex Assigned At Female 1945 17636-9 [facility] Vital Signs Code Code System Vitals Name Values and Units Timing Information 2339-0 [facility] Blood Sugar Srfzt=512.0 Units=mg/dL 01/14/2022 92593-1 [facility] Pain Level Value=0.0 01/14/2022 8462-4 [facility] Blood Pressure-Diastolic Value=70 Un its=mmHg 01/13/2022 8480-6 [facility] Blood Pressure-Systolic Vatzk=422 Un its=mmHg 01/13/2022 8867-4 [facility] Heart rate Value=72.0 Units=/min 9279-1 [facility] Respiratory Rate Value=18.0 Units=/m in 01/13/2022 8310-5 [facility] Body Temperature Value=97.3 Units=?? F 01/13/2022 25247-6 [facility] O2 % BldC Oximetry Value=95.0 Units= % 01/13/2022 89530-3 [facility] Weight Qxtyx=972.4 Units=Lbs 8302-2 [facility] Height Value=60.0 Units=Inches 01/04/2022
--- OUTSIDE RECORDS SUMMARY | 2024-11-25 16:39 | XMS_ITS | Data Portability ---
Author Organization [employer] [place] [facility] [employer] Address [address] [place] [address] Care Team Providers Care Burlap Man Name Role Phone JOSE PEREA Primary Care Provider [phone] HIM FLACO OTHER Assessment Encounter Date Assessment [...] PCP. The patient agreed with this plan. [email or web address] Not available 01/26/2022 08:51:58 12/02/2023 12/02/2023 I have reviewed and agree with the assessment and plan as documented by the shell maker lockstitch. I provided real time medical direction for this encounter and was immediately available to provide additional phone based assistance as needed. History as noted by shell maker lockstitch. Pt with history of DM. She is [...] assessment and plan as documented by the shell maker lockstitch. I provided real time medical direction for this encounter and was immediately available to provide additional phone based assistance as needed. History as noted by shell maker lockstitch. Pt with history of DM2, HLD, cognitive deficit. 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 No [...] Ag, QL IA, respiratory specimen 2023 024 [facility], [address] [place] [address], [phone], 4 12:24:05 rapid flu (A+B) 2023 024 [facility], [address] [place] [address], [phone], 4 12:24:05 rapid strep group A, throat 2023 024 [email or web address], [address] [place] [address], [phone], 4 12:24:03 rapid flu (A+B) 2023 024 [facility], [address] [place] [address], [phone], 4 08:14:03 rapid SARS CoV 2 Ag, QL IA, respiratory specimen 2023 024 [facility], [address] [place] [address], [phone], 4 08:13:40 Referral None recorded. Procedures None recorded. Surgeries None recorded. Imaging None recorded. Medication Orders Paxlovid 300 mg (150 mg x 2)-100 mg tablets in a dose pack 2023 024 [id number], [facility] [place], [id number], 4 12:33:02 ondansetron 4 mg disintegrat ing tablet [email or web address] [facility][id number], [address] [place], [place], [phone], 17:22:16 Patient TargetsNo targets recorded. Patient InstructionsNo instructions recorded. Reason for Referral None Reported. Results Created Date Observation Date Name Description Value Unit Range Abnormal Flag Note LastModifiedBy Organization Detail LastModifiedTime 06/03/2006/03/2024 rapid strep group A, throa t Strep negati ve Not Available [facility] ed [address] [place] [address], [phone], 06/03/2024 12:23:25 06/03/20 24 06/03/2024 rapid flu (A+B) Flu negati ve Not Available [facility] ed [address] [place] [address], [phone], 06/03/2024 12:23:18 06/03/20 24 06/03/2024 rapid SARS CoV 2 Ag, QL IA, respi rator y speci men rapid SARS CoV 2 Ag, QL IA, respiratory specimen positi ve Not Available Main - [facility] ed [address] [place], [phone], 06/03/2024 12:23:10 Result Notes None recorded. Medical [...] 4 97 % 97 % 98.7 [degF] 83133.8 g 76 /min 154.94 cm 16 /min 118 mm[Hg] 79 mm[Hg] Not Available [facility] - production 4 14:45:00 Date Recorded Body temperature Respiratory rate Body height Heart rate Oxygen saturation Oxygen saturation in Arterial blood by Pulse oximetry Body weight Systolic blood pressure Diastolic blood pressure Provider Name and Address Organization Details Last Updated DateTime 4 97.2 [degF] 16 /min 165.1 cm 57 /min 97 % 97 % 02473.3 68 g 139 mm[Hg] 81 mm[Hg] Not Available [facility] - [employer] 4 17:18:14 Date Recorded Oxygen saturation Oxygen saturation in Arterial blood by Pulse oximetry Respiratory rate Body temperature Heart rate Systolic blood pressure Diastolic blood pressure Provider Name and Address Organization Details Last Updated DateTime 4 98 % 98 % 16 /min 98.2 [degF] 84 /min 118 mm[Hg] 74 mm[Hg] Not Available [facility] 4 12:21:05 Date Recorded Heart rate Oxygen saturation Oxygen saturation in Arterial blood by Pulse oximetry Respiratory rate Body temperature Systolic blood pressure Diastolic blood pressure Provider Name and Address Organization Details Last Updated DateTime 2 60 /min 99 % 99 % 20 /min 99.5 [degF] 103 mm[Hg] 55 mm[Hg] Not Available [facility] [employer] 2 08:44:22 Social History None recorded. Functional Status None recorded. Mental Status None recorded. Family History Nothing Reported. Medical History No medical history recorded. Gynecological HistoryNo gynecological history recorded. Obstetrics History GPAL:G 0 P 0 0 0 0 Past Encounters Encounter ID Performer Location Encounter Start Date Encounter Closed Date Diagnosis/Indication Diagnosis SNOMED-CT Code Diagnosis ICD10 Code Diagnosis Note [id number] Isaac Roawn MD [facility] - [facility] [address] [place] [phone] 01/26/2022 08:44:15 06/13/2022 13:13:48 Benign paroxysmal positional vertigo 232641120 H81.13 [id number] Marshall Crowe MD Main - [facility] [address] [place] [id number] 12/02/2023 14:44:51 12/02/2023 22:17:34 Pain of left calf [id number] 738738 M79.662 [id number] Janusz Davis MD Main - [facility] [address] [place] [phone] 04/16/2024 17:18:10 04/19/2024 21:44:43 Mild dehydration 3509747152 108 E86.0 Normal BP. Tolerating oral fluids; does not need IV fluids at this time. Discussed red flag signs for which to seek higher level of care including worsening dizziness or confusion Nausea and vomiting 1692 1999 R11.2 Improving. Will give oral Zofran. Discussed red flag signs for which to seek higher level of care including worsening dizziness or confusion [id number] Marshall Crowe MD Main - [facility] [address] [place] [phone] 06/03/2024 12:21:01 06/03/2024 17:49:34 COVID-19 [id number] U07.1 Health Concerns Section Related Observation LastModified by Organization Detai ls LastModified Time None Recorded Concern Status LastModified by Organization Details LastModified Time None Recorded Advance Directives Directive None Recorded Payers Encounter Date Sequence Insurance Name Policy Number Policy Cespedes Covered Member ID Cespedes Member ID Guarantor Name 01/23/2022 1 [facility] - DOS PRIOR TO 2022 - DUAL ELIGIBLE (MEDICARE REPLACEMENT/ADV ANTAGE - HMO) Delma Hanson [id number] Delma Hanson 12/02/2023 1 [facility] - DOS ON OR AFTER 2022 - DUAL ELIGIBLE - [employer]ISON [employer] AND ONE CARE (MEDICARE REPLACEMENT/ADV ANTAGE - HMO) Delma Hanson [id number] Delma Hanson 04/16/2024 1 [facility] [employer] - DOS ON OR AFTER 2022 - DUAL ELIGIBLE - [employer]ISON [employer] AND ONE CARE (MEDICARE REPLACEMENT/ADV ANTAGE - HMO) Delma Hanson [id number] Delma Hanson 06/03/2024 1 [facility] - DOS ON OR AFTER 2022 - DUAL ELIGIBLE - [employer]ISON [employer] AND ONE CARE (MEDICARE REPLACEMENT/ADV ANTAGE - HMO) Delma Hanson [id number] Delma Hanson Notes Date Note Type Note Provider Name and Address Organization Details Recorded Time 01/23/2022 text/html [facility] Nursing Assessment: Patient Reports: Dizziness with positional change Chief Complaints: Nausea/Vomiting, Syncope/Dizziness/Li ghtheadedness Allergies: Other Comments: Daughter of member calling for [facility] complaints of feeling dizzy since last night deny C/P SOB hx vertigo that had responded to meclizine in the past- slight nausea .................... .................... .................... .................... .................... .................... .................... . Pipe Machine Operator Note: chief complaint dizziness. Constitutional: Afebrile without fatigue/malaise/ lethargy. Denies Chills HEENT: Denies visual changes Resp: non productive cough, Wheeze, Hemoptysis, SOB or GURERERO Cardio: substernal chest pain non raidating describes [...] . Disposition: Fulfilled Isaac Rowan MD [address] [facility],[address], [place], [address], [facility] 10/19/2022 19:03:28 12/02/2023 text/html This was a supervised home visit with shell maker lockstitch Samir Bah. 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 reporting worsening left leg pain and having [...] .................... .................... .................... .................... .................... .................... . Pipe Machine Operator Note From Samir Bah: Pt reports worsening [...] .................... . Disposition: Fulfilled Marshall Crowe MD [address] [place] [address],[address], [place], [address], [facility] 12/02/2023 15:06:27 04/16/2024 text/html [facility] Nurse Triage Notes (Karen Rosario): Reason For Request: Pt can barely stand, very dizzy Chief Complaints: Weakness/Lethargy PMH: Diabetes Allergies: Unknown Comments: Demand Planner verified the member's name//address and phone number. [...] s/s and seek emergency treatment if needed Pipe Machine Operator Organization Information for Carlos Travis Simpson [employer] Business Legal Name: [employer]? Address: [address] [place] [id number], Optometry Professor: See Reynolds MD [place] No.: [id number] Pipe Machine Operator POC Test Results from Travis Gonzalez [facility] Rapid influenza antigen (18:13:04) Flu: - Rapid COVID antigen (18:13:12) COVID: - .................... .................... .................... .................... .................... .................... .................... . Pipe Machine Operator Note From Travis Gonzalez[facility] Pt present in home with daughter. Pt Cameroonian speaking only and daughter translated. Daughter states [...] without issues since initial vomiting. Consulted with [facility]. Davis who ordered 1 dose of sublingual zofran given on scene. Reviewed red flags for ED. Patient education provided. [facility] Medication Orders: ondansetron 4 mg disintegrating tablet: Administered .................... .................... .................... .................... .................... .................... .................... . Disposition: Fulfilled Janusz Davis MD [address] [facility],[address], [place], [address], [employer] 04/16/2024 20:42:17 06/03/2024 text/html This was a supervised home visit with shell maker lockstitch Tremaine Briggs. [facility] Nurse Triage Notes (Kelly Brumfield): Reason For Request: Patient has sore throat, head ache, and can't sleep. 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 Symptoms started yesterday getting worse today. Patient has a non-productive cough. No fever. No known sick contacts. Taking tylenol as needed for symptoms. Pipe Machine Operator Organization Information for Tremaine Briggs Tatiana Ramirez Legal Name: [email or web address] Address: [address] [place] [address], Optometry Professor: See Reynolds MD [place] No.: [id number] Pipe Machine Operator POC Test Results from BrigitteTremaine Tatiana [facility] Rapid strep test (11:43:02) Strep: - Rapid influenza antigen (11:43:13) Flu: - Rapid COVID antigen (11:43:15) COVID: + .................... .................... .................... .................... .................... .................... .................... . Pipe Machine Operator Note From Tremaine Briggs: Dispatched to the [...] . Disposition: Fulfilled Marshall Crowe MD [address] [facility],[address], [place], [address], [employer] - [employer] 06/03/2024 13:35:20 OBGyn Episode No OBEpisode recorded.
--- OUTSIDE RECORDS SUMMARY | 2024-11-25 16:39 | XMS_ITS | Encounter Summary ---
Author Organization [facility] Address [address] [facility] [address] [place] [address] Care Team Providers Care Dog Breeder Name Role Phone Unavailable Primary Care Provider Unavailabl e Encounter Details Date Type Department Care Team (Latest Contact Info) Description 01/27/2019 Abstract [facility] CONVERSIONS Dental, Provider, DDS Social History Tobacco [...]
--- OUTSIDE RECORDS SUMMARY | 2024-11-25 16:39 | XMS_ITS | Clinical Summary ---
Author Organization [employer] Address [address] [facility] [address] [place] [address] Care Team Providers Care State Farm Agent Name Role Phone Unavailable Primary Care Provider [...]
== END 2024-11-25 14:59 | disposition home or self-care (01) ==
LOC: HO.ENCR 14:04
PROVIDERS: PCP Internal Medicine; Visit Provider Internal Medicine Endocrinology, Diabetes & Metabolism
DX: M81.0 Age-related osteoporosis without current pathological fracture (principal)
CPT/HCPCS: 99204

== ENCOUNTER → 2024-11-25 14:03 | Outpatient (BNVA) | payer OTHER, SELFPAY | PROVIDERS: PCP Internal Medicine; Visit Provider Internal Medicine Endocrinology, Diabetes & Metabolism | DX: M81.0 Age-related osteoporosis without current pathological fracture (principal) | CPT/HCPCS: 99202 ==

== ENCOUNTER 2024-12-07 23:24 | Emergency (ER) | payer OTHER, SELFPAY ==
--- NOTE | ~2024-12-07 | CT_ITS ---
CLINICAL HISTORY: fall, head inj, R orbital swelling CT maxillofacial without contrast Comparison: None Findings: Trace right proptosis. Mild fat retrobulbar and intraorbital fat stranding consistent with mild hemorrhage or edema. Extraocular muscles symmetric and normal. No orbital fracture. No globe injury. Mild right periorbital soft tissue swelling. Paranasal sinuses and mastoid air cells clear. IMPRESSION: 1. Right periorbital soft tissue swelling, in addition to mild right intraorbital/intraconal retrobulbar edema and possible mild hemorrhage. No organized retrobulbar hematoma. No orbital fracture. This document has been electronically signed by: Hayder Montiel MD on 12/08/2024 01:12:43
--- NOTE | ~2024-12-07 | CT_ITS ---
CLINICAL HISTORY: fall, head injury CT cervical spine without contrast Comparison: None Findings: The alignment of the cervical spine is normal. There is no fracture. There is moderate C5-6 and C6-7 degenerative disc disease. There is multilevel facet and uncovertebral joint osteoarthritis with associated neuroforaminal stenoses. There is carotid artery calcification. IMPRESSION: No evidence of cervical spine injury. This document has been electronically signed by: Hermilo Hernández MD on 12/08/2024 01:47:59
--- NOTE | ~2024-12-07 | CT_ITS ---
CLINICAL HISTORY: fall, +head injury CT head without contrast Comparison: None Findings: There is no acute intracranial hemorrhage. Ventricles are within normal limits in size. No mass effect or midline shift is present. The caputo-white matter differentiation appears normal. There is mild generalized cerebral atrophy. No fractures are identified. There is a small right forehead hematoma. IMPRESSION: No acute intracranial abnormality. This document has been electronically signed by: Hermilo Hernández MD on 12/08/2024 01:51:20
[2024-12-07 23:30] VITALS: BP 156/78; PULSE 76; O2SAT 97
[2024-12-07 23:33] VITALS: BP 140/66; PULSE 70; RESP 16; TEMP 37; O2SAT 95; BMI 25.2
--- NOTE | 2024-12-08 00:27 | ED.HEATRA ---
HPI - Head Injury General Chief complaint: Fall Stated complaint: witnessed fall, + head strike, no thinners Time Seen by Provider: 12/07/24 23:53 Source: patient and EMS Mode of arrival: EMS Limitations: no limitations History of Present Illness ED Provider: maria elena blevins NP HPI Narrative: patient is a 78-year-old female who presents emergency department via EMS for evaluation, family is currently at bedside. She was at home prior to arrival, she was attempting to change into her nightgown and she lost her balance when placing her arms up over her head which she states is not atypical for her her balance is actually not the best. She subsequently fell onto her right side striking her head onto the ground. She denies loss of consciousness or use of anticoagulants. She was able to crawl to the phone to call for help. She is complaining of pain particularly to the right side of her face, and surrounding the right eye. Also admits to having a posterior headache. She denies neck pain or neck stiffness, dizziness, lightheadedness, vision changes, numbness or tingling of the extremities, bladder bowel dysfunction. Denies pain to the upper or lower extremities. Related Data Home Medications ?Medication ?Instructions ?Recorded ?Confirmed escitalopram oxalate 10 mg tablet 10 mg PO DAILY 07/03/21 10/30/24 memantine 10 mg tablet 10 mg PO BID 10/19/22 10/30/24 docusate sodium 100 mg capsule 100 mg PO BID 08/09/23 10/30/24 zolpidem 5 mg tablet 5 mg PO BEDTIME PRN Insomnia 06/06/24 10/30/24 Previous Rx's ?Medication ?Instructions ?Recorded cane #1 ea 07/25/20 tub safety bar #1 ea 07/25/20 blood-glucose meter (OneTouch #1 ea 11/12/22 Ultra2 Meter) lancets 33 gauge #100 ea 07/10/24 FreeStyle Lancets 28 gauge #100 ea 08/15/24 (lancets) cholecalciferol (vitamin D3) 50 50 mcg PO DAILY #90 caps 08/17/24 mcg (2,000 unit) capsule rosuvastatin 20 mg tablet 20 mg PO BEDTIME #90 tabs 09/28/24 tirzepatide 2.5 mg/0.5 mL 2.5 mg (0.5 mL) subcut TU #2 mL 10/01/24 subcutaneous pen injector ([place]) Jardiance 10 mg tablet 10 mg PO QAM #30 tabs 12/03/24 (empagliflozin) blood sugar diagnostic (OneTouch #100 ea 12/03/24 Ultra Test strips) Allergies Allergy/AdvReac Type Severity Reaction Status Date / Time clindamycin Allergy Mild Hives Verified 12/07/24 23:38 Iodinated Contrast Media Allergy Mild HIVES Verified 12/07/24 23:38 [IV Dye, Iodine Containing] donepezil AdvReac Intermediate nausea, Verified 12/07/24 23:38 dizziness and vomiting pioglitazone AdvReac Intermediate edema Verified 12/07/24 23:38 amitriptyline [From Elavil] AdvReac Mild NAUSEA & Verified 12/07/24 23:38 VOMITING amoxicillin [Amoxicillin] AdvReac Mild NAUSEA & Verified 12/07/24 23:38 VOMITING codeine AdvReac Mild NAUSEA & Verified 12/07/24 23:38 [From Tylenol-Codeine] VOMITING lisinopril [Lisinopril] AdvReac Mild NAUSEA & Verified 12/07/24 23:38 VOMITING acetaminophen [Tylenol] AdvReac Unknown tylenol 3 Verified 12/07/24 23:38 (states regulare tylenol upset stomach as well) aspirin [Aspirin] AdvReac Unknown NAUSEA & Verified 12/07/24 23:38 VOMITING oxycodone [Percocet] AdvReac Unknown stomach Verified 12/07/24 23:38 upset tramadol [From Ultram] AdvReac Unknown NAUSEA & Verified 12/07/24 23:38 VOMITING Review of Systems Review of Systems: Yes all other systems are reviewed and are negative PMFSH Past Medical History Attestation statement: The following information was validated with the patient. Source: old records reviewed Medical History Osteoporosis of lumbar spine Headache Cervicalgia Cervicalgia Acute parotitis Dizziness of unknown cause Diabetes mellitus with hyperglycemia Vitamin D deficiency Mixed dyslipidemia Lumbago Idiopathic scoliosis Pulmonary nodules Submandibular sialoadenitis Vitamin D deficiency Hemorrhoid Sensorineural hearing loss Balance disorder Lumbar scoliosis Type 2 diabetes mellitus with hyperglycemia, without long-term current use of insulin Anxiety Osteoarthritis Hypertension Surgical History History of bladder suspension procedure Hx of cholecystectomy Family History Family History Father Pulmonary disease Mother Liver cirrhosis Diabetes Other Mental health disorder Social History Social History Household Members: Unknown / Unable to assess Housing: Unknown / Unable to assess Housing Other:: apartment for prison Do you presently have visiting nurse or other home services: Yes Unable to assess alcohol history related to: Unknown Alcohol intake: never Patient Tobacco Use Status: Never used Tobacco e-Cigarette/Vaping Use: Never Used Second Hand Smoke Exposure: No Advance Directives: Yes Advance Directives on File: Yes Advance Directives Date on File: 11/13/21 service: No Current occupational status: retired Cognitive needs: No Hearing needs: No Vision needs: No Physical Exam Vital Signs: Vital Signs: Last Vital Signs Temp 98.4 F 12/08/24 03:01 Pulse 56 12/08/24 03:01 Resp 20 12/08/24 03:01 BP 139/57 L 12/08/24 03:01 Pulse Ox 96 12/08/24 03:01 O2 Del Method Room Air 12/08/24 03:01 BMI result Body Mass Index 25.2 Appearance: Alert.?Oriented to person, place and time. No acute distress.?Normal affect. Head: Normocephalic Eyes: Pupils equal, round and reactive to light. EOMI. Right subconjunctival hemorrhage. Right periorbital ecchymosis and swelling. ENT: No septal hematoma, nares patent bilaterally. External auditory canal normal tympanic membrane pearly caputo and intact bilaterally. Dentition normal, no fractured teeth. No lesions or lacerations of oropharynx. Uvula midline. Moist mucous membranes. Neck: Normal inspection.? Neck supple.??No palpable tenderness, step-off, deformities. CVS: Heart sounds normal. Normal heart rate and rhythm.? Pulses normal.?? Respiratory: No respiratory distress.? Lung sounds clear to auscultation bilaterally?? Abdomen: Soft and non-tender. Normoactive bowel sounds. ?? Skin: Skin warm and dry.? Normal skin color.? Extremities: No lower extremity edema.? Neuro: Moves all extremities spontaneously. Sensation intact bilaterally. CN II-XII intact. No focal neuro deficits. Course Reevaluation(s) Reevaluation #1: CT findings with concern for right intraorbital retrobulbar edema on possible hemorrhage, with increased intra-ocular pressure on this side, no orbital fracture, no hyphema. I contacted [facility] spoke with their Trauma Service Dr. Anderson, who intends to contact back after he speaks with their community marketing manager as there was concern that the patient may require transfer alternatively to [place] Time: 01:48 Reevaluation #2: I spoke again with trauma service at [facility], Dr. Anderson who was able to be in communication with their community marketing manager, Dr. Bubba Amaya who advises that given no additional traumatic findings, current intra-ocular pressure, and no loss of vision there abnormal vision findings, she should have reassessment in the next 24-48 hours. They are happy to accommodate her at their office. Patient should contact phone [phone]. Patient and family member aware of these findings, discussed strict re-evaluation precautions, should she develop worsening pain, swelling, vision changes she should seek evaluation at [facility] Emergency Department so that she can have emergent Ophtho evaluation Time: 02:21 Medical Decision Making Medical Decision Making MDM Narrative: Patient is a 78-year-old female with past medical history of type 2 diabetes, hypertension, osteoporosis, scoliosis, osteoarthritis, mixed dyslipidemia, hemorrhoids, vitamin-D deficiency, anxiety who presents emergency department for evaluation after a fall with subsequent head injury as per HPI. Denies any preceding symptoms such as dizziness lightheadedness, she lost her balance while attempting to change into her night clothing. Has notable injury as per PE portion of this note with right periorbital ecchymosis swelling, and subconjunctival hemorrhage, not able to appreciate any bony step-offs or deformities of the orbit. No pain with extraocular movements, no reported pressure behind an eye. Intra-ocular pressure of 24 on the right, 18 on the left. she is not on anticoagulants nor has any known coagulation disorders. Given mechanism of injury and age, obtaining CT head and cervical spine to evaluate for ICH, SDH, skull fracture, cervical spine fracture subluxation. Differential Diagnosis Differential Diagnoses: The differential diagnosis associated with the presentation includes (See narrative above) Admission/Observation Consideration of admission/observation: Escalation of care including admission/observation considered (See narrative above) Consult Healthcare Provider Management of the patient was discussed with: Sales Recruiter (See course narrative) Independent Interpretation I performed an independent interpretation of an: CT Scan (No ICH) Radiology Impression Discussion of test interpretation with radiology: I have reviewed the radiologist's reading. Radiologist Impression: CT maxillofacial without contrast Comparison: None Findings: Trace right proptosis. Mild fat retrobulbar and intraorbital fat stranding consistent with mild hemorrhage or edema. Extraocular muscles symmetric and normal. No orbital fracture. No globe injury. Mild right periorbital soft tissue swelling. Paranasal sinuses and mastoid air cells clear. IMPRESSION: 1. Right periorbital soft tissue swelling, in addition to mild right intraorbital/intraconal retrobulbar edema and possible mild hemorrhage. No organized retrobulbar hematoma. No orbital fracture. CT cervical spine without contrast Comparison: None Findings: The alignment of the cervical spine is normal. There is no fracture. There is moderate C5-6 and C6-7 degenerative disc disease. There is multilevel facet and uncovertebral joint osteoarthritis with associated neuroforaminal stenoses. There is carotid artery calcification. IMPRESSION: No evidence of cervical spine injury. CT head without contrast Comparison: None Findings: There is no acute intracranial hemorrhage. Ventricles are within normal limits in size. No mass effect or midline shift is present. The caputo-white matter differentiation appears normal. There is mild generalized cerebral atrophy. No fractures are identified. There is a small right forehead hematoma. IMPRESSION: No acute intracranial abnormality. Independent Historian Clinical information obtained from an independent historian. History obtained from or confirmed by: EMS External Record Review External record reviewed: Outpatient record Chronic Conditions Patient?s care impacted by: Other ( See narrative above) Critical Care Time Critical Care Time Critical Care Time: Yes Total Critical Care Time: 35 Attestation: I personally attest to this critical care time spent taking care of the patient exclusive of all other billable procedures was approximately 35 minutes including initial evaluation of patient, ordering tests, CT interpretation, , medical consultation, documentation, re-evaluation. Discharge Plan Discharge Clinical Impression: Retrobulbar hemorrhage Patient Disposition: Home, Self-Care Additional Instructions: Due to these findings, I have contacted [facility] who have spoken with their ophthalmology (research support specialist) team, and advised that you should have outpatient follow-up within 24-48 hours. It is imperative that you contact their office first thing tomorrow morning to schedule a follow-up appointment, please make them aware that our ED here spoke to [facility] and spoke with Dr. Amaya directly. Dr. Bubba Amaya - [phone] If you develop worsening pain, swelling, vision changes, pressure behind the eye, seek immediate re-evaluation at [facility] ED Prescriptions: No Action (DME) blood-glucose meter [OneTouch Ultra2 Meter] Misc See Rx Instructions .Route Qty: 1 0RF Rx Instructions: As directed (DME) lancets 33 gauge misc See Rx Instructions .Route Qty: 100 6RF Rx Instructions: test blood sugar twice a day (DME) lancets [FreeStyle Lancets] 28 gauge misc See Rx Instructions .Route Qty: 100 5RF Rx Instructions: Check fasting blood sugar once a day before meal rosuvastatin 20 mg tablet 20 mg PO BEDTIME Qty: 90 1RF Mounjaro 2.5 mg/0.5 mL pen injector 2.5 mg subcut TU Qty: 2 2RF (DME) OneTouch Ultra Test Strip See Rx Instructions .Route Qty: 100 5RF Rx Instructions: Check fasting blood sugar twice a day Jardiance 10 mg tablet 10 mg PO QAM Qty: 30 2RF docusate sodium 100 mg capsule 100 mg PO BID zolpidem 5 mg tablet 5 mg PO BEDTIME PRN (Reason: Insomnia) (DME) cane Device See Rx Instructions .ROUTE .MEDSUPPLY Qty: 1 0RF Rx Instructions: use as directed (DME) tub safety bar See Rx Instructions .Route .MEDSUPPLY Qty: 1 0RF Rx Instructions: As directed memantine 10 mg tablet 10 mg PO BID escitalopram oxalate 10 mg tablet 10 mg PO DAILY cholecalciferol (vitamin D3) 50 mcg (2,000 unit) capsule 50 mcg PO DAILY Qty: 90 2RF Print Language: Luxembourgish
--- NOTE | 2024-12-08 02:08 | MHC.EDTECH ---
ambulated pt to bathroom with assistance. Pt ambulated well.
[2024-12-08 03:01] VITALS: BP 139/57; PULSE 56; RESP 20; TEMP 36.9; O2SAT 96
[2024-12-08 03:16] VITALS: BP 139/57; PULSE 56; RESP 20; TEMP 36.9; O2SAT 96
== END 2024-12-08 03:17 | disposition home or self-care (01) ==
PROVIDERS: Emergency Provider Emergency Medicine; PCP Internal Medicine
DX: H35.61 Retinal hemorrhage, right eye (principal); S09.90XA Unspecified injury of head, initial encounter; W19.XXXA Unspecified fall, initial encounter; Y93.89 Activity, other specified; Y92.009 Unspecified place in unspecified non-institutional (private) residence as the place of occurrence of the external cause; Y99.9 Unspecified external cause status; R51.9 Headache, unspecified
CPT/HCPCS: 70450; 70486; 72125; 99284

== ENCOUNTER → 2024-12-08 00:10 | Outpatient (BNV) | payer OTHER, SELFPAY | PROVIDERS: Emergency Provider Emergency Medicine; Visit Provider Radiology Diagnostic Radiology | DX: H05.221 Edema of right orbit (principal); S09.90XA Unspecified injury of head, initial encounter; W01.198A Fall on same level from slipping, tripping and stumbling with subsequent striking against other object, initial encounter; M50.322 Other cervical disc degeneration at C5-C6 level | CPT/HCPCS: 70450; 70480; 70486; 72125 ==

== ENCOUNTER 2024-12-21 09:57 | Outpatient (REF) | payer OTHER, SELFPAY ==
[2024-12-21 10:41] LABS: Estimated Average Glucose 169 mg/dL; Hemoglobin A1C 206.9098 umol/L; Hemoglobin A1c % 7.5 % (<6.0); Total Hemoglobin (HGBA1C) 3530.0769 umol/L
--- OUTSIDE RECORDS SUMMARY | 2024-12-21 11:37 | XMS_ITS | Data Portability ---
Author Organization [facility] Address [address] [place] [address] Care Team Providers Care Pathology Laboratory Technologist Name Role Phone JOSE PERAE Primary Care Provider [phone] HIM FLACO OTHER Assessment Encounter Date Assessment [...] PCP. The patient agreed with this plan. Not available 01/26/2022 08:51:58 12/02/2023 12/02/2023 I have reviewed and agree with the assessment and plan as documented by the merchandise pickup/receiving associate. I provided real time medical direction for this encounter and was immediately available to provide additional phone based assistance as needed. History as noted by merchandise pickup/receiving associate. Pt with history of DM. She is [...] assessment and plan as documented by the merchandise pickup/receiving associate. I provided real time medical direction for this encounter and was immediately available to provide additional phone based assistance as needed. History as noted by merchandise pickup/receiving associate. Pt with history of DM2, HLD, cognitive deficit. 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 No [...] Ag, QL IA, respiratory specimen [address], [phone] 4 12:24:05 rapid flu (A+B) [address], [address] 4 12:24:05 rapid strep group A, throat 2023 024 [facility], [address] [place] [address], [phone] 4 12:24:03 rapid flu (A+B) [address], [address] 4 08:14:03 rapid SARS CoV 2 Ag, QL IA, respiratory specimen [address], [address] 4 08:13:40 Referral None recorded. Procedures None recorded. Surgeries None recorded. Imaging None recorded. Medication Orders Paxlovid 300 mg (150 mg x 2)-100 mg tablets in a dose pack 2023 024 [id number], [address], [place], [id number], 4 12:33:02 ondansetron 4 mg disintegrat ing tablet [address] [place] [address] [id number], [address], [place], [phone], 4 17:22:16 Patient TargetsNo targets recorded. Patient InstructionsNo instructions recorded. Reason for Referral None Reported. Results Created Date Observation Date Name Description Value Unit Range Abnormal Flag Note LastModifiedBy Organization Detail LastModifiedTime 06/03/2006/03/2024 rapid strep group A, throa t Strep negati ve Not Available [facility] ed [address] [place] [address], [phone] 06/03/2024 12:23:25 06/03/20 24 06/03/2024 rapid flu (A+B) Flu negati ve Not Available [facility] ed [address] [place] [address], [phone] 06/03/2024 12:23:18 06/03/20 24 06/03/2024 rapid SARS CoV 2 Ag, QL IA, respi rator y speci men rapid SARS CoV 2 Ag, QL IA, respiratory specimen positi ve Not Available [facility] ed [address] [place], [phone] 06/03/2024 12:23:10 Result Notes None recorded. Medical [...] 4 97 % 97 % 98.7 [degF] 90425.8 g 76 /min 154.94 cm 16 /min 118 mm[Hg] 79 mm[Hg] Not Available [facility] - production 4 14:45:00 Date Recorded Body temperature Respiratory rate Body height Heart rate Oxygen saturation Oxygen saturation in Arterial blood by Pulse oximetry Body weight Systolic blood pressure Diastolic blood pressure Provider Name and Address Organization Details Last Updated DateTime 4 97.2 [degF] 16 /min 165.1 cm 57 /min 97 % 97 % 72056.3 68 g 139 mm[Hg] 81 mm[Hg] Not Available [facility] - production 4 17:18:14 Date Recorded Oxygen saturation Oxygen saturation in Arterial blood by Pulse oximetry Respiratory rate Body temperature Heart rate Systolic blood pressure Diastolic blood pressure Provider Name and Address Organization Details Last Updated DateTime 4 98 % 98 % 16 /min 98.2 [degF] 84 /min 118 mm[Hg] 74 mm[Hg] Not Available [facility] [place] 4 12:21:05 Date Recorded Heart rate Oxygen saturation Oxygen saturation in Arterial blood by Pulse oximetry Respiratory rate Body temperature Systolic blood pressure Diastolic blood pressure Provider Name and Address Organization Details Last Updated DateTime 2 60 /min 99 % 99 % 20 /min 99.5 [degF] 103 mm[Hg] 55 mm[Hg] Not Available [employer] [facility] [place] 2 08:44:22 Social History None recorded. Functional [...] Note 1521 Isaac Rowan MD Main - [address] [address] 01/26/2022 08:44:15 06/13/2022 13:13:48 Benign paroxysmal positional vertigo 621610096 H81.13 86450 Marshall Crowe MD Main - [address] [address] 12/02/2023 14:44:51 12/02/2023 22:17:34 Pain of left calf [id number] 554069 M79.662 27832 Janusz Davis MD Main - [address] [address] 04/16/2024 17:18:10 04/19/2024 21:44:43 Mild dehydration [id number] 108 E86.0 Normal BP. Tolerating oral fluids; does not need IV fluids at this time. Discussed red flag signs for which to seek higher level of care including worsening dizziness or confusion Nausea and vomiting 1693 1999 R11.2 Improving. Will give oral Zofran. Discussed red flag signs for which to seek higher level of care including worsening dizziness or confusion [id number] Marshall Crowe MD Main - [address] [address] 06/03/2024 12:21:01 06/03/2024 17:49:34 COVID-19 [id number] U07.1 Health Concerns Section Related Observation LastModified by Organization Detai ls LastModified Time None Recorded Concern Status LastModified by Organization Details LastModified Time None Recorded Advance Directives Directive None Recorded Payers Encounter Date Sequence Insurance Name Policy Number Policy Cespedes Covered Member ID Cespedes Member ID Guarantor Name 01/23/2022 [address] [facility] - DOS PRIOR TO 2022 - DUAL ELIGIBLE (MEDICARE REPLACEMENT/ADV ANTAGE - HMO) Delma Hanson [id number] Delma Hanson 12/02/2023 [address] [facility] - DOS ON OR AFTER 2022 - DUAL ELIGIBLE - [employer] OPT[employer] AND ONE CARE (MEDICARE REPLACEMENT/ADV ANTAGE - HMO) Delma Hanson [id number] Delma Hanson 04/16/2024 [address] [facility] - DOS ON OR AFTER 2022 - DUAL ELIGIBLE - [employer] OPT[employer] AND ONE CARE (MEDICARE REPLACEMENT/ADV ANTAGE - HMO) Delma Hanson [id number] Delma Hanson 06/03/2024 [address] [facility] - DOS ON OR AFTER 2022 - DUAL ELIGIBLE - [employer] OPT[employer] AND ONE CARE (MEDICARE REPLACEMENT/ADV ANTAGE - HMO) Delma Hanson [id number] Delma Hanson Notes Date Note Type Note Provider Name and Address Organization Details Recorded Time 01/23/2022 text/html [facility] Assessment: Patient Reports: Dizziness with positional change Chief Complaints: Nausea/Vomiting, Syncope/Dizziness/Li ghtheadedness Allergies: Other Comments: Daughter of member calling for [facility] complaints of feeling dizzy since last night deny C/P SOB hx vertigo that had responded to meclizine in the past- slight nausea .................... .................... .................... .................... .................... .................... .................... . Commercial Analyst Note: chief complaint dizziness. Constitutional: Afebrile without [...] . Disposition: Fulfilled Isaac Rowan MD [address] [facility],[address], [place], [address], [employer] [facility] 10/19/2022 19:03:28 12/02/2023 text/html This was a supervised home visit with merchandise pickup/receiving associate Samir Bah. 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 Chief Complaints: Pain PMH: Diabetes Comments: Spoke w/ caregiver and conservation scientist. reporting worsening left leg pain and having trouble walking Unable to see PCP till December Denies injury to leg, denies N/T, no arthritis history, Denies SOB/chest pain, normally walks but now can't walk very well. Denies blood thinner use and any other PMH besides DM. Will put in an [facility] visit but any U/S diagnostics would need to done inpatient hospital setting. Hpateri ROBB .................... .................... .................... .................... .................... .................... .................... . Commercial Analyst Note From Samir Bah: Pt reports worsening [...] .................... . Disposition: Fulfilled Marshall Crowe MD [address] [place] [address],[address], [place], [address], [facility] 12/02/2023 15:06:27 04/16/2024 text/html [facility] Nurse Triage Notes (Karen Rosario): Reason For Request: Pt can barely stand, very dizzy Chief Complaints: Weakness/Lethargy PMH: Diabetes Allergies: Unknown Comments: Arc Air Operator verified the member's name//address and phone number. [...] s/s and seek emergency treatment if needed Commercial Analyst Organization Information for Travis Gonzalez Business Legal Name: [employer] Address: [address] [place] [address], [place] [address], Aeronautical Test Engineer: See GOLD No.: [id number] Commercial Analyst POC Test Results from Travis Gonzalez [facility] Rapid influenza antigen (18:13:04) Flu: - Rapid COVID antigen (18:13:12) COVID: - .................... .................... .................... .................... .................... .................... .................... . Commercial Analyst Note From Carlos Travis: [facility] Pt present in home with daughter. Pt Niuean speaking only and daughter translated. Daughter states [...] without issues since initial vomiting. Consulted with [facility] Dr. Davis who ordered 1 dose of sublingual zofran given on scene. Reviewed red flags for ED. Patient education provided. [facility] Medication Orders: ondansetron 4 mg disintegrating tablet: Administered .................... .................... .................... .................... .................... .................... .................... . Disposition: Fulfilled Janusz Davis MD [address] [facility],[address], [place], [address], SURY MARTIN LYUDMILA 04/16/2024 20:42:17 06/03/2024 text/html This was a supervised home visit with merchandise pickup/receiving associate Tremaine Briggs. [facility] Nurse Triage Notes (Kelly Brumfield): Reason For Request: Patient has sore throat, head ache, and can't sleep. Chief Complaints: Headache, Pain PMH: Diabetes Allergies: Unknown Comments: Allergies: Unknown PERIPHERAL VASCULAR TECH calling to request visit for patient with symptoms of sore throat, ear pain, and headache. Symptoms started yesterday getting worse today. Patient has a non-productive cough. No fever. No known sick contacts. Taking tylenol as needed for symptoms. Commercial Analyst Organization Information for Tremaine Briggs Legal Name: [employer].? Address: [address] [place] [address], Aeronautical Test Engineer: See Reynolds MD [facility] No.: [id number] Commercial Analyst POC Test Results from Tremaine Briggs - [facility] Rapid strep test (11:43:02) Strep: - Rapid influenza antigen (11:43:13) Flu: - Rapid COVID antigen (11:43:15) COVID: + .................... .................... .................... .................... .................... .................... .................... . Commercial Analyst Note From Tremaine Briggs: Dispatched to the [...] advised she wished to try the treatment. [facility] consulted. Medication adjustments discussed. Script called into preferred pharmacy. Red flags discussed. ALL times are approx. .................... .................... .................... .................... .................... .................... .................... . Disposition: Fulfilled Marshall Crowe MD [address] [facility],[address], [place], [address], [facility] 06/03/2024 13:35:20 OBGyn Episode No OBEpisode recorded.
--- OUTSIDE RECORDS SUMMARY | 2024-12-21 11:37 | XMS_ITS | Clinical Summary ---
Author Organization [facility] Address [address] [place] [address] Care Team Providers Care Production Estimator Name Role Phone Unavailable Primary Care Provider [...] Vaccines (1 of 2) 12/13/1995 RSV Immunization Adult Patie nts (1 - 1-dose 75+ series) 2020 Depression Screening 04/08/2024 Falls Risk Assessment 04/08/2024 Hepatitis C Screening 04/08/2024 Osteoporosis Screening (Bone Density Screening) 04/08/2024 Social Influencers of Health Screening 04/08/2024 COVID-19 Vaccine ( - 2023-2 5 season) 2024 Influenza Vaccine (Season Ended) 2025 HIB Vaccines Aged Out No longer eligi [...]
--- OUTSIDE RECORDS SUMMARY | 2024-12-21 11:37 | XMS_ITS | Clinical Summary ---
Author Organization [facility] Address [address] [facility] [address] [place] [address] Care Team Providers Care Chief Of Internal Medicine Name Role Phone Unavailable Primary Care Provider [...]
--- OUTSIDE RECORDS SUMMARY | 2024-12-21 11:37 | XMS_ITS | Encounter Summary ---
Author Organization [facility] Address [address] [facility] [address] [place] [address] Care Team Providers Care Provider Relations Rep Name Role Phone Unavailable Primary Care Provider Unavailabl e Encounter Details Date Type Department Care Team (Latest Contact Info) Description 01/27/2019 Abstract [facility] CONVERSIONS Dental, Provider, DDS Social History Tobacco [...]
[2024-12-21 11:43] LABS: Creatinine Urine 50.31 mg/dL; Microalbumin Urine < 5.0 mg/L
[2024-12-21 11:44] LABS: Alanine Aminotransferase 44 U/L (0-31); Anion Gap 10 (12-20); Aspartate Amino Transferase 49 U/L (5-31); Blood Urea Nitrogen 12 mg/dL (9-16); Calcium 9.2 mg/dL (8.4-10.2); Carbon Dioxide 27 mmol/L (22-29); Chloride 109 mmol/L (96-108); Cholesterol 136 mg/dL (<200); Estimated Glomerular Filt Rate > 60; Glucose Fasting 178 mg/dL (60-99); HDL Cholesterol 47 mg/dL (>40); LDL Cholesterol Calculated 65 mg/dL (<100); Phosphorus 3.2 mg/dL (2.7-4.5); Potassium 3.8 mmol/L (3.3-5.1); Sodium 142 mmol/L (135-145); Triglycerides 121 mg/dL (<150)
[2024-12-21 11:46] LABS: Free T4 (Free Thyroxine) 0.89 ng/dL (0.71-1.85); Thyroid Stimulating Hormone 3.49 uIU/mL (0.32-4.0); Vitamin D 25-OH Total 50.1 ng/mL (>30)
[2024-12-22 21:39] LABS: Prot Elec - Albumin 3.8 g/dL (3.8-4.8); Prot Elec - Alpha1 0.2 g/dL (0.2-0.3); Prot Elec - Alpha2 0.8 g/dL (0.5-0.9); Prot Elec - Beta 1 0.5 g/dL (0.4-0.6); Prot Elec - Beta 2 0.4 g/dL (0.2-0.5); Prot Elec - Gamma 1.3 g/dL (0.8-1.7); Prot Elec - Total Protein 6.9 g/dL (6.1-8.1)
== END 2024-12-21 09:58 | disposition home or self-care (01) ==
LOC: HO.LAB 09:57
PROVIDERS: Internal Medicine Endocrinology, Diabetes & Metabolism; PCP Internal Medicine; Visit Provider Internal Medicine
DX: M81.0 Age-related osteoporosis without current pathological fracture (principal); E78.2 Mixed hyperlipidemia; E55.9 Vitamin D deficiency, unspecified; E11.65 Type 2 diabetes mellitus with hyperglycemia; Z78.0 Asymptomatic menopausal state; F41.9 Anxiety disorder, unspecified
CPT/HCPCS: 36415; 80048; 80061; 82043; 82306; 82570; 83036; 84100; 84165; 84439; 84443; 84450; 84460; 86335

== ENCOUNTER 2025-01-13 13:18 | Outpatient (AMB) | payer OTHER, SELFPAY ==
[2025-01-13 13:26] VITALS: BP 110/70; PULSE 69; RESP 16; TEMP 36.7; O2SAT 96; BMI 23.8
--- NOTE | 2025-01-13 13:26 | MHC.PC.OV ---
Vital Signs 01/13/25 13:26 Height 5 ft 1 in Weight 126 lb BMI 23.8 BP 110/70 Blood Pressure Location Lt brachial Position Sitting Respiration 16 Pulse 69 Pulse Source Pulse Oximeter Temp 98.0 F Temp Source Oral Pulse Oximetry (%) 96 Oxygen Delivery Method Room Air Intake Visit Reasons: reschedule from 12/24 4m follow up Intake Note: Pt is here today for her 4mo. f/u: Pt states when she move bowels she see blood she wipes and feels on lump rectally Allergies clindamycin Allergy (Mild, Verified 01/14/25 00:35) Hives Iodinated Contrast Media [IV Dye, Iodine Containing] Allergy (Mild, Verified 01/14/25 00:35) HIVES donepezil Adverse Reaction (Intermediate, Verified 01/14/25 00:35) nausea, dizziness and vomiting pioglitazone Adverse Reaction (Intermediate, Verified 01/14/25 00:35) edema amitriptyline [From Elavil] Adverse Reaction (Mild, Verified 01/14/25 00:35) NAUSEA & VOMITING amoxicillin [Amoxicillin] Adverse Reaction (Mild, Verified 01/14/25 00:35) NAUSEA & VOMITING codeine [From Tylenol-Codeine] Adverse Reaction (Mild, Verified 01/14/25 00:35) NAUSEA & VOMITING lisinopril [Lisinopril] Adverse Reaction (Mild, Verified 01/14/25 00:35) NAUSEA & VOMITING acetaminophen [Tylenol] Adverse Reaction (Unknown, Verified 01/14/25 00:35) tylenol 3 (states regulare tylenol upset stomach as well) aspirin [Aspirin] Adverse Reaction (Unknown, Verified 01/14/25 00:35) NAUSEA & VOMITING oxycodone [Percocet] Adverse Reaction (Unknown, Verified 01/14/25 00:35) stomach upset tramadol [From Ultram] Adverse Reaction (Unknown, Verified 01/14/25 00:35) NAUSEA & VOMITING Medication List - Last Reconciled 01/14/25 by Danita Mccurdy MD blood sugar diagnostic (Factor.iouch Ultra Test strips) Check fasting blood sugar twice a day blood-glucose meter (DVS IntelestreamTouch Ultra2 Meter) As directed cane use as directed cholecalciferol (vitamin D3) 50 mcg PO DAILY docusate sodium 100 mg PO BID escitalopram oxalate 10 mg PO DAILY FreeStyle Lancets (lancets) Check fasting blood sugar once a day before meal NS Jardiance (empagliflozin) 10 mg PO QAM NS lancets test blood sugar twice a day memantine 10 mg PO BID Mounjaro (tirzepatide) 2.5 mg (0.5 mL) subcut TU NS rosuvastatin 20 mg PO BEDTIME [tub safety bar As directed] Tobacco use date assessed: 01/13/25 Fall risk assessment: 2 + Falls in past year Last assessed Fall Risk: 01/13/25 Dental Screening Dental Screen Date: 01/13/25 Did you have a dental visit in the last 12 months?: Yes Did you have a dental problem in the last 6 months where you did not have access to dental care?: No Was dental information given to patient?: Patient has dentist HPI reschedule from 12/24 4m follow up HPI Details 79-year-old lady here today accompanied by daughter, for follow-up on her diabetes mellitus, mixed dyslipidemia. She has been taking her medications but has been taking her Jardiance after breakfast instead of before, but has been taking her Mounjaro 2.5 mg once a week and rosuvastatin 20 mg at bedtime as directed. Latest hemoglobin A1c is higher at 7.5% but fasting lipids electrolytes, renal function and thyroid levels are within normal limits. She also reports seeing bright red blood mixed in with her stool, last several days. Denies any abdominal pain, no pain on defecation, but has been constipated on and off. [facility] Medical History (Updated 01/13/25 @ 14:00 by Danita Mccurdy MD) History of adenomatous polyp of colon Bright red blood per rectum Osteoporosis of lumbar spine Headache Cervicalgia Cervicalgia Acute parotitis Dizziness of unknown cause Diabetes mellitus with hyperglycemia Vitamin D deficiency Mixed dyslipidemia Lumbago Idiopathic scoliosis Pulmonary nodules Submandibular sialoadenitis Vitamin D deficiency Hemorrhoid Sensorineural hearing loss Balance disorder Lumbar scoliosis Type 2 diabetes mellitus with hyperglycemia, without long-term current use of insulin Anxiety Osteoarthritis Hypertension Surgical History History of bladder suspension procedure Hx of cholecystectomy Family History Father Pulmonary disease Mother Liver cirrhosis Diabetes Other Mental health disorder Social History Household Members: Unknown / Unable to assess Housing: Unknown / Unable to assess Housing Other:: apartment for fpc Do you presently have visiting nurse or other home services: Yes Unable to assess alcohol history related to: Unknown Alcohol intake: never Patient Tobacco Use Status: Never used Tobacco e-Cigarette/Vaping Use: Never Used Second Hand Smoke Exposure: No Advance Directives Date on File: 11/13/21 service: No Current occupational status: retired Cognitive needs: No Hearing needs: No Vision needs: No Questionnaire PHQ-9 Over the last 2 weeks, how often have you been bothered by any of the following problems? 1. Little interest or pleasure in doing things: not at all 2. Feeling down, depressed, or hopeless: not at all 3. Trouble falling or staying asleep, or sleeping too much: several days 4. Feeling tired or having little energy: nearly every day 5. Poor appetite or overeating: several days 6. Feeling bad about yourself - or that you are a failure or have let yourself or your family down: not at all 7. Trouble concentrating on things, such as reading the newspaper or watching television: several days 8. Moving or speaking so slowly that other people could have noticed. Or the opposite - being so fidgety or restless that you have been moving around a lot more than usual: several days 9. Thoughts that you would be better off or of hurting yourself in some way: not at all Total score: 7 Source: Developed by Drs. Bon David, Debby Smith, Jared Perez and colleagues, with an educational nayely from [employer]. Thrive Questionnaire Date Thrive assessed: 08/17/24 I am a: Patient What is your living situation today?: I have a steady place to live Within the past 12 months, did the food you bought not last and you didn't have the money to get more?: Never true Within the past 12 months, did you worry whether your food would run out before you got money to buy more?: Never true Do you have trouble paying for medicines?: No Do you have trouble getting transportation to medical appointments?: No Do you have trouble paying your heating and electricity bill?: No Do you have trouble taking care of your child, family member or friend?: No Do you have trouble with day-to-day activities such as bathing, preparing meals, shopping, managing finances, etc.?: I choose not to answer this question Are you currently unemployed and looking for a job?: I choose not to answer this question Are you interested in more education?: No Please select the resources that you would like help with: None Currently or been in a relationship where the following occur: I choose not to answer THRIVE Score: 0 AUDIT C Alcohol Use Questionnaire (AUDIT-C) 1. How often do you have a drink containing alcohol?: Never Total Score: 0 SUMMER-7 AMB Questionnaire SUMMER-7 Date SUMMER - 7 assessed: 10/30/24 Feeling nervous, anxious, or on edge: 1 = Several days Not being able to stop or control worryin = Several days Worrying too much about different things: 1 = Several days Trouble relaxin = More than half the days Being so restless that it is hard to sit still: 0 = Not at all Becoming easily annoyed or irritable: 0 = Not at all Feeling afraid as if something awful might happen: 0 = Not at all Total SUMMER-7 score (0-4 normal; 5-9 mild; 10-14 moderate; 15-21 severe): 5 Source: Developed by Drs. Bon David, Debby Smith, Jared Perez and colleagues, with an educational nayely from [employer]. Review of Systems Const Reports no additional complaints Eyes Reports no additional complaints ENT Reports no additional complaints Card Denies chest pain, Denies rapid heart rate, Denies irregular heart rhythm and Denies dyspnea Resp Denies cough and Denies dyspnea GI Reports as per HPI Reports no additional complaints Musc Reports no additional complaints Skin/Breast Reports system reviewed and no additional complaints, except as documented Neuro Reports no additional complaints Psych Reports no additional complaints Endo Reports no additional complaints Jeyson/Lymph Reports no additional complaints Aller/Immun Reports no additional complaints Physical exam (Primary Care) Vital Signs: Last Vital Signs Temp 98.0 F 01/13/25 13:26 Pulse 69 01/13/25 13:26 Resp 16 01/13/25 13:26 BP 110/70 01/13/25 13:26 Pulse Ox 96 01/13/25 13:26 Oxygen Delivery Method Room Air 01/13/25 13:26 BMI result Body Mass Index 23.8 Tobacco/Smoking Status: Tobacco use Status Tobacco use date assessed 01/13/25 01/13/25 13:35 Patient Tobacco Use Status Never used Tobacco 01/13/25 13:35 e-Cigarette/Vaping Use Never Used 01/13/25 13:35 PHQ-9: PHQ-9 Score PHQ-9: Total score 7 01/13/25 13:59 Thrive Assessment: Date of Thrive Assessment Date Thrive assessed 08/17/24 01/13/25 13:35 Currently or been in a relationship where the following occur: I choose not to answer Const Other: Alert oriented x3 accompanied by daughter, ambulatory with a walker Orientation/consciousness: patient oriented x3 HENMT Other: n Head: Yes normocephalic Face and sinus: Yes face symmetric Mouth: oropharynx normal and moist mucous membranes Neck Neck: Yes full ROM, Yes no lymphadenopathy and Yes supple Resp Auscultation: clear to auscultation bilaterally Cardio Other: S1-S2 present regular and rhythm GI Other: Small non bleeding non thrombosed external hemorrhoids present Palpation (GI): Soft to palpation, nontender, no guarding and no masses Back/Spine/Pelvis Other: Mild kyphosis Skin General skin exam: no rashes or lesions noted Neuro General: patient oriented x3, tone normal, moves all extremities, Normal light touch and pain sensation, no focal motor deficits and CN's II-XI intact bilaterally Extrem General: Yes full ROM, Yes no joint enlargement, Yes no pedal edema and Yes no calf tenderness Results Reviewed Results Reviewed: madhav: Delma Hanson I Age/Sex: 79/F : 1945 Unit#: [id number] Attend Dr: Danita Mccurdy MD Re12/21/24 Status: DEP REF Location: .LAB Disch: SPEC : [id number] KAEL: 12/21/24 STATUS: COMP REQ : [id number] RECD: 12/21/[address]: Bon Cintron MD COMP: 12/21/24-1146 ENTERED: 12/21/24-[address]: Danita Mccurdy MD ORDERED: Met Prof Fast, Phos, AST, ALT, Lipid Panel, Vitamin D 25-OH, Free T4, TS Test Result Flag Reference Sodium 142 135-145 mmol/L Potassium 3.8 3.3-5.1 mmol/L CL 109 H 96-108 mmol/L CO2 27 22-29 mmol/L Gap 10 L 12-20 BUN 12 9-16 mg/dL Creat 0.88 0.5-1.4 mg/dL eGFR > 60 Chronic Kidney Disease: Estimated GFR < 60 mL/min/1.73m2 Severe Kidney Disease: Estimated GFR < 15 mL/min/1.73m2 FBS 178 H 60-99 mg/dL A fasting glucose of 126 mg/dl or greater on more than one occasion is considered diagnostic of diabetes. CA 9.2 8.4-10.2 mg/dL Phosphorus 3.2 2.7-4.5 mg/dL AST (GOT) 49 H 5-31 U/L ALT (GPT) 44 H 0-31 U/L Triglyceride 121 <150 mg/dL Desirable Triglyceride: less than 150 mg/dL Borderline High Triglyceride 150-199 mg/dL High Triglyceride: 200-499 mg/dL Very High Triglyceride: greater than or equal to 5OO mg/dL Cholesterol 136 <200 mg/dL Desirable Cholesterol: less than 200 mg/dL Borderline High Cholesterol: 200-239 mg/dL High Cholesterol: greater than 239 mg/dL LDL Calculated 65 <100 mg/dL Desirable LDL: less than 100 mg/dL Near Optimal/Above Optimal LDL: 110-129 mg/dL Borderline High LDL: 130-159 mg/dL High LDL: 160-189 mg/dL Very High LDL: greater than or equal to 190 mg/dL HDL 47 >40 mg/dL Desirable HDL: greater than 40 mg/dL Note: This HDL assay may give artificially low results in patients with liver disease. Vitamin D 25-OH 50.1 >30 ng/mL Health Based Reference Values* < 20 ng/mL Deficient 20-30 ng/mL Insufficient > 30 ng/mL Sufficient *Miranda MACHADO. N Engl J Med. 2007;[id number]:266-280 There is no well-established upper level of normal vitamin D levels. Some laboratories use 50 ng/mL as an upper limit of normal. However, toxicity is patient-dependent and may occur at any level. Careful correlation with the patient's presentation is necessary and, if there is concern for vitamin D toxicity, treatment should be considered irrespective of the serum level. Care must be taken in interpreting Vitamin D results from different laboratories and methodologies. Published data demonstrated that results from patients undergoing hemodialysis may show a negative bias when tested with various automated 25-OH vitamin D assays when compared to LC-MS/MS. When testing samples from patients whose predominant form of Vitamin D is Vitamin D2, such as patients receiving Vitamin D2 supplementation, results that are subtherapeutic should be confirmed with another method such as LC-MS/MS. Free T4 0.89 0.71-1.85 ng/dL TSH 3rd Gen. 3.49 0.32-4.0 uIU/mL Note: A sustained TSH level above 2.5 uIU/mL may warrant further investigation. TSH 3rd Generation ([facility]) Coding Level of Care Code Est Pt Level 4 (19167) Complex EM visit Add On G2211 Diagnoses Bright red blood per rectum K62.5 History of adenomatous polyp of colon Z86.0101 Mixed dyslipidemia E78.2 Type 2 diabetes mellitus with hyperglycemia, without long-term current use of insulin E11.65 Diabetes mellitus rat exterminator insulin use: without fdc use Diabetes mellitus type: type 2 Assessment & Plan Assessment & Plan (1) Bright red blood per rectum: Code(s): K62.5 - Hemorrhage of anus and rectum Category: Medical Plan: Referred to GI for further evaluation management, ordered CBC (2) History of adenomatous polyp of colon: Code(s): Z86.0101 - Personal history of adenomatous and serrated colon polyps Category: Medical Plan: Noted on last colonoscopy (3) Mixed dyslipidemia: Code(s): E78.2 - Mixed hyperlipidemia Category: Medical Plan: Reviewed recent fasting lipid profile with patient with levels within normal limits . Continue rosuvastatin 20 mg at bedtime , in addition to adherence to low-cholesterol diet and regular exercise, at least 30 minutes 3 to 4 times a week. Advised patient to make healthy food choices, eat more fruits, vegetables, whole grains, wild caught fish and low-fat dairy. Limit amount of meat and fried or fatty food products, as well as processed foods and fast foods. Follow-up scheduled with repeat fasting lipid panel in 3 months. (4) Diabetes mellitus with hyperglycemia: Code(s): E11.65 - Type 2 diabetes mellitus with hyperglycemia Category: Medical Qualifiers: Diabetes mellitus fdc insulin use: without rat exterminator use Diabetes mellitus type: type 2 Qualified Code(s): E11.65 - Type 2 diabetes mellitus with hyperglycemia Plan: Will continue on Mounjaro at the same dose and Jardiance but again reminded to take Jardiance in the morning an hour before breakfast and not after a meal. Reinforced importance of staying active, adhering to healthy eating habits and will see her for follow-up in 3 months after fasting labs Orders: Orders Alanine Aminotransferase 04/16/25 E11.65 - Type 2 diabetes mellitus with hyperglycemia, E78.2 - Mixed hyperlipidemia Hemoglobin A1c 04/16/25 E11.65 - Type 2 diabetes mellitus with hyperglycemia, E78.2 - Mixed hyperlipidemia Aspartate Amino Transferase 04/16/25 E11.65 - Type 2 diabetes mellitus with hyperglycemia, E78.2 - Mixed hyperlipidemia Basic Metabolic Panel Fasting 04/16/25 E11.65 - Type 2 diabetes mellitus with hyperglycemia, E78.2 - Mixed hyperlipidemia Lipid Panel 04/16/25 E11.65 - Type 2 diabetes mellitus with hyperglycemia, E78.2 - Mixed hyperlipidemia Complete Blood Count Auto Diff 04/16/25 K62.5 - Hemorrhage of anus and rectum, Z86.0101 - Personal history of adenomatous and serrated colon polyps Referrals Gastroenterology Referral K62.5 - Hemorrhage of anus and rectum, Z86.0101 - Personal history of adenomatous and serrated colon polyps
--- OUTSIDE RECORDS SUMMARY | 2025-01-13 14:37 | XMS_ITS | Encounter Summary ---
Author Organization [employer] [facility] Address [address] [place] [address] Care Team Providers Care Airfield Defence Guard Name Role Phone Unavailable Primary Care Provider Unavailabl e Encounter Details Date Type Department Care Team (Latest Contact Info) Description 01/27/2019 Abstract [facility] CONVERSIONS Dental, Provider, DDS Social History [...]
--- OUTSIDE RECORDS SUMMARY | 2025-01-13 14:37 | XMS_ITS | Clinical Summary ---
Author Organization [employer] Address [address] [place] [address] Care Team Providers Care Mold Dresser Name Role Phone Unavailable Primary Care Provider [...]
--- OUTSIDE RECORDS SUMMARY | 2025-01-13 14:37 | XMS_ITS | Data Portability ---
Author Organization [employer] [place] [employer] Address [address] [place] [address] Care Team Providers Care Detective Sergeant Name Role Phone JOSE PEREA Primary Care [...] PCP. The patient agreed with this plan. [email or web address] Not available 01/26/2022 08:51:58 12/02/2023 12/02/2023 I have reviewed and agree with the assessment and plan as documented by the can runner. I provided real time medical direction for this encounter and was immediately available to provide additional phone based assistance as needed. History as noted by can runner. Pt with history of DM. She is [...] assessment and plan as documented by the can runner. I provided real time medical direction for this encounter and was immediately available to provide additional phone based assistance as needed. History as noted by can runner. Pt with history of DM2, HLD, cognitive deficit. Pt reports that since yesterday she has had EMERGENCY DISPATCHER cough with sore throat, and headache. No [...] Ag, QL IA, respiratory specimen [address], [address] 4 12:24:05 rapid flu (A+B) [address], [address] 4 12:24:05 rapid strep group A, throat 2023 024 [facility], [address] [place] [address], [address] 4 12:24:03 rapid flu (A+B) [address], [address] 4 08:14:03 rapid SARS CoV 2 Ag, QL IA, respiratory specimen [address], [address] 4 08:13:40 Referral None recorded. Procedures None recorded. Surgeries None recorded. Imaging None recorded. Medication Orders Paxlovid 300 mg (150 mg x 2)-100 mg tablets in a dose pack 2023 024 [facility], [address] [place], [place], [id number], 4 12:33:02 ondansetron 4 mg disintegrat ing tablet [email or web address] [place] [address] [facility] #45040, [address], [place], [id number], 4 17:22:16 Patient TargetsNo targets recorded. Patient InstructionsNo instructions recorded. Reason for Referral None Reported. Results Created Date Observation Date Name Description Value Unit Range Abnormal Flag Note LastModifiedBy Organization Detail LastModifiedTime 06/03/2006/03/2024 rapid strep group A, throa t Strep negati ve Not Available [facility] ed [address] [place] [address], [phone] 06/03/2024 12:23:25 06/03/20 24 06/03/2024 rapid flu (A+B) Flu negati ve Not Available [facility] ed [address] [place] [address], [phone] 06/03/2024 12:23:18 06/03/20 24 06/03/2024 rapid SARS CoV 2 Ag, QL IA, respi rator y speci men rapid SARS CoV 2 Ag, QL IA, respiratory specimen positi ve Not Available [facility] ed [address] [place], [address] 06/03/2024 12:23:10 Result Notes None recorded. Medical [...] 4 97 % 97 % 98.7 [degF] 50927.8 g 76 /min 154.94 cm 16 /min [...] cm 57 /min 97 % 97 % 71481.3 68 g 139 mm[Hg] 81 mm[Hg] Not Available [employer] - production 4 17:18:14 Date Recorded Oxygen saturation Oxygen saturation in Arterial blood by Pulse oximetry Respiratory rate Body temperature Heart rate Systolic blood pressure Diastolic blood pressure Provider Name and Address Organization Details Last Updated DateTime 4 98 % 98 % 16 /min 98.2 [degF] 84 /min 118 mm[Hg] 74 mm[Hg] Not Available [employer] - [employer] 4 12:21:05 Date Recorded Heart rate Oxygen saturation Oxygen saturation in Arterial blood by Pulse oximetry Respiratory rate Body temperature Systolic blood pressure Diastolic blood pressure Provider Name and Address Organization Details Last Updated DateTime 2 60 /min 99 % 99 % 20 /min 99.5 [degF] 103 mm[Hg] 55 mm[Hg] Not Available [employer] - [employer] 2 08:44:22 Social History None recorded. Functional [...] Note [id number] Isaac Rowan MD Main - [address] [address] 01/26/2022 08:44:15 06/13/2022 13:13:48 Benign paroxysmal positional vertigo 102244616 H81.13 [id number] Marshall Crowe MD Main - [address] [address] 12/02/2023 14:44:51 12/02/2023 22:17:34 Pain of left calf [id number] 627973 M79.662 [id number] Janusz Davis MD Main - [address] [address] 04/16/2024 17:18:10 04/19/2024 21:44:43 Mild dehydration [id number] 108 E86.0 Normal BP. Tolerating oral fluids; does not need IV fluids at this time. Discussed red flag signs for which to seek higher level of care including worsening dizziness or confusion Nausea and vomiting 1693 1999 R11.2 Improving. Will give oral Zofran. Discussed red flag signs for which to seek higher level of care including worsening dizziness or confusion [id number] Marshall Crowe MD Main - [address] [address] 06/03/2024 12:21:01 06/03/2024 17:49:34 COVID-19 [id number] U07.1 Health Concerns Section Related Observation LastModified by Organization Detai ls LastModified Time None Recorded Concern Status LastModified by Organization Details LastModified Time None Recorded Advance Directives Directive None Recorded Payers Encounter Date Sequence Insurance Name Policy Number Policy Cespedes Covered Member ID Cespedes Member ID Guarantor Name 01/23/2022 1 [facility] - DOS PRIOR TO 2022 - DUAL ELIGIBLE (MEDICARE REPLACEMENT/ADV ANTAGE - HMO) Delma Hanosn [id number] Delma Hanson 12/02/2023 1 [facility] - DOS ON OR AFTER 2022 - DUAL ELIGIBLE - USP OPTIONS AND ONE CARE (MEDICARE REPLACEMENT/ADV ANTAGE - HMO) Delma Hanson [id number] Delma Hanson 04/16/2024 1 [facility] - DOS ON OR AFTER 2022 - DUAL ELIGIBLE - USP OPTIONS AND ONE CARE (MEDICARE REPLACEMENT/ADV ANTAGE - HMO) Delma Hanson [id number] Delma Hanson 06/03/2024 1 [facility] - DOS ON OR AFTER 2022 - DUAL ELIGIBLE - USP OPTIONS AND ONE CARE (MEDICARE REPLACEMENT/ADV ANTAGE - HMO) Delma Hanson [id number] Delma Hanson Notes Date Note Type Note Provider Name and Address Organization Details Recorded Time 01/23/2022 text/html [facility] Nursing Assessment: Patient Reports: Dizziness with positional change Chief Complaints: Nausea/Vomiting, Syncope/Dizziness/Li ghtheadedness Allergies: Other Comments: Daughter of member calling for [facility] complaints of feeling dizzy since last night deny C/P SOB hx vertigo that had responded to meclizine in the past- slight nausea .................... .................... .................... .................... .................... .................... .................... . Hand Zipper Trimmer Note: chief complaint dizziness. Constitutional: Afebrile without [...] . Disposition: Fulfilled Isaac Rowan MD [address] [facility],[address], [place], [address], [employer] 10/19/2022 19:03:28 12/02/2023 text/html This was a supervised home visit with can runner Samir Bah. 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 Chief Complaints: Pain PMH: Diabetes Comments: Spoke w/ caregiver and junior linux administrator. reporting worsening left leg pain and having trouble walking Unable to see PCP till December Denies injury to leg, denies N/T, no arthritis history, Denies SOB/chest pain, normally walks but now can't walk very well. Denies blood thinner use and any other PMH besides DM. Will put in an [facility] visit but any U/S diagnostics would need to done inpatient hospital setting. Hpateri ROBB .................... .................... .................... .................... .................... .................... .................... . Hand Zipper Trimmer Note From Samir Bah: Pt reports worsening [...] .................... . Disposition: Fulfilled Marshall Crowe MD [address] [place] [address],[address], [place], [address], [employer] 12/02/2023 15:06:27 04/16/2024 text/html [facility] Nurse Triage Notes (Karen Rosario): Reason For Request: Pt can barely stand, very dizzy Chief Complaints: Weakness/Lethargy PMH: Diabetes Allergies: Unknown Comments: Vertical Roll Operator verified the member's name//address and phone [...] s/s and seek emergency treatment if needed Hand Zipper Trimmer Organization Information for Travis Gonzalez Business Legal Name: [employer]? Address: [address] [place] [address], [place] [address], Supervisor Functional Testing: See GOLD No.: [id number] Hand Zipper Trimmer POC Test Results from Travis Gonzalez [employer] Rapid influenza antigen (18:13:04) Flu: - Rapid COVID antigen (18:13:12) COVID: - .................... .................... .................... .................... .................... .................... .................... . Hand Zipper Trimmer Note From Carlos Travis[facility] Pt present in home with daughter. Pt Maltese speaking only and daughter translated. Daughter states [...] without issues since initial vomiting. Consulted with [facility] [place]. Davis who ordered 1 dose of sublingual zofran given on scene. Reviewed red flags for ED. Patient education provided. [facility] Medication Orders: ondansetron 4 mg disintegrating tablet: Administered .................... .................... .................... .................... .................... .................... .................... . Disposition: Fulfilled Janusz Davis MD [address] [facility],[address], [place], [address], SURY MARTIN LYUDMILA 04/16/2024 20:42:17 06/03/2024 text/html This was a supervised home visit with can runner Tremaine Briggs. [facility] Nurse Triage Notes (Kelly Brumfield): Reason For Request: Patient has sore throat, head ache, and can't sleep. Chief Complaints: Headache, Pain PMH: Diabetes Allergies: Unknown Comments: Allergies: Unknown LANDSCAPE MANAGEMENT TECHNICIAN calling to request visit for patient with symptoms of sore throat, ear pain, and headache. Symptoms started yesterday getting worse today. Patient has a non-productive cough. No fever. No known sick contacts. Taking tylenol as needed for symptoms. Hand Zipper Trimmer Organization Information for Tremaine Briggs Legal Name: [employer] Address: [address] [place] [address], Supervisor Functional Testing: See Reynolds MD [facility] No.: [id number] Hand Zipper Trimmer POC Test Results from Tremaine Briggs - [employer] Rapid strep test (11:43:02) Strep: - Rapid influenza antigen (11:43:13) Flu: - Rapid COVID antigen (11:43:15) COVID: + .................... .................... .................... .................... .................... .................... .................... . Hand Zipper Trimmer Note From Tremaine Briggs: Dispatched to the [...] advised she wished to try the treatment. [facility] consulted. Medication adjustments discussed. Script called into preferred pharmacy. Red flags discussed. ALL times are approx. .................... .................... .................... .................... .................... .................... .................... . Disposition: Fulfilled Marshall Crowe MD [address] [facility],[address], [place], [address], [employer] 06/03/2024 13:35:20 OBGyn Episode No OBEpisode recorded.
--- OUTSIDE RECORDS SUMMARY | 2025-01-13 14:37 | XMS_ITS | Clinical Summary ---
Author Organization [facility] it Address [address] [place] [address] Care Team Providers Care Slate Handler Name Role Phone Unavailable Primary Care Provider [...] age to complete this topic Meningococcal B Vaccine Aged Out No l onger eligible based on patient's age to complete this topic RSV Immunization Patients Un jenn 20 months Aged Out No longer eligible b ased on patient's age to complete this topic Varicella Vaccines Aged Out No longer eligible based on patient's age to complete this topic
== END 2025-01-13 14:01 | disposition home or self-care (01) ==
LOC: HO.HMCC 13:18
PROVIDERS: PCP Internal Medicine; Visit Provider Internal Medicine
DX: K62.5 Hemorrhage of anus and rectum (principal); Z86.0101 Personal history of adenomatous and serrated colon polyps; E78.2 Mixed hyperlipidemia; E11.65 Type 2 diabetes mellitus with hyperglycemia

== ENCOUNTER → 2025-01-13 13:18 | Outpatient (BNVA) | payer OTHER, SELFPAY | PROVIDERS: PCP Internal Medicine; Visit Provider Internal Medicine | DX: E11.65 Type 2 diabetes mellitus with hyperglycemia (principal); E78.2 Mixed hyperlipidemia; K62.5 Hemorrhage of anus and rectum; Z86.0101 Personal history of adenomatous and serrated colon polyps | CPT/HCPCS: 96127; 99212 ==

== ENCOUNTER 2025-02-11 10:17 | Outpatient (REF) | payer OTHER, SELFPAY ==
--- OUTSIDE RECORDS SUMMARY | 2025-02-11 10:36 | XMS_ITS | Data Portability ---
Author Organization [employer] Address [address] [place] [address] Care Team Providers Care Pile Driving Technician Name Role Phone JOSE PEREA Primary Care [...] assessment and plan as documented by the lockstitch zipper setter. I provided real time medical direction for this encounter and was immediately available to provide additional phone based assistance as needed. History as noted by lockstitch zipper setter. Pt with history of DM. She is [...] assessment and plan as documented by the lockstitch zipper setter. I provided real time medical direction for this encounter and was immediately available to provide additional phone based assistance as needed. History as noted by lockstitch zipper setter. Pt with history of DM2, HLD, cognitive deficit. 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 No [...] Ag, QL IA, respiratory specimen [address], [address] 4 12:24:05 rapid flu (A+B) [address], [address] 4 12:24:05 rapid strep group A, throat 2023 024 [facility], [address] [place] [address], [address] 4 12:24:03 rapid flu (A+B) [address], [address] 4 08:14:03 rapid SARS CoV 2 Ag, QL IA, respiratory specimen [address], [address] 4 08:13:40 Referral None recorded. Procedures None recorded. Surgeries None recorded. Imaging None recorded. Medication Orders Paxlovid 300 mg (150 mg x 2)-100 mg tablets in a dose pack 2023 024 [facility]32488, [address] [place], [place], [id number], 4 12:33:02 ondansetron 4 mg disintegrat ing tablet [email or web address] [place] [address] [facility] #11501, [address] [place], [place], [id number], 4 17:22:16 Patient TargetsNo targets recorded. Patient InstructionsNo instructions recorded. Reason for Referral None Reported. Results Created Date Observation Date Name Description Value Unit Range Abnormal Flag Note LastModifiedBy Organization Detail LastModifiedTime 06/03/2006/03/2024 rapid strep group A, throa t Strep negati ve Not Available [facility] ed [address] [place] [address], [phone] 06/03/2024 12:23:25 06/03/20 24 06/03/2024 rapid flu (A+B) Flu negati ve Not Available [facility] ed [address] [place] [address], [address] 06/03/2024 12:23:18 06/03/20 24 06/03/2024 rapid SARS CoV 2 Ag, QL IA, respi rator y speci men rapid SARS CoV 2 Ag, QL IA, respiratory specimen positi ve Not Available [facility] ed [address] [place], [address] 06/03/2024 12:23:10 Result Notes None recorded. Medical [...] 4 97 % 97 % 98.7 [degF] 17765.8 g 76 /min 154.94 cm 16 /min 118 mm[Hg] 79 mm[Hg] Not Available [employer] - production 4 14:45:00 Date Recorded Heart rate Oxygen saturation Oxygen saturation in Arterial blood by Pulse oximetry Respiratory rate Body temperature Systolic blood pressure Diastolic blood pressure Provider Name and Address Organization Details Last Updated DateTime 2 60 /min 99 % 99 % 20 /min 99.5 [degF] 103 mm[Hg] 55 mm[Hg] Not Available [email or web address] 2 08:44:22 Date Recorded Body temperature Respiratory rate Body height Heart rate Oxygen saturation Oxygen saturation in Arterial blood by Pulse oximetry Body weight Systolic blood pressure Diastolic blood pressure Provider Name and Address Organization Details Last Updated DateTime 4 97.2 [degF] 16 /min 165.1 cm 57 /min 97 % 97 % 13205.3 68 g 139 mm[Hg] 81 mm[Hg] Not Available [email or web address] 4 17:18:14 Date Recorded Oxygen saturation Oxygen saturation in Arterial blood by Pulse oximetry Respiratory rate Body temperature Heart rate Systolic blood pressure Diastolic blood pressure Provider Name and Address Organization Details Last Updated DateTime 4 98 % 98 % 16 /min 98.2 [degF] 84 /min 118 mm[Hg] 74 mm[Hg] Not Available [employer] 4 12:21:05 Social History None recorded. Functional Status None recorded. Mental Status None recorded. Family History Nothing Reported. Medical History No medical history recorded. Gynecological HistoryNo gynecological history recorded. Obstetrics History GPAL:G 0 P 0 0 0 0 Past Encounters Encounter ID Performer Location Encounter Start Date Encounter Closed Date Diagnosis/Indication Diagnosis SNOMED-CT Code Diagnosis ICD10 Code Diagnosis Note [id number] Isaac Rowan MD Main - [address] [address] 01/26/2022 08:44:15 01/15/2025 11:26:01 Benign paroxysmal positional vertigo [id number] H81.13 [id number] Marshall Crowe MD Main - [address] [address] 12/02/2023 14:44:51 12/02/2023 22:17:34 Pain of left calf [id number] 951173 M79.662 [id number] Janusz Davis MD Main - [address] [address] 04/16/2024 17:18:10 04/19/2024 21:44:43 Mild dehydration 4048090444 108 E86.0 Normal BP. Tolerating oral fluids; does not need IV fluids at this time. Discussed red flag signs for which to seek higher level of care including worsening dizziness or confusion Nausea and vomiting 1693 1999 R11.2 Improving. Will give oral Zofran. Discussed red flag signs for which to seek higher level of care including worsening dizziness or confusion [id number] Marshall Crowe MD Main - [address] [address] 06/03/2024 12:21:01 06/03/2024 17:49:34 COVID-19 686402414 U07.1 Health Concerns Section Related Observation LastModified by Organization Detai ls LastModified Time None Recorded Concern Status LastModified by Organization Details LastModified Time None Recorded Advance Directives Directive None Recorded Payers Insurance Date Sequence Insurance Name Policy Number Policy Cespedes Covered Member ID Cespedes Member ID Guarantor Name 01/15/2025 1 [facility] - DOS PRIOR TO 2022 - DUAL ELIGIBLE (MEDICARE REPLACEMENT/ADV ANTAGE - HMO) Delma Hanson [id number] Delma Hanson 01/15/2025 1 [facility] - DOS ON OR AFTER 2022 - DUAL ELIGIBLE - SHELTER OPTIONS AND ONE CARE (MEDICARE REPLACEMENT/ADV ANTAGE - HMO) Delma Hanson [id number] Delma Hanson Notes Date Note Type Note Provider Name and Address Organization Details Recorded Time 01/23/2022 text/html [facility] Nursing Assessment: Patient Reports: Dizziness with positional change Chief Complaints: Nausea/Vomiting, Syncope/Dizziness/Li ghtheadedness Allergies: Other Comments: Daughter of member calling for [facility] complaints of feeling dizzy since last night deny C/P SOB hx vertigo that had responded to meclizine in the past- slight nausea .................... .................... .................... .................... .................... .................... .................... . Vice President Diversity Note: chief complaint dizziness. Constitutional: Afebrile without [...] Fulfilled Isaac Rowan MD [address] [facility],[address], [place], [address], [employer] 10/19/2022 19:03:28 12/02/2023 text/html This was a supervised home visit with lockstitch zipper setter Samir Bah. 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 reporting worsening left leg pain and having trouble walking Unable to see PCP till December Denies injury to leg, denies N/T, no arthritis history, Denies SOB/chest pain, normally walks but now can't walk very well. Denies blood thinner use and any other PMH besides DM. Will put in an [facility] visit but any U/S diagnostics would need to done inpatient hospital setting. Rubio ROBB .................... .................... .................... .................... .................... .................... .................... . Vice President Diversity Note From Samir Bah: Pt reports worsening [...] Fulfilled Marshall Crowe MD [address] [facility],[address], [place], [address], [employer] 12/02/2023 15:06:27 04/16/2024 text/html [facility] Nurse Triage Notes (Karen Rosario): Reason For Request: Pt can barely stand, very dizzy Chief Complaints: Weakness/Lethargy PMH: Diabetes Allergies: Unknown Comments: Broadcaster verified the member's name//address and phone number. [...] s/s and seek emergency treatment if needed Vice President Diversity Organization Information for Travis Gonzalez Business Legal Name: [employer] Address: [address] [place] [address], Explosive Ordnance Specialist: See Reynolds MD JULIÁN No.: [id number] Vice President Diversity POC Test Results from Travis Gonzalez Rapid influenza antigen (18:13:04) Flu: - Rapid COVID antigen (18:13:12) COVID: - .................... .................... .................... .................... .................... .................... .................... . Vice President Diversity Note From Travis Gonzalez: [facility] visit for female patient. Pt present in home with daughter. Pt Swedish speaking only and daughter translated. Daughter states [...] without issues since initial vomiting. Consulted with [facility] Dr. Davis who ordered 1 dose of sublingual zofran given on scene. Reviewed red flags for ED. Patient education provided. [facility] Medication Orders: ondansetron 4 mg disintegrating tablet: Administered .................... .................... .................... .................... .................... .................... .................... . Disposition: Fulfilled Janusz Davis MD [address] [facility],[address], [place], [address], [employer]A FOSTER 04/16/2024 20:42:17 06/03/2024 text/html This was a supervised home visit with lockstitch zipper setter Tremaine Briggs. [facility] Nurse Triage Notes (Kelly Brumfield): Reason For Request: Patient has sore throat, head ache, and can't sleep. Chief Complaints: Headache, Pain PMH: Diabetes Allergies: Unknown Comments: Allergies: Unknown RFID ENGINEER calling to request visit for patient with symptoms of sore throat, ear pain, and headache. Symptoms started yesterday getting worse today. Patient has a non-productive cough. No fever. No known sick contacts. Taking tylenol as needed for symptoms. Vice President Diversity Organization Information for Tremaine Briggs Legal Name: [employer] Address: [address] [place] [address], Explosive Ordnance Specialist: See Reynolds MD [facility] No.: [id number] Vice President Diversity POC Test Results from Tremaine Briggs - [employer] Rapid strep test (11:43:02) Strep: - Rapid influenza antigen (11:43:13) Flu: - Rapid COVID antigen (11:43:15) COVID: + .................... .................... .................... .................... .................... .................... .................... . Vice President Diversity Note From Tremaine Briggs: Dispatched to the [...] Fulfilled Marshall Crowe MD [address] [facility],[address], [place], [address], [email or web address] 06/03/2024 13:35:20 OBGyn Episode No OBEpisode recorded.
[2025-02-11 11:24] LABS: Creatinine, mg/dL 46.58
[2025-02-11 11:31] LABS: Creatinine, 24Hr Urine 0.7 G/Day (1.0-2.0); Total Volume 24 Hour Urine 1600 mL
[2025-02-12 17:24] LABS: Calcium, 24 Hr Urine 130 mg/24 h; Calcium/Creatinine Ratio 176 mg/g creat (30-275); Creatinine 24Hr Urine 0.74 g/24 h (0.50-2.15)
== END 2025-02-11 10:18 | disposition home or self-care (01) ==
LOC: HO.LNP 10:17
PROVIDERS: Visit Provider Internal Medicine Endocrinology, Diabetes & Metabolism
DX: M81.0 Age-related osteoporosis without current pathological fracture (principal)
CPT/HCPCS: 82340; 82570

== ENCOUNTER 2025-03-09 13:44 | Outpatient (AMB) | payer OTHER, SELFPAY ==
[2025-03-09 13:45] VITALS: BP 128/68; PULSE 59; O2SAT 98; BMI 23.4
--- NOTE | 2025-03-09 13:45 | A.OFFVIS_ITS ---
Vital Signs 03/09/25 13:45 Height 5 ft 1 in Weight 123 lb 14.397 oz BMI 23.4 BP 128/68 Blood Pressure Location Lt brachial Position Sitting Pulse 59 Pulse Source Pulse Oximeter Pulse Oximetry (%) 98 Oxygen Delivery Method Room Air Intake Visit Reasons: f/u osteoporosis Intake Note: Patient present today for Osteoporosis follow up. Accompanied by: Friend Allergies clindamycin Allergy (Mild, Verified 01/14/25 00:35) Hives Iodinated Contrast Media (IV Dye, Iodine Containing) Allergy (Mild, Verified 01/14/25 00:35) HIVES donepezil Adverse Reaction (Intermediate, Verified 01/14/25 00:35) nausea, dizziness and vomiting pioglitazone Adverse Reaction (Intermediate, Verified 01/14/25 00:35) edema amitriptyline (From Elavil) Adverse Reaction (Mild, Verified 01/14/25 00:35) NAUSEA & VOMITING amoxicillin (Amoxicillin) Adverse Reaction (Mild, Verified 01/14/25 00:35) NAUSEA & VOMITING codeine (From Tylenol-Codeine) Adverse Reaction (Mild, Verified 01/14/25 00:35) NAUSEA & VOMITING lisinopril (Lisinopril) Adverse Reaction (Mild, Verified 01/14/25 00:35) NAUSEA & VOMITING acetaminophen (Tylenol) Adverse Reaction (Unknown, Verified 01/14/25 00:35) tylenol 3 (states regulare tylenol upset stomach as well) aspirin (Aspirin) Adverse Reaction (Unknown, Verified 01/14/25 00:35) NAUSEA & VOMITING oxycodone (Percocet) Adverse Reaction (Unknown, Verified 01/14/25 00:35) stomach upset tramadol (From Ultram) Adverse Reaction (Unknown, Verified 01/14/25 00:35) NAUSEA & VOMITING Medication List - Last Reconciled 03/09/25 by Bon Cintron MD blood sugar diagnostic (Dynamics ResearchTouch Ultra Test strips) Check fasting blood sugar twice a day blood-glucose meter (Dynamics ResearchTouch Ultra2 Meter) As directed cane use as directed cholecalciferol (vitamin D3) 50 mcg PO DAILY docusate sodium 100 mg PO BID escitalopram oxalate 10 mg PO DAILY FreeStyle Lancets (lancets) Check fasting blood sugar once a day before meal NS Jardiance (empagliflozin) 10 mg PO QAM NS lancets test blood sugar twice a day memantine 10 mg PO BID Mounjaro (tirzepatide) 2.5 mg (0.5 mL) subcut TU NS rosuvastatin 20 mg PO BEDTIME [tub safety bar As directed] HPI Comments Details: 79 YO Female with PMHx diabetes previously seen by endocrinology for diabetes is seen in consultation at the request of PCP for Osteoporosis. . Diagnosed after menopause, a bone density test revealed a spine T-score of -3.6. She denies any fractures. Current management includes calcium-rich diet and 2000 IU of Vitamin D3. She deals with balance issues due to scoliosis and vertigo, limiting her exercise to assisted walking. No family history of osteoporosis or significant comorbidities reported.- Limited to assisted walking due to vertigo and balance issues. Weight-bearing exercises are currently not feasible. First diagnosed in recently . Not Received treatment in the past No history of pathologic fracture or ONJ. Has several servings of dietary calcium per day in the form of chesse, milk, broccoli . Not Takes Calcium supplement Takes 2000 IU of Vitamin D daily. Denies ever using PPI, anticoagulant, antiepileptic or glucocorticoid medication. 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 Menopause age 50 - nl menses Denies history of Kidney stones: Denies family history of Osteoporosis or hip fracture. UTD on dental cleanings and sees dentist every 6 months. No planned upcoming dental work or extractions. No tabacco use or EToH use DXA dated 10/15/24 :COMPARISON: There are no prior studies for comparison. FINDINGS: The bone mineral density of the lumbar spine is 0.762 with a T-score of -3.6, and a Z-score of -1.6. The bone mineral density of the left total hip is 0.820 with a T-score of -1.5, and a Z-score of 0.6. The bone mineral density of the left femoral neck is 0.811 with a T-score of -1.6, and a Z-score of 0.6. MM/XR DEXA axial skeleton IMPRESSION: Based on bone mineral density, and according to World Health Organization (WHO) criteria, the diagnosis is consistent with osteoporosis. Labs: Secondary workup was negative The patient is a 79-year-old female presenting for osteoporosis management. The patient has undergone a workup for osteoporosis, which returned normal results, including urine tests. The discussion focused on potential medications to increase bone density, including Evenity, which is administered as a monthly injection. Evenity requires follow-up with another medication after one year to maintain bone density gains. Alternative medications include self-administered injections for two years or 18 months, depending on insurance coverage. Patient is somewhat reluctant about self injection but is willing to consider The patient has no history of heart attack, stroke, or radiation treatments for cancer in the past year. The insurance company may not cover Evenity due to its cost, approximately $3000 per month, and may require trying other medications first. [facility] Medical History (Updated 01/13/25 @ 14:00 by Danita Mccurdy MD) History of adenomatous polyp of colon Bright red blood per rectum Osteoporosis of lumbar spine Headache Cervicalgia Cervicalgia Acute parotitis Dizziness of unknown cause Diabetes mellitus with hyperglycemia Vitamin D deficiency Mixed dyslipidemia Lumbago Idiopathic scoliosis Pulmonary nodules Submandibular sialoadenitis Vitamin D deficiency Hemorrhoid Sensorineural hearing loss Balance disorder Lumbar scoliosis Type 2 diabetes mellitus with hyperglycemia, without long-term current use of insulin Anxiety Osteoarthritis Hypertension Surgical History History of bladder suspension procedure Hx of cholecystectomy Family History Father Pulmonary disease Mother Liver cirrhosis Diabetes Other Mental health disorder Social History Household Members: Unknown / Unable to assess Housing: Unknown / Unable to assess Housing Other:: apartment for long-term Do you presently have visiting nurse or other home services: Yes Unable to assess alcohol history related to: Unknown Alcohol intake: never Patient Tobacco Use Status: Never used Tobacco e-Cigarette/Vaping Use: Never Used Second Hand Smoke Exposure: No Advance Directives Date on File: 11/13/21 service: No Current occupational status: retired Cognitive needs: No Hearing needs: No Vision needs: No Physical Exam Vital Signs: Last Vital Signs Pulse 59 03/09/25 13:45 BP 128/68 03/09/25 13:45 Pulse Ox 98 03/09/25 13:45 Oxygen Delivery Method Room Air 03/09/25 13:45 BMI result Body Mass Index 23.4 Assessment & Plan Assessment & Plan (1) Osteoporosis of lumbar spine: Code(s): M81.0 - Age-related osteoporosis without current pathological fracture Category: Medical Plan: 1. Osteoporosis The patient has very low bone density, and Evenity was discussed as a potential treatment option. This medication requires monthly office visits for injections and must be followed by another medication after one year to maintain bone density gains. Due to the high cost, insurance may not cover Evenity, and alternative treatments such as Forteo, which involves daily self-injections for two years, were also discussed. The patient has no contraindications such as recent heart attack, stroke, or cancer treatments. A letter will be written to the insurance company to advocate for Evenity coverage due to the patient's high fracture risk. I discussed with the patient the results of her osteoporosis workup, which were normal, and the potential treatment options to increase bone density. We reviewed Evenity, a monthly injection, and its requirement for follow-up medication after one year. I explained the insurance challenges due to the high cost of Evenity and the possibility of needing to try other medications first. The patient was informed about alternative treatments, including Forteo, which involves daily self-injections. I will write a letter to the insurance company to advocate for Evenity coverage due to her high fracture risk. The patient had an opportunity to ask questions regarding treatment plan. Patient was informed and verbally consented to the use of an ambient scribe for clinic note documentation during this visit. Medications: New romosozumab-aqqg (Evenity) 210 mg (2.34 mL) subcut .q mo 2.34 mL 11RF Coding Level of Care Code Est Pt Level 3 (71417) Diagnoses Osteoporosis of lumbar spine M81.0
--- OUTSIDE RECORDS SUMMARY | 2025-03-09 16:02 | XMS_ITS | Data Portability ---
Author Organization [employer] [facility], [facility] Address [address] [place] [address] Care Team Providers Care Supervisor Forming Department Name Role Phone JOSE PEREA Primary Care Provider [phone] HIM CCA OTHER Assessment Encounter Date Assessment Date Assessment [...] PCP. The patient agreed with this plan. [email or web address] Not available 01/26/2022 08:51:58 12/02/2023 12/02/2023 I have reviewed and agree with the assessment and plan as documented by the outpatient scheduler. I provided real time medical direction for this encounter and was immediately available to provide additional phone based assistance as needed. History as noted by outpatient scheduler. Pt with history of DM. She is [...] assessment and plan as documented by the outpatient scheduler. I provided real time medical direction for this encounter and was immediately available to provide additional phone based assistance as needed. History as noted by outpatient scheduler. Pt with history of DM2, HLD, cognitive deficit. Pt reports that since yesterday she has had SWITCHER cough with sore throat, and headache. No [...] Ag, QL IA, respiratory specimen [address], [id number] 4 12:24:05 rapid flu (A+B) [address], [phone] 4 12:24:05 rapid strep group A, [facility] [address] [place] [address], [phone] 4 12:24:03 rapid flu (A+B) [address], [phone] 4 08:14:03 rapid SARS CoV 2 Ag, QL IA, respiratory specimen [address], [id number] 4 08:13:40 Referral None recorded. Procedures None recorded. Surgeries None recorded. Imaging None recorded. Medication Orders Paxlovid 300 mg (150 mg x 2)-100 mg tablets in a dose pack 2023 [id number], [address], [place], [id number], 4 12:33:02 ondansetron 4 mg disintegrat ing tablet [email or web address] [place] [address] [id number], [address], [place], [phone], 4 17:22:16 Patient TargetsNo targets recorded. Patient InstructionsNo instructions recorded. Reason for Referral None Reported. Results Created Date Observation Date Name Description Value Unit Range Abnormal Flag Note LastModifiedBy Organization Detail LastModifiedTime 06/03/2006/03/2024 rapid strep group A, throa t Strep negati ve Not Available [facility] ed [address] [place] [address], [phone] 06/03/2024 12:23:25 06/03/20 24 06/03/2024 rapid flu (A+B) Flu negati ve Not Available [facility] ed [address] [place] [address], [phone] 06/03/2024 12:23:18 06/03/20 24 06/03/2024 rapid SARS CoV 2 Ag, QL IA, respi rator y speci men rapid SARS CoV 2 Ag, QL IA, respiratory specimen positi ve Not Available [facility] [address] [place] [address], [id number] 06/03/2024 12:23:10 Result Notes None recorded. Medical [...] 4 97 % 97 % 98.7 [degF] 40273.8 g 76 /min 154.94 cm 16 /min 118 mm[Hg] 79 mm[Hg] Not Available [employer] - production 4 14:45:00 Date Recorded Heart rate Oxygen saturation Oxygen saturation in Arterial blood by Pulse oximetry Respiratory rate Body temperature Systolic blood pressure Diastolic blood pressure Provider Name and Address Organization Details Last Updated DateTime 2 60 /min 99 % 99 % 20 /min 99.5 [degF] 103 mm[Hg] 55 mm[Hg] Not Available [employer] - production 2 08:44:22 Date Recorded Body temperature Respiratory rate Body height Heart rate Oxygen saturation Oxygen saturation in Arterial blood by Pulse oximetry Body weight Systolic blood pressure Diastolic blood pressure Provider Name and Address Organization Details Last Updated DateTime 4 97.2 [degF] 16 /min 165.1 cm 57 /min 97 % 97 % 43654.3 68 g 139 mm[Hg] 81 mm[Hg] Not Available [employer] - production 4 17:18:14 Date Recorded Oxygen saturation Oxygen saturation in Arterial blood by Pulse oximetry Respiratory rate Body temperature Heart rate Systolic blood pressure Diastolic blood pressure Provider Name and Address Organization Details Last Updated DateTime 4 98 % 98 % 16 /min 98.2 [degF] 84 /min 118 mm[Hg] 74 mm[Hg] Not Available [employer] 4 12:21:05 Social History None recorded. Functional [...] 1521 Isaac Rowan MD [facility] [address] [place] [phone] 01/26/2022 08:44:15 01/15/2025 11:26:01 Benign paroxysmal positional vertigo [id number] H81.13 [id number] Marshall Crowe MD [facility] - [facility] [address] [place] [phone] 12/02/2023 14:44:51 12/02/2023 22:17:34 Pain of left calf [id number] 115156 M79.662 78100 Janusz Davis MD Main - [facility] [address] [place] [phone] 04/16/2024 17:18:10 04/19/2024 21:44:43 Mild dehydration [id number] 108 E86.0 Normal BP. Tolerating oral fluids; does not need IV fluids at this time. Discussed red flag signs for which to seek higher level of care including worsening dizziness or confusion Nausea and vomiting 1693 1999 R11.2 Improving. Will give oral Zofran. Discussed red flag signs for which to seek higher level of care including worsening dizziness or confusion [id number] Marshall Crowe MD [address] [phone] 06/03/2024 12:21:01 06/03/2024 17:49:34 COVID-19 [id number] U07.1 Health Concerns Section Related Observation LastModified by Organization Detai ls LastModified Time None Recorded Concern Status LastModified by Organization Details LastModified Time None Recorded Advance Directives Directive None Recorded Payers Insurance Date Sequence Insurance Name Policy Number Policy Cespedes Covered Member ID Cespedes Member ID Guarantor Name 01/15/2025 1 [facility] - DOS PRIOR TO 2022 - DUAL ELIGIBLE (MEDICARE REPLACEMENT/ADV ANTAGE - HMO) Delma Hnason [id number] Delma Hanson 01/15/2025 1 [facility] - DOS ON OR AFTER 2022 - DUAL ELIGIBLE - GROUP HOME OPTIONS AND ONE CARE (MEDICARE REPLACEMENT/ADV ANTAGE - HMO) Delma Hanson [id number] Delma Hanson Notes Date Note Type Note Provider Name and Address Organization Details Recorded Time 01/23/2022 text/html [facility] Nursing Assessment: Patient Reports: Dizziness with positional change Chief Complaints: Nausea/Vomiting, Syncope/Dizziness/Li ghtheadedness Allergies: Other Comments: Daughter of member calling for [facility] complaints of feeling dizzy since last night deny C/P SOB hx vertigo that had responded to meclizine in the past- slight nausea .................... .................... .................... .................... .................... .................... .................... . Bridge Engineer Note: chief complaint dizziness. Constitutional: Afebrile without [...] blurred vision, denies seeing spots skin: warm/dry ordered and sent over a prescription for meclazine. pt had no further questions or concerns. Red flags covered. .................... .................... .................... .................... .................... .................... .................... . Disposition: Fulfilled Isaac Rowan MD [address] [facility],[address], [place], [phone], [place] [employer] 10/19/2022 19:03:28 12/02/2023 text/html This was a supervised home visit with outpatient scheduler Samir Bah. 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 Chief Complaints: Pain PMH: Diabetes Comments: Spoke w/ caregiver and log data technician. reporting worsening left leg pain and having trouble walking Unable to see PCP till December Denies injury to leg, denies N/T, no arthritis history, Denies SOB/chest pain, normally walks but now can't walk very well. Denies blood thinner use and any other PMH besides DM. Will put in an INSTED visit but any U/S diagnostics would need to done inpatient hospital setting. Hpateri RN .................... .................... .................... .................... .................... .................... .................... . Bridge Engineer Note From Samir Bah: Pt reports worsening [...] DVT. Daughter is going to call local UC s to see if they can perform ultrasounds, otherwise daughter will take pt to ED. .................... .................... .................... .................... .................... .................... .................... . Disposition: Fulfilled Marshall Crowe MD [address] [facility],[address], [place], [phone], [employer] 12/02/2023 15:06:27 04/16/2024 text/html [facility] Nurse Triage Notes (Karen Rosario): Reason For Request: Pt can barely stand, very dizzy Chief Complaints: Weakness/Lethargy PMH: Diabetes Allergies: Unknown Comments: Carbon Paper Machine Operator verified the member's name//address and phone [...] s/s and seek emergency treatment if needed Bridge Engineer Organization Information for Carlos Travis Simpson [employer] Legal Name: [employer]. Address: [address] [place] [address], Manager Case: See Reynolds MD [place] No.: [id number] Bridge Engineer POC Test Results from Carlos Travis Tatiana [employer] Rapid influenza antigen (18:13:04) Flu: - Rapid COVID antigen (18:13:12) COVID: - .................... .................... .................... .................... .................... .................... .................... . Bridge Engineer Note From Travis Gonzalez: [facility] visit for female patient. Pt present in home with daughter. Pt Irish speaking only and daughter translated. Daughter states [...] without issues since initial vomiting. Consulted with [facility] Dr. Davis who ordered 1 dose of sublingual zofran given on scene. Reviewed red flags for ED. Patient education provided. [facility] Medication Orders: ondansetron 4 mg disintegrating tablet: Administered .................... .................... .................... .................... .................... .................... .................... . Disposition: Fulfilled Janusz Davis MD [address] [facility],[address], [place], [phone], [employer] 04/16/2024 20:42:17 06/03/2024 text/html This was a supervised home visit with outpatient scheduler Tremaine Briggs. [facility] Nurse Triage Notes (Kelly Brumfield): Reason For Request: Patient has sore throat, head ache, and can't sleep. Chief Complaints: Headache, Pain PMH: Diabetes Allergies: Unknown Comments: Allergies: Unknown BILL CHECKER calling to request visit for patient with symptoms of sore throat, ear pain, and headache. Symptoms started yesterday getting worse today. Patient has a non-productive cough. No fever. No known sick contacts. Taking tylenol as needed for symptoms. Bridge Engineer Organization Information for Brigitte Tremainezahida Ramirez Legal Name: [employer]. Address: [address] [place] [id number], Manager Case: See Reynolds MD [facility] No.: [id number] Bridge Engineer POC Test Results from Tremaine Briggs - [employer] Rapid strep test (11:43:02) Strep: - Rapid influenza antigen (11:43:13) Flu: - Rapid COVID antigen (11:43:15) COVID: + .................... .................... .................... .................... .................... .................... .................... . Bridge Engineer Note From Tremaine Briggs: Dispatched to the [...] . Disposition: Fulfilled Marshall Crowe MD [address] [facility],[address], [place], [phone], [employer] 06/03/2024 13:35:20 OBGyn Episode No OBEpisode recorded.
== END 2025-03-09 14:15 | disposition home or self-care (01) ==
LOC: HO.ENCR 13:45
PROVIDERS: PCP Internal Medicine; Visit Provider Internal Medicine Endocrinology, Diabetes & Metabolism
DX: M81.0 Age-related osteoporosis without current pathological fracture (principal)
CPT/HCPCS: 99213

== ENCOUNTER → 2025-03-09 13:44 | Outpatient (BNVA) | payer OTHER, SELFPAY | PROVIDERS: PCP Internal Medicine; Visit Provider Internal Medicine Endocrinology, Diabetes & Metabolism | DX: M81.0 Age-related osteoporosis without current pathological fracture (principal) | CPT/HCPCS: 99212 ==

== ENCOUNTER 2025-03-30 10:08 | Outpatient (REF) | payer OTHER, SELFPAY ==
--- NOTE | ~2025-03-30 | XR_ITS ---
EXAMINATION: XR CERVICAL SPINE CLINICAL INFORMATION: M54.2 - Cervicalgia COMPARISON: Correlated to CT dated December 08, 2024. TECHNIQUE: AP lateral and atlantoodontoid views. FINDINGS: Marginal osteophyte formation and decreased intervertebral disc height endplate sclerosis at C5-6 and C6-7 C7-T1 levels. No acute cortical disruption. Grade 1 anterolisthesis C7-T1. Grade 1 retrolisthesis C3-4. Dystrophic calcifications in the submandibular glands, bilaterally. XR/XR cervical spine 3V IMPRESSION: Multilevel cervical spondylosis C3 T1 pronounced at C5-6 and C6-7 levels. Sialolithiasis, bilateral submandibular glands. Electronically signed by: Giovanni Kline MD 03/30/2025 10:58 AM EDT
--- OUTSIDE RECORDS SUMMARY | 2025-03-30 11:14 | XMS_ITS | Data Portability ---
Author Organization [employer] [facility] Address [address] [place] [address] Care Team Providers Care Boarding Machine Operator Name Role Phone JOSE PEREA Primary Care Provider [phone] HIM CCA OTHER Assessment Encounter Date Assessment [...] PCP. The patient agreed with this plan. [email or web address] Not available 01/26/2022 08:51:58 12/02/2023 12/02/2023 I have reviewed and agree with the assessment and plan as documented by the tin recovery worker. I provided real time medical direction for this encounter and was immediately available to provide additional phone based assistance as needed. History as noted by tin recovery worker. Pt with history of DM. She is [...] assessment and plan as documented by the tin recovery worker. I provided real time medical direction for this encounter and was immediately available to provide additional phone based assistance as needed. History as noted by tin recovery worker. Pt with history of DM2, HLD, cognitive deficit. Pt reports that since yesterday she has had PRE SALES ARCHITECT cough with sore throat, and headache. No [...] Ag, QL IA, respiratory specimen [address], [phone] 4 12:24:05 rapid flu (A+B) [address], [address] 4 12:24:05 rapid strep group A, [facility] [address] [place] [address], [phone] 4 12:24:03 rapid flu (A+B) [address], [address] 4 08:14:03 rapid SARS CoV 2 Ag, QL IA, respiratory specimen [address], [address] 4 08:13:40 Referral None recorded. Procedures None recorded. Surgeries None recorded. Imaging None recorded. Medication Orders Paxlovid 300 mg (150 mg x 2)-100 mg tablets in a dose pack 2023 [id number], [address] [place], [place], [id number], 4 12:33:02 ondansetron 4 mg disintegrat ing tablet [address] [place] [address] [id number], [address] [place], [place], [id number], 4 17:22:16 Patient TargetsNo targets recorded. Patient InstructionsNo instructions recorded. Reason for Referral None Reported. Results Created Date Observation Date Name Description Value Unit Range Abnormal Flag Note LastModifiedBy Organization Detail LastModifiedTime 06/03/2006/03/2024 rapid strep group A, throa t Strep negati ve Not Available [facility] ed [address] [place] [address], [phone] 06/03/2024 12:23:25 06/03/20 24 06/03/2024 rapid flu (A+B) Flu negati ve Not Available [facility] ed [address] [place] [address], [phone] 06/03/2024 12:23:18 06/03/20 24 06/03/2024 rapid SARS CoV 2 Ag, QL IA, respi rator y speci men rapid SARS CoV 2 Ag, QL IA, respiratory specimen positi ve Not Available [facility] - [facility] ed [address] [place] [address], [id number] 06/03/2024 12:23:10 Result Notes None recorded. Medical [...] Heart rate Body height Respiratory rate Systolic And Diastolic Provider Name and Address Organization Details Last Updated DateTime 4 97 % 97 % 98.7 [degF] 28223.8 g 76 /min 154.94 cm 16 /min 118/79 mm[Hg] Not Available [employer] 4 14:45:00 Date Recorded Heart rate Oxygen saturation Oxygen saturation in Arterial blood by Pulse oximetry Respiratory rate Body temperature Systolic And Diastolic Provider Name and Address Organization Details Last Updated DateTime 2 60 /min 99 % 99 % 20 /min 99.5 [degF] 103/55 mm[Hg] Not Available [employer] 2 08:44:22 Date Recorded Body temperature Respiratory rate Body height Heart rate Oxygen saturation Oxygen saturation in Arterial blood by Pulse oximetry Body weight Systolic And Diastolic Provider Name and Address Organization Details Last Updated DateTime 4 97.2 [degF] 16 /min 165.1 cm 57 /min 97 % 97 % 68253.3 68 g 139/81 mm[Hg] Not Available [employer] 4 17:18:14 Date Recorded Oxygen saturation Oxygen saturation in Arterial blood by Pulse oximetry Respiratory rate Body temperature Heart rate Systolic And Diastolic Provider Name and Address Organization Details Last Updated DateTime 4 98 % 98 % 16 /min 98.2 [degF] 84 /min 118/74 mm[Hg] Not Available [employer] 4 12:21:05 Social History None recorded. Functional [...] Note 1521 Isaac Rowan MD Main - [address] [address] 01/26/2022 08:44:15 01/15/2025 11:26:01 Benign paroxysmal positional vertigo [id number] H81.13 [id number] Marshall Crowe MD Main - [address] [address] 12/02/2023 14:44:51 12/02/2023 22:17:34 Pain of left calf [id number] M79.662 [id number] Janusz Davis MD Main - [address] [address] 04/16/2024 17:18:10 04/19/2024 21:44:43 Mild dehydration [id number] 108 E86.0 Normal BP. Tolerating oral fluids; does not need IV fluids at this time. Discussed red flag signs for which to seek higher level of care including worsening dizziness or confusion Nausea and vomiting 1691999 R11.2 Improving. Will give oral Zofran. Discussed red flag signs for which to seek higher level of care including worsening dizziness or confusion [id number] Marshall Crowe MD Main - [address] [address] 06/03/2024 12:21:01 06/03/2024 17:49:34 COVID-19 [id number] U07.1 Health Concerns Section Related Observation LastModified by Organization Detai ls LastModified Time None Recorded Concern Status LastModified by Organization Details LastModified Time None Recorded Advance Directives Directive None Recorded Payers Insurance Date Sequence Insurance Name Policy Number Policy Cespedes Covered Member ID Cespedes Member ID Guarantor Name 01/15/2025 1 [facility] - DOS PRIOR TO 2022 - DUAL ELIGIBLE (MEDICARE REPLACEMENT/ADV ANTAGE - HMO) Delma Hanson [id number] Delma Hanson 01/15/2025 1 [facility] - DOS ON OR AFTER 2022 - DUAL ELIGIBLE - ALF OPTIONS AND ONE CARE (MEDICARE REPLACEMENT/ADV ANTAGE - HMO) Delma Hanson [id number] Delma Hanson Notes Date Note Type Note Provider Name and Address Organization Details Recorded Time 01/23/2022 text/html [facility] Nursing Assessment: Patient Reports: Dizziness with positional change Chief Complaints: Nausea/Vomiting, Syncope/Dizziness/Li ghtheadedness Allergies: Other Comments: Daughter of member calling for [facility] complaints of feeling dizzy since last night deny C/P SOB hx vertigo that had responded to meclizine in the past- slight nausea .................... .................... .................... .................... .................... .................... .................... . Program Associate Note: chief complaint dizziness. Constitutional: Afebrile without [...] . Disposition: Fulfilled Isaac Rowan MD [address] [facility],[address], [place], [address], [employer] 10/19/2022 19:03:28 12/02/2023 text/html This was a supervised home visit with tin recovery worker Samir Bah. 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 Chief Complaints: Pain PMH: Diabetes Comments: Spoke w/ caregiver and supervisor travel information center. reporting worsening left leg pain and having [...] .................... .................... .................... .................... .................... .................... . Program Associate Note From Samir Bah: Pt reports worsening [...] . Disposition: Fulfilled Marshall Crowe MD [address] [facility], [place], [address], [employer] 12/02/2023 15:06:27 04/16/2024 text/html [facility] Nurse Triage Notes (Karen Rosario): Reason For Request: Pt can barely stand, very dizzy Chief Complaints: Weakness/Lethargy PMH: Diabetes Allergies: Unknown Comments: Radioactivity Technician verified the member's name//address and phone number. [...] s/s and seek emergency treatment if needed Program Associate Organization Information for Carlos Travis Tatiana [employer] Business Legal Name: [employer]. Address: [address] [place] [address], Resource Program Teacher: See Reynolds MD [place] No.: [id number] Program Associate POC Test Results from Travis Gonzalez Rapid influenza antigen (18:13:04) Flu: - Rapid COVID antigen (18:13:12) COVID: - .................... .................... .................... .................... .................... .................... .................... . Program Associate Note From Travis Gonzalez: [facility] Pt present in home with daughter. Pt Japanese speaking only and daughter translated. Daughter states [...] without issues since initial vomiting. Consulted with [facility] Dr. Davis who ordered 1 dose of sublingual zofran given on scene. Reviewed red flags for ED. Patient education provided. [facility] Medication Orders: ondansetron 4 mg disintegrating tablet: Administered .................... .................... .................... .................... .................... .................... .................... . Disposition: Fulfilled Janusz Davis MD [address] [facility],[address], [place], [address], [employer] 04/16/2024 20:42:17 06/03/2024 text/html This was a supervised home visit with tin recovery worker Tremaine Briggs. [facility] Nurse Triage Notes (Kelly Brumfield): Reason For Request: Patient has sore throat, head ache, and can't sleep. Chief Complaints: Headache, Pain PMH: Diabetes Allergies: Unknown Comments: Allergies: Unknown DIRECTOR OF GRADUATE MEDICAL EDUCATION calling to request visit for patient with symptoms of sore throat, ear pain, and headache. Symptoms started yesterday getting worse today. Patient has a non-productive cough. No fever. No known sick contacts. Taking tylenol as needed for symptoms. Program Associate Organization Information for Tremaine Briggs Legal Name: [employer]. Address: [address] [place] [address], Resource Program Teacher: See Reynolds MD [place] No.: [id number] Program Associate POC Test Results from Tremaine Briggs - [employer] Rapid strep test (11:43:02) Strep: - Rapid influenza antigen (11:43:13) Flu: - Rapid COVID antigen (11:43:15) COVID: + .................... .................... .................... .................... .................... .................... .................... . Program Associate Note From Tremaine Briggs: Dispatched to the [...] . Disposition: Fulfilled Marshall Crowe MD [address] [facility],[address], [place], [address], [employer] 06/03/2024 13:35:20 OBGyn Episode No OBEpisode recorded.
--- OUTSIDE RECORDS SUMMARY | 2025-03-30 11:14 | XMS_ITS | Clinical Summary ---
Author Organization [facility] it Address [address] [place] [address] Care Team Providers Care Education Director Name Role Phone Unavailable Primary Care Provider [...] 2023-2 5 season) 2024 Influenza Vaccine (#1) 2025 HIB Vaccines Aged Out No longer [...]
--- OUTSIDE RECORDS SUMMARY | 2025-03-30 11:14 | XMS_ITS | Encounter Summary ---
Author Organization [employer] [facility] Address [address] [facility] [address] [place] [address] Care Team Providers Care Spray Dry Operator Name Role Phone Unavailable Primary Care Provider Unavailabl e Encounter Details Date Type Department Care Team (Latest Contact Info) Description 01/27/2019 Abstract C CONVERSIONS Dental, Provider, DDS Social History Tobacco [...]
== END 2025-03-30 10:09 | disposition home or self-care (01) ==
LOC: HO.XRAY 10:08
PROVIDERS: PCP Internal Medicine; Visit Provider Psychiatry & Neurology Neurology
DX: M54.2 Cervicalgia (principal)
CPT/HCPCS: 72040

== ENCOUNTER → 2025-03-30 10:20 | Outpatient (BNV) | payer OTHER, SELFPAY | PROVIDERS: PCP Internal Medicine; Visit Provider Radiology Diagnostic Radiology | DX: M47.812 Spondylosis without myelopathy or radiculopathy, cervical region (principal); K11.5 Sialolithiasis | CPT/HCPCS: 72040 ==

== ENCOUNTER → 2025-04-01 13:34 | Outpatient (BNVA) | payer OTHER, SELFPAY | PROVIDERS: PCP Internal Medicine; Visit Provider Internal Medicine Endocrinology, Diabetes & Metabolism | DX: M54.2 Cervicalgia (principal); R42 Dizziness and giddiness | CPT/HCPCS: 99212 ==

== ENCOUNTER 2025-04-01 14:45 | Outpatient (AMB) | payer OTHER, SELFPAY ==
[2025-04-01 15:14] VITALS: BP 110/62; PULSE 68; O2SAT 98; BMI 24.4
--- NOTE | 2025-04-01 15:14 | A.OFFVIS_ITS ---
Vital Signs 04/01/25 15:14 Height 5 ft 1 in Weight 129 lb BMI 24.4 BP 110/62 Blood Pressure Location Rt brachial Position Sitting Pulse 68 Pulse Source Pulse Oximeter Pulse Oximetry (%) 98 Oxygen Delivery Method Room Air Intake Visit Reasons: f/u for dizziness/giddiness Intake Note: Follow up for Dizziness University Controller Required: No University Controller Name: Daughter speaks Vietnamese Accompanied by: Daughter Allergies clindamycin Allergy (Mild, Verified 04/01/25 15:18) Hives Iodinated Contrast Media (IV Dye, Iodine Containing) Allergy (Mild, Verified 04/01/25 15:18) HIVES donepezil Adverse Reaction (Intermediate, Verified 04/01/25 15:18) nausea, dizziness and vomiting pioglitazone Adverse Reaction (Intermediate, Verified 04/01/25 15:18) edema amitriptyline (From Elavil) Adverse Reaction (Mild, Verified 04/01/25 15:18) NAUSEA & VOMITING amoxicillin (Amoxicillin) Adverse Reaction (Mild, Verified 04/01/25 15:18) NAUSEA & VOMITING codeine (From Tylenol-Codeine) Adverse Reaction (Mild, Verified 04/01/25 15:18) NAUSEA & VOMITING lisinopril (Lisinopril) Adverse Reaction (Mild, Verified 04/01/25 15:18) NAUSEA & VOMITING acetaminophen (Tylenol) Adverse Reaction (Unknown, Verified 04/01/25 15:18) tylenol 3 (states regulare tylenol upset stomach as well) aspirin (Aspirin) Adverse Reaction (Unknown, Verified 04/01/25 15:18) NAUSEA & VOMITING oxycodone (Percocet) Adverse Reaction (Unknown, Verified 04/01/25 15:18) stomach upset tramadol (From Ultram) Adverse Reaction (Unknown, Verified 04/01/25 15:18) NAUSEA & VOMITING HPI Comments Details: 79 y/o female comes for follow up of vertigo and cervicalgia. she is doing good. cervical spine X ray showed multilevel spondylosis she had a fall in november 2024 when she was trying to put on her shirt .Her vertigo has resolved since she stopped zolpidem . her neck pain is better. she is not sure if she tried cyclobenzaprine she did not go to PT. History from Initial visit-November 2023 Pt's reports that the vertigo started about 5-6 years ago. Pt having dizziness with her surroundings moving and spinning. It usually happens when she gets up or change her position.z The symptoms goes away when she rests in her bed. It can be associated with nausea. She needs to hold table when the vertigo happens, but feels she is going to fall back. Pt also had two episodes of passing out. [facility], [facility] Medical History History of adenomatous polyp of colon Bright red blood per rectum Osteoporosis of lumbar spine Headache Cervicalgia Cervicalgia Acute parotitis Dizziness of unknown cause Diabetes mellitus with hyperglycemia Vitamin D deficiency Mixed dyslipidemia Lumbago Idiopathic scoliosis Pulmonary nodules Submandibular sialoadenitis Vitamin D deficiency Hemorrhoid Sensorineural hearing loss Balance disorder Lumbar scoliosis Type 2 diabetes mellitus with hyperglycemia, without long-term current use of insulin Anxiety Osteoarthritis Hypertension Surgical History History of bladder suspension procedure Hx of cholecystectomy Family History Father Pulmonary disease Mother Liver cirrhosis Diabetes Other Mental health disorder Social History Household Members: Unknown / Unable to assess Housing: Unknown / Unable to assess Housing Other:: apartment for penitentiary Do you presently have visiting nurse or other home services: Yes Unable to assess alcohol history related to: Unknown Alcohol intake: never Patient Tobacco Use Status: Never used Tobacco e-Cigarette/Vaping Use: Never Used Second Hand Smoke Exposure: No Advance Directives Date on File: 11/13/21 service: No Current occupational status: retired Cognitive needs: No Hearing needs: No Vision needs: No Physical Exam Vital Signs: Last Vital Signs Pulse 68 04/01/25 15:14 BP 110/62 04/01/25 15:14 Pulse Ox 98 04/01/25 15:14 Oxygen Delivery Method Room Air 04/01/25 15:14 BMI result Body Mass Index 24.4 Const General: cooperative Nutritional Appearance: average body habitus Orientation/consciousness: patient oriented x3 Limitations: language barrier Neck Other: antecollis tenderness in left lateral muscles Neuro General: patient oriented x3 and moves all extremities Cranial nerves: Yes CN's II-XII intact bilaterally Cognition (Neuro): normal cognition Gait exam (Neuro): Assisted gait required (cane) Motor exam (neuro): 5/5 motor strength present throughout, Pronator motor function not present and no tremor noted Psych Appearance: grossly normal Mental Status: mental status grossly normal Affect: normal affect Assessment & Plan Assessment & Plan (1) Cervicalgia: Code(s): M54.2 - Cervicalgia Category: Medical (2) Vertigo: Code(s): R42 - Dizziness and giddiness Category: Medical Plan C spine X ray reviewed Patient is doing well she will call me if her vertigo and neck pain recurs. Coding Level of Care Code Est Pt Level 4 (56333) Diagnoses Cervicalgia M54.2 Vertigo R42
== END 2025-04-01 15:32 | disposition home or self-care (01) ==
LOC: HO.HSMS 14:46
PROVIDERS: PCP Internal Medicine; Visit Provider Psychiatry & Neurology Neurology
DX: M54.2 Cervicalgia (principal); R42 Dizziness and giddiness
CPT/HCPCS: 99214

== ENCOUNTER 2025-04-22 15:06 | Outpatient (AMB) | payer OTHER, SELFPAY ==
--- OUTSIDE RECORDS SUMMARY | 2025-04-22 15:10 | XMS_ITS | Encounter Summary ---
Author Organization [employer] [facility] Address [address] [facility] [address] [place] [address] Care Team Providers Care Electronic Calibration Technician Name Role Phone Unavailable Primary Care Provider [...]
--- OUTSIDE RECORDS SUMMARY | 2025-04-22 15:10 | XMS_ITS | Clinical Summary ---
Author Organization [facility] it Address [address] [place] [address] Care Team Providers Care Recruiting Scheduler Name Role Phone Unavailable Primary Care Provider [...] nts (1 - 1-dose 75+ series) 2020 Falls Risk Assessment 04/08/2024 Hepatitis C Screening 04/08/2024 Osteoporosis Screening (Bone Density Screening) 04/08/2024 Social Influencers of Health Screening 04/08/2024 COVID-19 Vaccine ( - 2023-2 5 season) 2024 Depression Screening 09/16/2024 Influenza Vaccine (#1) 2025 HIB Vaccines Aged [...]
[2025-04-22 15:35] VITALS: BP 94/62; PULSE 63; RESP 17; TEMP 36.7; O2SAT 96; BMI 23.6
--- NOTE | 2025-04-22 15:35 | A.OFFPC_ITS ---
Vital Signs 04/22/25 15:35 Height 5 ft 1 in Weight 125 lb BMI 23.6 BP 94/62 Blood Pressure Location Lt brachial Position Sitting Respiration 17 Pulse 63 Pulse Source Pulse Oximeter Temp 98.1 F Temp Source Oral Pulse Oximetry (%) 96 Oxygen Delivery Method Room Air Intake Visit Reasons: 3m f/u Intake Note: Pt is here today for her 3mo. f/u Allergies clindamycin Allergy (Mild, Verified 04/22/25 15:50) Hives Iodinated Contrast Media (IV Dye, Iodine Containing) Allergy (Mild, Verified 04/22/25 15:50) HIVES donepezil Adverse Reaction (Intermediate, Verified 04/22/25 15:50) nausea, dizziness and vomiting pioglitazone Adverse Reaction (Intermediate, Verified 04/22/25 15:50) edema amitriptyline (From Elavil) Adverse Reaction (Mild, Verified 04/22/25 15:50) NAUSEA & VOMITING amoxicillin (Amoxicillin) Adverse Reaction (Mild, Verified 04/22/25 15:50) NAUSEA & VOMITING codeine (From Tylenol-Codeine) Adverse Reaction (Mild, Verified 04/22/25 15:50) NAUSEA & VOMITING lisinopril (Lisinopril) Adverse Reaction (Mild, Verified 04/22/25 15:50) NAUSEA & VOMITING acetaminophen (Tylenol) Adverse Reaction (Unknown, Verified 04/22/25 15:50) tylenol 3 (states regulare tylenol upset stomach as well) aspirin (Aspirin) Adverse Reaction (Unknown, Verified 04/22/25 15:50) NAUSEA & VOMITING oxycodone (Percocet) Adverse Reaction (Unknown, Verified 04/22/25 15:50) stomach upset tramadol (From Ultram) Adverse Reaction (Unknown, Verified 04/22/25 15:50) NAUSEA & VOMITING rosuvastatin Adverse Reaction (Verified 04/22/25 15:50) Abdominal Pain Medication List - Last Reconciled 04/22/25 by Danita Mccurdy MD blood sugar diagnostic ([employer] Ultra Test strips) Check fasting blood sugar twice a day blood-glucose meter ([employer]Touch Ultra2 Meter) As directed cane use as directed cholecalciferol (vitamin D3) 50 mcg PO DAILY docusate sodium 100 mg PO BID escitalopram oxalate 10 mg PO DAILY FreeStyle Lancets (lancets) Check fasting blood sugar once a day before meal NS Jardiance (empagliflozin) 10 mg PO QAM NS lancets test blood sugar twice a day memantine 10 mg PO BID Mounjaro (tirzepatide) 2.5 mg (0.5 mL) subcut TU NS pen needle, diabetic (Comfort EZ Pen [place]) As directed once a day teriparatide 20 mcg (0.08 mL) subcut DAILY NS [tub safety bar As directed] Tobacco use date assessed: 04/22/25 Fall risk assessment: 1 Fall in past year Last assessed Fall Risk: 04/22/25 Dental Screening Dental Screen Date: 01/13/25 Did you have a dental visit in the last 12 months?: Yes Did you have a dental problem in the last 6 months where you did not have access to dental care?: No Was dental information given to patient?: Patient has dentist HPI 3m f/u HPI Details - The patient is a 79-year-old female pr esenting with a cough, fever, and sinus infection. - The cough began approximately one week ago, initially accompanied by a headache and sore throat. - Ear pain was reported, and Robitussin was used with minimal relief. - The patient has a known allergy to Rickie xicillin, impacting antibiotic choices. - Muscle pain was noted, potentially cara ked to medication or coughing, leading to a temporary cessation of certain medications. - Vertigo was experienced but improved a fter stopping a psychiatric medication. [facility] Medical History (Updated 04/22/25 @ 15:57 by Danita Mccurdy MD) Right upper quadrant pain History of adenomatous polyp of colon Bright red blood per rectum Osteoporosis of lumbar spine Headache Cervicalgia Cervicalgia Acute parotitis Dizziness of unknown cause Diabetes mellitus with hyperglycemia Vitamin D deficiency Mixed dyslipidemia Lumbago Idiopathic scoliosis Pulmonary nodules Submandibular sialoadenitis Vitamin D deficiency Hemorrhoid Sensorineural hearing loss Balance disorder Lumbar scoliosis Type 2 diabetes mellitus with hyperglycemia, without long-term current use of insulin Anxiety Osteoarthritis Hypertension Surgical History History of bladder suspension procedure Hx of cholecystectomy Family History Father Pulmonary disease Mother Liver cirrhosis Diabetes Other Mental health disorder Social History Household Members: Unknown / Unable to assess Housing: Unknown / Unable to assess Housing Other:: apartment for long term Do you presently have visiting nurse or other home services: Yes Unable to assess alcohol history related to: Unknown Alcohol intake: never Patient Tobacco Use Status: Never used Tobacco e-Cigarette/Vaping Use: Never Used Second Hand Smoke Exposure: No Advance Directives Date on File: 11/13/21 service: No Current occupational status: retired Cognitive needs: No Hearing needs: No Vision needs: No Questionnaire Thrive Questionnaire Date Thrive assessed: 01/13/25 I am a: Patient What is your living situation today?: I have a steady place to live Within the past 12 months, did the food you bought not last and you didn't have the money to get more?: Never true Within the past 12 months, did you worry whether your food would run out before you got money to buy more?: Never true Do you have trouble paying for medicines?: No Do you have trouble getting transportation to medical appointments?: No Do you have trouble paying your heating and electricity bill?: No Do you have trouble taking care of your child, family member or friend?: No Do you have trouble with day-to-day activities such as bathing, preparing meals, shopping, managing finances, etc.?: I choose not to answer this question Are you currently unemployed and looking for a job?: I choose not to answer this question Are you interested in more education?: No Please select the resources that you would like help with: None Currently or been in a relationship where the following occur: I choose not to answer THRIVE Score: 0 SUMMER-7 AMB Questionnaire SUMMER-7 Date SUMMER - 7 assessed: 10/30/24 Source: Developed by Drs. Bon David, Debby Smith, Jared Perez and colleagues, with an educational nayely from [employer]. Review of Systems Const All systems reviewed & are unremarkable except as noted in HPI and below Physical exam (Primary Care) Vital Signs: Last Vital Signs Temp 98.1 F 04/22/25 15:35 Pulse 63 04/22/25 15:35 Resp 17 04/22/25 15:35 BP 94/62 04/22/25 15:35 Pulse Ox 96 04/22/25 15:35 Oxygen Delivery Method Room Air 04/22/25 15:35 BMI result Body Mass Index 23.6 Tobacco/Smoking Status: Tobacco use Status Tobacco use date assessed 04/22/25 04/22/25 15:43 Patient Tobacco Use Status Never used Tobacco 04/22/25 15:37 e-Cigarette/Vaping Use Never Used 04/22/25 15:37 Thrive Assessment: Date of Thrive Assessment Date Thrive assessed 01/13/25 04/22/25 15:37 Currently or been in a relationship where the following occur: I choose not to answer Const Other: Alert oriented x3 accompanied by daughter, ambulatory with a walker Orientation/consciousness: patient oriented x3 HENMT Other: n Head: Yes normocephalic Face and sinus: Yes face symmetric Mouth: oropharynx normal and moist mucous membranes Neck Neck: Yes full ROM, Yes no lymphadenopathy and Yes supple Resp Auscultation: clear to auscultation bilaterally Cardio Other: S1-S2 present regular and rhythm GI Palpation (GI): Soft to palpation, nontender, no guarding and no masses Back/Spine/Pelvis Other: Mild kyphosis Skin General skin exam: no rashes or lesions noted Neuro General: patient oriented x3, tone normal, moves all extremities, Normal light touch and pain sensation, no focal motor deficits and CN's II-XI intact bilaterally Extrem General: Yes full ROM, Yes no joint enlargement, Yes no pedal edema and Yes no calf tenderness Coding Level of Care Code Est Pt Level 4 (00859) Diagnoses Cough with fever R05.9; R50.9 Assessment & Plan Assessment & Plan (1) Cough with fever: Code(s): R05.9 - Cough, unspecified; R50.9 - Fever, unspecified Plan: The patient will be prescribed azithromycin due to her allergy to Amoxicillin, and she is advised to continue using Robitussin DM as needed for cough relief. A chest x-ray and complete blood count CBC) will be conducted to further evaluate her respiratory symptoms. The patient is instructed to drink plenty of fluids to help thin mucus secretions. Follow-up will be conducted via telehealth to review lab results and adjust treatment as necessary. The patient is advised to refrain from taking rosuvastatin until muscle enzyme levels are assessed, due to reported muscle pain. Patient was informed and verbally consented to the use of an ambient scribe for clinic note documentation during this visit. Orders: Orders XR chest 2V 04/22/25 R05.9 - Cough, unspecified, R10.11 - Right upper quadrant pain, R50.9 - Fever, unspecified Creatine Kinase Total 04/22/25 M79.10 - Myalgia, unspecified site Comprehensive [place]. Panel Fast 04/22/25 R05.9 - Cough, unspecified, R10.11 - Right upper quadrant pain, R50.9 - Fever, unspecified Medications: New azithromycin For 250 mg dose pack: take 500 mg today (day 1), then 250 mg for 4 days (days 2-5) PO 6 tabs 0RF
== END 2025-04-22 16:07 | disposition home or self-care (01) ==
PROVIDERS: PCP Internal Medicine; Visit Provider Internal Medicine
DX: R05.9 Cough, unspecified (principal); R50.9 Fever, unspecified

== ENCOUNTER → 2025-04-22 15:06 | Outpatient (BNVA) | payer OTHER, SELFPAY | PROVIDERS: PCP Internal Medicine; Visit Provider Internal Medicine | DX: R10.11 Right upper quadrant pain (principal); R05.9 Cough, unspecified; R50.9 Fever, unspecified; M79.10 Myalgia, unspecified site | CPT/HCPCS: 99212 ==

== ENCOUNTER 2025-04-26 08:55 | Outpatient (REF) | payer OTHER, SELFPAY ==
--- NOTE | ~2025-04-26 | XR_ITS ---
CLINICAL HISTORY: R10.11 - Right upper quadrant pain 2 views chest Comparison: CR/SR - XR CHEST 1 VIEW - 06/05/24 20:00 EDT Findings: Cardiac and mediastinal contours are normal. Mild interstitial prominence with scattered peribronchial thickening. No focal consolidation. No effusion. No pneumothorax. No acute osseous finding. Impression: Mild interstitial prominence with scattered peribronchial thickening. No focal consolidation. This document has been electronically signed by: Jerzy Leonard MD on 04/26/2025 15:20:38
--- OUTSIDE RECORDS SUMMARY | 2025-04-26 09:17 | XMS_ITS | Clinical Summary ---
Author Organization [facility] it Address [address] [place] [address] Care Team Providers Care Epic Beacon Analyst Name Role Phone Unavailable Primary Care Provider [...]
--- OUTSIDE RECORDS SUMMARY | 2025-04-26 09:17 | XMS_ITS | Encounter Summary ---
Author Organization [employer] [facility] Address [address] [place] [address] Care Team Providers Care Marketing Planner Name Role Phone Unavailable Primary Care Provider [...]
[2025-04-26 09:23] LABS: MANUAL DIFF FLAG NO
[2025-04-26 09:35] LABS: Hematocrit 42.1 % (37.0-47.0); Hemoglobin 13.9 g/dl (12.0-16.0); Imm Gran Abs Auto 0.02 X10*3/uL (0.00-0.03); Imm Gran Pct Auto 0.3 % (0.0-0.4); Lymphocytes Absolute Auto 2.6 X10*3/uL (1.2-4.9); Mean Corpuscular HGB Conc 33.0 g/dl (31.0-35.0); Mean Corpuscular Hemoglobin 31.6 pg (27.0-33.0); Mean Corpuscular Volume 95.7 fL (80.0-98.0); NRBC Abs Auto 0.000 X10*3/uL (0.0-0.012); NRBC Pct Auto 0.0 /100WBC (0.0-0.2); Platelet Count 215 X10*3/uL (160-400); Red Blood Count 4.40 X10*6/uL (4.20-5.50); White Blood Count 5.9 X10*3/uL (4.8-10.8)
[2025-04-26 10:05] LABS: Hemoglobin A1C 240.9535 umol/L; Total Hemoglobin (HGBA1C) 3760.1850 umol/L
[2025-04-26 10:29] LABS: Alanine Aminotransferase 23 U/L (0-31); Albumin Level 4.0 g/dL (3.5-5.0); Alkaline Phosphatase 124 U/L (39-117); Anion Gap 9 (12-20); Aspartate Amino Transferase 33 U/L (5-31); Blood Urea Nitrogen 13 mg/dL (9-16); Calcium 9.5 mg/dL (8.4-10.2); Carbon Dioxide 30 mmol/L (22-29); Chloride 107 mmol/L (96-108); Cholesterol 228 mg/dL (<200); Estimated Glomerular Filt Rate > 60; HDL Cholesterol 35 mg/dL (>40); Potassium 4.1 mmol/L (3.3-5.1); Sodium 142 mmol/L (135-145); Total Protein 7.7 g/dL (6.5-8.0); Triglycerides 293 mg/dL (<150)
== END 2025-04-26 08:56 | disposition home or self-care (01) ==
LOC: HO.LAB 08:55
PROVIDERS: PCP Internal Medicine; Visit Provider Internal Medicine
DX: R10.11 Right upper quadrant pain (principal); E11.65 Type 2 diabetes mellitus with hyperglycemia; M79.10 Myalgia, unspecified site; E78.2 Mixed hyperlipidemia; R05.9 Cough, unspecified; R50.9 Fever, unspecified
CPT/HCPCS: 36415; 71046; 80053; 80061; 82306; 82550; 83036; 85025

== ENCOUNTER → 2025-04-26 09:25 | Outpatient (BNV) | payer OTHER, SELFPAY | PROVIDERS: PCP Internal Medicine; Visit Provider Radiology Vascular & Interventional Radiology | DX: R05.9 Cough, unspecified (principal) | CPT/HCPCS: 71046 ==

== ENCOUNTER 2025-04-30 08:34 | Outpatient (AMB) | payer OTHER, SELFPAY ==
--- OUTSIDE RECORDS SUMMARY | 2025-04-30 08:47 | XMS_ITS | Clinical Summary ---
Author Organization [facility] it Address [address] [place] [address] Care Team Providers Care Pump And Blower Operator Name Role Phone Unavailable Primary Care [...]
--- OUTSIDE RECORDS SUMMARY | 2025-04-30 08:47 | XMS_ITS | Encounter Summary ---
Author Organization [employer] [facility] Address [address] [place] [address] Care Team Providers Care Autopsy Assistant Name Role Phone Unavailable Primary Care Provider [...]
--- NOTE | 2025-04-30 08:49 | MHC.PC.OV ---
Intake Visit Reasons: TH in a week ffup dm,lipids after labs done Allergies clindamycin Allergy (Mild, Verified 04/30/25 09:33) Hives Iodinated Contrast Media (IV Dye, Iodine Containing) Allergy (Mild, Verified 04/30/25 09:33) HIVES donepezil Adverse Reaction (Intermediate, Verified 04/30/25 09:33) nausea, dizziness and vomiting pioglitazone Adverse Reaction (Intermediate, Verified 04/30/25 09:33) edema amitriptyline (From Elavil) Adverse Reaction (Mild, Verified 04/30/25 09:33) NAUSEA & VOMITING amoxicillin (Amoxicillin) Adverse Reaction (Mild, Verified 04/30/25 09:33) NAUSEA & VOMITING codeine (From Tylenol-Codeine) Adverse Reaction (Mild, Verified 04/30/25 09:33) NAUSEA & VOMITING lisinopril (Lisinopril) Adverse Reaction (Mild, Verified 04/30/25 09:33) NAUSEA & VOMITING acetaminophen (Tylenol) Adverse Reaction (Unknown, Verified 04/30/25 09:33) tylenol 3 (states regulare tylenol upset stomach as well) aspirin (Aspirin) Adverse Reaction (Unknown, Verified 04/30/25 09:33) NAUSEA & VOMITING oxycodone (Percocet) Adverse Reaction (Unknown, Verified 04/30/25 09:33) stomach upset tramadol (From Ultram) Adverse Reaction (Unknown, Verified 04/30/25 09:33) NAUSEA & VOMITING rosuvastatin Adverse Reaction (Verified 04/30/25 09:33) Abdominal Pain Medication List - Last Reconciled 05/01/25 by Danita Mccurdy MD azithromycin For 250 mg dose pack: take 500 mg today (day 1), then 250 mg for 4 days (days 2-5) PO blood sugar diagnostic ([employer] Ultra Test strips) Check fasting blood sugar twice a day blood-glucose meter ([employer]Touch Ultra2 Meter) As directed cane use as directed cholecalciferol (vitamin D3) 50 mcg PO DAILY docusate sodium 100 mg PO BID escitalopram oxalate 10 mg PO DAILY FreeStyle Lancets (lancets) Check fasting blood sugar once a day before meal NS Jardiance (empagliflozin) 10 mg PO QAM NS lancets test blood sugar twice a day memantine 10 mg PO BID pen needle, diabetic (Comfort EZ Pen [place]) As directed once a day rosuvastatin 5 mg PO DAILY 3 months tirzepatide 5 mg (0.5 mL) subcut QWEEK [tub safety bar As directed] Tobacco use date assessed: 04/22/25 Dental Screening Dental Screen Date: 01/13/25 HPI TH in a week ffup dm,lipids after labs done HPI Details 79-year-old lady with history of hyperlipidemia, diabetes mellitus with hyperglycemia, here today for follow-up. She has been taking Mounjaro 2.5 mg once a week, Jardiance 10 mg daily in the morning. Latest fasting labs showed poor control of diabetes mellitus with hemoglobin A1c now at 7.5%. Her daughter states that she patient has been sick on and off for the last several weeks and has been taking a lot of [id number] Robitussin cough medicine, and has not been paying attention to her diet and has been sedentary for several weeks now, which most likely please apart in her diabetes mellitus being uncontrolled at present time. She had recent fasting lipids done which showed elevated LDL cholesterol and triglycerides. She was previously on rosuvastatin but at a high dose of 40 mg at bedtime and complained of abdominal discomfort and nausea when taking the medication, which resolved after she discontinued taking it. Currently not on any medication for high cholesterol levels [facility] Medical History (Updated 05/01/25 @ 01:49 by Danita Mccurdy MD) History of adenomatous polyp of colon Osteoporosis of lumbar spine Headache Cervicalgia Cervicalgia Acute parotitis Dizziness of unknown cause Diabetes mellitus with hyperglycemia Vitamin D deficiency Mixed dyslipidemia Lumbago Pulmonary nodules Submandibular sialoadenitis Hemorrhoid Sensorineural hearing loss Balance disorder Lumbar scoliosis Type 2 diabetes mellitus with hyperglycemia, without long-term current use of insulin Anxiety Osteoarthritis Hypertension Surgical History History of bladder suspension procedure Hx of cholecystectomy Family History Father Pulmonary disease Mother Liver cirrhosis Diabetes Other Mental health disorder Social History Household Members: Unknown / Unable to assess Housing: Unknown / Unable to assess Housing Other:: apartment for senior care Do you presently have visiting nurse or other home services: Yes Unable to assess alcohol history related to: Unknown Alcohol intake: never Patient Tobacco Use Status: Never used Tobacco e-Cigarette/Vaping Use: Never Used Second Hand Smoke Exposure: No Advance Directives Date on File: 11/13/21 service: No Current occupational status: retired Cognitive needs: No Hearing needs: No Vision needs: No Questionnaire Thrive Questionnaire Date Thrive assessed: 01/13/25 SUMMER-7 AMB Questionnaire SUMMER-7 Date SUMMER - 7 assessed: 10/30/24 Source: Developed by Drs. Bon David, Debby Smith, Jared Perez and colleagues, with an educational nayely from [employer]. Review of Systems Const Reports no additional complaints Eyes Reports no additional complaints ENT Reports no additional complaints Card Denies chest pain, Denies rapid heart rate, Denies irregular heart rhythm and Denies dyspnea Resp Denies cough and Denies dyspnea GI Reports as per HPI Reports no additional complaints Musc Reports no additional complaints Neuro Reports no additional complaints Endo Reports no additional complaints Aller/Immun Reports no additional complaints Physical exam (Primary Care) Tobacco/Smoking Status: Tobacco use Status Tobacco use date assessed 04/22/25 04/30/25 08:49 Patient Tobacco Use Status Never used Tobacco 04/30/25 08:49 e-Cigarette/Vaping Use Never Used 04/30/25 08:49 Thrive Assessment: Date of Thrive Assessment Date Thrive assessed 01/13/25 04/30/25 08:49 Telehealth Telehealth Telehealth Platform: [facility] Location of provider rendering services: practice address Location of patient: address on file Patient Identification confirmed using: Name, : Yes Telehealth method: video Patient verbally consented to treatment: Yes Patient verbally consented to billing insurance company: Yes Patient informed of any privacy concerns related to visit: Yes Minutes spent on Phone/Video with Pt.: 15 Results Reviewed Results Reviewed: Name: Delma Hanson I Age/Sex: 79/F : 1945 Unit#: [id number] Attend Dr: Danita Mccurdy MD Re04/26/25 Status: DEP REF Location: .LAB Disch: SPEC : [id number] KAEL: 04/26/25 STATUS: COMP REQ : [id number] RECD: 04/26/[address]: Danita Mccurdy MD COMP: 04/26/25 ENTERED: 04/26/25 [facility] DR: ORDERED: CBC Auto Diff Test Result Flag Reference WBC 5.9 4.8-10.8 X10*3/uL RBC 4.40 4.20-5.50 X10*6/uL HGB 13.9 12.0-16.0 g/dl HCT 42.1 37.0-47.0 % MCV 95.7 80.0-98.0 fL MCH 31.6 27.0-33.0 pg MCHC 33.0 31.0-35.0 g/dl RDW 14.5 11.0-16.0 % PLT 215 # 160-400 X10*3/uL MPV 10.7 9.4-12.3 fL Neut Pct Auto 44.5 L 45-73 % ImGran Pct Auto 0.3 0.0-0.4 % Lymp Pct Auto 43.7 H 20-40 % [place] Pct Auto 7.8 2-11 % Eos Pct Auto 3.2 0-4 % Baso Pct Auto 0.5 0-2 % NRBC Pct Auto 0.0 0.0-0.2 /100WBC ANC Neut Abs # 2.6 2.0-8.3 x10*3/uL ImGran Abs Auto 0.02 0.00-0.03 X10*3/uL Lymph Abs Auto 2.6 1.2-4.9 X10*3/uL [place] Abs Auto 0.5 0.1-1.2 X10*3/uL Eos Abs Auto 0.2 0.0-0.4 X10*3/uL Baso Abs Auto 0.0 0.0-0.2 X10*3/uL NRBC Abs Auto 0.000 0.0-0.012 X10*3/uL Name: Delma Hanson I Age/Sex: 79/F : 1945 Unit#: [id number] Attend Dr: Danita Mccurdy MD Re04/26/25 Status: DEP REF Location: [facility] Disch: SPEC : [id number] KAEL: 04/26/25 STATUS: COMP REQ : [id number] RECD: 04/26/[address] [facility] [address]: Danita Mccurdy MD COMP: 04/26/25 ENTERED: 04/26/25 [facility] DR: ORDERED: CMP Fast, CK Total, Lipid Panel, Vitamin D 25-OH Test Result Flag Reference Sodium 142 135-145 mmol/L Potassium 4.1 3.3-5.1 mmol/L CL 107 96-108 mmol/L CO2 30 H 22-29 mmol/L Gap 9 L 12-20 BUN 13 9-16 mg/dL Creat 0.80 0.5-1.4 mg/dL eGFR > 60 Chronic Kidney Disease: Estimated GFR < 60 mL/min/1.73m2 Severe Kidney Disease: Estimated GFR < 15 mL/min/1.73m2 FBS 204 H 60-99 mg/dL A fasting glucose of 126 mg/dl or greater on more than one occasion is considered diagnostic of diabetes. CA 9.5 8.4-10.2 mg/dL Total Bili 0.5 0.0-1.0 mg/dL Slight Icterus. AST (GOT) 33 H 5-31 U/L ALT (GPT) 23 0-31 U/L CK Total 21 L 26-140 U/L Protein, Total 7.7 6.5-8.0 g/dL Alb 4.0 3.5-5.0 g/dL Triglyceride 293 H <150 mg/dL Desirable Triglyceride: less than 150 mg/dL Borderline High Triglyceride 150-199 mg/dL High Triglyceride: 200-499 mg/dL Very High Triglyceride: greater than or equal to 5OO mg/dL Cholesterol 228 H <200 mg/dL Desirable Cholesterol: less than 200 mg/dL Borderline High Cholesterol: 200-239 mg/dL High Cholesterol: greater than 239 mg/dL LDL Calculated 135 H <100 mg/dL Desirable LDL: less than 100 mg/dL Near Optimal/Above Optimal LDL: 110-129 mg/dL Borderline High LDL: 130-159 mg/dL High LDL: 160-189 mg/dL Very High LDL: greater than or equal to 190 mg/dL HDL 35 L >40 mg/dL Desirable HDL: greater than 40 mg/dL Note: This HDL assay may give artificially low results in patients with liver disease. Alk Phos 124 H 39-117 U/L Vitamin D 25-OH 51.6 >30 ng/mL Health Based Reference Values* < 20 ng/mL Deficient 20-30 ng/mL Insufficient > 30 ng/mL Sufficient Laboratory Tests 08/12/24 12/21/24 12/21/24 09:47 10:12 10:16 Estimat Average Glucose 157 169 Hemoglobin A1c % 7.1 H 7.5 H Urine Creatinine 50.31 Urine Microalbumin < 5.0 Microalb/Creat Ratio TNP Ur Calcium 24 Hr Calcium/Creat 24 Hr 02/11/25 04/26/25 09:00 09:22 Estimat Average Glucose 183 Hemoglobin A1c % 8.0 H Urine Creatinine Urine Microalbumin Microalb/Creat Ratio Ur Calcium 24 Hr 130 Calcium/Creat 24 Hr 176 Coding Level of Care Code Tele Est Pt Level 4 (31875) Diagnoses Mixed dyslipidemia E78.2 Type 2 diabetes mellitus with hyperglycemia, without long-term current use of insulin E11.65 Diabetes mellitus long wall shear operator insulin use: without nursing home use Diabetes mellitus type: type 2 Assessment & Plan Assessment & Plan (1) Mixed dyslipidemia: Code(s): E78.2 - Mixed hyperlipidemia Category: Medical (2) Diabetes mellitus with hyperglycemia: Code(s): E11.65 - Type 2 diabetes mellitus with hyperglycemia Category: Medical Qualifiers: Diabetes mellitus long wall shear operator insulin use: without nursing home use Diabetes mellitus type: type 2 Qualified Code(s): E11.65 - Type 2 diabetes mellitus with hyperglycemia Plan will start rosuvastatin at 5 mg, initially taking it every other day to monitor tolerance. If well-tolerated, the dosing will be increased to daily. The Mounjaro dose will be increased to 5 mg weekly, with attention to weight and appetite. A follow-up appointment is scheduled in three months, with blood work to assess cholesterol and glucose levels. Prescriptions will be sent to [facility], the patient's chosen pharmacy. Patient was informed and verbally consented to the use of an ambient scribe for clinic note documentation during this visit. Orders: Orders Aspartate Amino Transferase 07/17/25 E11.65 - Type 2 diabetes mellitus with hyperglycemia, E78.2 - Mixed hyperlipidemia Lipid Panel 07/17/25 E11.65 - Type 2 diabetes mellitus with hyperglycemia, E78.2 - Mixed hyperlipidemia Hemoglobin A1c 07/17/25 E11.65 - Type 2 diabetes mellitus with hyperglycemia, E78.2 - Mixed hyperlipidemia Alanine Aminotransferase 07/17/25 E11.65 - Type 2 diabetes mellitus with hyperglycemia, E78.2 - Mixed hyperlipidemia Basic Metabolic Panel Fasting 07/17/25 E11.65 - Type 2 diabetes mellitus with hyperglycemia, E78.2 - Mixed hyperlipidemia Medications: New rosuvastatin 5 mg PO DAILY 90 tabs 1RF 3 months E78.2 - Mixed hyperlipidemia Changed From Mounjaro (tirzepatide) 2.5 mg (0.5 mL) subcut TU 2 mL 2RF NS E11.65 - Type 2 diabetes mellitus with hyperglycemia, E78.2 - Mixed hyperlipidemia To tirzepatide 5 mg (0.5 mL) subcut QWEEK 2 mL 5RF E11.65 - Type 2 diabetes mellitus with hyperglycemia, E78.2 - Mixed hyperlipidemia
== END 2025-04-30 10:07 | disposition home or self-care (01) ==
PROVIDERS: PCP Internal Medicine; Visit Provider Internal Medicine
DX: E78.2 Mixed hyperlipidemia (principal); E11.65 Type 2 diabetes mellitus with hyperglycemia

== ENCOUNTER 2025-06-07 13:03 | Outpatient (AMB) | payer OTHER, SELFPAY ==
[2025-06-07 13:09] VITALS: BP 106/62; PULSE 68; O2SAT 98; BMI 24.6
--- NOTE | 2025-06-07 13:09 | MHC.OFFVIS ---
Vital Signs 06/07/25 13:09 Height 4 ft 11.88 in Weight 125 lb 10.616 oz BMI 24.6 BP 106/62 Blood Pressure Location Rt brachial Position Sitting Pulse 68 Pulse Source Pulse Oximeter Pulse Oximetry (%) 98 Oxygen Delivery Method Room Air Intake Visit Reasons: f/u osteoporosis Intake Note: Patient present today for Osteoporosis follow up. Mobile Home Set Up Person Required: Yes Mobile Home Set Up Person Language: Cancer Genetics Assistant Services: Mobile Home Set Up Person Present Mobile Home Set Up Person Name: [facility] [place] [facility] Sue Information Interpreted: non-clinical & clinical Accompanied by: Daughter Allergies clindamycin Allergy (Mild, Verified 06/07/25 13:11) Hives Iodinated Contrast Media (IV Dye, Iodine Containing) Allergy (Mild, Verified 06/07/25 13:11) HIVES donepezil Adverse Reaction (Intermediate, Verified 06/07/25 13:11) nausea, dizziness and vomiting pioglitazone Adverse Reaction (Intermediate, Verified 06/07/25 13:11) edema amitriptyline (From Elavil) Adverse Reaction (Mild, Verified 06/07/25 13:11) NAUSEA & VOMITING amoxicillin (Amoxicillin) Adverse Reaction (Mild, Verified 06/07/25 13:11) NAUSEA & VOMITING codeine (From Tylenol-Codeine) Adverse Reaction (Mild, Verified 06/07/25 13:11) NAUSEA & VOMITING lisinopril (Lisinopril) Adverse Reaction (Mild, Verified 06/07/25 13:11) NAUSEA & VOMITING acetaminophen (Tylenol) Adverse Reaction (Unknown, Verified 06/07/25 13:11) tylenol 3 (states regulare tylenol upset stomach as well) aspirin (Aspirin) Adverse Reaction (Unknown, Verified 06/07/25 13:11) NAUSEA & VOMITING oxycodone (Percocet) Adverse Reaction (Unknown, Verified 06/07/25 13:11) stomach upset tramadol (From Ultram) Adverse Reaction (Unknown, Verified 06/07/25 13:11) NAUSEA & VOMITING rosuvastatin Adverse Reaction (Verified 06/07/25 13:11) Abdominal Pain Medication List - Last Reconciled 06/07/25 by Bon Cintron MD blood sugar diagnostic ([employer] Ultra Test strips) Check fasting blood sugar twice a day blood-glucose meter ([employer] Ultra2 Meter) As directed cane use as directed cholecalciferol (vitamin D3) 50 mcg PO DAILY docusate sodium 100 mg PO BID escitalopram oxalate 10 mg PO DAILY FreeStyle Lancets (lancets) Check fasting blood sugar once a day before meal NS Jardiance (empagliflozin) 10 mg PO QAM NS lancets test blood sugar twice a day memantine 10 mg PO BID pen needle, diabetic (Comfort EZ Pen [place]) As directed once a day rosuvastatin 5 mg PO DAILY 3 months tirzepatide 5 mg (0.5 mL) subcut QWEEK [tub safety bar As directed] HPI Comments Details: 79 YO Female with PMHx diabetes previously seen by endocrinology for diabetes is seen in consultation at the request of PCP for Osteoporosis. . Diagnosed after menopause, a bone density test revealed a spine T-score of -3.6. She denies any fractures. Current management includes calcium-rich diet and 2000 IU of Vitamin D3. She deals with balance issues due to scoliosis and vertigo, limiting her exercise to assisted walking. No family history of osteoporosis or significant comorbidities reported.- Limited to assisted walking due to vertigo and balance issues. Weight-bearing exercises are currently not feasible. First diagnosed in recently . Not Received treatment in the past No history of pathologic fracture or ONJ. Has several servings of dietary calcium per day in the form of chesse, milk, broccoli . Not Takes Calcium supplement Takes 2000 IU of Vitamin D daily. Denies ever using PPI, anticoagulant, antiepileptic or glucocorticoid medication. Not Does weight bearing exercise Fracture history: No Height loss: Y [employer]NA[employer] WHOL[employer] history: Menarche at age 11 . Menopause age 50 - nl menses Denies history of Kidney stones: Denies family history of Osteoporosis or hip fracture. UTD on dental cleanings and sees dentist every 6 months. No planned upcoming dental work or extractions. No tabacco use or EToH use DXA dated 10/15/24 :COMPARISON: There are no prior studies for comparison. FINDINGS: The bone mineral density of the lumbar spine is 0.762 with a T-score of -3.6, and a Z-score of -1.6. The bone mineral density of the left total hip is 0.820 with a T-score of -1.5, and a Z-score of 0.6. The bone mineral density of the left femoral neck is 0.811 with a T-score of -1.6, and a Z-score of 0.6. MM/XR DEXA axial skeleton IMPRESSION: Based on bone mineral density, and according to World Health Organization (WHO) criteria, the diagnosis is consistent with osteoporosis. Labs: Secondary workup was negative On Forteo for 2 mos . Taking calcium and vitamin D3 [facility] Medical History (Updated 05/01/25 @ 01:49 by Danita Mccurdy MD) History of adenomatous polyp of colon Osteoporosis of lumbar spine Headache Cervicalgia Cervicalgia Acute parotitis Dizziness of unknown cause Diabetes mellitus with hyperglycemia Vitamin D deficiency Mixed dyslipidemia Lumbago Pulmonary nodules Submandibular sialoadenitis Hemorrhoid Sensorineural hearing loss Balance disorder Lumbar scoliosis Type 2 diabetes mellitus with hyperglycemia, without long-term current use of insulin Anxiety Osteoarthritis Hypertension Surgical History History of bladder suspension procedure Hx of cholecystectomy Family History Father Pulmonary disease Mother Liver cirrhosis Diabetes Other Mental health disorder Social History Household Members: Unknown / Unable to assess Housing: Unknown / Unable to assess Housing Other:: apartment for care home Do you presently have visiting nurse or other home services: Yes Unable to assess alcohol history related to: Unknown Alcohol intake: never Patient Tobacco Use Status: Never used Tobacco e-Cigarette/Vaping Use: Never Used Second Hand Smoke Exposure: No Advance Directives Date on File: 11/13/21 service: No Current occupational status: retired Cognitive needs: No Hearing needs: No Vision needs: No Physical Exam Vital Signs: Last Vital Signs Pulse 68 06/07/25 13:09 BP 106/62 06/07/25 13:09 Pulse Ox 98 06/07/25 13:09 Oxygen Delivery Method Room Air 06/07/25 13:09 BMI result Body Mass Index 24.6 Assessment & Plan Assessment & Plan (1) Osteoporosis of lumbar spine: Code(s): M81.0 - Age-related osteoporosis without current pathological fracture Category: Medical Plan: 1. Osteoporosis secondary workup was negative. On Forteo for 2 mos Contine Forteo for total of 2 yrs Coding Level of Care Code Est Pt Level 3 (04299) Diagnoses Osteoporosis of lumbar spine M81.0
== END 2025-06-07 13:46 | disposition home or self-care (01) ==
LOC: HO.ENCR 13:04
PROVIDERS: PCP Internal Medicine; Visit Provider Internal Medicine Endocrinology, Diabetes & Metabolism
DX: M81.0 Age-related osteoporosis without current pathological fracture (principal)
CPT/HCPCS: 99213

== ENCOUNTER → 2025-06-07 13:03 | Outpatient (BNVA) | payer OTHER, SELFPAY | PROVIDERS: PCP Internal Medicine; Visit Provider Internal Medicine Endocrinology, Diabetes & Metabolism | DX: M81.0 Age-related osteoporosis without current pathological fracture (principal) | CPT/HCPCS: 99212 ==

== ENCOUNTER 2025-07-15 15:14 | Emergency (ER) | payer OTHER, SELFPAY ==
--- NOTE | 2025-07-15 | ECG_ITS ---
Test Reason : DIZZY/ ARRYTHMIA Blood Pressure : */* mmHG Vent. Rate : 66 BPM Atrial Rate : 66 BPM P-R Int : 182 ms QRS Dur : 76 ms QT Int : 418 ms P-R-T Axes : -20 12 18 degrees QTcB Int : 438 ms Sinus rhythm with Premature atrial complexes Nonspecific ST and T wave abnormality Abnormal ECG When compared with ECG of 05-Jun-2024 18:52, Premature atrial complexes are now Present Referred By: Generic ED Physician Electronically Signed By: MOSES MOURA
--- NOTE | ~2025-07-15 | CT_ITS ---
CLINICAL HISTORY: abdominal pain CT abdomen and pelvis without contrast Comparison: None provided Findings: There is scarring at the bilateral lung bases. There is no consolidation or pleural effusion. There are multiple bilateral kidney cysts. There is no calculus or hydronephrosis. There is marked fatty replacement of pancreatic parenchyma. Remaining abdominal organs are unremarkable. The gallbladder is absent. There is colonic diverticulosis without diverticulitis. There is no bowel edema or evidence of bowel obstruction. There are multiple small bladder wall diverticula. The uterus and bilateral adnexa are unremarkable. There is a small left femoral hernia containing fat. The appendix is not definitively seen. There are no secondary findings to suggest appendicitis. There is moderate scoliosis. There is no acute fracture. IMPRESSION: 1. There are multiple small bladder wall diverticula. Consider neurogenic bladder or chronic bladder outlet obstruction. 2. No acute abdominal disease. This document has been electronically signed by: Dorothy Corley MD on 07/15/2025 18:41:01
[2025-07-15 15:23] VITALS: BP 126/64; BP 128/86; PULSE 66; PULSE 70; RESP 17; TEMP 36.3; O2SAT 97; O2SAT 98; BMI 24.2
[2025-07-15 16:06] LABS: MANUAL DIFF FLAG NO
--- NOTE | 2025-07-15 16:06 | ED_ITS ---
[facility] - General Adult General Chief complaint: Dizziness Stated complaint: DIZZINESS,?VERTIGO,HYPERTENSIVE Time Seen by Provider: 07/15/25 16:06 Source: patient Mode of arrival: ambulatory Limitations: no limitations History of Present Illness ED Provider: Dr. Becerra [facility] narrative: This is a 79-year-old female history of hypertension, hyperlipidemia, diabetes presented hospital today for evaluation of weakness and lightheadedness. Patient has had an episode palpitation yesterday. Not complain of any chest pain or shortness of breath. Denies any vertiginous symptoms. Denies any headaches. Denies any nausea vomiting or diarrhea. She does endorse some occasional intermittent abdominal pain in the epigastric and right upper quadrant area. She does have history of cholecystectomy in the past. Related Data Home Medications ?Medication ?Instructions ?Recorded ?Confirmed escitalopram oxalate 10 mg tablet 10 mg PO DAILY 07/0306/07/25 memantine 10 mg tablet 10 mg PO BID 10/19/22 docusate sodium 100 mg capsule 100 mg PO BID 08/09/23 06/07/25 Previous Rx's ?Medication ?Instructions ?Recorded cane #1 ea 07/25/20 tub safety bar #1 ea 07/25/20 blood-glucose meter (OneTouch #1 ea 11/12/22 Ultra2 Meter) lancets 33 gauge #100 ea 07/10/24 FreeStyle Lancets 28 gauge #100 ea 08/15/24 (lancets) blood sugar diagnostic (OneTouch #100 ea 12/03/24 Ultra Test strips) rosuvastatin 5 mg tablet 5 mg PO DAILY 3 months #90 t abs 04/30/25 tirzepatide 5 mg/0.5 mL 5 mg (0.5 mL) subcut QWEEK # 2 mL 04/30/25 subcutaneous pen injector cholecalciferol (vitamin D3) 50 50 mcg PO DAILY #90 ca ps 06/02/25 mcg (2,000 unit) capsule Jardiance 10 mg tablet 10 mg PO QAM #30 tabs (empagliflozin) pen needle, diabetic 32 gauge x #100 ea 07/14/25 5/16 (Droplet Pen Needle) diazepam 5 mg tablet (Valium) 5 mg PO BID PRN vertigo 5 days #10 07/16/25 tabs meclizine 25 mg tablet 25 mg PO TID 5 days #15 tabs 07/16/25 ondansetron 4 mg disintegrating 4 mg PO Q8H PRN nausea and 07/16/25 tablet vomiting #14 tabs Allergies Allergy/AdvReac Type Severity Reaction Status Date / Time clindamycin Allergy Mild Hives Verified 07/15/25 15:39 Iodinated Contrast Media (IV Allergy Mild HIVES Verified 07/15/25 15:39 Dye, Iodine Containing) donepezil AdvReac Intermediate nausea, Verified 07/15/25 15:39 dizziness and vomiting pioglitazone AdvReac Intermediate edema Verified 07/15/25 15:39 amitriptyline (From Elavil) AdvReac Mild NAUSEA & Verified 07/15/25 15:39 VOMITING amoxicillin (Amoxicillin) AdvReac Mild NAUSEA & Verified 07/15/25 15:39 VOMITING codeine (From AdvReac Mild NAUSEA & Verified 07/15/25 15:39 Tylenol-Codeine) VOMITING lisinopril (Lisinopril) AdvReac Mild NAUSEA & Verified 07/15/25 15:39 VOMITING acetaminophen (Tylenol) AdvReac Unknown tylenol 3 Verified 07/15/25 15:39 (states regulare tylenol upset stomach as well) aspirin (Aspirin) AdvReac Unknown NAUSEA & Verified 07/15/25 15:39 VOMITING oxycodone (Percocet) AdvReac Unknown stomach Verified 07/15/25 15:39 upset tramadol (From Ultram) AdvReac Unknown NAUSEA & Verified 07/15/25 15:39 VOMITING rosuvastatin AdvReac Abdominal Verified 07/15/25 15:39 Pain Review of Systems 2 Review of Systems: Pertinent review of systems as mentioned in HPI. All other system otherwise negative. [facility] Past Medical History [facility] Narrative: Medical history as mentioned in HPI Medical History (Updated 07/16/25 @ 00:30 by Brooklyn Becerra DO) History of adenomatous polyp of colon Osteoporosis of lumbar spine Headache Cervicalgia Cervicalgia Acute parotitis Dizziness of unknown cause Diabetes mellitus with hyperglycemia Vitamin D deficiency Mixed dyslipidemia Lumbago Pulmonary nodules Submandibular sialoadenitis Hemorrhoid Sensorineural hearing loss Balance disorder Lumbar scoliosis Type 2 diabetes mellitus with hyperglycemia, without long-term current use of insulin Anxiety Osteoarthritis Hypertension Surgical History History of bladder suspension procedure Hx of cholecystectomy Family History Family History Father Pulmonary disease Mother Liver cirrhosis Diabetes Other Mental health disorder Social History Social History Household Members: Unknown / Unable to assess Housing: Unknown / Unable to assess Housing Other:: apartment for jail Do you presently have visiting nurse or other home services: Yes Alcohol intake: never Patient Tobacco Use Status: Never used Tobacco Smoked in Last 30 Days: No e-Cigarette/Vaping Use: Never Used Second Hand Smoke Exposure: No Use of substances other than those prescribed or required for medical reasons: No Advance Directives: Yes Advance Directives on File: Yes Advance Directives Date on File: 11/13/21 Do you have a plan to hurt others: No Plan service: No Current occupational status: retired Cognitive needs: No Hearing needs: No Vision needs: No Physical Exam ED Exam Exam: General: Pleasant, no distress, interacting appropriately Head: Normacephalic, atraumatic ENT: oral mucosa moist, neck supple, no tracheal deviation Cardiovascular: regular rate, regular rhythm, no murmurs, rubbing, gallops Respiratory: CTAB, no wheeze, rales, rhonchi Gastrointestinal: Soft, non distended, non tender, non guarding Extremities: No limb pain or swelling, no calf tenderness Neurological: Awake and alert, no facial droop noted Skin: Warm and dry Psychiatric: Appropriate mood and thoughts Vital Signs: Vital Signs - 24 hr 07/15/25 15:23 07/15/25 18:16 07/15/25 21:30 Temperature 97.3 F Pulse Rate 66 67 66 Respiratory Rate 17 13 Blood Pressure 126/64 137/63 148/63 H Pulse Oximetry 98 98 Oxygen Delivery Method Room Air Room Air 07/15/25 21:35 07/15/25 21:40 Temperature Pulse Rate 72 68 Respiratory Rate Blood Pressure 156/65 H 142/68 H Pulse Oximetry Oxygen Delivery Method BMI result Body Mass Index 24.2 NIH Stroke Scale Time: 17:04 Level of Consciousness: Alert Level of Consciousness Questions: Answers both questions correctly Level of Consciousness Commands: Performs both tasks correctly Best Gaze: Normal Visual: No visual loss Facial Palsy: Normal Motor Arm (Right): No drift Motor Arm (Left): No drift Motor Leg (Right): No drift Motor Leg (Left): No drift Limb Ataxia: Absent Sensory: Normal Best Language: No aphasia Dysarthia: Normal Extinction and Inattention: No abnormality Score: 0 Medications Administered Discontinued Medications Generic Name Dose Route Start Last Admin Trade Name Joeq PRN Reason Stop Dose Admin Diazepam 2.5 mg 07/15/25 21:56 07/15/25 22:04 Diazepam 2 Mg Tablet PO 07/15/25 21:57 2.5 mg ONCE ONE Administration Sodium Chloride 1,000 mls @ 999 mls/hr 07/15/25 17:00 07/15/25 20:09 Ns IV 07/15/25 18:00 Infused .Q1H1M SHERYL Infusion Sodium Chloride 1,000 mls @ 999 mls/hr 07/15/25 20:15 07/15/25 21:58 Ns IV 07/15/25 21:15 Infused .Q1H1M SHERYL Infusion Meclizine HCl 25 mg 07/15/25 20:08 07/15/25 20:32 Meclizine Hcl 25 Mg Tablet PO 07/15/25 20:09 25 mg ONCE ONE Administration Medical Decision Making Medical Decision Making [facility] Narrative: This is a 79-year-old female presented hospital today for evaluation of weakness. We will plan to obtain abdominal workup for the patient given her intermittent abdominal pain and epigastric area. Patient has not been eating much due to the pain. We will plan to obtain a CT abdomen and pelvis to assess for any cause of her abdominal pain. CBC CMP lipase will be obtained as well. IV fluid be initiated for the patient. Low suspicion for intracranial cause of her lightheadedness. She has no headaches. She has no focal neurological deficit. CTA abdomen and pelvis was unremarkable. Did shows incidental finding of bladder diverticula. Lab work did not show any signs of significant abnormality. She does have minor anemia at 11.9. Does have elevated BUN to creatinine ratio likely indicative of dehydration. Patient has received 2 bolus IV fluid at this point. Patient troponin is negative. Patient's UA shows glucose. No signs of UTI. On further exam patient appears to have left-sided BPPV. I did try to perform Yuri maneuver with minimal relief. P.o. Valium was given to the patient as well and p.o. meclizine. Patient has no vertiginous symptom at rest. However this is exacerbated when she moves. This is peripheral vertigo. I have low suspicion for central vertigo for the patient. Patient is able to ambulate with the assistance. Differential Diagnosis Differential Diagnoses: The differential diagnosis associated with the presentation includes CVA, vertigo, peripheral vertigo, labyrinthitis Lab Data MDM Lab Attestation statement: I reviewed the patient's lab results. 07/15/25 16:01 07/15/25 16:01 Labs: Lab Results 07/15/25 07/15/25 Range/Units 16:01 19:58 WBC 4.6 L (4.8-10.8) X10*3/uL RBC 3.75 L (4.20-5.50) X10*6/uL Hgb 11.9 L (12.0-16.0) g/dl Hct 36.0 L (37.0-47.0) % MCV 96.0 (80.0-98.0) fL MCH 31.7 (27.0-33.0) pg MCHC 33.1 (31.0-35.0) g/dl RDW 14.5 (11.0-16.0) % Plt Count 157 L D (160-400) X10*3/uL MPV 10.0 (9.4-12.3) fL Immature Gran % (Auto) 0.2 (0.0-0.4) % Neut % (Auto) 43.2 L (45-73) % Lymph % (Auto) 44.4 H (20-40) % [place] % (Auto) 9.8 (2-11) % Eos % (Auto) 2.2 (0-4) % Baso % (Auto) 0.2 (0-2) % Lymph # (Auto) 2.0 (1.2-4.9) X10*3/uL [place] # (Auto) 0.5 (0.1-1.2) X10*3/uL Eos # (Auto) 0.1 (0.0-0.4) X10*3/uL Baso # (Auto) 0.0 (0.0-0.2) X10*3/uL Abs Immat Gran (auto) 0.01 (0.00-0.03) X10*3/uL Absolute Neuts (auto) 2.0 (2.0-8.3) x10*3/uL Absolute Nucleated RBC 0.000 (0.0-0.012) X10*3/uL Nucleated RBC % (auto) 0.0 (0.0-0.2) /100WBC Sodium 140 (135-145) mmol/L Potassium 4.1 (3.3-5.1) mmol/L Chloride 105 (96-108) mmol/L Carbon Dioxide 30 H (22-29) mmol/L Anion Gap 9 L (12-20) BUN 18 H (9-16) mg/dL Creatinine 0.86 (0.5-1.4) mg/dL Estim Creat Clear Calc 41.7 Estimated GFR > 60 Random Glucose 175 H (60-115) mg/dL Calcium 9.2 (8.4-10.2) mg/dL Magnesium 1.9 (1.6-2.6) mg/dL Total Bilirubin 0.2 (0.0-1.0) mg/dL Direct Bilirubin < 0.2 (0.0-0.5) mg/dL AST 26 (5-31) U/L ALT 18 (0-31) U/L Alkaline Phosphatase 89 (39-117) U/L Troponin I High Sens < 2.7 D (<3.5-17.0) ng/L Total Protein 6.4 L (6.5-8.0) g/dL Albumin 3.4 L (3.5-5.0) g/dL Lipase 12 (8-78) U/L Urine Color Yellow Urine Appearance Clear Urine pH 8.0 (5.0-9.0) Ur Specific [place] 1.015 (1.005-1.025) Urine Protein Negative (Neg-Trace) mg/dL Urine Glucose (UA) >=1000 H (Negative) mg/dL Urine Ketones Negative (Negative) mg/dL Urine Blood Negative (Negative) Urine Nitrite Negative (Negative) Ur Leukocyte Esterase Negative (Negative) Urine RBC 0-2 (0-2) /HPF Urine WBC 0-5 (0-5) /HPF Ur Squamous Epith Cells 0-2 (0-2) /HPF Urine Bacteria None Seen (None Seen) Hyaline Casts 0-2 (0-2) /LPF Independent Interpretation I performed an independent interpretation of an: CT Scan Radiology Impression Discussion of test interpretation with radiology: I have reviewed the radiologist's reading. Discharge Plan Discharge Clinical Impression: Vertigo Benign paroxysmal positional vertigo Qualifiers: Laterality: left Qualified Code(s): H81.12 - Benign paroxysmal vertigo, left ear Patient Disposition: Home, Self-Care Instructions: Benign Paroxysmal Positional Vertigo (ED) Prescriptions: New meclizine 25 mg tablet 25 mg PO TID 5 Days Qty: 15 0RF diazepam [Valium] 5 mg tablet 5 mg PO BID PRN (Reason: vertigo) 5 Days Qty: 10 0RF ondansetron 4 mg tablet,disintegrating 4 mg PO Q8H PRN (Reason: nausea and vomiting) Qty: 14 0RF No Action (DME) blood-glucose meter [OneTouch Ultra2 Meter] Misc See Rx Instructions .Route Qty: 1 0RF Rx Instructions: As directed (DME) lancets 33 gauge misc See Rx Instructions .Route Qty: 100 6RF Rx Instructions: test blood sugar twice a day (DME) lancets [FreeStyle Lancets] 28 gauge misc See Rx Instructions .Route Qty: 100 5RF Rx Instructions: Check fasting blood sugar once a day before meal (DME) OneTouch Ultra Test Strip See Rx Instructions .Route Qty: 100 5RF Rx Instructions: Check fasting blood sugar twice a day cholecalciferol (vitamin D3) 50 mcg (2,000 unit) capsule 50 mcg PO DAILY Qty: 90 1RF Jardiance 10 mg tablet 10 mg PO QAM Qty: 30 2RF (DME) pen needle, diabetic [Droplet Pen Needle] 32 gauge x 5/16 needle See Rx Instructions .ROUTE .COMPLEX Qty: 100 0RF Dose Instruction: USE DIRECTED ONCE A DAY Rx Instructions: USE DIRECTED ONCE A DAY docusate sodium 100 mg capsule 100 mg PO BID (DME) cane Device See Rx Instructions .ROUTE .MEDSUPPLY Qty: 1 0RF Rx Instructions: use as directed (DME) tub safety bar See Rx Instructions .Route .MEDSUPPLY Qty: 1 0RF Rx Instructions: As directed memantine 10 mg tablet 10 mg PO BID escitalopram oxalate 10 mg tablet 10 mg PO DAILY rosuvastatin 5 mg tablet 5 mg PO DAILY 90 Days Qty: 90 1RF tirzepatide 5 mg/0.5 mL pen injector 5 mg subcut QWEEK Qty: 2 5RF Print Language: Azeri
[2025-07-15 16:07] LABS: Hematocrit 36.0 % (37.0-47.0); Hemoglobin 11.9 g/dl (12.0-16.0); Imm Gran Abs Auto 0.01 X10*3/uL (0.00-0.03); Imm Gran Pct Auto 0.2 % (0.0-0.4); Lymphocytes Absolute Auto 2.0 X10*3/uL (1.2-4.9); Mean Corpuscular HGB Conc 33.1 g/dl (31.0-35.0); Mean Corpuscular Hemoglobin 31.7 pg (27.0-33.0); Mean Corpuscular Volume 96.0 fL (80.0-98.0); NRBC Abs Auto 0.000 X10*3/uL (0.0-0.012); NRBC Pct Auto 0.0 /100WBC (0.0-0.2); Platelet Count 157 X10*3/uL (160-400); Red Blood Count 3.75 X10*6/uL (4.20-5.50); White Blood Count 4.6 X10*3/uL (4.8-10.8)
[2025-07-15 16:20] LABS: Anion Gap 9 (12-20); Blood Urea Nitrogen 18 mg/dL (9-16); Calcium 9.2 mg/dL (8.4-10.2); Carbon Dioxide 30 mmol/L (22-29); Chloride 105 mmol/L (96-108); Creatinine Clr Calc Pharmacy 41.7; Estimated Glomerular Filt Rate > 60; Potassium 4.1 mmol/L (3.3-5.1); Sodium 140 mmol/L (135-145)
[2025-07-15 16:28] LABS: Troponin-I High Sensitivity < 2.7 ng/L (<3.5-17.0)
[2025-07-15 17:08] LABS: Alanine Aminotransferase 18 U/L (0-31); Albumin Level 3.4 g/dL (3.5-5.0); Alkaline Phosphatase 89 U/L (39-117); Aspartate Amino Transferase 26 U/L (5-31); Lipase 12 U/L (8-78); Magnesium 1.9 mg/dL (1.6-2.6); Total Protein 6.4 g/dL (6.5-8.0)
--- OUTSIDE RECORDS SUMMARY | 2025-07-15 18:15 | XMS_ITS ---
Author Organization [facility] Care Team Providers Care Cleater Name Role Phone Vanda Luz Unavailable Unavailable Allergies and adverse reactions Code CodeSystem Substance Reaction Severity StartDate Concern Status 161 RXNORM Acetaminophen Unknown 06/09/2024 active 704 RXNORM Amitriptyline Unknown 06/09/2024 active 723 RXNORM Amoxicillin Unknown 06/09/2024 active 1191 RXNORM Aspirin Unknown 06/09/2024 active 2582 RXNORM Clindamycin Unknown 06/09/2024 active 2670 RXNORM Codeine Unknown 06/09/2024 active 404825 RXNORM Donepezil Unknown 06/09/2024 active iodinated contrast media Unknown 024 active 12201 RXNORM Lisinopril Unknown 06/09/2024 active 7804 RXNORM oxyCODONE Unknown 06/09/2024 active 22808 RXNORM Pioglitazone Unknown 06/09/2024 active Tramadol Unknown 06/09/2024 active Care Team Name Role Address Phone Organization Dates Vanda Luz PCP [address] [facility] [address], [place], [address], [place] (Office): : [facility] 06/09/2024 - 06/23/2024 Medications Section Medication Name Status Code CodeSystem Dose Route Frequency Admin Type Sig Text Start Date End Date Indication Fleet Enema Enema 7-19 GM/118ML active 77682 5 RXNORM 1 dose Rectal as needed PRN Inser t 1 dose recta lly as neede d for Const ipati on (Step 3) as neede d if no bowel movem ent for 8 hours after bisac odyl suppo sitor y. 2023 - Constipatio n Milk of Magnesia Suspension 400 MG/5ML active 35751 7 RXNORM 30 ml Oral as needed PRN Give 30 ml by mouth as neede d for Const ipati on (Step 1) As neede d if no bowel movem ent for three days. (Do not use for Hemod ialys is patie nts). 2023 - Constipatio n Jardiance Oral Tablet 10 MG active 88534 64 RXNORM 1 table t Oral one time a day Routin e Give 1 table t by mouth one time a day for DM 2023 - DM Escitalopra m Oxalate Oral Tablet 10 MG active 68175 2 RXNORM 1 table t Oral one time a day Routin e Give 1 table t by mouth one time a day for DEPRE SSION 2023 - DEPRESSION Docusate Sodium Oral Capsule 100 MG active 54772 05 RXNORM 1 capsu le Oral every morning and at bedtime Routin e Give 1 capsu le by mouth every morni ng and at bedti me for CONST IPATI ON 2023 - CONSTIPATIO N Cyclobenzap rine HCl Oral Tablet 5 MG active 51381 0 RXNORM 1 table t Oral at bedtime Routin e Give 1 table t by mouth at bedti me for MUSCL E SPASM S 2023 - MUSCLE SPASMS Rosuvastati n Calcium Oral Tablet 20 MG active 82319 1 RXNORM 1 table t Oral at bedtime Routin e Give 1 table t by mouth at bedti me for HLD 2023 - HLD Memantine HCl Oral Tablet 10 MG active 49113 1 RXNORM 1 table t Oral every morning and at bedtime Routin e Give 1 table t by mouth every morni ng and at bedti me for DEMEN TIA 2023 - DEMENTIA Bisacodyl Suppository 10 MG active 39937 9 RXNORM 1 suppo sitor y Rectal as needed PRN Inser t 1 suppo sitor y recta lly as neede d for If no bowel movem ent for 8 hours after Milk of Magne lala 2023 - If no bowel movement for 8 hours after Milk of Magnesia Remington Subcutaneou s Solution Pen-injecto r 2.5 MG/0.5ML active 11334 64 RXNORM 2.5 mg Subcut aneous in the evening Routin e Injec t 2.5 mg subcu taneo usly in the eveni ng every Sat for DM 2023 - DM Vitamin D3 Oral Tablet active 1000 unit Oral one time a day Routin e Give 1000 unit by mouth one time a day for vitam in D defic iency 2023 - vitamin D deficiency Ibuprofen Oral Tablet 400 MG active RXNORM 400 mg Oral as needed PRN Give 400 mg by mouth every 8 hours as neede d for pain or disco mfort or fever 2023 - pain or discomfort or fever Mental Status Section Date Assessment Total Score Description 06/23/2024 BIMS 12 moderate cognit yimi impairment CAM 0 No delirium ind icated PHQ-9 11 moderate depres ida 06/18/2024 BIMS 12 moderate cognit yimi impairment CAM 0 No delirium ind icated PHQ-9 10 moderate depres ida Insurance Providers Problems Problem # Description Date of onset Resolved Date Code CodeSystem Concern Status 1 OTHER ABNORMALITIES OF GAIT AND MOBILITY 06/12/[address] active 2 CORONAVIRUS INFECTION, UNSPECIFIED 06/09/[address] active 3 ESSENTIAL (PRIMARY) HYPERTENSION 06/09/[address] active 4 MUSCLE WEAKNESS (GENERALIZED) 06/09/[address] active 5 OTHER IDIOPATHIC SCOLIOSIS, SITE UNSPECIFIED 06/09/[address] active 6 SENSORINEURAL HEARING LOSS, BILATERAL 06/09/[address] active 7 TYPE 2 DIABETES MELLITUS WITHOUT COMPLICATIONS 06/09/[address] active 8 UNSPECIFIED DEMENTIA, UNSPECIFIED SEVERITY, WITHOUT BEHAVIORAL DISTURBANCE, PSYCHOTIC DISTURBANCE, MOOD DISTURBANCE, AND ANXIETY 06/09/[address] active 9 UNSPECIFIED OSTEOARTHRITIS, UNSPECIFIED SITE 06/09/[address] active 10 VITAMIN D DEFICIENCY, UNSPECIFIED 06/09/[address] active 11 WEAKNESS 06/09/[address] active Reason for Referral No Reasons for Referral Entered Social History Social History Observation Description Start Date End Date Code Code System Current Smoking Status Tobacco smoking consumption unknown 835522923 SNOMED CT Sex Assigned At Female 1945 75896-9 [facility] Gender Identity Female [id number] [address] Sexual Orientation Heterosexual (finding) 71918014 SNOMED CT Vital Signs Code Code System Vitals Name Values and Units Timing Information 2339-0 [facility] Blood Sugar Okyzr=169.0 Units=mg/dL 06/23/2024 69337-6 [facility] Pain Level Value=0.0 06/23/2024 9279-1 [facility] Respiratory Rate Value=18.0 Units=/m in 06/22/2024 8462-4 [facility] Blood Pressure-Diastolic Value=76 Un its=mmHg 06/22/2024 8480-6 [facility] Blood Pressure-Systolic Gzqyu=538 Un its=mmHg 06/22/2024 8310-5 [facility] Body Temperature Value=98.0 Units= F 06/22/2024 8867-4 [facility] Heart rate Value=80.0 Units=/min 03/2024 01701-9 [facility] O2 % BldC Oximetry Value=96.0 Units= % 06/22/2024 01703-4 [facility] Weight Nojxg=646.0 Units=Lbs 10/2023 8302-2 [facility] Height Value=62.0 Units=Inches 06/09/2024
--- OUTSIDE RECORDS SUMMARY | 2025-07-15 18:15 | XMS_ITS | Data Portability ---
Author Organization [employer] [facility] Address [address] [place] [address] Care Team Providers Care Mobile Sales Technician Name Role Phone JOSE PEREA Primary Care Provider HIM CCA OTHER Assessment Encounter Date Assessment [...] PCP. The patient agreed with this plan. [email or web address] Not available 01/26/2022 08:51:58 12/02/2023 12/02/2023 I have reviewed and agree with the assessment and plan as documented by the identity management developer. I provided real time medical direction for this encounter and was immediately available to provide additional phone based assistance as needed. History as noted by identity management developer. Pt with history of DM. She [...] assessment and plan as documented by the identity management developer. I provided real time medical direction for this encounter and was immediately available to provide additional phone based assistance as needed. History as noted by identity management developer. Pt with history of DM2, HLD, cognitive deficit. Pt reports that since yesterday she has had R[employer] cough with sore throat, and headache. No [...] with her. [email or web address] Not available 06/03/2024 13:35:05 04/21/2025 04/21/2025 I provided real -time medical direction via phone for this encounter and was available for additional phone-based assistance as needed. I have reviewed and agree with the Assessment and Plan as documented by the Mathematics Department Chair. Patient given the opportunity to ask questions. Our service contacted for an assessment of: cough As per above, patient has had a minimally productive cough for approx a week. Had a low grade temp initially however not recently. Denies C/N/V/CP/GUERRERO and SOB. No sick contacts. Not taking any OTCs. Per identity management developer on the scene, Non-toxic. Stable vitals. No distress. COVID, Strept and Flu are all negative. Impression and plan: ? seasonal allergies vs viral URI - differential diagnosis is broad however identity management developer assessment and limited data are reassuring. Additionally patient trajectory is improving. Vini York given with recommendation to crop picker an OTC decongestant. Red flags discussed. We discussed the diagnostic uncertainty of home visits and the risk associated with this. In this case, the patient and I felt this to be an acceptable and reasonable amount of risk given the benefit of avoiding an ED visit. We discussed the need to seek care urgently/emergentl y in the setting of any new or worsening serious symptoms, particularly fever chills lightheadedness altered mental status [email or web address] Not available 04/21/2025 12:09:54 Plan of Treatment Reminders Order Date Submit Date Provider Last Modified By Organization Details Last Modified Time Details Appointments None recorded. Lab rapid strep group A, throat 2024 025 [facility], [address] [place] [address], [id number] 5 13:41:36 rapid SARS CoV 2 Ag, QL IA, respiratory specimen 2024 025 [facility], [address] [place] [address], [id number] 5 13:41:26 rapid flu (A+B) 2024 025 [facility], [address] [place] [address], [id number] 5 13:40:05 rapid SARS CoV 2 Ag, QL IA, respiratory specimen [address], [id number] 4 12:24:05 rapid flu (A+B) [address], [id number] 4 12:24:05 rapid strep group A, throat [address], [id number] 4 12:24:03 rapid flu (A+B) 2023 024 Count includes the [facility], [address] [place] [address], [id number] 4 08:14:03 rapid SARS CoV 2 Ag, QL IA, respiratory specimen 2023 024 Count includes the [facility], [address] [place] [address], [id number] 4 08:13:40 Referral None recorded. Procedures None recorded. Surgeries None recorded. Imaging None recorded. Medication Orders benzonatate 100 mg capsule 2024 025 [email or web address] [id number], [address] [place] [address], [id number], 5 12:10:28 Paxlovid 300 mg (150 mg x 2)-100 mg tablets in a dose pack 2023 024 [facility] #[id number], [address] [place] [address], [id number], 4 12:33:02 ondansetron 4 mg disintegrat ing tablet 2023 024 [email or web address] [facility] #[id number], [address] [place], [place], [id number], 4 17:22:16 Patient TargetsNo targets recorded. Patient InstructionsNo instructions recorded. Reason for Referral None Reported. Results Created Date Observation Date Name Description Value Unit Range Abnormal Flag Note LastModifiedBy Organization Detail LastModifiedTime 06/03/2006/03/2024 rapid strep group A, throa t Strep negati ve Not Available Main - [facility] ed [address] [place] [address], [id number] 06/03/2024 12:23:25 06/03/20 24 06/03/2024 rapid flu (A+B) Flu negati ve Not Available [facility] ed [address] [place] [address], [id number] 06/03/2024 12:23:18 06/03/20 24 06/03/2024 rapid SARS CoV 2 Ag, QL IA, respi rator y speci men rapid SARS CoV 2 Ag, QL IA, respiratory specimen positi ve Not Available Main - [address], [id number] 06/03/2024 12:23:10 04/21/20 25 04/21/2025 rapid SARS CoV 2 Ag, QL IA, respi rator y speci men rapid SARS CoV 2 Ag, QL IA, respiratory specimen Not Available Main-[address], [id number] 04/21/2025 12:04:44 04/21/20 25 04/21/2025 rapid strep group A, throa t Strep negati ve Not Available [address], [address] 04/21/2025 12:04:42 04/21/20 25 04/21/2025 rapid flu (A+B) Flu negati ve Not Available [address], [address] 04/21/2025 12:04:45 Result Notes None recorded. Medical Equipment None Reported. Allergies Allergen ID Allergen Name Allergen Category Reaction Reaction Severity Criticality Documentation Date Start Date Code Code System Note Provider Name and Address Organization Details Recorded Time Product containin g penicilli n (product) medicatio n Not available Not available Not available 07/15/2025 07066 8001 SNOMED Not Available [facility] - production 13:43:46 Iodinated contrast media (substanc e) medicatio n Not available Not available Not available 07/15/2025 43576 2003 SNOMED Not Available [facility] - production 13:43:46 Medications Name Sig Start Date Stop Date [...] 4 97 % 97 % 98.7 [degF] 65166.8 g 76 /min 154.94 cm 16 /min 118/79 mm[Hg] Not Available [employer] 4 14:45:00 Date Recorded Heart rate Oxygen saturation Oxygen saturation in Arterial blood by Pulse oximetry Respiratory rate Body temperature Systolic And Diastolic Provider Name and Address Organization Details Last Updated DateTime 2 60 /min 99 % 99 % 20 /min 99.5 [degF] 103/55 mm[Hg] Not Available [employer] 2 08:44:22 Date Recorded Body temperature Respiratory rate Body height Heart rate Oxygen saturation Oxygen saturation in Arterial blood by Pulse oximetry Body weight Systolic And Diastolic Provider Name and Address Organization Details Last Updated DateTime 4 97.2 [degF] 16 /min 165.1 cm 57 /min 97 % 97 % 40461.3 68 g 139/81 mm[Hg] Not Available [employer] 4 17:18:14 Date Recorded Heart rate Oxygen saturation Oxygen saturation in Arterial blood by Pulse oximetry Respiratory rate Body temperature Systolic And Diastolic Provider Name and Address Organization Details Last Updated DateTime 5 59 /min 98 % 98 % 18 /min 98.3 [degF] 128/74 mm[Hg] Not Available [facility] [employer] 5 12:00:42 Date Recorded Oxygen saturation Oxygen saturation in Arterial blood by Pulse oximetry Respiratory rate Body temperature Heart rate Systolic And Diastolic Provider Name and Address Organization Details Last Updated DateTime 4 98 % 98 % 16 /min 98.2 [degF] 84 /min 118/74 mm[Hg] Not Available [facility] 4 12:21:05 Social History None recorded. Functional Status None recorded. Mental Status None recorded. Family History Nothing Reported. Medical History No medical history recorded. Gynecological HistoryNo gynecological history recorded. Obstetrics History GPAL:G 0 P 0 0 0 0 Past Encounters Encounter ID Performer Location Encounter Start Date Encounter Closed Date Diagnosis/Indication Diagnosis SNOMED-CT Code Diagnosis ICD10 Code Diagnosis IMO Codes Diagnosis Note [id number] Isaac Rowan MD Main - [address] [phone] 01/26/2022 08:44:15 01/15/2025 11:26:01 Benign paroxysmal positional vertigo 614959277 H81.13 [id number] Marshall Crowe MD Main - [address] [address] 12/02/2023 14:44:51 12/02/2023 22:17:34 Pain of left calf 1729976472 250611 M79.662 [id number] Janusz Davis MD Main - [facility] [address] [place] [address] 04/16/2024 17:18:10 04/19/2024 21:44:43 Mild dehydration 3876036132 108 E86.0 Normal BP. Tolerating oral fluids; does not need IV fluids at this time. Discussed red flag signs for which to seek higher level of care including worsening dizziness or confusion Nausea and vomiting 6541999 R11.2 Improving. Will give oral Zofran. Discussed red flag signs for which to seek higher level of care including worsening dizziness or confusion [id number] Marshall Crowe MD Main - [facility] [address] [place] [phone] 06/03/2024 12:21:01 06/03/2024 17:49:34 COVID-19 [id number] U07.1 [id number] Michelle Trotter MD [facility] ED Medical [address] [phone] 04/21/2025 12:00:32 04/22/2025 10:18:00 Common cold [id number] J00 56965 Health Concerns Section Related Observation LastModified by Organization Detai ls LastModified Time None Recorded Concern Status LastModified by Organization Details LastModified Time None Recorded Advance Directives Directive None Recorded Payers Insurance Date Sequence Insurance Name Policy Number Policy Cespedes Covered Member ID Cespedes Member ID Guarantor Name 01/15/2025 1 [facility] - DOS PRIOR TO 2022 - DUAL ELIGIBLE (MEDICARE REPLACEMENT/ADV ANTAGE - HMO) Delma Hanson [id number] Delma Hanson 04/21/2025 1 [facility] - DOS ON OR AFTER 2022 - DUAL ELIGIBLE - [employer] OPTIONS AND ONE CARE (MEDICARE REPLACEMENT/ADV ANTAGE - HMO) Delma Hanson [id number] Delma Hanson Notes Date Note Type Note Provider Name and Address Organization Details Recorded Time 01/23/2022 text/html ROS as noted in the HPI [facility] Nursing Assessment: Patient Reports: Dizziness with positional change Chief Complaints: Nausea/Vomiting, Syncope/Dizziness/Li ghtheadedness Allergies: Other Comments: Daughter of member calling for [facility] complaints of feeling dizzy since last night deny C/P SOB hx vertigo that had responded to meclizine in the past- slight nausea .................... .................... .................... .................... .................... .................... .................... . Mathematics Department Chair Note: chief complaint dizziness. Constitutional: Afebrile without [...] . Disposition: Fulfilled Isaac Rowan MD [address] [facility],[address], [place], [address], [employer] 10/19/2022 19:03:28 12/02/2023 text/html ROS as noted in the HPI This was a supervised home visit with identity management developer Samir Bah. 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 Chief Complaints: Pain PMH: Diabetes Comments: Spoke w/ caregiver and pot fireman. reporting worsening left leg pain and having [...] .................... .................... .................... .................... .................... .................... . Mathematics Department Chair Note From Samir Bah: Pt reports worsening [...] . Disposition: Fulfilled Marshall Crowe MD [address] [facility],[address], [place], [address], [place] [employer] 12/02/2023 15:06:27 04/16/2024 text/html ROS as noted in the [facility] CRC Nurse Triage Notes (Karen Rosario): Reason For Request: Pt can barely stand, very dizzy Chief Complaints: Weakness/Lethargy PMH: Diabetes Allergies: Unknown Comments: Harvest Contractor verified the member's name//address and phone number. [...] s/s and seek emergency treatment if needed Mathematics Department Chair Organization Information for Travis Gonzalez Business Legal Name: [employer]. Address: [address] [place] [address], Paste Up Artist: See Reynolds MD CLIA No.: [id number] Mathematics Department Chair POC Test Results from Travis Gonzalez Rapid influenza antigen (18:13:04) Flu: - Rapid COVID antigen (18:13:12) COVID: - .................... .................... .................... .................... .................... .................... .................... . Mathematics Department Chair Note From Travis Gonzalez: [facility] Pt present in home with daughter. Pt [place]se speaking only and daughter translated. Daughter states [...] without issues since initial vomiting. Consulted with [facility]. Davis who ordered 1 dose of sublingual zofran given on scene. Reviewed red flags for ED. Patient education provided. [facility] Medication Orders: ondansetron 4 mg disintegrating tablet: Administered .................... .................... .................... .................... .................... .................... .................... . Disposition: Fulfilled Janusz Davis MD [address] [facility],[address], [place], [address], [employer] 04/16/2024 20:42:17 06/03/2024 text/html ROS as noted in the HPI This was a supervised home visit with identity management developer Tremaine Briggs. [facility] Nurse Triage Notes (Kelly Brumfield): Reason For Request: Patient has sore throat, head ache, and can't sleep. 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 Symptoms started yesterday getting worse today. Patient has a non-productive cough. No fever. No known sick contacts. Taking tylenol as needed for symptoms. Mathematics Department Chair Organization Information for Tremaine Briggs Legal Name: [employer]. Address: [address] [place] [id number], Paste Up Artist: See Reynolds MD [facility] No.: [id number] Mathematics Department Chair POC Test Results from Tremaine Briggs - [facility] Rapid strep test (11:43:02) Strep: - Rapid influenza antigen (11:43:13) Flu: - Rapid COVID antigen (11:43:15) COVID: + .................... .................... .................... .................... .................... .................... .................... . Mathematics Department Chair Note From Tremaine Briggs: Dispatched to the [...] .................... . Disposition: Fulfilled Marshall Crowe MD [address] [place] [address],[address], [place], [address], [employer] 06/03/2024 13:35:20 04/21/2025 text/html CRC Nurse Triage Notes (Herman Gabriel): Reason For Request: sore throat/headache/ear pain/spasms/weakness Patient Reports: Sputum increase ; Cough Denies: Increased work of breathing/labored with or without fever Unable to speak in full sentences without distress Discoloration of skin -cyanosis Needs to sleep sitting up, can t catch breath Shortness of breath in setting of confusion Cough, fever greater than 2 days Lower extremity swelling History of asthma, increased use of inhaler COPD Shortness of breath with exertion Pain with inspiration Chief Complaints: Common Cold PMH: Diabetes Mellitus Type 2, Anxiety Disorder, Hyperlipidemia PMH Reviewed at 04/21/2025:41 Allergies Reviewed at 04/21/2025:41 Comments: 79 y.o female complains of Common Cold x 1 week Pt reports feeling unwell with a cough/cold and congestion - Sore throat - Weakness - Headache - Ear pain Denies shortness of breath Fever has resolved. Taking Tylenol with some relief Wellness check requested I provided information on the mobile health provider response time and advised the patient and/or caregiver to monitor reported signs and symptoms. I discussed the warning signs of when to seek emergency care. Mathematics Department Chair Organization Information for Oliver Simpson Business Legal Name: [employer]. Address: [address] [place] [address], Paste Up Artist: See Reynolds MD JULIÁN No.: [id number] Mathematics Department Chair POC Test Results from Oliver Simpson Rapid COVID antigen (11:55:45) COVID: - Attachments uploaded as part of this test result can be found under Documents section. Rapid influenza antigen (11:55:46) Flu: - Attachments uploaded as part of this test result can be found under Documents section. Rapid strep test (11:55:47) Strep: - Attachments uploaded as part of this test result can be found under Documents section. .................... .................... .................... .................... .................... .................... .................... . Mathematics Department Chair Note From Oliver Simpson: Encountered patient seated upright and conscious with family present. Patient reports approximately one week of experiencing a productive cough that yields clear sputum, accompanied by weakness and body-aches. Patient reports she was experiencing fevers last week, but is currently not febrile. Patient denies chest pain, shortness of breath and changes in vision. Point of care Flu, Covid and strep performed, all resulted negative; [facility] notified. Skin warm, dry and of appropriate color for ethnicity. Head and neck, free of trauma and edema. -JVD. Breath sounds present clear and equal bilaterally. Abdomen is soft non-tender and non-distended. Extremities are free of trauma and edema. [facility] contacted: Reports patient is likely suffering from a viral ailment as opposed to a bacterial. [facility] encourages patient to continue supportive care at home. 100mg of PO Benzonatate administered after medication rights were reconciled with patient. Patient was encouraged to continue to monitor herself for worsening symptoms and urged to seek further medical attention including 911 if she were to develop chest pain, shortness of breath or become febrile again. Patient verbalizes understanding of the plan and states she is comfortable remaining home today. [facility] Lab Orders: rapid strep group A, throat: Performed rapid SARS CoV 2 Ag, QL IA, respiratory specimen: Performed rapid flu (A+B): Performed [facility] Medication Orders: benzonatate 100 mg capsule: Performed .................... .................... .................... .................... .................... .................... .................... . [facility] Consulted: Michelle Trotter .................... .................... .................... .................... .................... .................... .................... . Disposition: Maggie Trotter MD [address] [facility],[address], [place], [address], [employer] 04/22/2025 08:37:44 OBGyn Episode No OBEpisode recorded.
--- OUTSIDE RECORDS SUMMARY | 2025-07-15 18:15 | XMS_ITS | Data Portability ---
Author Organization [place] - [facility], Allergy Address [address] [address] Care Team Providers Care Drywall Sander Name Role Phone [email or web address] Primary Care Provider Assessment Encounter Date Assessment Date Assessment LastModified by Organization Details LastModified Time 07/07/2024 07/07/2024 78-year-old female presents for reevaluation of left submandibular sialoadenitis. On examination today she has palpable stones within the sublingual space on the left side. No purulence can be expressed. Gland is firm but not diffusely swollen. Recommended a course of antibiotic. Patient is penicillin allergic so we have recommended clindamycin. Reviewed salivary gland precautions including aggressive oral hydration, sialagogues, warm compress, and firm massage of the gland. She has an appointment with Dr. Shaikh in September which have recommended they keep. If she does not improve with oral antibiotic could consider admission to hospital for IV antibiotic. All questions were answered. Seen with Dr. Shaikh today. [email or web address] Not available 07/07/2024 12:02:44 04/26/2025 04/26/2025 Delma preseents with daughter today for sialoliths - multiple sublingual. Stable over last 6 months -Conservative management - encouraged sialogogues, hydration, massage to area, warm compress -Call if she develops worsening pain or swelling -I also discussed submandibular gland excision as a last resort but we agreed to defer this for now. -RV 6 months with myself or PA team [email or web address] Not available 04/26/2025 15:59:42 Plan of Treatment Reminders Order Date Submit Date Provider Last Modified By Organization Details Last Modified Time Details Appointments Establish ed 15 2025 03:30P M JONATHAN DOZIER PA-C Not available Not available Not available Lab None recorded. Referral None recorded. Procedures None recorded. Surgeries None recorded. Imaging None recorded. Medication Orders clindamyc in HCl 300 mg capsule 2023 025 MARY ALICE [id number], [address] [place], [place], [id number], 04/26/2025 15:38:10 Patient TargetsNo targets recorded. Patient Instructions Encounter Date Encounter Id Patient Instructions Last Modified By Organization Details Last Modified Time 02/06/2024 [id number] 78 year old jonathan carter with PMH diabetes presents with family member, who provides interpretation services and declined professional fraud investigator, for examination of left submandibular gland. Diffusely enlarged and tender. Stone(s) palpable on bimanual palpation. No pus expressed from duct; clear saliva with only mildly diminished flow. Recommend continued supportive care with good oral hydration, [id number] massage, warm compresses, and sour sialogogues. A 6 month follow up has been arranged with Dr. Shaikh to discuss possibility of gland excision, though we reviewed that one episode in a year may not require surgical intervention. Patient worried about recurrence. [email or web address] Not available 02/06/2024 15:25:38 Reason for Referral None Reported. Results Created Date Observation Date Name Description Value Unit Range Abnormal Flag Note LastModifiedBy Organization Detail LastModifiedTime 05/06/20 24 11/06/2021 imagi ng/di agnos tic resul t No observ ation record ed. [email or web address] Not Available 17:37:06 05/06/20 24 05/12/2022 imagi ng/di agnos tic resul t No observ ation record ed. [email or web address] Not Available 17:37:10 Result Notes None recorded. Problems Name Problem SNOMED Code Status Onset Date Resolution Date Notes Provider Name and Address Organization Details Recorded Time Sialolithia sis 07925836 Active 2021 Sialolit hiasis; Note: Date Diagnose d: 09/03/20 3:33 PM (K11.5) Not Available [facility] 02:44:31 Chronic sialadeniti s 600518918 Active 2021 Chronic sialoade nitis; Note: Date Diagnose d: 09/03/20 22 3:33 PM (K11.23) Not Available [facility] 4 02:44:28 Submandibul ar sialolithia sis 989401916 Active [address] [facility] 4 11:21:34 Problem Notes None recorded. Medical Equipment None Reported. Allergies Allergen ID Allergen Name Allergen Category Reaction Reaction Severity Criticality Documentation Date Start Date Code Code System Note Provider Name and Address Organization Details Recorded Time 709619 Iodinated contrast media (substanc e) medicatio n Not available Not available Not available 02/06/20[address]345[address]let smith [facility] 4 11:05:45 Medications Name Sig Start Date Stop Date Status Note LastModified by Organization Details LastModified Time rivastigm ine 1.5 mg capsule active Medicati on ID: [id number] B rand Name: rivastig mine tartrate Send Method: E-Prescr ibed Sub s Allowed: subs OK Medic ationGen ericName : rivastig mine tartrate Not Available Not Available Not Available clindamyc in HCl 300 mg capsule Take 1 capsule every 6 hours by oral route for 10 days. 04/26 completed Not Available Not Available Not Available cetirizin e 10 mg tablet active Medicati on ID: [id number] B rand Name: cetirizi ne Send Method: E-Prescr ibed Sub s Allowed: subs OK Speci al Instruct ion: TAKE ONE TABLET BY MOUTH DAILY Me dication GenericN madhav: cetirizi ne Not Available Not Available Not Available FreeStyle Lancets 28 gauge active Medicati on ID: [id number] B rand Name: FreeStyl e Lancets Send Method: E-Prescr ibed Sub s Allowed: subs OK Medic ationGen ericName : FreeStyl e Lancets Not Available Not Available Not Available meclizine 25 mg tablet active Medicati on ID: [id number] B rand Name: meclizin e Send Method: E-Prescr ibed Sub s Allowed: subs OK Medic ationGen ericName : meclizin e Not Available Not Available Not Available dexametha sone 4 mg tablet 02/05 completed Medicati on ID: [id number] B rand Name: dexameth asone Se nd Method: E-Prescr ibed Sub s Allowed: subs OK Medic ationGen ericName : dexameth asone Me dication ID: [id number] B rand Name: dexameth asone Se nd Method: E-Prescr ibed Sub s Allowed: subs OK Medic ationGen ericName : dexameth asone Not Available Not Available Not Available cefuroxim e axetil 500 mg tablet 02/05 completed Medicati on ID: [id number] B rand Name: cefuroxi me axetil S end Method: E-Prescr ibed Sub s Allowed: subs OK Medic ationGen ericName : cefuroxi me axetil M edicatio n ID: [id number] B rand Name: cefuroxi me axetil S end Method: E-Prescr ibed Sub s Allowed: subs OK Medic ationGen ericName : cefuroxi me axetil Not Available Not Available Not Available cefdinir 300 mg capsule 02/05 completed Medicati on ID: [id number] B rand Name: cefdinir Send Method: E-Prescr ibed Sub s Allowed: subs OK Medic ationGen ericName : cefdinir Medicat ion ID: [id number] B rand Name: cefdinir Send Method: E-Prescr ibed Sub s Allowed: subs OK Medic ationGen ericName : cefdinir Not Available Not Available Not Available glipizide 5 mg tablet active Medicati on ID: [id number] B rand Name: glipizid e Send Method: E-Prescr ibed Sub s Allowed: subs OK Medic ationGen ericName : glipizid e Not Available Not Available Not Available amoxicill in 875 mg-potass ium clavulana te 125 mg tablet 02/05 completed Medicati on ID: [id number] B rand Name: amoxicil cara-pot clavulan ate Send Method: E-Prescr ibed Sub s Allowed: subs OK Medic ationGen ericName : amoxicil cara-pot clavulan ate Medi cation ID: [id number] B rand Name: amoxicil cara-pot clavulan ate Send Method: E-Prescr ibed Sub s Allowed: subs OK Medic ationGen ericName : amoxicil cara-pot clavulan ate Not Available Not Available Not Available oxycodone 5 mg tablet 07/07 completed Medicati on ID: [id number] B rand Name: oxycodon e Send Method: E-Prescr ibed Sub s Allowed: subs OK Medic ationGen ericName : oxycodon e Not Available Not Available Not Available escitalop shantelle 10 mg tablet active Medicati on ID: [id number] B rand Name: escitalo pram oxalate Send Method: E-Prescr ibed Sub s Allowed: subs OK Medic ationGen ericName : escitalo pram oxalate Not Available Not Available Not Available rosuvasta tin 20 mg tablet active Medicati on ID: [id number] B rand Name: rosuvast atin Sen d Method: E-Prescr ibed Sub s Allowed: subs OK Medic ationGen ericName : rosuvast atin Not Available Not Available Not Available memantine 5 mg tablet active Medicati on ID: [id number] B rand Name: memantin e Send Method: E-Prescr ibed Sub s Allowed: subs OK Medic ationGen ericName : memantin e Not Available Not Available Not Available Trulicity 1.5 mg/0.5 mL subcutane ous pen injector 07/07 completed Medicati on ID: [id number] B rand Name: Trulicit y Send Method: E-Prescr ibed Sub s Allowed: subs OK Medic ationGen ericName : Trulicit y Not Available Not Available Not Available Trulicity 0.75 mg/0.5 mL subcutane ous pen injector 07/07 completed Medicati on ID: [id number] B rand Name: Trulicit y Send Method: E-Prescr ibed Sub s Allowed: subs OK Medic ationGen ericName : Trulicit y Not Available Not Available Not Available Trulicity 3 mg/0.5 mL subcutane ous pen injector active Medicati on ID: [id number] B rand Name: Trulicit y Send Method: E-Prescr ibed Sub s Allowed: subs OK Medic ationGen ericName : Tryvanit y Not Available Not Available Not Available Vitals Date Recorded Body height Body mass index (BMI) Body weight Provider Name and Address Organization Details Last Updated DateTime 10/08/2024 154.94 cm 23.2 kg/m2 94465.[address] [facility] 10/08/2024 08:54:43 Date Recorded Body height Body mass index (BMI) Body weight Provider Name and Address Organization Details Last Updated DateTime 07/07/2024 154.94 cm 24.6 kg/m2 [address]2428.[address] [facility] 07/07/2024 11:31:08 Social History None recorded. Functional Status None recorded. Mental Status None recorded. Family History Nothing Reported. Medical History Condition Response Diabetes Y Depression Y High Cholesterol Y Gynecological HistoryNo gynecological history recorded. Obstetrics History GPAL:G 0 P 0 0 0 0 Past Encounters Encounter ID Performer Location Encounter Start Date Encounter Closed Date Diagnosis/Indication Diagnosis SNOMED-CT Code Diagnosis ICD10 Code Diagnosis IMO Codes Diagnosis Note [id number] JUANITA MONTAÑO PA-C [facility] [address] [address] 02/06/2024 10:45:02 02/06/2024 11:25:15 Submandibular sialolithiasis 223606419 K11.5 [id number] SINA SHAIKH MD [facility] [address] [address] 07/07/2024 11:07:31 07/07/2024 11:49:36 Chronic sialadenitis 335401791 K11.23 Sialolithiasis 18393544 K11.5 [id number] SINA SHAIKH MD [facility] [address] [address] 10/08/2024 08:46:25 10/08/2024 09:06:26 Chronic sialadenitis 342499382 K11.23 No obvious infection today. I discussed warm compresses , hydration, sialogogue s. I don't recommend tranasoral stone removal as there are too many stones on her most symptomati c side (left). I recommend conservati ve measures and treating infections early with abx. I asked her to call if she develops worsening pain or swelling. I also discussed submandibu lar gland excision as a last resort but we agreed to defer this for now. I will defer additional imaging and plan to see her in 6 months. Sialolithiasis 25016628 K11.5 see above [id number] Rolf Minor, DO [facility] [address] [address] 04/26/2025 15:25:17 04/26/2025 15:59:29 Chronic sialadenitis 985626512 K11.23 Sialolithiasis 46426644 K11.5 see above Health Concerns Section Related Observation LastModified by Organization Detai ls LastModified Time None Recorded Concern Status LastModified by Organization Details LastModified Time None Recorded Advance Directives Directive None Recorded Payers Insurance Date Sequence Insurance Name Policy Number Policy Cespedes Covered Member ID Cespedes Member ID Guarantor Name 04/26/2025 1 [facility] - DOS ON OR AFTER 2022 - MEDICARE [place]VANTAGE [place]ARE RE[place]ACEMENT/ADV ANTAGE - PPO) Delma Hanson [id number] Delma Hanson 04/26/2025 1 [facility] - DOS ON OR AFTER 2022 - [employer] (MEDICARE REPLACEMENT/ADV ANTAGE - HMO) Delma Hanson [id number] Delma Hanson Notes Date Note Type Note Provider Name and Address Organization Details Recorded Time 02/06/2024 text/html ROS as noted in the HPI 78 year old female with PMH diabetes presents for evaluation. History of left submandibular salivary swelling. In April [address] at [place] demonstrating 7 stones in the left submandibular gland. She had a left floor of mouth abscess drained in 2021. She had an attempted left FOM transoral attempt at stone removal November 2022 which she was unable to tolerate. She was last seen in this office 03/07/23. Family report about a month ago she had a flare up that landed her in the ED. She was given IV antibiotics and discharged on oral antibiotics. Since then, the swelling has gone down and there is no pain. No fevers, dysphagia, hemoptysis. Voice is normal. She has been using [employer] candies as sialogogues. Juanita smith, [place] - [facility] 02/06/2024 15:26:26 07/07/2024 text/html ROS as noted in the HPI 78-year-old female presents for evaluation of submandibular gland infection. She has a history of many stones in the left submandibular gland and has previously been treated for submandibular sialoadenitis. Her daughter who is helping with translation today states that she was in rehab recently and began to develop pain under her jaw which is significant enough to cause difficulty swallowing. She has had some weight loss. Has not had any antibiotic recently. Allergic to penicillin. Most recent CT scan was earlier this year showing 17 stones within the left submandibular gland. SINA SHAIKH MD [address] [place] [address],[address], [address], [facility] - [facility] 07/07/2024 12:51:26 10/08/2024 text/html ROS as noted in the HPI 78-year-old female presents for evaluation of recurrent submandibular sialadenitis. She was seen in June and was treated with abx (clinda) and her pain improved. The left submandibular gland still occasionally swelling after eating and occasionally is tender but in general it is much better than before. She has also noted some swelling in her right submandibular area.Most recent CT scan was earlier this year showing 17 stones within the left submandibular gland. SINA SHAKIH MD [address] [place] [address],[address], [address], [facility] - [facility] 10/08/2024 09:10:32 04/26/2025 text/html ROS as noted in the HPI Interval Hx: Presents with daughter. Feels some pain on both sides. No antibiotics or steroids in last 6 months. Currently not hurting. Hydrating well. Using sialogogues. Previously (09/2024) Dr. Shaikh: 78-year-old female presents for evaluation of recurrent submandibular sialadenitis. She was seen in June and was treated with abx (clinda) and her pain improved. The left submandibular gland still occasionally swelling after eating and occasionally is tender but in general it is much better than before. She has also noted some swelling in her right submandibular area.Most recent CT scan was earlier this year showing 17 stones within the left submandibular gland. Rolf Minor, [address] [facility],[place] [address], [place], [address], [facility] - [facility] 04/26/2025 15:59:53 OBGyn Episode No OBEpisode recorded.
--- OUTSIDE RECORDS SUMMARY | 2025-07-15 18:15 | XMS_ITS | Clinical Summary ---
Author Organization [employer] Address [address] [facility] [address] [place] [address] Care Team Providers Care Golf Cart Mechanic Name Role Phone Unavailable Primary Care Provider [...] - 1-dose 75+ series) 2020 COVID-19 Vaccine (1 - 2023-2 5 season) 2025 Influenza Vaccine (#1) 2025 HIB Vaccines Aged [...]
--- OUTSIDE RECORDS SUMMARY | 2025-07-15 18:15 | XMS_ITS | Continuity of Care Document ---
Author Organization [facility], [facility] Address [address] [place] [phone] Care Team Providers Care Superintendent Generating Plant Name Role Phone JOSE PEREA Primary Care Provider HIM CCA OTHER Assessment Encounter Date Assessment Date Assessment LastModified by Organization Details LastModified Time 07/15/2025 07/15/2025 Impression: 79yo/f referred for feelings of weakness and dizziness. Patient is 79yo/f with multiple medical conditions as above. Has a history of prior vertigo. However today states having a new symptom not consistent with her prior vertigo. Describes it as a dizziness that describes as a lightheadedness like she might pass out, but also a generalized or global weakness. States never had similar symptoms in the past. On exam is awake, alert. BP 95/60, vitals otherwise WNL. Neuro exam is nonfocal, feels unsteady ambulating however. EKG performed and shows sinus rhythm with TWIs v1-v3, no STEMI. Discussed at length, patient states no history of similar symptoms, given her age and multiple cardiovascular and cerebrovascular risk factors, I believe she requires in person evaluation in [facility] ED for full diagnostic evaluation. Patient amenable to this plan, will be transferred to ED. Primary care, consider ED followup Disposition: ED [email or web address] Not available 07/15/2025 15:21:07 Plan of Treatment Reminders Order Date Submit Date Provider Last Modified By Organization Details Last Modified Time Details Appointments Urgent Care 2024 01:36P Jarred Luna MD Not available Not available Not available Lab None recorded. Referral None recorded. Procedures None recorded. Surgeries None recorded. Imaging electroca rdiogram 2024 025 [email or web address] 9 [facility], [address] [place] [address], [phone] 07/15/2025 15:17:13 Medication Orders None recorded. Patient TargetsNo targets recorded. Patient InstructionsNo instructions recorded. Reason for Referral None Reported. Results Created Date Observation Date Name Description Value Unit Range Abnormal Flag Note LastModifiedBy Organization Detail LastModifiedTime 07/15/2007/15/2025 lawanda ramseygr am No observ ation record ed. [facility] [address], [phone] 07/15/2025 16:10:00 Result Notes None recorded. Medical Equipment None Reported. Allergies Allergen ID Allergen Name Allergen Category Reaction Reaction Severity Criticality Documentation Date Start Date Code Code System Note Provider Name and Address Organization Details Recorded Time Product containin g penicilli n (product) medicatio n Not available Not available Not available 07/15/2025 42836 8001 SNOMED Not Available [facility] - production 13:43:46 Iodinated contrast media (substanc e) medicatio n Not available Not available Not available 07/15/2025 29855 2004 SNOMED Not Available [facility] - production 13:43:46 [...] Available No t Available Vitals Date Recorded Respiratory rate Heart rate Body weight Body height Oxygen saturation Oxygen saturation in Arterial blood by Pulse oximetry Body temperature Body weight Systolic And Diastolic Provider Name and Address Organization Details Last Updated DateTime 5 16 /min 66 /min 15683.4 08 g 157.48 cm 96 % 96 % 98.5 [degF] 74739.4 08 g 95/60 mm[Hg] Not Available [facility] - production 5 15:22:44 Social History None recorded. Functional Status None recorded. Mental Status None recorded. Family History Nothing Reported. Medical History No medical history recorded. Gynecological HistoryNo gynecological history recorded. Obstetrics History GPAL:G 0 P 0 0 0 0 Past Encounters Encounter ID Performer Location Encounter Start Date Encounter Closed Date Diagnosis/Indication Diagnosis SNOMED-CT Code Diagnosis ICD10 Code Diagnosis IMO Codes Diagnosis Note [id number] Sergio Luna MD [facility] ED Medical [address] [phone] 07/15/2025 14:35:55 07/15/2025 15:40:49 Dizziness [id number] R42 122501 Health Concerns Section Related Observation LastModified by Organization Detai ls LastModified Time None Recorded Concern Status LastModified by Organization Details LastModified Time None Recorded Payers Encounter Date Sequence Insurance Name Policy Number Policy Cespedes Covered Member ID Cespedes Member ID Guarantor Name 07/15/2025 1 [facility] - DOS ON OR AFTER 2022 - DUAL ELIGIBLE - ALF OPTIONS AND ONE CARE (MEDICARE REPLACEMENT/ADV ANTAGE - HMO) Delma Hanson [id number] Delma Hanson Notes Date Note Type Note Provider Name and Address Organization Details Recorded Time 07/15/2025 text/html ROS as noted in the HPI [facility] Nurse Triage Notes (Andreina Snider): Reason For Request: Pt's daughter reporting dizziness and that she is a fall hazard>concerns as the pt is alone>sugar was normal this morning>has taken regular meds, eaten lunch, still experiencing dizzinessDenies: Worst Headache of life New onset of vision loss Sudden onset -unilateral weakness/gait disturbance Fall with head strike and altered LOC New onset of Slurred speech or difficulty finding words Sudden Mental status changes Head pain with fever chills and neck pain Seizure activity Chief Complaints: DizzinessPMH: Diabetes Mellitus Type 2, Anxiety Disorder, Hyperlipidemia, Dementia (e.g., Alzheimer's Disease)PMH Reviewed at 07/15/2025:43Allergies Reviewed at 07/15/2025:43Comments: 79 y.o female complains of Dizziness Daughter reporting symptoms. Constant dizziness all morning. Blurry vision with dizziness. Dizziness not dependent on movement. Mentating normally. Speech slower per daughter but clear. Denies unilateral weakness or paresthesia. Able to take morning medications without issue. Blood sugar 125. Eating and drinking adequately. Denies shortness of breath, chest pain, fever. Denies nausea/vomiting. No recent cold/flu symptoms - congestion, coughing, sinus pressure. Not on anticoagulation. Denies recent falls. I provided information on the mobile health provider response time and advised the patient and/or caregiver to monitor reported signs and symptoms. I discussed the warning signs of when to seek emergency care. EKG (14:36:16) - This test has been updated by the teletype clerk, Rolf Lugo at (07/15/2025 15:22:53). The changes are marked in bold. EKG test performed. Attachments uploaded as part of this test result can be found under Documents section. .................. .................. .................. .................. .................. .................. .................. ............... Helper Driver Note From Rolf Lugo: [facility] makes pt contact a 79 YO F CC of dizziness. [facility] obtains vital signs. [facility] uses speech language specialist due to [place] language barrier. PT explains she began feeling dizzy this morning, reports a headache that comes and goes. PT has a hx of vertigo but does not use meclizine. PT explains this doesn't feel like vertigo because the room isnt spinning but she feels very dizzy and weak. Vitals show borderline hypotensive BP pt does not recall what a normal bp is. PT denies chest pain, so, n/v. PT is a diabetic but reports a sugar of 125. No apparent stroke symptoms are present. PT denies any radiating pains. [facility] attempts to contact [facility] but [facility] is busy. [facility] performs a 12 lead ekg and notes t wave inversion in v1-v4, v5-v6 have flattening of the t waves. At this point [facility] connects with [facility] and explain the ekg changes. PT HR also has fluctuations in rate although no ectopy is noted. [facility] and [facility] agree PT needs to be seen in an emergency room due to symptoms and ekg changes. [facility] contacts 911 and [facility] ambulance arrive. PT to be transported to [facility] per her request. [facility] assists ambulance crew. [facility] clear. [facility] Lab Orders: electrocardiogram: Performed .................. .................. .................. .................. .................. .................. .................. ............... [facility] Consulted: Sergio Luna .................. .................. .................. .................. .................. .................. .................. ............... Disposition: Fulfilled Sergio Luna MD [address] [place] [address],[address], [place], [phone], [facility] 07/15/2025 15:40:46 OBGyn Episode No OBEpisode recorded.
--- OUTSIDE RECORDS SUMMARY | 2025-07-15 18:15 | XMS_ITS | Encounter Summary ---
Author Organization [employer] [facility] Address [address] [place] [address] Care Team Providers Care Search Engine Optimization Analyst Name Role Phone Unavailable Primary Care [...]
--- OUTSIDE RECORDS SUMMARY | 2025-07-15 18:15 | XMS_ITS | Clinical Summary ---
Author Organization [facility] it Address [address] [place] [address] Care Team Providers Care Fractionation Supervisor Name Role Phone Unavailable Primary Care Provider [...] 04/08/2024 Social Influencers of Health Screening 04/08/2024 Depression Screening 09/16/2024 COVID-19 Vaccine ( - 2023-2 5 season) 2025 Influenza Vaccine [...]
[2025-07-15 18:16] VITALS: BP 137/63; PULSE 67; RESP 13; O2SAT 98
[2025-07-15 20:03] LABS: Appearance Urine Clear; Glucose Urine UA >=1000 mg/dL (Negative); PH 8.0 (5.0-9.0); Specific Gravity - Urine 1.015 (1.005-1.025); UMIC TRIGGER UA YES
--- NOTE | 2025-07-15 21:28 | PC.NURSE ---
provided pt w/applesauce and joe katelynn - ok per MD. Instructed will need to ambulate after IVF are done. verbalized understanding
[2025-07-15 21:30] VITALS: BP 148/63; PULSE 66
[2025-07-15 21:35] VITALS: BP 156/65; PULSE 72
[2025-07-15 21:40] VITALS: BP 142/68; PULSE 68
[2025-07-16 00:38] VITALS: BP 142/68; PULSE 68; RESP 20; TEMP 36.7; O2SAT 98
== END 2025-07-16 00:44 | disposition home or self-care (01) ==
PROVIDERS: Emergency Provider Student in an Organized Health Care Education/Training Program; PCP Internal Medicine
DX: H81.12 Benign paroxysmal vertigo, left ear (principal); I49.1 Atrial premature depolarization; R94.31 Abnormal electrocardiogram [ECG] [EKG]; R10.9 Unspecified abdominal pain
CPT/HCPCS: 36415; 74176; 80048; 80076; 81001; 83690; 83735; 84484; 85025; 93005; 96360; 96361; 99284; 99285

== ENCOUNTER → 2025-07-15 16:08 | Outpatient (BNV) | payer OTHER, SELFPAY | PROVIDERS: Emergency Provider Student in an Organized Health Care Education/Training Program; PCP Internal Medicine; Visit Provider Internal Medicine | DX: I49.1 Atrial premature depolarization (principal) | CPT/HCPCS: 93010 ==

== ENCOUNTER → 2025-07-15 16:50 | Outpatient (BNV) | payer OTHER, SELFPAY | PROVIDERS: Emergency Provider Student in an Organized Health Care Education/Training Program; PCP Internal Medicine; Visit Provider Radiology Diagnostic Radiology | DX: N32.3 Diverticulum of bladder (principal) | CPT/HCPCS: 74176 ==

== ENCOUNTER 2025-08-04 08:57 | Outpatient (AMB) | payer OTHER, SELFPAY ==
--- NOTE | 2025-08-04 09:38 | A.OFFPC_ITS ---
Vital Signs 08/04/25 09:47 Height 5 ft Weight 123 lb BMI 24.0 BP 132/70 Blood Pressure Location Lt brachial Position Sitting Respiration 16 Pulse 66 Pulse Source Pulse Oximeter Temp 98.3 F Temp Source Oral Pulse Oximetry (%) 98 Oxygen Delivery Method Room Air Intake Visit Reasons: 3 months f/up Intake Note: Pt is here today for her 3mo. f/u Allergies clindamycin Allergy (Mild, Verified 08/04/25 09:59) Hives Iodinated Contrast Media (IV Dye, Iodine Containing) Allergy (Mild, Verified 08/04/25 09:59) HIVES donepezil Adverse Reaction (Intermediate, Verified 08/04/25 09:59) nausea, dizziness and vomiting pioglitazone Adverse Reaction (Intermediate, Verified 08/04/25 09:59) edema amitriptyline (From Elavil) Adverse Reaction (Mild, Verified 08/04/25 09:59) NAUSEA & VOMITING amoxicillin (Amoxicillin) Adverse Reaction (Mild, Verified 08/04/25 09:59) NAUSEA & VOMITING codeine (From Tylenol-Codeine) Adverse Reaction (Mild, Verified 08/04/25 09:59) NAUSEA & VOMITING lisinopril (Lisinopril) Adverse Reaction (Mild, Verified 08/04/25 09:59) NAUSEA & VOMITING acetaminophen (Tylenol) Adverse Reaction (Unknown, Verified 08/04/25 09:59) tylenol 3 (states regulare tylenol upset stomach as well) aspirin (Aspirin) Adverse Reaction (Unknown, Verified 08/04/25 09:59) NAUSEA & VOMITING oxycodone (Percocet) Adverse Reaction (Unknown, Verified 08/04/25 09:59) stomach upset tramadol (From Ultram) Adverse Reaction (Unknown, Verified 08/04/25 09:59) NAUSEA & VOMITING rosuvastatin Adverse Reaction (Verified 08/04/25 09:59) Abdominal Pain Medication List - Last Reconciled 08/04/25 by Danita Mccurdy MD blood sugar diagnostic ([employer] Ultra Test strips) Check fasting blood sugar twice a day blood-glucose meter ([employer] Ultra2 Meter) As directed cane use as directed cholecalciferol (vitamin D3) 50 mcg PO DAILY diazepam (Valium) 5 mg PO BID PRN 5 days docusate sodium 100 mg PO BID escitalopram oxalate 10 mg PO DAILY FreeStyle Lancets (lancets) Check fasting blood sugar once a day before meal NS Jardiance (empagliflozin) 10 mg PO QAM NS lancets test blood sugar twice a day meclizine 25 mg PO TID 5 days memantine 10 mg PO BID ondansetron 4 mg PO Q8H PRN pen needle, diabetic (Droplet Pen Needle) USE DIRECTED ONCE A DAY rosuvastatin 5 mg PO DAILY tirzepatide 5 mg (0.5 mL) subcut QWEEK [tub safety bar As directed] Tobacco use date assessed: 08/04/25 Fall risk assessment: No Falls in past year Last assessed Fall Risk: 08/04/25 Dental Screening Dental Screen Date: 08/04/25 Did you have a dental visit in the last 12 months?: Yes Did you have a dental problem in the last 6 months where you did not have access to dental care?: No Was dental information given to patient?: Patient has dentist [facility] Medical History (Updated 08/04/25 @ 10:05 by Danita Mccurdy MD) Anemia History of adenomatous polyp of colon Osteoporosis of lumbar spine Headache Cervicalgia Cervicalgia Acute parotitis Dizziness of unknown cause Diabetes mellitus with hyperglycemia Vitamin D deficiency Mixed dyslipidemia Lumbago Pulmonary nodules Submandibular sialoadenitis Hemorrhoid Sensorineural hearing loss Balance disorder Lumbar scoliosis Type 2 diabetes mellitus with hyperglycemia, without long-term current use of insulin Anxiety Osteoarthritis Hypertension Surgical History History of bladder suspension procedure Hx of cholecystectomy Family History Father Pulmonary disease Mother Liver cirrhosis Diabetes Other Mental health disorder Social History Household Members: Unknown / Unable to assess Housing: Unknown / Unable to assess Housing Other:: apartment for penitentiary Do you presently have visiting nurse or other home services: Yes Alcohol intake: never Patient Tobacco Use Status: Never used Tobacco e-Cigarette/Vaping Use: Never Used Second Hand Smoke Exposure: No Advance Directives Date on File: 11/13/21 service: No Current occupational status: retired Cognitive needs: No Hearing needs: No Vision needs: No Questionnaire Thrive Questionnaire Date Thrive assessed: 01/13/25 I am a: Patient What is your living situation today?: I have a steady place to live Within the past 12 months, did the food you bought not last and you didn't have the money to get more?: Never true Within the past 12 months, did you worry whether your food would run out before you got money to buy more?: Never true Do you have trouble paying for medicines?: No Do you have trouble getting transportation to medical appointments?: No Do you have trouble paying your heating and electricity bill?: No Do you have trouble taking care of your child, family member or friend?: No Do you have trouble with day-to-day activities such as bathing, preparing meals, shopping, managing finances, etc.?: I choose not to answer this question Are you currently unemployed and looking for a job?: I choose not to answer this question Are you interested in more education?: No Please select the resources that you would like help with: None Currently or been in a relationship where the following occur: I choose not to answer THRIVE Score: 0 SUMMER-7 AMB Questionnaire SUMMER-7 Date SUMMER - 7 assessed: 10/30/24 Source: Developed by Drs. Bon David, Debby Smith, Jared Perez and colleagues, with an educational nayely from [employer]. Physical exam (Primary Care) Vital Signs: Last Vital Signs Temp 98.3 F 08/04/25 09:47 Pulse 66 08/04/25 09:47 Resp 16 08/04/25 09:47 BP 132/70 08/04/25 09:47 Pulse Ox 98 08/04/25 09:47 Oxygen Delivery Method Room Air 08/04/25 09:47 BMI result Body Mass Index 24.0 Tobacco/Smoking Status: Tobacco use Status Tobacco use date assessed 08/04/25 08/04/25 09:42 Patient Tobacco Use Status Never used Tobacco 08/04/25 09:42 e-Cigarette/Vaping Use Never Used 08/04/25 09:42 Thrive Assessment: Date of Thrive Assessment Date Thrive assessed 01/13/25 08/04/25 09:42 Currently or been in a relationship where the following occur: I choose not to answer Results AMB Hemoglobin A1c AMB Hemoglobin A1c 6.6 % Last Edit by Mari Coulter CMA on 08/04/25 09:45 Results Reviewed Results Reviewed: Laboratory Last Values Hgb A1c (Clinic) 6.6 % (4.0-6.0) H 08/04/25 09:37 Name: Delma Hanson I Age/Sex: 79/F : 1945 Unit#: [id number] Attend Dr: Brooklyn Becerra DO Re07/15/25 Status: [facility]: SPEC : [id number] KAEL: 07/15/25 STATUS: COMP REQ : [id number] RECD: 07/15/[address]: Brooklyn Becerra DO COMP: 07/15/25 ENTERED: 07/15/[address]: Generic ED Physician ORDERED: Liver Panel, BMP, MG, Lip Test Result Flag Reference Sodium 140 135-145 mmol/L Potassium 4.1 3.3-5.1 mmol/L CL 105 96-108 mmol/L CO2 30 H 22-29 mmol/L Gap 9 L 12-20 BUN 18 H 9-16 mg/dL Creat 0.86 0.5-1.4 mg/dL Estimated CrCl 41.7 Provided height and weight: 152.4 cm, 56.245 kg. eGFR (calculated from the MDRD study equation) and eCrCl (calculated from the Cockcroft-Gault equation) are based on different parameters and may not yield comparable results. If eCrCl result is absurd, please check patient's height/weight. eGFR > 60 Chronic Kidney Disease: Estimated GFR < 60 mL/min/1.73m2 Severe Kidney Disease: Estimated GFR < 15 mL/min/1.73m2 Glucose, Random 175 H 60-115 mg/dL CA 9.2 8.4-10.2 mg/dL Magnesium 1.9 1.6-2.6 mg/dL Total Bili 0.2 0.0-1.0 mg/dL Direct Bili < 0.2 0.0-0.5 mg/dL AST (GOT) 26 5-31 U/L ALT (GPT) 18 0-31 U/L Protein, Total 6.4 L 6.5-8.0 g/dL Alb 3.4 L 3.5-5.0 g/dL Alk Phos 89 39-117 U/L Lipase 12 8-78 U/L Name: Delma Hanson I Age/Sex: 79/F : 1945 Unit#: [id number] Attend Dr: HernanBrooklyn Agustin DO Re07/15/25 Status: DEP [facility] Disch: SPEC : [id number] KAEL: 07/15/25 STATUS: COMP REQ : [id number] RECD: 07/15/[address]: Brooklyn Becerra Vamsi DO COMP: 07/15/25 ENTERED: 07/15/[address]: Generic ED Physician ORDERED: CBC Auto Diff Test Result Flag Reference WBC 4.6 L 4.8-10.8 X10*3/uL RBC 3.75 L 4.20-5.50 X10*6/uL HGB 11.9 L 12.0-16.0 g/dl HCT 36.0 L 37.0-47.0 % MCV 96.0 80.0-98.0 fL MCH 31.7 27.0-33.0 pg MCHC 33.1 31.0-35.0 g/dl RDW 14.5 11.0-16.0 % PLT 157 # L 160-400 X10*3/uL MPV 10.0 9.4-12.3 fL Neut Pct Auto 43.2 L 45-73 % ImGran Pct Auto 0.2 0.0-0.4 % Lymp Pct Auto 44.4 H 20-40 % Sullivan Pct Auto 9.8 2-11 % Eos Pct Auto 2.2 0-4 % Baso Pct Auto 0.2 0-2 % NRBC Pct Auto 0.0 0.0-0.2 /100WBC ANC Neut Abs # 2.0 2.0-8.3 x10*3/uL ImGran Abs Auto 0.01 0.00-0.03 X10*3/uL Lymph Abs Auto 2.0 1.2-4.9 X10*3/uL Sullivan Abs Auto 0.5 0.1-1.2 X10*3/uL Eos Abs Auto 0.1 0.0-0.4 X10*3/uL Baso Abs Auto 0.0 0.0-0.2 X10*3/uL NRBC Abs Auto 0.000 0.0-0.012 X10*3/uL Coding Diagnoses Anemia D64.9 Assessment & Plan Assessment & Plan (1) Anemia: Code(s): D64.9 - Anemia, unspecified Category: Medical Orders: Orders AMB Hemoglobin A1c Today E11.65 - Type 2 diabetes mellitus with hyperglycemia Vitamin D 25-OH Total Today D64.9 - Anemia, unspecified IRON PROFILE Today D64.9 - Anemia, unspecified Vitamin B12 and Folate Today D64.9 - Anemia, unspecified Creatine Kinase Total Today R10.9 - Unspecified abdominal pain Medications: New rosuvastatin 5 mg PO DAILY
[2025-08-04 09:47] VITALS: BP 132/70; PULSE 66; RESP 16; TEMP 36.8; O2SAT 98; BMI 24.0
--- OUTSIDE RECORDS SUMMARY | 2025-08-04 16:40 | XMS_ITS | Encounter Summary ---
Author Organization [facility] Address [address] [place] [address] Encounters * CPT with Medical [facility] at [employer] on 2025-04-21 { reasonForRequest : sore throat/headache/ear pain/spasms/weakness , patien tReports : Sputum increase ; Cough , denies :[ Increased work of breat noe/labored with or without fever , Unable to speak in full sentences without distres s , Discoloration of skin -cyanosis , Needs to sleep sitting up, can t catch breath , Shortness of breath in setting of confusion , Cough, fever greater than2 days , Lower extremity swelling , History of asthma, increased use of inhaler , COPD , Shortness of breath with exertion , Pain with inspiration"], chiefComplaints : Common Cold , pmh : Diabetes Mellitus Type 2, Anxiety Disorder, Hyperlipidemia , allergies : No Known Drug Allergies&quot ;, otherAllergies : , painAssessment : , visitOutcome : , additionalComments : 79 y.o female complains of Common Cold x 1week\n\nPt reports feeling unwell with a cough/cold and congestion - Sore throat - Weakness - Headache - Ear pain\n\nDenies shortness of breath \n\nFever has resolved.\n\nTaking Tylenol with some relief\n\n\nWellness check requested \n\n\nI provided information on the mobile health provider response time and advised the patient and/or caregiver to monitor reported signs and symptoms. I discussed the warning signs of when to seek emergency care. } Encountered patient seated upright and conscious with family present. Patient reports approximatelyone week of experiencing a productive cough that yields clear sputum, accompanied by weakness and body-aches. Patient reports she was experiencing fevers last week, but is currently not febrile. Patient denies chest pain, shortness of breath and changes in vision. Point of care Flu, Covid and strepperformed, all resulted negative; [facility] notified. Skin warm, dry and of appropriate color for ethnicity. Head and neck, free of trauma and edema. -JVD. Breath sounds present clear and equal bilaterally. Abdomen is soft non-tender and non-distended. Extremities are free of trauma and edema. [facility] contacted: Reports patient is likely suffering from a viral ailment as opposed to a bacterial. [facility] encourages patient to continue supportive care at home. 100mg of PO Benzonatate administered after medication rights were reconciled with patient. Patient was encouraged to continue tomonitor herself for worsening symptoms and urged to seek further medical attention including 911 ifshe were to develop chest pain, shortness of breath or become febrile again. Patient verbalizes understanding of the plan and states she is comfortable remaining home today. IV_(FLUIDS_AND/OR_MEDICATION), MEDICATION_IM, POC_BLOODWORK Written by Medical [facility] on 2025-04-21
--- OUTSIDE RECORDS SUMMARY | 2025-08-04 16:40 | XMS_ITS | Continuity of Care Document ---
Author Name [facility] Address [address] [place] [address] Organization Unknown Address [address] [place] [address] Medications No known medications Problems No known problems
--- OUTSIDE RECORDS SUMMARY | 2025-08-04 16:40 | XMS_ITS | Clinical Summary ---
Author Organization [email or web address] Address [address] [place] [address] Care Team Providers Care Public Relations Manager Name Role Phone Unavailable Primary Care Provider [...] 75+ series) 2020 COVID-19 Vaccine ( - 2024-2 6 season) 2025 Influenza Vaccine (#1) 2025 HIB [...]
--- OUTSIDE RECORDS SUMMARY | 2025-08-04 16:40 | XMS_ITS | Data Portability ---
Author Organization [place] - [facility], Allergy Address [address] [address] Care Team Providers Care Ruby Developer Name Role Phone [email or web address] Primary Care Provider [...] were answered. Seen with Dr. Shaikh today. [email or web address] Not available 07/07/2024 12:02:44 04/26/2025 04/26/2025 Delma [...] 300 mg capsule 2023 025 MARY ALICE [id number], [address], [place], [id number], 04/26/2025 15:38:10 Patient TargetsNo targets recorded. Patient Instructions Encounter Date Encounter Id Patient Instructions Last Modified By Organization Details Last Modified Time 02/06/2024 [id number] 78 year old jonathan carter with PMH diabetes presents with family member, who provides interpretation services and declined professional power press supervisor, for examination of left submandibular gland. Diffusely enlarged and tender. Stone(s) palpable on bimanual palpation. No pus expressed from duct; clear saliva with only mildly diminished flow. Recommend continued supportive care with good oral hydration, [id number] massage, warm compresses, and sour sialogogues. A [...] Address Organization Details Recorded Time Sialolithia sis [id number] Active 2021 Sialolit hiasis; Note: Date Diagnose d: 09/03/20 3:33 PM (K11.5) Not Available [facility] 02:44:31 Chronic sialadeniti s 263327215 Active 2021 Chronic sialoade nitis; Note: Date Diagnose d: 09/03/20 22 3:33 PM (K11.23) Not Available [facility] 4 02:44:28 Submandibul ar sialolithia sis 791921392 Active 2023 Juanita smith [facility] 4 11:21:34 Problem Notes None recorded. Medical Equipment None Reported. Allergies Allergen ID Allergen Name Allergen Category Reaction Reaction Severity Criticality Documentation Date Start Date Code Code System Note Provider Name and Address Organization Details Recorded Time 161103 Iodinated contrast media (substanc e) medicatio n Not available Not available Not available 02/06/2024 [id number] SNOMED Scarlet smith [facility] 4 11:05:45 Medications Name Sig Start Date Stop Date Status Note LastModified by Organization Details LastModified Time rivastigm ine 1.5 mg capsule active Medicati on ID: [id number] B rand Name: rivastig mine tartrate Send Method: E-Prescr ibed Sub s Allowed: subs OK Medic ationGen ericName : rivastig mine tartrate Not Available Not Available Not Available clindamyc in HCl 300 mg capsule Take 1 capsule every 6 hours by oral route for 10 days. 04/26 completed Not Available Not Available Not Available cetirizin e 10 mg tablet active Medicati on ID: [id number] B rand Name: cetirizi ne Send Method: E-Prescr ibed Sub s Allowed: subs OK Speci al Instruct ion: TAKE ONE TABLET BY MOUTH DAILY Me dication GenericN madhav: cetirizi ne Not Available Not Available Not Available FreeStyle Lancets 28 gauge active Medicati on ID: [id number] B rand Name: FreeStyl e Lancets Send Method: E-Prescr ibed Sub s Allowed: subs OK Medic ationGen ericName : FreeStyl e Lancets Not Available Not Available Not Available meclizine 25 mg tablet active Medicati on ID: [id number] B rand Name: meclizin e Send Method: E-Prescr ibed Sub s Allowed: subs OK Medic ationGen ericName : meclizin e Not Available Not Available Not Available dexametha sone 4 mg tablet 02/05 completed Medicati on ID: [id number] B rand Name: dexameth asone Se nd Method: E-Prescr ibed Sub s Allowed: subs OK Medic ationGen ericName : dexameth asone Me dication ID: [id number] B rand Name: dexameth asone Se nd Method: E-Prescr ibed Sub s Allowed: subs OK Medic ationGen ericName : dexameth asone Not Available Not Available Not Available cefuroxim e axetil 500 mg tablet 02/05 completed Medicati on ID: [id number] B rand Name: cefuroxi me axetil S end Method: E-Prescr ibed Sub s Allowed: subs OK Medic ationGen ericName : cefuroxi me axetil M edicatio n ID: [id number] B rand Name: cefuroxi me axetil S end Method: E-Prescr ibed Sub s Allowed: subs OK Medic ationGen ericName : cefuroxi me axetil Not Available Not Available Not Available cefdinir 300 mg capsule 02/05 completed Medicati on ID: [id number] B rand Name: cefdinir Send Method: E-Prescr ibed Sub s Allowed: subs OK Medic ationGen ericName : cefdinir Medicat ion ID: [id number] B rand Name: cefdinir Send Method: E-Prescr ibed Sub s Allowed: subs OK Medic ationGen ericName : cefdinir Not Available Not Available Not Available glipizide 5 mg tablet active Medicati on ID: [id number] B rand Name: glipizid e Send Method: E-Prescr ibed Sub s Allowed: subs OK Medic ationGen ericName : glipizid e Not Available Not Available Not Available amoxicill in 875 mg-potass ium clavulana te 125 mg tablet 02/05 completed Medicati on ID: [id number] B rand Name: amoxicil cara-pot clavulan ate Send Method: E-Prescr ibed Sub s Allowed: subs OK Medic ationGen ericName : amoxicil cara-pot clavulan ate Medi cation ID: [id number] B rand Name: amoxicil cara-pot clavulan ate Send Method: E-Prescr ibed Sub s Allowed: subs OK Medic ationGen ericName : amoxicil cara-pot clavulan ate Not Available Not Available Not Available oxycodone 5 mg tablet 07/07 completed Medicati on ID: [id number] B rand Name: oxycodon e Send Method: E-Prescr ibed Sub s Allowed: subs OK Medic ationGen ericName : oxycodon e Not Available Not Available Not Available escitalop shantelle 10 mg tablet active Medicati on ID: [id number] B rand Name: escitalo pram oxalate Send Method: E-Prescr ibed Sub s Allowed: subs OK Medic ationGen ericName : escitalo pram oxalate Not Available Not Available Not Available rosuvasta tin 20 mg tablet active Medicati on ID: [id number] B rand Name: rosuvast atin Sen d Method: E-Prescr ibed Sub s Allowed: subs OK Medic ationGen ericName : rosuvast atin Not Available Not Available Not Available memantine 5 mg tablet active Medicati on ID: [id number] B rand Name: memantin e Send Method: E-Prescr ibed Sub s Allowed: subs OK Medic ationGen ericName : memantin e Not Available Not Available Not Available Trulicity 1.5 mg/0.5 mL subcutane ous pen injector 07/07 completed Medicati on ID: [id number] B rand Name: Trulicit y Send Method: E-Prescr ibed Sub s Allowed: subs OK Medic ationGen ericName : Trulicit y Not Available Not Available Not Available Trulicity 0.75 mg/0.5 mL subcutane ous pen injector 07/07 completed Medicati on ID: [id number] B rand Name: Trulicit y Send Method: E-Prescr ibed Sub s Allowed: subs OK Medic ationGen ericName : Trulicit y Not Available Not Available Not Available Trulicity 3 mg/0.5 mL subcutane ous pen injector active Medicati on ID: [id number] B rand Name: Trulicit y Send Method: E-Prescr ibed Sub s Allowed: subs OK Medic ationGen ericName : Tryvanit y Not Available Not Available Not Available Vitals Date Recorded Body height Body mass index (BMI) Body weight Provider Name and Address Organization Details Last Updated DateTime 10/08/2024 154.94 cm 23.2 kg/m2 67882.86 g Jaylinamijameel Chantale [facility] 10/08/2024 08:54:43 Date Recorded Body height Body mass index (BMI) Body weight Provider Name and Address Organization Details Last Updated DateTime 07/07/2024 154.94 cm 24.6 kg/m2 45773.01 g Amanda Irma [facility] 07/07/2024 11:31:08 Social History None recorded. [...] Note [id number] JUANITA MONTAÑO PA-C [facility] [address] [address] 02/06/2024 10:45:02 02/06/2024 11:25:15 Submandibular sialolithiasis 748843037 K11.5 [id number] SINA SHAIKH MD [facility] [address] [address] 07/07/2024 11:07:31 07/07/2024 11:49:36 Chronic sialadenitis 062501929 K11.23 Sialolithiasis 34898601 K11.5 [id number] SINA SHAIKH MD [facility] [address] [address] 10/08/2024 08:46:25 10/08/2024 09:06:26 Chronic sialadenitis 448387056 K11.23 No obvious infection today. I discussed [...] to see her in 6 months. Sialolithiasis 97444469 K11.5 see above [id number] Rolf Minor, DO [facility] [address] [address] 04/26/2025 15:25:17 04/26/2025 15:59:29 Chronic sialadenitis 296461385 K11.23 Sialolithiasis 06759864 K11.5 see above Health Concerns Section Related Observation LastModified by Organization Detai ls LastModified Time None Recorded Concern Status LastModified by Organization Details LastModified Time None Recorded Advance Directives Directive None Recorded Payers Insurance Date Sequence Insurance Name Policy Number Policy Cespedes Covered Member ID Cespedes Member ID Guarantor Name 04/26/2025 1 [facility] - DOS ON OR AFTER 2022 - MEDICARE [place]VANTAGE [place] VANTAGE - PPO) Delma Hanson [id number] Delma Hanson 07/20/2025 1 [facility] - DOS ON OR AFTER 2022 - [employer] (MEDICARE REPLACEMENT/AD VANTAGE - HMO) Delma Hanson [id number] Delma Hanson 07/20/2025 1 [facility] - DOS ON OR AFTER 2022 - [place] RE[place]AC[place] VANTAGE - PPO) Delma Hanson [id number] Delma Hanson Notes Date Note Type Note Provider Name and Address Organization Details Recorded Time 02/06/2024 text/html ROS as noted in the HPI 78 year old female with PMH diabetes presents for evaluation. History of left submandibular salivary swelling. In April [address] at [facility] demonstrating 7 stones in the left submandibular [...] [employer] candies as sialogogues. Juanita smith [place] - [facility] 02/06/2024 15:26:26 07/07/2024 text/html ROS as [...] the left submandibular gland. SINA SHAIKH MD [address] [facility] [place],[address], [address], [facility] - [facility] 07/07/2024 12:51:26 10/08/2024 text/html ROS as [...] the left submandibular gland. SINA SHAIKH MD [address] [facility] [place],[address], [address], [facility] - [facility] 10/08/2024 09:10:32 04/26/2025 text/html ROS as [...] within the left submandibular gland. Rolf Minor, DO [address] [facility] [place] [address], [place], [address], [facility] - [facility] 04/26/2025 15:59:53 OBGyn Episode No OBEpisode recorded.
--- OUTSIDE RECORDS SUMMARY | 2025-08-04 16:40 | XMS_ITS | Encounter Summary ---
Author Organization [facility] Address [address] [place] [address] Encounters * CPT with Medical [facility] at [facility] on 2025-07-15 { reasonForRequest : Pt's daughter reporting dizziness and that she is a fall hazard>concerns as the pt is alone>sugar was normal this morning>has taken regular meds, eaten lunch, still experiencing dizziness , patientReports :& quot; , denies :[ Worst Headache of life , New onset of vision loss&qu ot;, Sudden onset -unilateral weakness/gait disturbance , Fall with head strike and altered LOC , New onset of Slurred speech or difficulty finding words , Sudden Mental status changes , Head pain with fever chills and neck pain , Seizure activity ], chiefComplaints : Dizziness , pmh : Diabetes Mellitus Type 2, Anxiety Disorder, Hyperlipidemia, Dementia (e.g., Alzheimer's Disease) , allergies : Penicillins, Iodinated Contrast Media , otherAllergies : ,&q uot;painAssessment : , visitOutcome : , additionalComments : 79 y.o female complains of Dizziness\n\nDaughter reporting symptoms. Constant dizziness all morning. Blurry [...] sinus pressure. Not on anticoagulation. Denies recent falls.\n\nI provided information on the mobile health provider response time and advised the patient and/or caregiver to monitor reported signsand symptoms. I discussed the warning signs of when to seek emergency care. } [facility] makes pt contact a 79 YO F CC of dizziness. [facility] obtains vital signs. [facility] uses ballroom dance instructor due to [place] language barrier. PT explainsshe began feeling dizzy this morning, reports a headache that comes and goes. PT has a hx of vertigo but does not use meclizine. PT explains this doesn't feel like vertigo because the room isntspinning but she feels very dizzy and weak. Vitals show borderline hypotensive BP pt does not recall what a normal bp is. PT denies chest pain, so, n/v. PT is a diabetic but reports a sugar of 125. No apparent stroke symptoms are present. PT denies any radiating pains. [facility] performs a 12 lead ekg and notes t wave inversion in v1-v4, v5-v6 have flattening of the t waves. At this point [facility] connects with [facility] and explain the ekg changes. PT HR also has fluctuations in rate although no ectopy is noted. [facility] and [facility] agree PT needs to be seen in an emergency room due to symptoms and ekg changes. [facility] contacts 1 and [place] [facility] arrive. PT to be transported to [facility] per her request. [facility] assists ambulance crew. [facility] clear. IV_(FLUIDS_AND/OR_MEDICATION), POC_BLOODWORK, ORTHOSTATIC_VITAL_SIGNS, PO_MEDICATION Written by Medical [facility] on 2025-07-15
--- OUTSIDE RECORDS SUMMARY | 2025-08-04 16:40 | XMS_ITS | Encounter Summary ---
Author Organization [facility] Address [address] [place] [address] Care Team Providers Care Auto Glass Worker Name Role Phone Unavailable Primary Care Provider [...]
--- OUTSIDE RECORDS SUMMARY | 2025-08-04 16:40 | XMS_ITS | Clinical Summary ---
Author Organization [facility] it Address [address] [place] [address] Care Team Providers Care Supervisor Volunteer Services Name Role Phone Unavailable Primary Care Provider [...] Depression Screening 09/16/2024 COVID-19 Vaccine ( - 2024-2 6 season) [...]
--- OUTSIDE RECORDS SUMMARY | 2025-08-04 16:40 | XMS_ITS | Data Portability ---
Author Organization [employer], [facility] Address [address] [place] [address] Care Team Providers Care Campground Cleaning Attendant Name Role Phone JOSHRIKY JOSE Primary Care Provider HIM CCA OTHER Assessment Encounter Date Assessment Date Assessment LastModified by Organization Details LastModified Time 12/02/2023 12/02/2023 I have reviewed and agree with the assessment and plan as documented by the returned item clerk. I provided real time medical direction for this encounter and was immediately available to provide additional phone based assistance as needed. History as noted by returned item clerk. Pt with history of DM. She is [...] to take the pt today to the or ED for evaluation and ultrasound. [email or web address] Not available 12/02/2023 15:04:13 06/03/2024 06/03/2024 I have reviewed and agree with the assessment and plan as documented by the returned item clerk. I provided real time medical direction for this encounter and was immediately available to provide additional phone based assistance as needed. History as noted by returned item clerk. Pt with history of DM2, HLD, cognitive deficit. 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 [...] Assessment and Plan as documented by the Sanitation Technician. Patient given the opportunity to ask questions. Our service contacted for an assessment of: cough As per above, patient has had a minimally productive cough for approx a week. Had a low grade temp initially however not recently. Denies C/N/V/CP/GUERRERO and SOB. No sick contacts. Not taking any OTCs. Per returned item clerk on the scene, Non-toxic. Stable vitals. No distress. COVID, Strept and Flu are all negative. Impression and plan: ? seasonal allergies vs viral URI - differential diagnosis is broad however returned item clerk assessment and limited data are reassuring. Additionally patient trajectory is improving. Tessalon Chela given with recommendation to oyster picker an OTC decongestant. Red flags discussed. [...] mental status [email or web address] Not available 04/21/2025 12:09:54 07/15/2025 07/15/2025 Impression: 79yo/f referred for feelings [...] believe she requires in person evaluation in [facility] ED for full diagnostic evaluation. Patient amenable to this plan, will be transferred to ED. Primary care, consider ED followup Disposition: ED [email or web address] Not available 07/15/2025 15:21:07 Plan of Treatment Reminders Order Date Submit Date Provider Last Modified By Organization Details Last Modified Time Details Appointments None recorded. Lab rapid strep group A, throat 2024 025 [facility], [address] [place] [address], [id number] 13:41:36 rapid SARS CoV 2 Ag, QL IA, respiratory specimen 2024 025 [facility], [address] [place] [address], [id number] 13:41:26 rapid flu (A+B) 2024 025 [facility], [address] [place] [address], [id number] 13:40:05 rapid SARS CoV 2 Ag, QL IA, respiratory specimen [facility]23 [facility], [address] [place] [address], [id number] 4 12:24:05 rapid flu (A+B) 2023 [facility], [address] [place] [address], [id number] 4 12:24:05 rapid strep group A, throat 2023 024 [facility], [address] [place] [address], [id number] 4 12:24:03 rapid flu (A+B) 2023 024 [facility], [address] [place] [address], [id number] 4 08:14:03 rapid SARS CoV 2 Ag, QL IA, respiratory specimen 2023 [facility], [address] [place] [address], [id number] 4 08:13:40 Referral None recorded. Procedures None recorded. Surgeries None recorded. Imaging electrocard iogram 2024 025 rsullivan 89 [facility], [address] [place] [address], [address] 5 15:17:13 Medication Orders benzonatate 100 mg capsule 2024 025 [email or web address] [facility], [address], [place], [id number], 5 12:10:28 Paxlovid 300 mg (150 mg x 2)-100 mg tablets in a dose pack 2023 024 [id number], [address], [place], [id number], 4 12:33:02 ondansetron 4 mg disintegrat ing tablet 2023 024 [email or web address] [facility]48983, [address], [place], [id number], 17:22:16 Patient TargetsNo targets recorded. Patient InstructionsNo instructions recorded. Reason for Referral None Reported. Results Created Date Observation Date Name Description Value Unit Range Abnormal Flag Note LastModifiedBy Organization Detail LastModifiedTime 06/03/20 24 06/03/2024 rapid strep group A, throa t Strep negati ve Not Available Main - [facility] ed [address] [place] [address], [id number] 06/03/2024 12:23:25 06/03/20 24 06/03/2024 rapid flu (A+B) Flu negati ve Not Available [facility] ed [address] [place] [address], [id number] 06/03/2024 12:23:18 06/03/20 24 06/03/2024 rapid SARS CoV 2 Ag, QL IA, respi rator y speci men rapid SARS CoV 2 Ag, QL IA, respiratory specimen positi ve Not Available [facility] ed [address] [place] [address], [address] 06/03/2024 12:23:10 04/21/20 25 04/21/2025 rapid SARS CoV 2 Ag, QL IA, respi rator y speci men rapid SARS CoV 2 Ag, QL IA, respiratory specimen Not Available [address], [address] 04/21/2025 12:04:44 04/21/20 25 04/21/2025 rapid strep group A, throa t Strep negati ve Not Available Main-[address], [address] 04/21/2025 12:04:42 04/21/20 25 04/21/2025 rapid flu (A+B) Flu negati ve Not Available Main-[address], [id number] 04/21/2025 12:04:45 07/15/20 25 07/15/2025 elect vangie diogr am No observ ation record ed. [email or web address] Main-[address], [id number] 07/15/2025 16:10:00 Result Notes None recorded. Medical Equipment None Reported. Allergies Allergen ID Allergen Name Allergen Category Reaction Reaction Severity Criticality Documentation Date Start Date Code Code System Note Provider Name and Address Organization Details Recorded Time Product containin g penicilli n (product) medicatio n Not available Not available Not available 07/15/2025 85958 8001 SNOMED Not Available [facility] - production 13:43:46 Iodinated contrast media (substanc e) medicatio n Not available Not available Not available 07/15/2025 96077 2004 SNOMED Not Available [facility] - production [...] 4 97 % 97 % 98.7 [degF] 11785.8 g 76 /min 154.94 cm 16 /min 118/79 mm[Hg] Not Available [facility] 4 14:45:00 Date Recorded Body temperature Respiratory rate Body height Heart rate Oxygen saturation Oxygen saturation in Arterial blood by Pulse oximetry Body weight Systolic And Diastolic Provider Name and Address Organization Details Last Updated DateTime 4 97.2 [degF] 16 /min 165.1 cm 57 /min 97 % 97 % 32168.3 68 g 139/81 mm[Hg] Not Available [facility] 4 17:18:14 Date Recorded Heart rate Oxygen saturation Oxygen saturation in Arterial blood by Pulse oximetry Respiratory rate Body temperature Systolic And Diastolic Provider Name and Address Organization Details Last Updated DateTime 5 59 /min 98 % 98 % 18 /min 98.3 [degF] 128/74 mm[Hg] Not Available [facility] 5 12:00:42 Date Recorded Oxygen saturation Oxygen saturation in Arterial blood by Pulse oximetry Respiratory rate Body temperature Heart rate Systolic And Diastolic Provider Name and Address Organization Details Last Updated DateTime 4 98 % 98 % 16 /min 98.2 [degF] 84 /min 118/74 mm[Hg] Not Available [facility] 4 12:21:05 Date Recorded Respiratory rate Heart rate Body weight Body height Oxygen saturation Oxygen saturation in Arterial blood by Pulse oximetry Body temperature Body weight Systolic And Diastolic Provider Name and Address Organization Details Last Updated DateTime 5 16 /min 66 /min 61719.4 08 g 157.48 cm 96 % 96 % 98.5 [degF] 71487.4 08 g 95/60 mm[Hg] Not Available [facility] 5 15:22:44 Social History None recorded. Functional [...] Codes Diagnosis Note 1521 Isaac Rowan MD [facility] [address] [place] [address] 01/26/2022 08:44:15 01/15/2025 11:26:01 Benign paroxysmal positional vertigo 501900456 H81.13 17435 Marshall Crowe MD [facility] - [address] [address] 12/02/2023 14:44:51 12/02/2023 22:17:34 Pain of left calf 6944658180 614390 M79.662 47013 Janusz Davis MD [facility] - [address] [address] 04/16/2024 17:18:10 04/19/2024 21:44:43 Mild dehydration [id number] 108 E86.0 Normal BP. Tolerating oral fluids; does not need IV fluids at this time. Discussed red flag signs for which to seek higher level of care including worsening dizziness or confusion Nausea and vomiting 1691999 R11.2 Improving. Will give oral Zofran. Discussed red flag signs for which to seek higher level of care including worsening dizziness or confusion 26231 Marshall Crowe MD [facility] - [address] [address] 06/03/2024 12:21:01 06/03/2024 17:49:34 COVID-19 [id number] U07.1 47838 Michelle Trotter MD [facility] [address] [address] 04/21/2025 12:00:32 04/22/2025 10:18:00 Common cold [id number] J00 45921 [id number] Sergio Luna MD [facility] [address] [address] 07/15/2025 14:35:55 07/15/2025 21:35:24 Dizziness [id number] R42 [id number] Health Concerns Section Related Observation LastModified by Organization Detai ls LastModified Time None Recorded Concern Status LastModified by Organization Details LastModified Time None Recorded Advance Directives Directive None Recorded Payers Insurance Date Sequence Insurance Name Policy Number Policy Cespedes Covered Member ID Cespedes Member ID Guarantor Name 01/15/2025 1 [facility] - DOS PRIOR TO 2022 - DUAL ELIGIBLE (MEDICARE REPLACEMENT/ADV ANTAGE - HMO) Delma Elizaldezario [id number] Delma Elizaldezario 07/15/2025 1 [facility] - DOS ON OR AFTER 2022 - DUAL ELIGIBLE - LONG-TERM OPTIONS AND ONE CARE (MEDICARE REPLACEMENT/ADV ANTAGE - HMO) Delma Elizaldezario [id number] Delma Elizaldezario Notes Date Note Type Note Provider Name and Address Organization Details Recorded Time 12/02/2023 text/html ROS as noted in the HPI This was a supervised home visit with returned item clerk Samir Bah. 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 Chief Complaints: Pain PMH: Diabetes Comments: Spoke w/ caregiver and electric furnace operator. reporting worsening left leg pain and [...] .................... .................... .................... .................... .................... .................... . Sanitation Technician Note From Samir Bah: Pt reports worsening [...] .................... . Disposition: Fulfilled Marshall Crowe MD [address] [place] [address],[address], [place], [phone], [facility] [facility] [employer] 12/02/2023 15:06:27 04/16/2024 text/html ROS as noted in the [facility] CRC Nurse Triage Notes (Karen Rosario): Reason For Request: Pt can barely stand, very dizzy Chief Complaints: Weakness/Lethargy PMH: Diabetes Allergies: Unknown Comments: Planer Setter verified the member's name//address and phone number. [...] s/s and seek emergency treatment if needed Sanitation Technician Organization Information for Travis Gonzalez Business Legal Name: [employer]. Address: [address] [place] [address], Insurance Defense Attorney: See GOLD No.: [id number] Sanitation Technician POC Test Results from Carlos Travis - ALS Rapid influenza antigen (18:13:04) Flu: - Rapid COVID antigen (18:13:12) COVID: - .................... .................... .................... .................... .................... .................... .................... . Sanitation Technician Note From Travis Gonzalez: [facility] Pt present in home with daughter. Pt Uzbek speaking only and daughter translated. Daughter states [...] without issues since initial vomiting. Consulted with [facility]. Davis who ordered 1 dose of sublingual zofran given on scene. Reviewed red flags for ED. Patient education provided. [facility] Medication Orders: ondansetron 4 mg disintegrating tablet: Administered .................... .................... .................... .................... .................... .................... .................... . Disposition: Fulfilled Janusz Davis MD [address] [facility],[address], [place], [address], LYUDMILA PINEDA 04/16/2024 20:42:17 06/03/2024 text/html ROS as noted in the HPI This was a supervised home visit with returned item clerk Tremaine Briggs. [facility] Nurse Triage Notes (Kelly Brumfield): Reason For Request: Patient has sore throat, head ache, and can't sleep. Chief Complaints: Headache, Pain PMH: Diabetes Allergies: Unknown Comments: Allergies: Unknown PAVING BED MAKER calling to request visit for patient with symptoms of sore throat, ear pain, and headache. Symptoms started yesterday getting worse today. Patient has a non-productive cough. No fever. No known sick contacts. Taking tylenol as needed for symptoms. Sanitation Technician Organization Information for Tremaine Briggs Legal Name: [employer]. Address: [address] [place] [address], Insurance Defense Attorney: See Reynolds MD [place] No.: [id number] Sanitation Technician POC Test Results from Tremaine Briggs - [facility] Rapid strep test (11:43:02) Strep: - Rapid influenza antigen (11:43:13) Flu: - Rapid COVID antigen (11:43:15) COVID: + .................... .................... .................... .................... .................... .................... .................... . Sanitation Technician Note From Tremaine Briggs: Dispatched to the [...] advised she wished to try the treatment. [facility] consulted. Medication adjustments discussed. Script called into preferred pharmacy. Red flags discussed. ALL times are approx. .................... .................... .................... .................... .................... .................... .................... . Disposition: Fulfilled Marshall Crowe MD [address] [place] [address],[address], [place], [address], [facility] 06/03/2024 13:35:20 04/21/2025 text/html [facility] Nurse Triage [...] signs of when to seek emergency care. Sanitation Technician Organization Information for Oliver Simpson Business Legal Name: [employer]. Address: [address] [place] [address], Insurance Defense Attorney: See Reynolds MD [place] No.: [id number] Sanitation Technician POC Test Results from Oliver Simpson Rapid [...] .................... .................... .................... .................... .................... .................... . Sanitation Technician Note From Oliver Simpson: Encountered patient seated [...] Covid and strep performed, all resulted negative; [facility] notified. Skin warm, dry and of appropriate color for ethnicity. Head and neck, free of trauma and edema. -JVD. Breath sounds present clear and equal bilaterally. Abdomen is soft non-tender and non-distended. Extremities are free of trauma and edema. [facility] contacted: Reports patient is likely suffering from a viral ailment as opposed to a bacterial. [facility] encourages patient to continue supportive care at [...] states she is comfortable remaining home today. [facility] Lab Orders: rapid strep group A, throat: Performed rapid SARS CoV 2 Ag, QL IA, respiratory specimen: Performed rapid flu (A+B): Performed [facility] Medication Orders: benzonatate 100 mg capsule: Performed .................... .................... .................... .................... .................... .................... .................... . [facility] Consulted: Michelle Trotter .................... .................... .................... .................... .................... .................... .................... . Disposition: Maggie Michelle Trotter MD [address] [facility],[address], [place], [address], [employer] 04/22/2025 08:37:44 07/15/2025 text/html ROS as noted in the [...] This test has been updated by the returned item clerk, Rolf Lugo at (07/15/2025 15:22:53). The changes are marked in bold. EKG test performed. Attachments uploaded as part of this test result can be found under Documents section. .................... .................... .................... .................... .................... .................... .................... . Sanitation Technician Note From Rolf Lugo: [facility] makes pt contact a 79 YO F CC of dizziness. [facility] obtains vital signs. [facility] uses medical language specialist due to Uzbek language barrier. PT explains she began feeling [...] are present. PT denies any radiating pains. [facility] attempts to contact [facility] but [facility] is busy. [facility] performs a 12 lead ekg and notes t wave inversion in v1-v4, v5-v6 have flattening of the t waves. At this point [facility] connects with [facility] and explain the ekg changes. PT HR also has fluctuations in rate although no ectopy is noted. [facility] and [facility] agree PT needs to be seen in an emergency room due to symptoms and ekg changes. [facility] contacts 911 and [facility] arrive. PT to be transported to [facility] per her request. [facility] assists ambulance crew. [facility] clear. [facility] Lab Orders: electrocardiogram: Performed .................... .................... .................... .................... .................... .................... .................... . [facility] Consulted: Sergio Luna .................... .................... .................... .................... .................... .................... .................... . Disposition: Fulfilled Sergio Luna MD [address] [facility],[address], [place], [address], [employer], [email or web address] 07/15/2025 15:40:46 OBGyn Episode No OBEpisode recorded.
--- OUTSIDE RECORDS SUMMARY | 2025-08-04 16:40 | XMS_ITS | Continuity of Care Document ---
Author Name [facility] Address [address] [place] [address] Organization Unknown Address [address] [place] [address] Medications No known medications Problems No known problems
== END 2025-08-04 10:28 | disposition home or self-care (01) ==
LOC: HO.HMCC 08:58
PROVIDERS: PCP Internal Medicine; Visit Provider Internal Medicine
DX: E11.65 Type 2 diabetes mellitus with hyperglycemia (principal)

== ENCOUNTER → 2025-08-04 08:57 | Outpatient (BNVA) | payer OTHER, SELFPAY | PROVIDERS: PCP Internal Medicine; Visit Provider Internal Medicine | DX: E11.9 Type 2 diabetes mellitus without complications (principal); E78.2 Mixed hyperlipidemia; K40.90 Unilateral inguinal hernia, without obstruction or gangrene, not specified as recurrent; D64.9 Anemia, unspecified; K59.00 Constipation, unspecified; Z79.4 Long term (current) use of insulin | CPT/HCPCS: 83036; 99212 ==

== ENCOUNTER 2025-08-11 09:27 | Outpatient (REF) | payer OTHER, SELFPAY ==
--- OUTSIDE RECORDS SUMMARY | 2025-08-11 10:32 | XMS_ITS | Encounter Summary ---
Author Organization [employer] [facility] Address [address] [facility] [address] [place] [address] Care Team Providers Care Farmworker Grain Name Role Phone Unavailable Primary Care Provider [...]
--- OUTSIDE RECORDS SUMMARY | 2025-08-11 10:32 | XMS_ITS | Clinical Summary ---
Author Organization [facility] it Address [address] [place] [address] Care Team Providers Care Roofer Helper Vinyl Coating Name Role Phone Unavailable Primary Care Provider [...] Screening 04/08/2024 Depression Screening 09/16/2024 COVID-19 Vaccine (1 - 2024-2 6 season) 2025 Influenza Vaccine [...]
--- OUTSIDE RECORDS SUMMARY | 2025-08-11 10:33 | XMS_ITS | Clinical Summary ---
Author Organization [employer] Address [address] [facility] [address] [place] [address] Care Team Providers Care Email Marketing Coordinator Name Role Phone Unavailable Primary Care Provider [...]
[2025-08-11 11:41] LABS: Cholesterol 177 mg/dL (<200); HDL Cholesterol 50 mg/dL (>40); Iron 72 mcg/dL (30-160); Percent Iron Saturation 26 % (15-50); Total Iron Binding Capacity 273 mcg/dL (228-428); Triglycerides 199 mg/dL (<150); Unsaturated Iron Binding 201 ug/dL
[2025-08-11 11:43] LABS: Folate 16.7 ng/mL (> or = 4.0); Vitamin B12 579 pg/mL (200-900)
== END 2025-08-11 09:28 | disposition home or self-care (01) ==
LOC: HO.LAB 09:27
PROVIDERS: PCP Internal Medicine; Visit Provider Internal Medicine
DX: E11.65 Type 2 diabetes mellitus with hyperglycemia (principal); E78.2 Mixed hyperlipidemia; D64.9 Anemia, unspecified; R10.9 Unspecified abdominal pain
CPT/HCPCS: 36415; 80061; 82306; 82550; 82607; 82746; 83540